=== PATIENT | male | born 1935 | race Caucasian/White ===

== ENCOUNTER 2020-03-25 13:24 | Inpatient (IN) ==
[2020-03-25] MEDS ORDERED: SODIUM CHLORIDE 0.9% 1000ML 500 ML IV ONE ×2 (13:47→14:49)
--- NOTE | 2020-03-25 13:57 | Emergency Department Note ---
Impression & Plan Weakness, Acute hypotension, Abdominal ascites, Pleural effusion, Cellulitis of elbow ED Provider Note NAME: Lesa TRIANA AGE: 84 SEX: M : 1935 ARRIVES VIA: Walk-In INFORMANT: Patient, ED PROVIDER(S): Rigoberto Rankin DO CHIEF COMPLAINT: Weakness HPI: The patient is an 84-year-old male who presented to the emergency [facility] for an evaluation of generalized weakness. The patient himself complains of left-sided weakness. He states that this began approximately noon or maybe 1230. The patient's history is difficult to ascertain at this time. There was a phone call from the patient's primary care physician office. Apparently he was being evaluated for generalized weakness. The patient has had similar symptoms recently. The patient is also being treated for a wound on his right elbow. His son called him and states that he was told to go for an evaluation because of a possible infection on the right elbow. The patient denies having any fevers or chills. He denies having any coughing. He does complain of lower abdominal pain. He states this is been ongoing for approximately 1 week. He denies having any diarrhea or GI bleeding. The patient states he is very weak and has difficulty ambulating. He has pain in both lower extremities. ROS: See above HPI for pertinent positives & negatives. A total of 10 systems reviewed and were otherwise negative. PAST MEDICAL HISTORY: See Below PAST SURGICAL HISTORY: See Below FAMILY HISTORY: See Below SOCIAL HISTORY: See Below HOME MEDICATIONS: See Below ALLERGIES: See Below VITALS: See Below PHYSICAL EXAMINATION: GENERAL: The patient is listless and slow to respond to questioning. He does not appear to be uncomfortable or in pain at this time. EYES: The conjunctivae are clear. The pupils are round and reactive. Right periorbital ecchymosis was noted. EARS, NOSE, MOUTH AND THROAT: The nose is without any evidence of any deformity. Mucous membranes are dry. NECK: The neck is nontender and supple. RESPIRATORY: Shallow respirations were noted. Lung sounds were clear in the upper lung mason. There were diminished breath sounds noted at the bases right greater than left. Rales were noted at the right base. CARDIOVASCULAR: Regular rate and rhythm noted there no murmurs rubs or gallops normal S1 normal S2. GASTROINTESTINAL: Abdomen was mildly distended but soft. There is significant lower abdominal tenderness to palpation but no guarding or rigidity. MUSCULOSKELETAL/EXTREMITIES: There is no evidence of gross deformity full range of motion is noted in the hips and shoulders. SKIN: Pedal edema was noted bilaterally. There is a skin tear with a wound dressing in place on the right elbow. NEUROLOGIC: The patient is awake and oriented to person place and situation. There is no drift in the upper extremities. Golf Ball Trimmer strength is symmetric. The patient speech is pressured and slow. MEDICAL DECISION MAKING: The patient is an 84-year-old male who presented to the emergency department for generalized weakness. The patient describes left-sided weakness which he has been experiencing since this afternoon. He does not appear to have a focal neurologic deficit on my physical exam and was found to be hypotensive. The patient's son states that they were going to see his primary care physician, Dr. Garibay but were instead instructed to come to the emergency department because of the degree the patient's symptomatology. The patient has a right elbow infection which recently had a culture positive for Pseudomonas. The patient was hypotensive and treated with IV fluids. He was also treated with IV antibiotics. I discussed the patient's laboratory and radiographic studies with him as well as his son. At this time I feel the patient may require further inpatient management because the findings on CAT scan specifically the ascites as well as pleural effusions. These do not appear to be previously known diagnoses. I will [facility] Triage Nursing notes reviewed. Prior medical records reviewed Vital Signs: reviewed and remarkable for hypotension initially. Differential diagnosis: Infection, dehydration, metabolic abnormality, hypo/hyperglycemia, electrolyte disturbance, anemia, hypoxia, cardiac sources, intracerebral event, toxicologic, neurologic, as well as other pathologies. ER treatment provided: See below Diagnostics interpreted by me: ECG: EKG was obtained in the emergency department. My interpretation is ventricular paced rhythm at 60 bpm. There were no [place] beats. There was a right bundle branch pattern reflected. This was compared to a tracing from March 18, 2020. There was no significant change although on the previous tracing some [place] beats were noted. Cardiac Monitoring: An order was placed for continuous cardiac monitoring. The monitor shows a rate of 65 with paced rhythm. Laboratory studies: As stated above and show below. Imaging studies: See below Consultation(s): 1544: Dr. Crowe, the [place] hospitalist was notified about the patient in the emergency department. ED COURSE: 1540: I discussed the patient's condition with his son, Jesus. At this time his son is unaware of any previous liver history such as ascites cirrhosis or pleural effusion. I discussed the patient's laboratory and radiographic studies with his son. Past Med/Surg History Medical History Atrial fibrillation (Acute) HX. Pacemaker placed 05/16/19. Recently moved to [place] to live with h is son, and will be establishing with [facility] cardiology after surgery. Avulsion of skin (Inactive) Bladder neck contracture BPH loc w urin obs/LUTS Candidiasis of mouth and esophagus CHI (closed head injury) (Inactive) Closed fracture nasal bone (Inactive) Contusion (Inactive) Difficulty swallowing 2/2 thrush GERD (gastroesophageal reflux disease) Gross hematuria Xarelto d/c'd 08/2019 because of this. Helicobacter pylori (H. pylori) Sleep apnea Using CPAP HS. Currently has possible thrush in throat 2/2 CPAP. 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 Currently on trial of Sinemet to see if it improves. Urinary retention Valvular heart disease Surgical History History of colonoscopy History of esophagogastroduodenoscopy (EGD) History of knee replacement Pacemaker [facility]. PLACED 03/2019 [facility]-USED TO F/U AT [facility]-MOVED TO LIVE WITH SON 08/2019 S/P cataract surgery S/P TURP (transurethral resection of prostate) Family History Sister Colorectal cancer Breast cancer Parkinson disease Son Family history of diabetes mellitus Mother , age 83 of a stroke Stroke Father , age 89 of black Lung Heart disease Denies family history of Ovarian cancer Prostate cancer Crohn's disease Myocardial infarction Ulcerative colitis Social History Preferred Language: Uzbek Communication Ability: Effective Visual Impairment: Partially Limited Hearing Ability: Use of Hearing Aid Replacer Required: No Beliefs That Will Affect Care: None marital status: / Current Living Situation: Family Current Living Situation Comment: LIVES WITH SON/DAUGHTER IN LAW SINCE 08/2019 current occupational status: retired 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 Feels Safe at Home: Yes Smoking Status: Former smoker Tobacco Type: cigarettes and smokeless tobacco ; Number of Years Since Quit: 50 ; Second Hand Exposure: No ; Hx Alcohol Use: No Hx Substance Use: No Childhood Exposure to Second-Hand Smoke: Yes caffeine: Yes during the past year weight has: decreased > 10 lbs Dental Care, Regularly: No Allergies Allergies Allergy/AdvReac Type Severity Reaction Status Date / Time clindamycin Allergy Intermediate Rash Verified 03/24/20 09:00 acetaminophen [From Vicodin] AdvReac Intermediate Racing Verified 03/24/20 09:00 Heart ciprofloxacin [From Cipro] AdvReac Intermediate Blurry Verified 03/24/20 09:00 Vision hydrocodone [From Vicodin] AdvReac Intermediate Racing Verified 03/24/20 09:00 Heart oxycodone AdvReac Intermediate Heart Races Verified 03/24/20 09:00 tramadol [From Ultram] AdvReac Intermediate Profuse Verified 03/24/20 09:00 Sweating doxycycline AdvReac Mild "Burning Verified 03/24/20 09:00 Stomach" Penicillins AdvReac Mild "Hairy Verified 03/24/20 09:00 tongue" propoxyphene AdvReac Unknown "Just do Verified 03/24/20 09:00 [From Darvocet-N] not want pain medications" Home Meds Home Medications Medication Instructions Recorded Confirmed PreserVision AREDS 1 tab PO AMPM 09/19/19 03/25/20 simethicone [Gas-X Extra Strength] 125 mg PO TIDM PRN 09/19/19 03/25/20 polyethylene glycol 3350 17 8.5 gm PO DAILY PRN 10/16/19 03/25/20 gram/dose oral powder lubiprostone [Amitiza] 24 mcg PO BID 12/29/19 03/25/20 diphenhydramine HCl [Benadryl] 25 mg PO HS 03/03/20 03/25/20 rivaroxaban 20 mg tablet 20 mg PO DAILY 03/22/20 03/25/20 Previous Rx's Medication Instructions Recorded tamsulosin 0.4 mg capsule 0.4 mg PO BID #180 cap 01/18/20 finasteride 5 mg tablet 5 mg PO QAM #90 tab 01/28/20 lisinopril 30 mg tablet 30 mg PO QAM #90 tab 01/28/20 furosemide 20 mg tablet 20 mg PO BID #60 tab 03/11/20 alprazolam 1 mg tablet 1 mg PO TID #30 tab 03/24/20 sertraline 50 mg tablet 50 mg PO QAM #30 tab 03/24/20 Results & Data (ED) Vital Signs Vital Signs - 24 hr 03/25/20 13:26 03/25/20 13:51 03/25/20 13:52 Temperature Source Oral Pulse Rate 60 60 Pulse Rate [Apical] Pulse Rate from SpO2 Sensor 60 Pulse Rhythm [Apical] Respiratory Rate 18 12 Respiratory Effort / Characteristics Non-Labored Respiratory Depth Normal Blood Pressure 109/57 L 92/65 L Blood Pressure [Left Arm] Blood Pressure Mean 74 71 Blood Pressure Mean [Left Arm] Blood Pressure Position Sitting Blood Pressure Position [Left Arm] Pulse Oximetry 99 89 L 97 Oxygen Delivery Method Room Air Room Air Nasal Cannula Oxygen Flow Rate 3 Sepsis Recent Fever Within 48 Hours No Sepsis Action Taken by Nursing No Action Required Oxygen Flow Rate - Titration 3 Pulse Oximetry Post Tiitration 97 03/25/20 14:00 03/25/20 14:30 03/25/20 14:40 Temperature Source Pulse Rate 60 62 Pulse Rate [Apical] 61 Pulse Rate from SpO2 Sensor 60 62 Pulse Rhythm [Apical] Regular Respiratory Rate 18 18 18 Respiratory Effort / Characteristics Non-Labored Spontaneous Respiratory Depth Normal Blood Pressure 96/67 L Blood Pressure [Left Arm] 100/71 Blood Pressure Mean 72 Blood Pressure Mean [Left Arm] 80 Blood Pressure Position Blood Pressure Position [Left Arm] Lying Pulse Oximetry 97 100 96 Oxygen Delivery Method Nasal Cannula Nasal Cannula Oxygen Flow Rate 3 3 Sepsis Recent Fever Within 48 Hours Sepsis Action Taken by Nursing Oxygen Flow Rate - Titration Pulse Oximetry Post Tiitration 03/25/20 14:45 03/25/20 14:50 03/25/20 15:00 Temperature Source Pulse Rate 60 60 Pulse Rate [Apical] 60 Pulse Rate from SpO2 Sensor 60 60 Pulse Rhythm [Apical] Regular Respiratory Rate 13 0 L 18 Respiratory Effort / Characteristics Non-Labored Spontaneous Respiratory Depth Normal Blood Pressure 108/72 103/85 Blood Pressure [Left Arm] 108/72 Blood Pressure Mean 80 91 Blood Pressure Mean [Left Arm] 84 Blood Pressure Position Blood Pressure Position [Left Arm] Pulse Oximetry 98 98 97 Oxygen Delivery Method Nasal Cannula Nasal Cannula Oxygen Flow Rate 3 3 Sepsis Recent Fever Within 48 Hours Sepsis Action Taken by Nursing Oxygen Flow Rate - Titration Pulse Oximetry Post Tiitration 03/25/20 15:15 03/25/20 15:30 Temperature Source Pulse Rate 60 60 Pulse Rate [Apical] Pulse Rate from SpO2 Sensor 60 60 Pulse Rhythm [Apical] Respiratory Rate 12 11 L Respiratory Effort / Characteristics Respiratory Depth Blood Pressure 119/78 115/80 Blood Pressure [Left Arm] Blood Pressure Mean 82 89 Blood Pressure Mean [Left Arm] Blood Pressure Position Blood Pressure Position [Left Arm] Pulse Oximetry 100 97 Oxygen Delivery Method Nasal Cannula Nasal Cannula Oxygen Flow Rate 2 2 Sepsis Recent Fever Within 48 Hours Sepsis Action Taken by Nursing Oxygen Flow Rate - Titration Pulse Oximetry Post Tiitration Home Medications Current Medication List: was personally reviewed by me Laboratory Data Attestation: I reviewed the patient's lab results. Result diagrams: 03/25/20 13:52 03/25/20 13:52 Lab Results 03/25/20 03/25/20 03/25/20 Range/Units 13:44 13:51 13:52 WBC 4.74 L (4.8-10.8) K/uL RBC 3.33 L (4.7-6.1) M/uL Hgb 9.5 L (14.0-18.0) g/dL POC Hgb 10.2 L (14.0-18.0) g/dl Hct 29.1 L (42-52) % POC Hct 30 L (42-52) % MCV 87.4 (80-100) fL MCH 28.5 (25-34) pg MCHC 32.6 (32-36) g/dL RDW Std Deviation 58.6 H (36.4-46.3) fL RDW Coeff of Sharona 19.0 H (11.5-14.5) % Plt Count 113 L (130-400) K/uL MPV 10.8 H (7.4-10.4) fL Immature Gran % (Auto) 0.0 % Neut % (Auto) 73.8 % Lymph % (Auto) 17.7 % [place] % (Auto) 6.8 % Eos % (Auto) 1.1 % Baso % (Auto) 0.6 % Immature Gran # (Auto) 0.00 (0.00-0.02) K/uL Neut # (Auto) 3.50 (1.4-6.5) K/uL Lymph # (Auto) 0.84 L (1.2-3.4) K/uL [place] # (Auto) 0.32 (0.11-0.59) K/uL Eos # (Auto) 0.05 (0-0.5) K/uL Baso # (Auto) 0.03 (0-0.2) K/uL Giant Platelets 1+ Hypochromasia Present Echinocytes 1+ Acanthocytes (Spur) 1+ PT (9.0-12.0) Seconds INR (0.9-1.1) APTT (21.0-31.0) Seconds PTT Ratio VBG pH (7.36-7.41) VBG pCO2 (38-50) mmHg VBG pO2 mmHg VBG HCO3 mmol/L VBG O2 Saturation % VBG Base Excess mEq/L Barometric Pressure mm/Hg POC Sodium 139 (135-144) mmol/L Sodium (136-145) mmol/L POC Potassium 4.6 (3.3-5.0) mmol/L Potassium (3.5-5.1) mmol/L POC Chloride 105 (101-112) mmol/L Chloride (98-107) mmol/L Carbon Dioxide (21-32) mmol/L POC Total CO2 23 L (24-31) mEq/l Anion Gap (3-11) POC Anion Gap 17.0 (16-25) mmol/L POC BUN 51 H (7-18) mg/dl BUN (7-18) mg/dl Creatinine (0.6-1.4) mg/dl POC Creatinine 1.3 (0.6-1.3) mg/dl Est Cr Clr Drug Dosing ml/min Est GFR ( Amer) Est GFR (Non-Af Amer) BUN/Creatinine Ratio (10-20) Glucose (70-99) mg/dl POC Glucose (other) 86 (70-99) mg/dl Lactate 2.8 H* (0.4-2.0) mmol/L Calcium (8.5-10.1) mg/dl POC Ioniz Calcium Natasha 1.21 (1.12-1.32) mmol/l Magnesium (1.8-2.4) mg/dl Total Bilirubin (0.2-1) mg/dl AST (15-37) U/L ALT (12-78) U/L Alkaline Phosphatase (45-117) U/L Troponin I (0-0.045) ng/ml Total Protein (6.4-8.2) gm/dl Albumin (3.4-5.0) gm/dl Globulin (2.5-4.0) gm/dl Albumin/Globulin Ratio (0.9-2) Procalcitonin (0-0.5) ng/ml Urine Color Urine Appearance (Clear) Urine pH (4.5-7.5) Ur Specific [place] (1.000-1.030) Urine Protein (Negative) Urine Glucose (UA) (Negative) Urine Ketones (Negative) Urine Blood (Negative) Urine Nitrite (Negative) Urine Bilirubin (Negative) Urine Urobilinogen (Negative) Ur Leukocyte Esterase (Negative) Urine WBC (Auto) (0-5) /hpf Urine RBC (Auto) (0-4) /hpf U Hyaline Cast (Auto) (0-5) /lpf U Epithel Cells (Auto) (0-5) /lpf Urine Bacteria (Auto) (Negative) 03/25/20 03/25/20 03/25/20 Range/Units 13:52 13:52 13:52 WBC (4.8-10.8) K/uL RBC (4.7-6.1) M/uL Hgb (14.0-18.0) g/dL POC Hgb (14.0-18.0) g/dl Hct (42-52) % POC Hct (42-52) % MCV (80-100) fL MCH (25-34) pg MCHC (32-36) g/dL RDW Std Deviation (36.4-46.3) fL RDW Coeff of Sharona (11.5-14.5) % Plt Count (130-400) K/uL MPV (7.4-10.4) fL Immature Gran % (Auto) % Neut % (Auto) % Lymph % (Auto) % [place] % (Auto) % Eos % (Auto) % Baso % (Auto) % Immature Gran # (Auto) (0.00-0.02) K/uL Neut # (Auto) (1.4-6.5) K/uL Lymph # (Auto) (1.2-3.4) K/uL [place] # (Auto) (0.11-0.59) K/uL Eos # (Auto) (0-0.5) K/uL Baso # (Auto) (0-0.2) K/uL Giant Platelets Hypochromasia Echinocytes Acanthocytes (Spur) PT 14.2 H (9.0-12.0) Seconds INR 1.4 H (0.9-1.1) APTT 33.3 H (21.0-31.0) Seconds PTT Ratio 1.2 VBG pH (7.36-7.41) VBG pCO2 (38-50) mmHg VBG pO2 mmHg VBG HCO3 mmol/L VBG O2 Saturation % VBG Base Excess mEq/L Barometric Pressure mm/Hg POC Sodium (135-144) mmol/L Sodium 139 (136-145) mmol/L POC Potassium (3.3-5.0) mmol/L Potassium 4.6 (3.5-5.1) mmol/L POC Chloride (101-112) mmol/L Chloride 107 (98-107) mmol/L Carbon Dioxide 24 (21-32) mmol/L POC Total CO2 (24-31) mEq/l Anion Gap 8.0 (3-11) POC Anion Gap (16-25) mmol/L POC BUN (7-18) mg/dl BUN 57 H (7-18) mg/dl Creatinine 1.37 (0.6-1.4) mg/dl POC Creatinine (0.6-1.3) mg/dl Est Cr Clr Drug Dosing 36.2 ml/min Est GFR ( Amer) 53.7 Est GFR (Non-Af Amer) 46.4 BUN/Creatinine Ratio 41.4 H (10-20) Glucose 84 (70-99) mg/dl POC Glucose (other) (70-99) mg/dl Lactate (0.4-2.0) mmol/L Calcium 8.8 (8.5-10.1) mg/dl POC Ioniz Calcium Natasha (1.12-1.32) mmol/l Magnesium 2.6 H (1.8-2.4) mg/dl Total Bilirubin 0.6 (0.2-1) mg/dl AST 35 (15-37) U/L ALT 35 (12-78) U/L Alkaline Phosphatase 80 (45-117) U/L Troponin I < 0.015 (0-0.045) ng/ml Total Protein 6.8 (6.4-8.2) gm/dl Albumin 3.3 L (3.4-5.0) gm/dl Globulin 3.5 (2.5-4.0) gm/dl Albumin/Globulin Ratio 1.0 (0.9-2) Procalcitonin < 0.05 (0-0.5) ng/ml Urine Color Urine Appearance (Clear) Urine pH (4.5-7.5) Ur Specific [place] (1.000-1.030) Urine Protein (Negative) Urine Glucose (UA) (Negative) Urine Ketones (Negative) Urine Blood (Negative) Urine Nitrite (Negative) Urine Bilirubin (Negative) Urine Urobilinogen (Negative) Ur Leukocyte Esterase (Negative) Urine WBC (Auto) (0-5) /hpf Urine RBC (Auto) (0-4) /hpf U Hyaline Cast (Auto) (0-5) /lpf U Epithel Cells (Auto) (0-5) /lpf Urine Bacteria (Auto) (Negative) 03/25/20 03/25/20 Range/Units 13:52 14:35 WBC (4.8-10.8) K/uL RBC (4.7-6.1) M/uL Hgb (14.0-18.0) g/dL POC Hgb (14.0-18.0) g/dl Hct (42-52) % POC Hct (42-52) % MCV (80-100) fL MCH (25-34) pg MCHC (32-36) g/dL RDW Std Deviation (36.4-46.3) fL RDW Coeff of Sharona (11.5-14.5) % Plt Count (130-400) K/uL MPV (7.4-10.4) fL Immature Gran % (Auto) % Neut % (Auto) % Lymph % (Auto) % [place] % (Auto) % Eos % (Auto) % Baso % (Auto) % Immature Gran # (Auto) (0.00-0.02) K/uL Neut # (Auto) (1.4-6.5) K/uL Lymph # (Auto) (1.2-3.4) K/uL [place] # (Auto) (0.11-0.59) K/uL Eos # (Auto) (0-0.5) K/uL Baso # (Auto) (0-0.2) K/uL Giant Platelets Hypochromasia Echinocytes Acanthocytes (Spur) PT (9.0-12.0) Seconds INR (0.9-1.1) APTT (21.0-31.0) Seconds PTT Ratio VBG pH 7.34 L (7.36-7.41) VBG pCO2 48 (38-50) mmHg VBG pO2 34 mmHg VBG HCO3 25 mmol/L VBG O2 Saturation < 60.0 % VBG Base Excess -0.8 mEq/L Barometric Pressure 727.5 mm/Hg POC Sodium (135-144) mmol/L Sodium (136-145) mmol/L POC Potassium (3.3-5.0) mmol/L Potassium (3.5-5.1) mmol/L POC Chloride (101-112) mmol/L Chloride (98-107) mmol/L Carbon Dioxide (21-32) mmol/L POC Total CO2 (24-31) mEq/l Anion Gap (3-11) POC Anion Gap (16-25) mmol/L POC BUN (7-18) mg/dl BUN (7-18) mg/dl Creatinine (0.6-1.4) mg/dl POC Creatinine (0.6-1.3) mg/dl Est Cr Clr Drug Dosing ml/min Est GFR ( Amer) Est GFR (Non-Af Amer) BUN/Creatinine Ratio (10-20) Glucose (70-99) mg/dl POC Glucose (other) (70-99) mg/dl Lactate (0.4-2.0) mmol/L Calcium (8.5-10.1) mg/dl POC Ioniz Calcium Natasha (1.12-1.32) mmol/l Magnesium (1.8-2.4) mg/dl Total Bilirubin (0.2-1) mg/dl AST (15-37) U/L ALT (12-78) U/L Alkaline Phosphatase (45-117) U/L Troponin I (0-0.045) ng/ml Total Protein (6.4-8.2) gm/dl Albumin (3.4-5.0) gm/dl Globulin (2.5-4.0) gm/dl Albumin/Globulin Ratio (0.9-2) Procalcitonin (0-0.5) ng/ml Urine Color Yellow Urine Appearance Clear (Clear) Urine pH 5.0 (4.5-7.5) Ur Specific [place] 1.024 (1.000-1.030) Urine Protein Negative (Negative) Urine Glucose (UA) Negative (Negative) Urine Ketones Negative (Negative) Urine Blood Negative (Negative) Urine Nitrite Negative (Negative) Urine Bilirubin Negative (Negative) Urine Urobilinogen Negative (Negative) Ur Leukocyte Esterase Trace H (Negative) Urine WBC (Auto) 1-5 (0-5) /hpf Urine RBC (Auto) 0-4 (0-4) /hpf U Hyaline Cast (Auto) 5-10 H (0-5) /lpf U Epithel Cells (Auto) 10-20 H (0-5) /lpf Urine Bacteria (Auto) Negative (Negative) Administered Medications Ioversol (Optiray 320 100ml) 94 ml IV ONCE PRN PRN Reason: Interaction Checking Stop: 03/29/20 14:20 Last Admin: 03/25/20 14:21 Dose: 94 ml Documented by: [id number] Discontinued Medications Sodium Chloride (Nss 1000ml) 500 mls @ 999 mls/hr IV .Q31M ONE Stop: 03/25/20 14:17 Last Infusion: 03/25/20 14:51 Dose: 0 mls/hr Documented by: [id number] Admin: 03/25/20 14:20 Dose: 999 mls/hr Documented by: [id number] Sodium Chloride (Nss 1000ml) 500 mls @ 999 mls/hr IV .Q31M ONE Stop: 03/25/20 15:19 Last Admin: 03/25/20 14:51 Dose: 999 mls/hr Documented by: [id number] Imaging Data Radiologist's Impression: CERVICAL SPINE CT CT DOSE: 1565.25 mGy.cm HISTORY: Fall. Neck pain. TECHNIQUE: Multiaxial CT images of the cervical spine were performed and reformatted in the sagittal and coronal plane without the use of contrast. A dose lowering technique was utilized adhering to the principles of ALARA. COMPARISON: Cervical spine CT 03/03/2020. FINDINGS: No fractures. No subluxation. Prevertebral soft tissues and the C1-C2 interval are intact. No pneumothorax. Moderate to severe facet degenerative changes throughout the cervical spine. Moderate disc space narrowing at C6-C7. IMPRESSION: No fractures within the cervical spine. ACT 112: Negative or not required by law. Electronically signed by: Robbin Mills M.D. 03/25/2020 2:41 PM Dictated: 03/25/20 1436 Transcribed: 03/25/[address] DOSE: HISTORY: left sidedweakness TECHNIQUE: Multiaxial CT images of the head were performed without the use of intravenous contrast. Automated exposure control was utilized for this study. A dose lowering technique was utilized adhering to the principles of ALARA. Comparison: Head CT 03/18/2020. Findings: Trace right mastoid effusion, unchanged. The paranasal sinuses and left mastoid air cells are clear. The calvarium and skull base are intact. There is no mass, hematoma, midline shift, acute infarct. White matter hypodensity is nonspecific but suggestive of microvascular ischemic change. The ventricles and sulci demonstrate mild age-related involutional changes. Impression: No significant change compared to the prior study. No acute intracranial abn ormality. ACT 112: Negative or not required by law. Electronically signed by: Robbin Mills M.D. 03/25/2020 2:49 PM Dictated: 03/25/20 1435 Transcribed: 03/25/20 1435 R chest 1V portable HISTORY: 84 years-old Male SEPSIS acute sepsis COMPARISON: Chest radiograph 03/18/2020, CT abdomen and pelvis 03/25/2020 TECHNIQUE: Portable AP view of the chest FINDINGS: Cardiac silhouette is enlarged, unchanged. Right greater than left pleural effusions and bibasilar opacities are noted without pneumothorax. Pulmonary vascular congestion. Single lead left subclavian pacer is unchanged. Degenerative changes of the shoulders and spine. IMPRESSION: 1. Cardiomegaly with pulmonary vascular congestion. 2. Small bilateral pleural effusions with bibasilar opacities, right greater than left. Findings are suggestive of atelectasis with pneumonitis considered less likely. ACT 112: Negative or not required by law. The above report was generated using voice recognition software. It may contain grammatical, syntax or spelling errors. Electronically signed by: Paul Nielson M.D. 03/25/2020 3:27 PM Dictated: 03/25/20 1526 Transcribed: 03/25/[address] WITH IV CONTRAST HISTORY: Acute left-sided weakness status post fall. PAIN TECHNIQUE: Multiaxial CT images of the abdomen and pelvis were performed following the IV administration of 94 cc of Optiray 320, A dose lowering technique was utilized adhering to the principles of ALARA. COMPARISON STUDY: Chest radiograph of same day FINDINGS: Moderate cardiomegaly with extensive coronary artery calcifications. Partially imaged pacer leads overlie the right ventricle. Small left and small to moderate right pleural effusions. There are equivocal areas of pleural thickening/nodularity of the lung bases (please see image 72 of series 7 and image 40 of series 7) which may be secondary to underlying vessels. Dependent bibasilar groundglass and consolidative opacities with bronchial wall thickenin g. No pneumatosis or pneumoperitoneum. Heterogeneous appearance of the spleen is likely secondary to arterial phase. Heterogeneous appearance of the liver with marginal nodularity. There is an ill-defined area of decreased attenuation and heterogeneity involving the right hepatic with adjacent subcapsular retraction. Moderate abdominal pelvic ascites. Mild generalized pancreatic atrophy. Mild thickening of the adrenal glands. Mild gallbladder wall thickening is likely secondary to fluid overload status. Nonspecific bilateral perinephric stranding. There is a 1.6 x 1.5 cm indeterminate lesion involving the lateral inferolateral pole of the right kidney on image 246 series 7. Indeterminate soft tissue density 10 mm lesion of the anterior interpolar right kidney. Wall thickening of the bladder with perivesicular stranding. Mild prostamegaly. Moderate to extensive mixed plaque of the abdominal aorta without aneurysm. No definite adenopathy. There is no small bowel obstruction. Mild to moderate generalized pancreatic atrophy. Unremarkable appendix. Anasarca. Degenerative changes of the spine, pelvis and hips. No definite acute fracture. IMPRESSION: 1. Cirrhotic liver disease with moderate abdominal pelvic ascites, right greater than left pleural effusions and anasarca. 2. There are two indeterminate lesions of the right kidney, largest of which measures up to 1.6 cm. A follow-up nonemergent CT renal protocol study may be considered to exclude renal cell carcinoma. 3. No acute fracture or posttraumatic abnormality identified. 4. Mild prostamegaly with urinary bladder wall thickening suggestive of chronic bladder outlet obstruction. Correlate with urinalysis to exclude cystitis. 5. No bowel obstruction. 6. Additional findings as above. ACT 112: Negative or not required by law. The above report was generated using voice recognition software. It may contain grammatical, syntax or spelling errors. Electronically signed by: Paul Nielson M.D. 03/25/2020 2:56 PM Dictated: 03/25/20 1440 Transcribed: 03/25/20 1441 Blood Pressure Blood Pressure Findings: Low blood pressure Discharge Plan Visit Data Chief Complaint: Neuro Symptoms/Deficit Stated Complaint: DIFFICULTY WALKING, SLURRED SPEECH ED Provider: Rigoberto Rankin Discharge Problem: Weakness, Acute hypotension, Abdominal ascites, Pleural effusion, Cellulitis of elbow Patient Disposition: Being Evaluated by Hospitalist Condition: Good Forms Stand Alone Forms: [facility] [employer] Prescriptions Prescriptions: No Action Xarelto 20 mg tablet 20 mg PO DAILY RF: 0 tamsulosin [Flomax] 0.4 mg capsule 0.4 mg PO BID Qty: 180 RF: 1 furosemide 20 mg tablet 20 mg PO BID Qty: 60 RF: 2 alprazolam [Xanax] 1 mg tablet 1 mg PO TID Qty: 30 RF: 0 sertraline 50 mg tablet 50 mg PO QAM Qty: 30 RF: 5 lisinopril 30 mg tablet 30 mg PO QAM Qty: 90 RF: 3 finasteride [Proscar] 5 mg tablet 5 mg PO QAM Qty: 90 RF: 3 polyethylene glycol 3350 [Miralax] 17 gram/dose powder 8.5 gm PO DAILY PRN (Reason: Constipation) RF: 0 simethicone [Gas-X Extra Strength] 125 mg Capsule 125 mg PO TIDM PRN (Reason: GAS/BLOATING) RF: 0 PreserVision AREDS [id number] Tablet 1 tab PO AMPM RF: 0 Amitiza 24 mcg Capsule 24 mcg PO BID RF: 0 diphenhydramine HCl [Benadryl] 25 mg Capsule 25 mg PO HS RF: 0 Referrals Referrals: Josue Garibay DO [Primary Care Provider] - Discharge Problem: Abdominal ascites Qualifiers: Ascites type: other type Qualified Code(s): R18.8 - Other ascites
[2020-03-25 14:03] LABS: iSTAT Creatinine 1.3 mg/dl (0.6-1.3); iSTAT Hemoglobin 10.2 g/dl (14.0-18.0); iSTAT Ionized Calcium 1.21 mmol/l (1.12-1.32); iSTAT Potassium 4.6 mmol/L (3.3-5.0)
[2020-03-25 14:04] LABS: Basophils # (auto) 0.03 K/uL (0-0.2); Basophils % (auto) 0.6 %; Eosinophils # (auto) 0.05 K/uL (0-0.5); Eosinophils % (auto) 1.1 %; Hematocrit (blood only) 29.1 % (42-52); Hemoglobin 9.5 g/dL (14.0-18.0); Lymphocytes # (auto) 0.84 K/uL (1.2-3.4); Lymphocytes % (auto) 17.7 %; Mean Corpuscular Hemoglobin 28.5 pg (25-34); Mean Corpuscular Hgb Conc 32.6 g/dL (32-36); Mean Corpuscular Volume 87.4 fL (80-100); Mean Platelet Volume 10.8 fL (7.4-10.4); Monocytes # (auto) 0.32 K/uL (0.11-0.59); Monocytes % (auto) 6.8 %; Neutrophils % (auto) 73.8 %; Platelet Count 113 K/uL (130-400); RDW Standard Deviation 58.6 fL (36.4-46.3); Red Blood Count 3.33 M/uL (4.7-6.1); White Blood Count 4.74 K/uL (4.8-10.8)
[2020-03-25 14:06] LABS: Base Excess VBG -0.8 mEq/L; HCO3 VBG 25 mmol/L; PCO2 VBG 48 mmHg (38-50); PO2 VBG 34 mmHg; pH VBG 7.34 (7.36-7.41)
[2020-03-25 14:07] LABS: Oxygen Saturation VBG < 60.0 %
[2020-03-25 14:18] LABS: Alanine Aminotransferase 35 U/L (12-78); Albumin Level 3.3 gm/dl (3.4-5.0); Aspartate Aminotransferase 35 U/L (15-37); BUN Creatinine Ratio 41.4 (10-20); Blood Urea Nitrogen 57 mg/dl (7-18); Calcium 8.8 mg/dl (8.5-10.1); Carbon Dioxide 24 mmol/L (21-32); Chloride 107 mmol/L (98-107); Creatinine Clr Calc Pharmacy 36.2 ml/min; Est GFR (African American) 53.7; Est GFR (Non-African American) 46.4; Glucose 84 mg/dl (70-99); Magnesium 2.6 mg/dl (1.8-2.4); Potassium 4.6 mmol/L (3.5-5.1); Sodium 139 mmol/L (136-145)
[2020-03-25 14:21] LABS: INR 1.4 (0.9-1.1); Partial Thromboplastin Ratio 1.2; Partial Thromboplastin Time 33.3 Seconds (21.0-31.0); Prothrombin Time 14.2 Seconds (9.0-12.0)
[2020-03-25] MEDS ORDERED: IOVERSOL 100ml IV PRN (14:21)
[2020-03-25 14:23] LABS: Alkaline Phosphatase 80 U/L (45-117); Bilirubin,Total 0.6 mg/dl (0.2-1); Globulin 3.5 gm/dl (2.5-4.0); Total Protein 6.8 gm/dl (6.4-8.2); Troponin I < 0.015 ng/ml (0-0.045)
[2020-03-25 14:34] LABS: Acanthocytes 1+; Echinocytes 1+; Giant Platelets 1+; Hypochromasia Present
--- NOTE | 2020-03-25 14:36 | CT Scan Report ---
HEAD CT NONCONTRAST CT DOSE: HISTORY: left sidedweakness TECHNIQUE: Multiaxial CT images of the head were performed without the use of intravenous contrast. A utomated exposure control was utilized for this study. A dose lowering technique was utilized adheri ng to the principles of ALARA. Comparison: Head CT 03/18/2020. Findings: Trace right mastoid effusion, unchanged. The paranasal sinuses and left mastoid air cells a re clear. The calvarium and skull base are intact. There is no mass, hematoma, midline shift, acute i nfarct. White matter hypodensity is nonspecific but suggestive of microvascular ischemic change. The ventricles and sulci demonstrate mild age-related involutional changes. Impression: No significant change compared to the prior study. No acute intracranial abnormality. ACT 112: Negative or not required by law. Electronically signed by: Robbin Mills M.D. 03/25/2020 2:49 PM
--- NOTE | 2020-03-25 14:42 | CT Scan Report ---
CERVICAL SPINE CT CT DOSE: 1565.25 mGy.cm HISTORY: Fall. Neck pain. TECHNIQUE: Multiaxial CT images of the cervical spine were performed and reformatted in the sagittal and coronal plane without the use of contrast. A dose lowering technique was utilized adhering to e principles of ALARA. COMPARISON: Cervical spine CT 03/03/2020. FINDINGS: No fractures. No subluxation. Prevertebral soft tissues and the C1-C2 interval are intact. No pneumothorax. Moderate to severe facet degenerative changes throughout the cervical spine. Moderat e disc space narrowing at C6-C7. IMPRESSION: No fractures within the cervical spine. ACT 112: Negative or not required by law. Electronically signed by: Robbin Mills M.D. 03/25/2020 2:41 PM
--- NOTE | 2020-03-25 14:57 | CT Scan Report ---
ABDOMEN AND PELVIS CT WITH IV CONTRAST HISTORY: Acute left-sided weakness status post fall. PAIN TECHNIQUE: Multiaxial CT images of the abdomen and pelvis were performed following the IV administrat ion of 94 cc of Optiray 320, A dose lowering technique was utilized adhering to the principles of AL EFRA. COMPARISON STUDY: Chest radiograph of same day FINDINGS: Moderate cardiomegaly with extensive coronary artery calcifications. Partially imaged pacer leads ove rlie the right ventricle. Small left and small to moderate right pleural effusions. There are equivoc al areas of pleural thickening/nodularity of the lung bases (please see image 72 of series 7 and imag e 40 of series 7) which may be secondary to underlying vessels. Dependent bibasilar groundglass and c onsolidative opacities with bronchial wall thickening. No pneumatosis or pneumoperitoneum. Heterogeneous appearance of the spleen is likely secondary to arterial phase. Heterogeneous appearanc e of the liver with marginal nodularity. There is an ill-defined area of decreased attenuation and he terogeneity involving the right hepatic with adjacent subcapsular retraction. Moderate abdominal pelv ic ascites. Mild generalized pancreatic atrophy. Mild thickening of the adrenal glands. Mild gallblad april wall thickening is likely secondary to fluid overload status. Nonspecific bilateral perinephric stranding. There is a 1.6 x 1.5 cm indeterminate lesion involving t he lateral inferolateral pole of the right kidney on image 246 series 7. Indeterminate soft tissue de nsity 10 mm lesion of the anterior interpolar right kidney. Wall thickening of the bladder with periv esicular stranding. Mild prostamegaly. Moderate to extensive mixed plaque of the abdominal aorta with out aneurysm. No definite adenopathy. There is no small bowel obstruction. Mild to moderate generalized pancreatic atrophy. Unremarkable ap pendix. Anasarca. Degenerative changes of the spine, pelvis and hips. No definite acute fracture. IMPRESSION: 1. Cirrhotic liver disease with moderate abdominal pelvic ascites, right greater than left pleural ef fusions and anasarca. 2. There are two indeterminate lesions of the right kidney, largest of which measures up to 1.6 cm. A follow-up nonemergent CT renal protocol study may be considered to exclude renal cell carcinoma. 3. No acute fracture or posttraumatic abnormality identified. 4. Mild prostamegaly with urinary bladder wall thickening suggestive of chronic bladder outlet obstru ction. Correlate with urinalysis to exclude cystitis. 5. No bowel obstruction. 6. Additional findings as above. ACT 112: Negative or not required by law. The above report was generated using voice recognition software. It may contain grammatical, syntax o r spelling errors. Electronically signed by: Paul Nielson M.D. 03/25/2020 2:56 PM
[2020-03-25 14:58] LABS: Appearance Urine Clear (Clear); Bacteria Urine Automated Negative (Negative); Bilirubin Urine Negative (Negative); Blood Urine Negative (Negative); Color Urine Yellow; Glucose Urine UA Negative (Negative); Ketones Urine Negative (Negative); Leukocyte Esterase Urine Trace (Negative); Nitrite Urine Negative (Negative); Protein Urine Negative (Negative); RBC Urine Automated 0-4 /hpf (0-4); Specific Gravity Urine 1.024 (1.000-1.030); Urobilinogen Urine Negative (Negative)
--- NOTE | 2020-03-25 15:28 | XRay Report ---
XR chest 1V portable HISTORY: 84 years-old Male SEPSIS acute sepsis COMPARISON: Chest radiograph 03/18/2020, CT abdomen and pelvis 03/25/2020 TECHNIQUE: Portable AP view of the chest FINDINGS: Cardiac silhouette is enlarged, unchanged. Right greater than left pleural effusions and bibasilar op acities are noted without pneumothorax. Pulmonary vascular congestion. Single lead left subclavian pa cer is unchanged. Degenerative changes of the shoulders and spine. IMPRESSION: 1. Cardiomegaly with pulmonary vascular congestion. 2. Small bilateral pleural effusions with bibasilar opacities, right greater than left. Findings are suggestive of atelectasis with pneumonitis considered less likely. ACT 112: Negative or not required by law. The above report was generated using voice recognition software. It may contain grammatical, syntax o r spelling errors. Electronically signed by: Paul Nielson M.D. 03/25/2020 3:27 PM
[2020-03-25] MEDS ORDERED: cefTRIAXone SODIUM 1,000 MG/50 ML BAG IV STA (15:32)
[2020-03-25] MEDS ORDERED: LEVOFLOXACIN/D5W 750 MG/150 ML BAG IV STA (15:32)
--- NOTE | 2020-03-25 15:36 | Electrocardiogram Report ---
Test Reason : Blood Pressure : / mmHG Vent. Rate : 060 BPM Atrial Rate : 057 BPM P-R Int : 000 ms QRS Dur : 182 ms QT Int : 510 ms P-R-T Axes : 000 -72 087 degrees QTc Int : 510 ms Ventricular-paced rhythm Abnormal ECG When compared with ECG of 18-MAR-2020 17:13, Vent. rate has decreased BY 4 BPM Confirmed by Rigoberto Clinton ([id number]) on 03/25/2020 3:36:01 PM Referred By: ER Confirmed By:Rigoberto Clinton
--- NOTE | 2020-03-25 15:55 | History & Physical Report ---
Date of Service March 25, 2020 Assessment & Plan (1) Toxic metabolic encephalopathy: Suspected hepatic/uremic/toxic/metabolic encephalopathy. Ammonia pending. Lactulose 20mg PO now. Will determine ongoing regimen if ammonia is elevated. (2) Elevated BUN: Given acuity of this, potentially contributing/causing encephalopathy above. Unclear cause of this however since UA and Cr relatively unremarkable. Hgb normal therefore not suggestive of GI bleed. (3) Weakness: Appears generalized on exam today with no one sided focal neurological deficit. Given patient concern of L > R and prior plan from neurology to get MRI we will obtain this to r/o CVA as a possible cause of his current symptoms. In light of abdominal ascites and liver pathology however I suspect cause is more generalized encephalopathy as above. (4) Hallucinations: None currently as he mainly describes hypnagogic hallucinations. See above management for encephalopathy. Possibly exacerbated by Xanax use although his hallucinations are acute and he has not changed his Xanax dosing recently. QTc 510ms therefore will defer prescribing PRN anti-psychotics and recommend calling provider if this occurs in hospital. If just hypnagogic would avoid anti-psychotic use. (5) Prolonged QT interval: Monitor with serial EKGs, especially on Levaquin. (6) Abnormal CT of liver: Concerning for liver cirrhosis/neoplasm given current and prior imaging. LFTs unremarkable. Plt 133 at baseline. PTINR elevated at 1.4 but possibly from Xarelto use. Albumin 3.3. Noted hepatic mass also present on prior scans. (7) Abdominal ascites: New onset. On Xarelto therefore would need 24 hours off this to perform paracentesis as per Dr Osorio. SBP not suspected as WBC at baseline, no fever/chills or significant abdominal pain therefore do not feel this is emergent. Blood cultures taken in ER. Given weekend tomorrow; plan would be to perform paracentesis on Saturday and hold Xarelto Saturday night unless clinically patient getting worse. Initially given IV fluids in ER due to hypotension but given JVD elevation, anasarca and pleural effusions he appears to be hypervolemic at present therefore given 40mg IV lasix. Will defer further diuretics depending on clinical response in AM with repeat Cr. Daily weights I&Os Fluid restricted diet to 1500ml, Low Na diet (8) Pleural effusion: Fits with generalized hypervolemic state suspect due to liver pathology above although noted mod-severe mitral regurgitation therefore possible some heart failure element to this. Consider thoracocentesis if paracentesis is not revealing however he is not significantly hypoxic to warrant this therapeutically. Lasix as above. (9) Lower extremity edema: as above (10) Atrial fibrillation: Ventricular paced rhythm at present. No discernable p waves. Xarelto for anticoagulation (hold Saturday night for paracentesis potentially on Saturday) Appears to be rate controlled without medication. (11) Pacemaker: Single chamber pacemaker with base rate 60. 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 Currently he is ventricular paced in atrial fibrillation. (12) Mitral regurgitation: Moderate-severe on echo 11/2019 (13) Tricuspid regurgitation: Moderate on echo 11/2019. Likely contributing towards pedal edema but would not explain generalized anasarca and ascites (14) Tremor: Noted by recent neurology visit. He had been taking Sinemet but this was discontinued as not suspected to have Parkinson's given no bradykinesia or cogwheel rigidity. He does not have those findings today either and his tremor is more action than at rest. (15) BPH loc w urin obs/LUTS: Continue tamsulosin 0.4mg PO BID, finasteride 5mg PO daily. Catheterized for 100ml in ER therefore do not suspect he is significantly retaining despite history of this. Bladder scan BID; call provider if > 500ml. 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 Prescribed 1mg PO TID. Concerned about giving any due to his current confusion and hallucinations but will try and avoid withdrawal by reducing dose in half. (17) DVT prophylaxis: Xarelto Admission and Anticipated Discharge Date Admission Date: 03/25/20 History of Present Illness Chief Complaint: Generalized weakness, failure to thrive, Primary Care Provider: DO Lesa LovelaceGracy Ely) is an 84-year-old male who presented to the emergency department for an evaluation of generalized weakness, recurrent falls and slurred speech. History from the patient is somewhat limited and supplemented with outpatient notes. The patient reports these symptoms have been going on for the last week. Initially he felt he had right hand weakness for 2 days and was seen in the ER on March 18. No focal deficit was noted on exam but the patient noted fine motor changes. CT head was normal and he was discharged from the ER. He was followed up by neurology yesterday and recommended MRI brain w/ w/o contrast pending pacemaker clearance to r/o left hemispheric CVA; this is yet to be performed. He was followed by primary care provider the same day with day history of slurred speech and bilateral lower extremity weakness while trying to get up from the toilet. The patient reported to the ER he currently feels more weak on the left compared to right side. To myself he was unsure and mainly felt generally weak all over. In addition the patient reports last falling 6 weeks prior (correlates with visit on 03/03/20) at which time he just turned too fast and fell down causing an injury to his right elbow and nasal fracture. He most recently was seen by wound care for the right elbow wound which was cultures and subsequently grew pseudomonas. In the ER he was complaining of abdominal pain and underwent CT A/P with IV contrast showing cirrhotic liver disease with moderate abdominal pelvic ascites, R>L pleural effusions and anasarca. The patient and his son were unaware of any liver problems. The patient denies any fevers or chills, reports mild left sided abdominal pain which is relieved with bowel movements. He notes chronic constipation but currently not an issue on Amitiza but unsure when his last BM was. Mild nausea but no vomiting. No melena or red blood in stool. The patient is aware of surveillance of mass on his kidneys which he reports has not grown in size for a long time (unknown exactly how long). Prior imaging from [facility] CT A/P with IV contrast [April 2019]: 1. Multiple ill defined low attenuation hepatic lesions with the largest one 2.5cm in right hepatic lobe. Probably slightly increased in number and size compared to prior abdominal MRI and CT from 2016. Hepatic US and enhanced MRI abdomen suggested for further evaluation. 2. 1.5cm soft tissue density exophytic right kidney cortical lesions representing hyperdense cyst versus renal mass (renal US or MRI abdo suggested) 3. Constipation Allergies Allergy/AdvReac Type Severity Reaction Status Date / Time clindamycin Allergy Intermediate Rash Verified 03/24/20 09:00 acetaminophen [From Vicodin] AdvReac Intermediate Racing Verified 03/24/20 09:00 Heart ciprofloxacin [From Cipro] AdvReac Intermediate Blurry Verified 03/24/20 09:00 Vision hydrocodone [From Vicodin] AdvReac Intermediate Racing Verified 03/24/20 09:00 Heart oxycodone AdvReac Intermediate Heart Races Verified 03/24/20 09:00 tramadol [From Ultram] AdvReac Intermediate Profuse Verified 03/24/20 09:00 Sweating doxycycline AdvReac Mild "Burning Verified 03/24/20 09:00 Stomach" Penicillins AdvReac Mild "Hairy Verified 03/24/20 09:00 tongue" propoxyphene AdvReac Unknown "Just do Verified 03/24/20 09:00 [facility] not want pain medications" Home Medications Home Medications Medication Instructions Recorded Confirmed Type PreserVision AREDS 1 tab PO AMPM 09/19/19 03/25/20 History simethicone [Gas-X Extra Strength] 125 mg PO TIDM PRN 09/19/19 03/25/20 History polyethylene glycol 3350 17 8.5 gm PO DAILY PRN 10/16/19 03/25/20 History gram/dose oral powder lubiprostone [Amitiza] 24 mcg PO BID 12/29/19 03/25/20 History tamsulosin 0.4 mg capsule 0.4 mg PO BID #180 cap 01/18/20 03/25/20 Rx finasteride 5 mg tablet 5 mg PO QAM #90 tab 01/28/20 03/25/20 Rx lisinopril 30 mg tablet 30 mg PO QAM #90 tab 01/28/20 03/25/20 Rx diphenhydramine HCl [Benadryl] 25 mg PO HS 03/03/20 03/25/20 History furosemide 20 mg tablet 20 mg PO BID #60 tab 03/11/20 03/25/20 Rx rivaroxaban 20 mg tablet 20 mg PO DAILY 03/22/20 03/25/20 History alprazolam 1 mg tablet 1 mg PO TID #30 tab 03/24/20 03/25/20 Rx sertraline 50 mg tablet 50 mg PO QAM #30 tab 03/24/20 03/25/20 Rx Past Med/Surg History Medical History Atrial fibrillation (Acute) HX. Pacemaker placed 05/16/19. Recently moved to [place] to live with his son, and will be establishing with [facility] cardiology after surgery. Avulsion of skin (Inactive) Bladder neck contracture BPH loc w urin obs/LUTS Candidiasis of mouth and esophagus CHI (closed head injury) (Inactive) Closed fracture nasal bone (Inactive) Contusion (Inactive) Difficulty swallowing 2/2 thrush GERD (gastroesophageal reflux disease) Gross hematuria Xarelto d/c'd 08/2019 because of this. Helicobacter pylori (H. pylori) Sleep apnea Using CPAP HS. Currently has possible thrush in throat 2/2 CPAP. 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 Currently on trial of Sinemet to see if it improves. Urinary retention Valvular heart disease Surgical History History of colonoscopy History of esophagogastroduodenoscopy (EGD) History of knee replacement Pacemaker [employer]. PLACED 03/2019 [facility]USED TO F/U AT [facility]-MOVED TO LIVE WITH SON 08/2019 S/P cataract surgery S/P TURP (transurethral resection of prostate) Family History Sister Colorectal cancer Breast cancer Parkinson disease Son Family history of diabetes mellitus Mother , age 83 of a stroke Stroke Father , age 89 of black Lung Heart disease Denies family history of Ovarian cancer Prostate cancer Crohn's disease Myocardial infarction Ulcerative colitis Social History Preferred Language: Burkinan Communication Ability: Effective Visual Impairment: Partially Limited Hearing Ability: Use of Hearing Aid Dairy Associate Required: No Beliefs That Will Affect Care: None marital status: / Current Living Situation: Family Current Living Situation Comment: LIVES WITH SON/DAUGHTER IN LAW SINCE 08/2019 current occupational status: retired current occupation: Previously worked in [employer] 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 Feels Safe at Home: Yes Safety Concerns: Feels Safe At This Time Smoking Status: Former smoker Tobacco Type: cigarettes and smokeless tobacco ; Smoking End Date: 56 years ago ; Number of Years Since Quit: 50 ; Second Hand Exposure: No ; Hx Alcohol Use: No Hx Substance Use: No Childhood Exposure to Second-Hand Smoke: Yes caffeine: Yes during the past year weight has: decreased > 10 lbs Dental Care, Regularly: No Review of Systems Review of Systems: All systems reviewed & are unremarkable except as noted in HPI & below Constitutional: + fatigue and + weakness (bilateral); no fever and no chills Eyes: + 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)) Respiratory: no cough and no dyspnea Cardiovascular: no chest pain and no dyspnea Gastrointestinal: as per Subjective / HPI, + abdominal pain and + nausea; no belching, no heartburn, no vomiting, no cramping, no change in bowel habits, no blood in stools and no melena Genitourinary: + difficulty urinating; no dysuria Physical Exam Constitutional: well developed and + frail appearing; + not well nourished, no acute distress and not lethargic Eyes: PERRL, conjunctivae normal, anicteric sclerae ENMT: external ear and nose normal, oropharynx normal Neck: normal visual inspection and trachea midline Respiratory: normal respiratory effort; no respiratory distress Auscultation: lungs clear to auscultation bilaterally and + diminished lung sounds (bibasal); no crackles, no rales, no rhonchi and no wheezes Cardiovascular: Rate/Rhythm: regular rate and regular rhythm Heart Sounds: no murmur Vessels: + JVD Extremities: normal capillary refill, + pedal edema (3+ b/l lower extremities) and + edema (1+ over abdomen); no calf tenderness Gastrointestinal (Abdomen): Inspection/Auscultation: + abdomen distended, normal bowel sounds and + abdominal edema Percussion/Palpation: + abdomen tender (mild left sided, resolved with distraction) and abdomen soft; no guarding and abdomen not rigid Musculoskeletal: Extremities: + extremities abnormal to inspection (significant swelling present b/l equal) Skin: No cellulitis surrounding wound on right elbow, green fluid present on dressing but purulent fluid below this Neurologic: moves all extremities and awake (appears tired); no focal motor deficits (bilaterally weak) and not confused Speech / Cognition: normal speech Motor/Sensory: + tremor (very mild resting intermittently on left, worse with movement); no pronator drift, no asterixis and no sensory deficit Cranial Nerves: PERRL, EOM intact bilaterally (without nystagmus), normal facial strength, tongue midline, able to rotate head bilaterally, able to elevate shoulders bilaterally, no nystagmus and symmetric palate elevation; + hearing impairment (hard of hearing) Coordination: + abnormal [id number] test (bilateral action tremor L > R) Psychiatric: Orientation: alert and oriented x 3 Eye Contact: good eye contact Motor Behavior: no psychomotor agitation Results & Data Results & Data ([facility]) Vital Signs (Past 12 Hours) Vital Signs Pulse Pulse Resp BP BP Pulse Ox 03/25/20 15:45 70 13 124/84 95 03/25/20 15:30 60 11 L 115/80 97 03/25/20 15:15 60 12 119/78 100 03/25/20 15:00 60 18 103/85 97 03/25/20 14:50 60 0 L 108/72 98 03/25/20 14:45 60 13 108/72 98 03/25/20 14:40 62 18 96 03/25/20 14:30 61 18 100/71 100 03/25/20 14:00 60 18 96/67 L 97 03/25/20 13:52 97 03/25/20 13:51 60 12 92/65 L 89 L 03/25/20 13:26 60 18 109/57 L [address] NONCONTRAST Impression: No significant change compared to the prior study. No acute intracranial abnormality. CERVICAL SPINE CT IMPRESSION: No fractures within the cervical spine. XR chest 1V portable IMPRESSION: 1. Cardiomegaly with pulmonary vascular congestion. 2. Small bilateral pleural effusions with bibasilar opacities, right greater than left. Findings are suggestive of atelectasis with pneumonitis considered less likely. ABDOMEN AND PELVIS CT WITH IV CONTRAST IMPRESSION: 1. Cirrhotic liver disease with moderate abdominal pelvic ascites, right greater than left pleural effusions and anasarca. 2. There are two indeterminate lesions of the right kidney, largest of which measures up to 1.6 cm. A follow-up nonemergent CT renal protocol study may be considered to exclude renal cell carcinoma. 3. No acute fracture or posttraumatic abnormality identified. 4. Mild prostamegaly with urinary bladder wall thickening suggestive of chronic bladder outlet obstruction. Correlate with urinalysis to exclude cystitis. 5. No bowel obstruction. 6. Additional findings as above. ECG Indication: altered mental status Rate (beats per minute): 60 Rhythm: atrial fibrillation Findings: + other (Ventricular paced) Comparison ECG Date: from (03/18/2020) Change: no significant change Code Status & VTE Plan Code Status DNR in the setting of cardiac arrest Intubation and other advanced cardiac life support ok outside of a cardiac arrest. VTE Prophylaxis Plan VTE Prophylaxis will be ordered: Yes PG Care Time/CCT Total # of Minutes Spent Total Time Spent with Patient: Total time spent is greater than 50% in coordination of care (as documented) at patient's floor/unit and/or counseling patient: Coding Level of Care Code 68122 Initial Inpt Care Lvl 3 Diagnoses Toxic metabolic encephalopathy G92 Elevated BUN R79.9 Weakness R53.1 Hallucinations R44.3 Prolonged QT interval R94.[address] of liver R93.2 Abdominal ascites R18.8 Ascites type: other type Pleural effusion J90 Lower extremity edema R60.0 Atrial fibrillation I48.11 Atrial fibrillation type: longstanding persistent Pacemaker Z95.0 Mitral regurgitation I34.0 Cardiac valve disease etiology: nonrheumatic Tricuspid regurgitation I36.1 Cardiac valve disease etiology: nonrheumatic Tremor R25.1 BPH loc w urin obs/LUTS N40.1 Anxiety F41.9 DVT prophylaxis Z29.9 (1) Abdominal ascites Ascites type: other type Qualified Code(s): R18.8 - Other ascites (2) Tricuspid regurgitation Cardiac valve disease etiology: nonrheumatic Qualified Code(s): I36.1 - Nonrheumatic tricuspid (valve) insufficiency (3) Atrial fibrillation Atrial fibrillation type: longstanding persistent Qualified Code(s): I48.11 - Longstanding persistent atrial fibrillation (4) Mitral regurgitation Cardiac valve disease etiology: nonrheumatic Qualified Code(s): I34.0 - Nonrheumatic mitral (valve) insufficiency
[2020-03-25] MEDS ORDERED: FUROSEMIDE 40 MG/4 ML VIAL IV STA (16:40)
[2020-03-25] MEDS ORDERED: LACTULOSE SYRUP 20 GM/30 ML UDC PO ONE (16:46)
[2020-03-25 18:04] LABS: Thyroid Stimulating Hormone 8.19 uIu/ml (0.300-4.500)
[2020-03-25 18:21] LABS: T4 Free Thyroxine 1.03 ng/dl (0.8-1.6)
[2020-03-25] MEDS ORDERED: ONDANSETRON INJ 2 MG/ML 2 ML VIAL IV PRN (18:52)
[2020-03-25 19:42] LABS: Hepatitis B Surface Antigen Neg (Neg)
[2020-03-25 20:05] LABS: Amphetamines+Metham, Urine Neg (Neg); Barbiturates, Urine Neg (Neg); Benzodiazepine, Urine Pos (Neg); Cocaine, Urine Neg (Neg); MDMA (Ecstacy), Urine Neg (Neg); Methadone, Urine Neg (Neg); Opiate, Urine Neg (Neg); Phencyclidine, Urine Neg (Neg)
[2020-03-25 20:10] LABS: Hepatitis C IgG 13Yrs+Old_Rflx Neg (Neg)
[2020-03-25] MEDS: TAMSULOSIN HCL 0.4 MG CAP PO SCH (21:20)
[2020-03-25] MEDS: LUBIPROSTONE 8 MCG CAP PO SCH (21:20)
[2020-03-25] MEDS: CEROVITE ADV FORMULA TAB PO SCH (21:21)
[2020-03-25] MEDS: ALPRAZolam 0.5 MG TABLET PO SCH (21:23)
[2020-03-25] MEDS ORDERED: CEFEPIME 2,000 MG in SYRINGE 7.5 ML IV ONE (23:00)
[2020-03-25] MEDS: ALBUMIN 25% 50 ML IV SCH (23:29)
[2020-03-26] MEDS: ALBUMIN 25% 50 ML IV SCH ×8 (01:06→09:15)
[2020-03-26 07:20] LABS: Hematocrit (blood only) 25.9 % (42-52); Hemoglobin 8.7 g/dL (14.0-18.0); Mean Corpuscular Hemoglobin 28.8 pg (25-34); Mean Corpuscular Hgb Conc 33.6 g/dL (32-36); Mean Corpuscular Volume 85.8 fL (80-100); RDW Coefficient of Variation 18.8 % (11.5-14.5); Red Blood Count 3.02 M/uL (4.7-6.1); White Blood Count 3.81 K/uL (4.8-10.8)
[2020-03-26 07:22] LABS: Estimated Average Glucose 123 mg/dl; Hemoglobin A1C 5.9 % (4.5-5.6)
[2020-03-26] MEDS: ALPRAZolam 0.5 MG TABLET PO SCH ×3 (07:38→20:18)
[2020-03-26 07:39] LABS: Basophils # (auto) 0.02 K/uL (0-0.2); Basophils % (auto) 0.5 %; Eosinophils # (auto) 0.05 K/uL (0-0.5); Eosinophils % (auto) 1.3 %; Lymphocytes # (auto) 0.68 K/uL (1.2-3.4); Lymphocytes % (auto) 17.8 %; Mean Platelet Volume 10.3 fL (7.4-10.4); Monocytes # (auto) 0.31 K/uL (0.11-0.59); Monocytes % (auto) 8.1 %; Neutrophils # (auto) 2.75 K/uL (1.4-6.5); Neutrophils % (auto) 72.3 %; Platelet Count 89 K/uL (130-400); Platelet Estimate Decreased (Normal); RBC Morphology Unremarkable
[2020-03-26] MEDS: LUBIPROSTONE 8 MCG CAP PO SCH ×2 (07:39→20:17)
[2020-03-26] MEDS: FINASTERIDE 5 MG TAB PO SCH (07:39)
[2020-03-26] MEDS: TAMSULOSIN HCL 0.4 MG CAP PO SCH ×2 (07:39→20:17)
[2020-03-26] MEDS: CEROVITE ADV FORMULA TAB PO SCH ×2 (07:40→20:17)
[2020-03-26] MEDS: SERTRALINE HCL 50 MG TABLET PO SCH (07:40)
[2020-03-26] MEDS: lisinopriL 10 MG TAB PO SCH (07:44)
[2020-03-26 08:05] LABS: BUN Creatinine Ratio 47.3 (10-20); Calcium 8.7 mg/dl (8.5-10.1); Creatinine Clr Calc Pharmacy 44.3 ml/min; Est GFR (African American) 68.6; Est GFR (Non-African American) 59.2; Potassium 4.3 mmol/L (3.5-5.1)
[2020-03-26 08:08] LABS: Albumin Globulin Ratio 1.4 (0.9-2); Bilirubin,Total 0.9 mg/dl (0.2-1); Globulin 2.8 gm/dl (2.5-4.0); Total Protein 6.8 gm/dl (6.4-8.2)
[2020-03-26] MEDS: ALUMINUM/MAGNESIUM SUSP 50 ML, DiphenhydrAMINE Syrup 125 MG, LIDOCAINE HCL 2% VISCOUS 4... PO PRN (16:41)
[2020-03-26] MEDS ORDERED: LEVOFLOXACIN/D5W 750 MG/150 ML BAG IV SCH (17:00)
[2020-03-26] MEDS: LACTATED RINGER'S 1,000 ML IV SCH (17:01)
--- NOTE | 2020-03-26 17:07 | Hospitalist Progress Note ---
Date of Service March 26, 2020 Assessment & Plan (1) Toxic metabolic encephalopathy: uncertain etiology - currently has working dx of SBP as cause; given dry mucous membranes and high BUN i also am quite suspicious of dehydration mental status seems to have improved significantly (2) Weakness: seems to be multifactorial - some probably related to encephalopathy/metabolic processes (?SBP, dehydration) and some seems to have a focal (albeit subtle) nature to it as evidenced in dr burns's 03/24 exam. MRI not yet done (?pacer status) will ask neuro for input (late addendum is in reviewing CT Dr Lee wondered small subacute pontine CVA -- will continue to try to get MRI and will get CTA)(lipids and A1c noted) (3) Elevated BUN: probably dehydrated (4) Dehydration: certainly can be a cause of encephalopathy/weakness - gentle IVF (5) Hallucinations: None currently as he mainly describes hypnagogic hallucinations. follow (6) Prolonged QT interval: improved (7) Abnormal CT of liver: Concerning for liver cirrhosis/neoplasm given current and prior imaging. LFTs unremarkable. Plt sl low. PTINR elevated at 1.4 but possibly from Xarelto use. Albumin 3.3. Noted hepatic mass also present on prior scans. (8) Abdominal ascites: New onset. clinically improving, hold xarelto tomorrow and anticipate paracentesis saturday continue abx for now (9) Pleural effusion: follow - ?liver related (10) Lower extremity edema: probably relates to venous stasis and ascites (11) Atrial fibrillation: rate controlled, anticoagulation (12) Pacemaker: awaiting to see if MRI compatible (13) Mitral regurgitation: Moderate-severe on echo 11/2019 (14) Tricuspid regurgitation: Moderate on echo 11/2019. Likely contributing towards pedal edema but would not explain generalized anasarca and ascites (15) Tremor: Noted by recent neurology visit. He had been taking Sinemet but this was discontinued as not suspected to have Parkinson's given no bradykinesia or cogwheel rigidity. ongoig clinical f/u. (16) BPH loc w urin obs/LUTS: Continue tamsulosin 0.4mg PO BID, finasteride 5mg PO daily. Catheterized for 100ml in ER therefore do not suspect he is significantly retaining despite history of this. Bladder scan BID; call provider if > 500ml. 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 Prescribed 1mg PO TID. Concerned about giving any due to his current confusion and hallucinations but will try and avoid withdrawal by reducing dose in half. (18) DVT prophylaxis: Xarelto (hold tomorrow) Admission and Anticipated Discharge Date Admission Date: March 25, 2020 Subjective feeling better overall - even wonders when he'll get home no cp no sob no abdominal pain no f/c/s tremor he notes has been for years tried to call son to update - left voicemail Review of Systems Review of Systems: All systems reviewed & are unremarkable except as noted in HPI & below Physical Exam Physical Exam: gen aao pleasant nad heent nc at mm dry cardio reg no r/m/g lungs cta b/l no r/r/w good effort skin no rashes no pallor or icterus neuro no focal deficits strength grossly equal, large amplitude resting tremor abd soft mod distention nontender (+) fluid wave pt notes it's been that way for quite a while Results & Data Results & Data ([facility]) Vital Signs (Past 12 Hours) Vital Signs Temp Pulse Pulse Pulse Resp BP Pulse Ox 03/26/20 15:40 96.8 F L 63 16 113/54 L 98 03/26/20 11:41 97.2 F L 62 15 118/73 97 03/26/20 09:21 97.3 F L 70 70 18 104/64 98 03/26/20 07:17 97.3 F L 65 16 123/74 93 03/26/20 07:16 64 PG Care Time/CCT Total # of Minutes Spent Total Time Spent with Patient: Total time spent is greater than 50% in coordination of care (as documented) at patient's floor/unit and/or counseling patient: Coding Level of Care Code 11780 Subseq Hosp Care Lvl 3 Diagnoses Toxic metabolic encephalopathy G92 Weakness R53.1 Elevated BUN R79.9 Dehydration E86.0 Hallucinations R44.3 Prolonged QT interval R94.[address] of liver R93.2 Abdominal ascites R18.8 Ascites type: other type Pleural effusion J90 Lower extremity edema R60.0 Atrial fibrillation I48.11 Atrial fibrillation type: longstanding persistent Pacemaker Z95.0 Mitral regurgitation I34.0 Cardiac valve disease etiology: nonrheumatic Tricuspid regurgitation I36.1 Cardiac valve disease etiology: nonrheumatic Tremor R25.1 BPH loc w urin obs/LUTS N40.1 Anxiety F41.9 DVT prophylaxis Z29.9 (1) Abdominal ascites Ascites type: other type Qualified Code(s): R18.8 - Other ascites (2) Atrial fibrillation Atrial fibrillation type: longstanding persistent Qualified Code(s): I48.11 - Longstanding persistent atrial fibrillation (3) Mitral regurgitation Cardiac valve disease etiology: nonrheumatic Qualified Code(s): I34.0 - Nonrheumatic mitral (valve) insufficiency (4) Tricuspid regurgitation Cardiac valve disease etiology: nonrheumatic Qualified Code(s): I36.1 - Nonrheumatic tricuspid (valve) insufficiency
[2020-03-26] MEDS ORDERED: OPTIRAY 320 125ml IV PRN (17:54)
--- NOTE | 2020-03-26 18:13 | CT Scan Report ---
CT angio head w con CLINICAL HISTORY: Weakness. POSSIBLE PONTINE INFARCT. TECHNIQUE: CT angiography of the head was performed in a dynamic helical fashion during intravenous a dministration of 117 cc of Optiray 320. MIP imaging was performed. A dose lowering technique was util ized adhering to the principles of ALARA. 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 There are no major intracranial br anch occlusions. The dural venous sinuses appear patent. IMPRESSION: 1. 2 mm anterior communicating artery aneurysm 2. Otherwise unremarkable CT angiography of the brain for age ACT 112: Negative or not required by law. Electronically signed by: Darian Mclaughlin M.D. 03/26/2020 6:12 PM
--- NOTE | 2020-03-26 18:18 | CT Scan Report ---
CT angio neck with con CLINICAL HISTORY: Weakness. Possible pontine infarct. COMPARISON STUDY: No previous studies for comparison. TECHNIQUE: CT angiography was performed from the aortic arch to the skull base. MIP imaging was perfo rmed. The patient was scanned in a dynamic helical fashion during intravenous administration of 117 c c of Optiray 320. A dose lowering technique was utilized adhering to the principles of ALARA. CT DOSE: Technique: CT angiogram of the carotid and vertebral arteries was obtained using intravenous contrast and 3-D reconstruction. NASCET criteria was utilized. Findings: The visualized portions of the lung apices reveal bilateral pleural effusions. There is pulmonary emp hysema. There are groundglass upper lung zone airspace opacities. This may represent focal edema. The right carotid revealed no evidence of aneurysm and no evidence of dissection. There is no evidenc e of hemodynamic significant stenosis. There are mild atheromatous changes at the level the right car otid bulb The left carotid revealed no evidence of hemodynamic significant stenosis. There is no evidence of an eurysm. There is no evidence of dissection. There are moderate atheromatous changes at the level of t he left carotid bulb without evidence of hemodynamically significant stenosis There is no evidence of hemodynamically significant vertebral stenosis. There is no evidence of verte bral dissection. IMPRESSION: No evidence of hemodynamically significant carotid or vertebral artery stenosis. No evidence of disse ction. ACT 112: Negative or not required by law. Electronically signed by: Darian Mclaughlin M.D. 03/26/2020 6:16 PM
[2020-03-26] MEDS ORDERED: GADOBUTROL 30ML VIAL IV PRN (21:10)
[2020-03-26] MEDS: CEFEPIME 2,000 MG in SYRINGE 7.5 ML IV SCH (22:05)
[2020-03-27 04:04] LABS: Hepatitis A Antibody IgM NON-REACTIVE (NON-REACTIVE); Hepatitis B Core Antibody IgM NON-REACTIVE (NON-REACTIVE)
[2020-03-27] MEDS: LACTATED RINGER'S 1,000 ML IV SCH ×2 (05:19→16:11)
--- NOTE | 2020-03-27 06:56 | Cardiology Consultation ---
Date of Consultation March 27, 2020 Assessment & Plan (1) Pacemaker: He has a single-chamber pacemaker in place and it is functioning well. It was pacing a little less than half of the time when last evaluated in January 2020 and battery voltage was projected to allow operation for close to 10 years. Overall heart rate histogram appeared acceptable. His device is MRI compatible, but will need to be programmed to MRI settings if an MRI is anticipated. (2) Atrial fibrillation: With a single-chamber device I cannot determine the precise atrial fibrillation burden since it does not monitor her atrial activity, but I have suspected that he is in permanent atrial fibrillation and he has been this admission. (3) Bradycardia: He has a history of bradycardia for which the pacemaker was implanted, I do not know if that was sinus bradycardia or atrial fibrillation. The pacemaker was pacing a little less than half of the time at his last office visit in early January. Here it is pacing less than that. (4) Anticoagulation therapy not indicated: He had been on anticoagulants in the past but as of his last visit in early January 2020 his anticoagulation had been discontinued due to bleeding and his history of falling. It is listed on his home medications now but I do not know that he was actually taking it, I do not have any specific information since his visit 2 months ago. I agree with withholding therapy for now although there is a significant stroke risk. History of Present Illness Reason for Consultation: Atrial fibrillation, pacemaker Attending Physician: Malvin La, DO History of Present Illness This is an 84-year-old male who presented on March 25, 2020 due to weakness, recurrent falls and slurred speech. He also has a history of Parkinson's disease and what I believe is permanent atrial fibrillation. His cardiac history includes a pacemaker which was implanted on May 16, 2019 elsewhere, it is a single-chamber [employer] device. I am not sure of the precise indications for implantation but he is not pacer dependent. It is MRI compatible. When last evaluated in the office on January 27, 2020 there was almost 10 years of battery life remaining. He has had a CT scan and an MRI is planned, his pacemaker is compatible. At the time my evaluation he is sitting in bed, when I asked how he is feeling he tells me "no good" but he cannot give me specifics. I asked him about cardiac symptoms and he denied them. He cannot give me history. Allergies Allergy/AdvReac Type Severity Reaction Status Date / Time clindamycin Allergy Intermediate Rash Verified 03/24/20 09:00 acetaminophen [From Vicodin] AdvReac Intermediate Racing Verified 03/24/20 09:00 Heart ciprofloxacin [From Cipro] AdvReac Intermediate Blurry Verified 03/24/20 09:00 Vision hydrocodone [From Vicodin] AdvReac Intermediate Racing Verified 03/24/20 09:00 Heart oxycodone AdvReac Intermediate Heart Races Verified 03/24/20 09:00 tramadol [From Ultram] AdvReac Intermediate Profuse Verified 03/24/20 09:00 Sweating doxycycline AdvReac Mild "Burning Verified 03/24/20 09:00 Stomach" Penicillins AdvReac Mild "Hairy Verified 03/24/20 09:00 tongue" propoxyphene AdvReac Unknown "Just do Verified 03/24/20 09:00 [From Ricardo-N] not want pain medications" Home Medications Home Medications Medication Instructions Recorded Confirmed Type PreserVision AREDS 1 tab PO AMPM 09/19/19 03/25/20 History simethicone [Gas-X Extra Strength] 125 mg PO TIDM PRN 09/19/19 03/25/20 History polyethylene glycol 3350 17 8.5 gm PO DAILY PRN 10/16/19 03/25/20 History gram/dose oral powder lubiprostone [Amitiza] 24 mcg PO BID 12/29/19 03/25/20 History tamsulosin 0.4 mg capsule 0.4 mg PO BID #180 cap 01/18/20 03/25/20 Rx finasteride 5 mg tablet 5 mg PO QAM #90 tab 01/28/20 03/25/20 Rx lisinopril 30 mg tablet 30 mg PO QAM #90 tab 01/28/20 03/25/20 Rx diphenhydramine HCl [Benadryl] 25 mg PO HS 03/03/20 03/25/20 History furosemide 20 mg tablet 20 mg PO BID #60 tab 03/11/20 03/25/20 Rx rivaroxaban 20 mg tablet 20 mg PO DAILY 03/22/20 03/25/20 History alprazolam 1 mg tablet 1 mg PO TID #30 tab 03/24/20 03/25/20 Rx sertraline 50 mg tablet 50 mg PO QAM #30 tab 03/24/20 03/25/20 Rx Patient History Medical History Atrial fibrillation (Acute) HX. Pacemaker placed 05/16/19. Recently moved to [place] to live with his son, and will be establishing with [facility] cardiology after surgery. Avulsion of skin (Inactive) Bladder neck contracture BPH loc w urin obs/LUTS Candidiasis of mouth and esophagus CHI (closed head injury) (Inactive) Closed fracture nasal bone (Inactive) Contusion (Inactive) Difficulty swallowing 2/2 thrush GERD (gastroesophageal reflux disease) Gross hematuria Xarelto d/c'd 08/2019 because of this. Helicobacter pylori (H. pylori) Sleep apnea Using CPAP HS. Currently has possible thrush in throat 2/2 CPAP. 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 Currently on trial of Sinemet to see if it improves. Urinary retention Valvular heart disease Surgical History History of colonoscopy History of esophagogastroduodenoscopy (EGD) History of knee replacement Pacemaker [employer]. PLACED 03/2019 [facility]USED TO F/U AT [facility]-MOVED TO LIVE WITH SON 08/2019 S/P cataract surgery S/P TURP (transurethral resection of prostate) Family History Sister Colorectal cancer Breast cancer Parkinson disease Son Family history of diabetes mellitus Mother , age 83 of a stroke Stroke Father , age 89 of black Lung Heart disease Denies family history of Ovarian cancer Prostate cancer Crohn's disease Myocardial infarction Ulcerative colitis Social History Preferred Language: Macedonian Communication Ability: Effective Visual Impairment: Partially Limited Hearing Ability: Use of Hearing Aid Engineer Byproduct Required: No Beliefs That Will Affect Care: None marital status: / Current Living Situation: Family Current Living Situation Comment: LIVES WITH SON/DAUGHTER IN LAW SINCE 08/2019 current occupational status: retired current occupation: Previously worked in [employer] 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 Information 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 Feels Safe at Home: Yes Safety Concerns: Feels Safe At This Time Smoking Status: Former smoker Tobacco Type: cigarettes and smokeless tobacco ; Smoking End Date: 56 years ago ; Number of Years Since Quit: 50 ; Second Hand Exposure: No ; Hx Alcohol Use: No Hx Substance Use: No Childhood Exposure to Second-Hand Smoke: Yes caffeine: Yes during the past year weight has: decreased > 10 lbs Dental Care, Regularly: No Review of Systems Review of Systems: All he will tell me is that he is "no good" I cannot get any other specifics Physical Exam Physical Exam: Constitutional: Alert, cooperative and in no distress, however not oriented but he is conversational to a limited extent. HEENT: Unremarkable except for some bruising on his face Neck: No jugular venous distention, carotid pulses are normal and equal bilaterally without bruits. Pulmonary: Expiratory rhonchi on auscultation bilaterally. Cardiac: Irregular rhythm with a holosystolic murmur murmur at the apex, no gallop or rub. Abdomen: Soft, nontender with normal bowel sounds. Extremities: No edema. Distal pulses intact. Neurologic: No focal findings. Gait was not tested. Skin: He has some abrasions and bruising on his face and the bridge of his nose. Results & Data ([facility]) Vital Signs (Past 12 Hours) Vital Signs Temp Pulse Pulse Resp BP BP Pulse Ox 03/27/20 03:20 36.3 C L 83 18 146/94 H 98 03/27/20 00:01 68 03/26/20 23:08 36.5 C 65 20 120/71 99 03/26/20 19:38 36.4 C L 66 18 135/81 93 Laboratory Results Cardiac Enzymes 03/26/20 Range/Units 06:50 AST 25 (15-37) U/L Lipids 03/26/20 Range/Units 06:50 Triglycerides 40 (0-150) mg/dl Cholesterol 95 (0-200) mg/dl HDL Cholesterol 58 mg/dl Cholesterol/HDL Ratio 2 CBC 03/26/20 Range/Units 06:50 WBC 3.81 L (4.8-10.8) K/uL RBC 3.02 L (4.7-6.1) M/uL Hgb 8.7 L (14.0-18.0) g/dL Hct 25.9 L (42-52) % Plt Count 89 L (130-400) K/uL Neut # (Auto) 2.75 (1.4-6.5) K/uL Lymph # (Auto) 0.68 L (1.2-3.4) K/uL [place] # (Auto) 0.31 (0.11-0.59) K/uL Eos # (Auto) 0.05 (0-0.5) K/uL Baso # (Auto) 0.02 (0-0.2) K/uL Comprehensive Metabolic Panel 03/26/20 Range/Units 06:50 Sodium 139 (136-145) mmol/L Potassium 4.3 (3.5-5.1) mmol/L Chloride 107 (98-107) mmol/L Carbon Dioxide 23 (21-32) mmol/L BUN 53 H (7-18) mg/dl Creatinine 1.12 (0.6-1.4) mg/dl Glucose 70 (70-99) mg/dl Calcium 8.7 (8.5-10.1) mg/dl AST 25 (15-37) U/L ALT 28 (12-78) U/L Alkaline Phosphatase 61 (45-117) U/L Total Protein 6.8 (6.4-8.2) gm/dl Albumin 4.0 (3.4-5.0) gm/dl Intake and Output 03/26/20 03/27/20 03/27/20 22:59 06:59 14:59 Intake Total 200 / 1524 984 / 1524 Output Total 150 / 451 1 / 451 Balance 50 / 1073 983 / 1073 Intake: IV 984 / 1084 Lr 1,000 ml @ 80 mls/hr IV . 984 / 984 [id number] [facility] Rx#:[id number] Oral 200 / 440 Output: Urine 150 / 450 # Bowel Movements Other: Other Intake Source sips # Unmeasured Voids 1 Weight 78.5 kg 78.3 kg Diagnostic Findings His electrocardiogram today shows atrial fibrillation at 87 bpm. He has some T wave abnormalities which are likely due to "T wave memory" from intermittent ventricular pacing. He is not pacing today. This is similar to yesterday. On March 25, 2020 he was pacing appropriately. Telemetry: Atrial fibrillation with a controlled heart rate, frequent PVCs, not much pacing An echocardiogram done December 16, 2019 showed normal left ventricular size and function with severe left atrial dilatation and moderate to severe mitral regurgitation PG Care Time/CCT Total # of Minutes Spent Total Time Spent with Patient: Total time spent is greater than 50% in coordination of care (as documented) at patient's floor/unit and/or counseling patient: Coding Level of Care Code 36981 Initial Inpt Care Lvl 3 Diagnoses Pacemaker Z95.0 Atrial fibrillation I48.11 Atrial fibrillation type: longstanding persistent Bradycardia R00.1 Anticoagulation therapy not indicated Z78.9 (1) Atrial fibrillation Atrial fibrillation type: longstanding persistent Qualified Code(s): I48.11 - Longstanding persistent atrial fibrillation
[2020-03-27] MEDS: CEROVITE ADV FORMULA TAB PO SCH ×2 (08:42→20:15)
[2020-03-27] MEDS: LUBIPROSTONE 8 MCG CAP PO SCH ×2 (08:42→20:15)
[2020-03-27] MEDS: ALPRAZolam 0.5 MG TABLET PO SCH ×3 (08:42→20:16)
[2020-03-27] MEDS: TAMSULOSIN HCL 0.4 MG CAP PO SCH ×2 (08:42→20:15)
[2020-03-27] MEDS: lisinopriL 10 MG TAB PO SCH (08:43)
[2020-03-27] MEDS: SERTRALINE HCL 50 MG TABLET PO SCH (08:43)
[2020-03-27] MEDS: FINASTERIDE 5 MG TAB PO SCH (08:45)
[2020-03-27 08:51] LABS: Calcium 9.3 mg/dl (8.5-10.1); Creatinine Clr Calc Pharmacy 41.7 ml/min; Est GFR (African American) 63.7; Potassium 4.9 mmol/L (3.5-5.1)
--- NOTE | 2020-03-27 08:55 | Electrocardiogram Report ---
Test Reason : Blood Pressure : / mmHG Vent. Rate : 066 BPM Atrial Rate : 047 BPM P-R Int : 000 ms QRS Dur : 102 ms QT Int : 420 ms P-R-T Axes : 000 048 -46 degrees QTc Int : 440 ms Atrial fibrillation with occasional ventricular-paced complexes Low voltage QRS T wave abnormality, consider inferior ischemia Abnormal ECG When compared with ECG of 25-MAR-2020 13:49, Vent. rate has increased BY 6 BPM Confirmed by Vincent Saeed ([id number]) on 03/27/2020 8:55:16 AM Referred By: REFERRED SELF Confirmed By:Vincent Saeed
--- NOTE | 2020-03-27 09:16 | Neurology Consultation ---
Date of Consultation March 27, 2020 Assessment & Plan (1) Stroke-like symptoms: This patient presents with an episode of resolved right hand weakness, followed by persistent dysarthria and weakness of the legs. Although these symptoms occur in the context of chronic tremor, generalized weakness, recurrent falls, and gait dysfunction, the relative acuity of the symptoms is worrisome for vertebrobasilar insufficiency or brainstem stroke. Of course, a small subcortical hemispheric stroke cannot be excluded. His recently completed CT angiogram of the head and neck are negative for significant vascular lesion or thrombus. He will need a brain MRI completed to further evaluate for a suspe cted small ischemic stroke. It looks like his cardiac pacer is MRI compatible according to cardiology and will require some programming attention to coordinate with MRI. This patient should be on some type of blood thinner. If he cannot continue his Xarelto as suggested by cardiology, then he should be on an antiplatelet agent. I would recommend daily low-dose aspirin if not specifically contraindicated. His blood pressure is appropriate. His lipid panel is normal and he probably does not require a statin. He should have a speech and swallowing evaluation. (2) Tremor: Longstanding bilateral, left greater than right upper extremity tremor. Patient's tremor is primarily of the postural and action type although he does have an element of resting tremor as well although not of the classic pill- rolling type. Patient also has an associated perioral/head tremor. He is not rigid. He may have some subtle bradykinesia, however. Patient's tremor has not responded to a previous trial of Sinemet. 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 Atypical essential or action tremor not excluded. Potential treatment options for this patient's tremor have been suggested by Dr. Fuentes recently and include either a trial of propranolol or topiramate. I would double check with Dr. Saeed prior to starting propranolol. History of Present Illness Reason for Consultation: Weakness and tremor Requesting Physician: Malvin La DO Attending Physician: Malvin La DO History of Present Illness The patient is an 84-year-old male who was admitted to [facility] on March 25 for further evaluation of generalized weakness, recurrent falls, and slurred speech. He had been evaluated a few days prior in the [facility] emergency department on March 18 complaining of right hand weakness that had been present for 2 days. Past medical history is notable for atrial fibrillation for which he has been prescribed Xarelto. A CT of the head at that time was negative for hemorrhage or acute process. He did not have obvious focal deficits on his examination at that time and was discharged to home with instructions to follow-up with his primary care physician. The patient was seen in neurological consultation as an outpatient on March 24, [address] Fuentes. I reviewed Dr. Fuentes's clinic note which describes this patient's longstanding history of progressive mixed tremor beginning 20 years ago affecting the left greater than right upper extremity with some involvement of the head as well. A poor response to Sinemet in the past was also noted. Also noted was this patient's history of chronic gait disturbance and perhaps an element of vascular dementia. The patient did corroborate the above history with me as well. Furthermore, in light of this patient's history of an episode of right hand weakness, Dr. Fuentes did have some concern for a possible small ischemic stroke and had suggested obtaining a brain MRI for further evaluation if possible. The patient does have a cardiac pacemaker which has presented some difficulty in coordinating this test. Additional suggestions such as a trial of propranolol or topiramate were considered for treatment of his tremor as well as physical therapy for gait training were made. The patient was then seen by his primary care physician, Dr. Garibay, the following day, on March 25. In reviewing Dr. Garibay's clinic note it looks like the patient began exhibiting slurred speech and bilateral lower extremity weakness while on the commode, just prior to his appointment. The patient was promptly referred to the emergency department for further evaluation and management and potential admission. Currently, the patient is sitting up in bed comfortably. His speech is hypophonic and dysarthric sounding. He exhibits intermittent coughing and has just eaten breakfast. Again, I did review the above history with the patient. He seems to be a reasonably reliable historian although does have some limitation recalling specific details of his history of present illness. He does indicate that many of his symptoms including tremor, and gait dysfunction have been present for quite some time. He is also aware that he has had a few falls and has some bruising around the right orbit. I did ask him specifically about his right hand weakness although he seems to have some difficulty recalling the exact timeline for this particular symptom. It does not seem to be present at this time. He denies experiencing any diplopia although does report rather significant chronic vision loss to the right eye due to macular degeneration. This patient's neuro imaging evaluation thus far has included a CT of the head and cervical spine as well as CT angiography of the head and neck. The studies were considered generally unremarkable. However, I do appreciate a subtle hypodensity at the left anterior marisel, on image 8 and possibly image 7 as well. This finding could be consistent with a subacute infarct but is quite subtle and could be artifactual. I had discussed my review of this patient's head CT with Dr. La last night and had recommended a follow-up CT angiogram of the head and neck as listed above. Imaging described in further detail below. Allergies Allergy/AdvReac Type Severity Reaction Status Date / Time clindamycin Allergy Intermediate Rash Verified 03/24/20 09:00 acetaminophen [From Vicodin] AdvReac Intermediate Racing Verified 03/24/20 09:00 Heart ciprofloxacin [From Cipro] AdvReac Intermediate Blurry Verified 03/24/20 09:00 Vision hydrocodone [From Vicodin] AdvReac Intermediate Racing Verified 03/24/20 09:00 Heart oxycodone AdvReac Intermediate Heart Races Verified 03/24/20 09:00 tramadol [From Ultram] AdvReac Intermediate Profuse Verified 03/24/20 09:00 Sweating doxycycline AdvReac Mild "Burning Verified 03/24/20 09:00 Stomach" Penicillins AdvReac Mild "Hairy Verified 03/24/20 09:00 tongue" propoxyphene AdvReac Unknown "Just do Verified 03/24/20 09:00 [From Ricardo-N] not want pain medications" Home Medications Home Medications Medication Instructions Recorded Confirmed Type PreserVision AREDS 1 tab PO AMPM 09/19/19 03/25/20 History simethicone [Gas-X Extra Strength] 125 mg PO TIDM PRN 09/19/19 03/25/20 History polyethylene glycol 3350 17 8.5 gm PO DAILY PRN 10/16/19 03/25/20 History gram/dose oral powder lubiprostone [Amitiza] 24 mcg PO BID 12/29/19 03/25/20 History tamsulosin 0.4 mg capsule 0.4 mg PO BID #180 cap 01/18/20 03/25/20 Rx finasteride 5 mg tablet 5 mg PO QAM #90 tab 01/28/20 03/25/20 Rx lisinopril 30 mg tablet 30 mg PO QAM #90 tab 01/28/20 03/25/20 Rx diphenhydramine HCl [Benadryl] 25 mg PO HS 03/03/20 03/25/20 History furosemide 20 mg tablet 20 mg PO BID #60 tab 03/11/20 03/25/20 Rx rivaroxaban 20 mg tablet 20 mg PO DAILY 03/22/20 03/25/20 History alprazolam 1 mg tablet 1 mg PO TID #30 tab 03/24/20 03/25/20 Rx sertraline 50 mg tablet 50 mg PO QAM #30 tab 03/24/20 03/25/20 Rx Patient History Medical History Atrial fibrillation (Acute) HX. Pacemaker placed 05/16/19. Recently moved to [place] to live with his son, and will be establishing with [facility] cardiology after surgery. Avulsion of skin (Inactive) Bladder neck contracture BPH loc w urin obs/LUTS Candidiasis of mouth and esophagus CHI (closed head injury) (Inactive) Closed fracture nasal bone (Inactive) Contusion (Inactive) Difficulty swallowing 2/2 thrush GERD (gastroesophageal reflux disease) Gross hematuria Xarelto d/c'd 08/2019 because of this. Helicobacter pylori (H. pylori) Sleep apnea Using CPAP HS. Currently has possible thrush in throat 2/2 CPAP. 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 Currently on trial of Sinemet to see if it improves. Urinary retention Valvular heart disease Surgical History History of colonoscopy History of esophagogastroduodenoscopy (EGD) History of knee replacement Pacemaker [employer]. PLACED 03/2019 [facility]USED TO F/U AT [facility]-MOVED TO LIVE WITH SON 08/2019 S/P cataract surgery S/P TURP (transurethral resection of prostate) Family History Sister Colorectal cancer Breast cancer Parkinson disease Son Family history of diabetes mellitus Mother , age 83 of a stroke Stroke Father , age 89 of black Lung Heart disease Denies family history of Ovarian cancer Prostate cancer Crohn's disease Myocardial infarction Ulcerative colitis Social History Preferred Language: French Communication Ability: Effective Visual Impairment: Partially Limited Hearing Ability: Use of Hearing Aid School Psychologist Required: No Beliefs That Will Affect Care: None marital status: / Current Living Situation: Family Current Living Situation Comment: LIVES WITH SON/DAUGHTER IN LAW SINCE 08/2019 current occupational status: retired current occupation: Previously worked in [employer] 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 Information 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 Feels Safe at Home: Yes Safety Concerns: Feels Safe At This Time Smoking Status: Former smoker Tobacco Type: cigarettes and smokeless tobacco ; Smoking End Date: 56 years ago ; Number of Years Since Quit: 50 ; Second Hand Exposure: No ; Hx Alcohol Use: No Hx Substance Use: No Childhood Exposure to Second-Hand Smoke: Yes caffeine: Yes during the past year weight has: decreased > 10 lbs Dental Care, Regularly: No Review of Systems Constitutional: + weakness; no fever and no chills Eyes: no diplopia Chronic vision loss due to macular degeneration Ear, Nose, Mouth, Throat: no hearing loss Respiratory: + cough; no dyspnea Cardiovascular: no chest pain and no palpitations Gastrointestinal: + constipation; no nausea and no vomiting Genitourinary: + difficulty urinating Musculoskeletal: + joint pain and + stiffness; no back pain Integumentary: no rash and no lesions Neurologic: as per Subjective / HPI, + gait abnormality, + unsteadiness, + localized weakness, + generalized weakness, + tremor(s) and + memory loss; no headache(s) Psychiatric: + depression and + anxiety Hematologic / Lymphatic: no easy bleeding and no easy bruising Exam (Neuro) Physical Exam: The patient is a chronically ill-appearing elderly male. He is alert and oriented to person and hospital only, not to the date or day of the week. Patient exhibits mild impairment with short-term memory/delayed recall. Remote memory intact. Attention and concentration intact. Patient's speech is hypophonic and dysarthric sounding. He is able to name objects and repeat phrases. Patient exhibits an age-appropriate fund of knowledge and normal comprehension of vocabulary. Visual mason full to confrontation. Visual acuity diminished. Pupils equal round react to light and accommodation. Eye movements intact. Facial sensation intact. There is no facial droop. Hearing intact. Palate elevates to midline. Shoulder shrug intact. Tongue protrudes to midline. Patient exhibits a sensory deficit to vibration at the ankles bilaterally. Otherwise, sensation intact for the upper limbs. Deep tendon reflexes are intact and symmetrical. Plantar responses upgoing bilaterally. There is no pronator drift or fix with arm roll. He does have some difficulty with testing of coordination and exhibits some dysmetria with [id number] bilaterally, further confounded by a postural and action tremor for the upper limbs, left greater than right. Patient performed [id number] maneuvers slowly and incompletely for both the left and right lower limbs. These movements do not appear grossly ataxic, however. Direct ophthalmoscopic examination deferred due to requirement to wear face shield in the context of the current COVID-19 pandemic. Carotid pulses intact bilaterally, no bruits to auscultation. Gait and station deferred due to generalized weakness, safety concerns. Patient does exhibit a mild degree of generalized weakness, legs greater than arms. He does have antigravity power for all 4 limbs and is able to provide brief appropriate power against passive resistance. Patient's muscle tone seems fairly normal throughout and without obvious rigidity, flaccidity, or spasticity. There is no focal atrophy. There are no fasciculations. This patient does display a moderate left upper extremity resting, postural, and action tremor. The postural and action components are greater than the resting component. The resting tremor does not really have a classic or characteristic pill-rolling quality. The patient does have a minimal similar tremor affecting the right upper limb. He also displays a mild perioral tremor but without tongue thr usting or other tardive dyskinetic type movements. Results & Data ([facility]) Vital Signs (Past 12 Hours) Vital Signs Temp Pulse Pulse Pulse Resp BP BP 03/27/20 08:00 36.4 C L 93 H 148/64 H 03/27/20 07:29 89 03/27/20 03:20 36.3 C L 83 18 146/94 H 03/27/20 00:01 68 03/26/20 23:08 36.5 C 65 20 120/71 Pulse Ox 03/27/20 08:00 18 L 03/27/20 07:29 03/27/20 03:20 98 03/27/20 00:01 03/26/20 23:08 99 Laboratory Results WBC 3.81, hemoglobin 8.7, hematocrit 25.9, platelet count 89 sodium 144, potassium 4.9, BUN 46, creatinine 1.19, glucose 95, hemoglobin A1c 5.9, calcium 9.3, AST 25, ALT 28, ammonia 25.2, triglycerides 40, cholesterol 95, LDL 29, VLDL 8, HDL 58, vitamin B12 level greater than 2000, TSH 8.190, free T4 1.[address] of the head negative for hemorrhage or acute process. I do appreciate a subtle hypodensity within the left anterior marisel on image 8 and possibly image 7 as well. This finding is subtle and could be artifactual and is not specifically mentioned in the radiologist interpretation of this test. I reviewed the images as well as the radiologist interpretation of this test. A CT of the cervical spine reveals moderate to space narrowing at C6-7. There are no fractures. There is no subluxation. I reviewed the images as well as the radiologist interpretation of this test. 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 No major vessel occlusion. I reviewed the images as well as the radiologist interpretation of this test. A CT angiogram of the neck reveals mild atheromatous changes of the level of the right carotid bulb and moderate atheromatous changes at the level of the left carotid bulb. There is no evidence of carotid or vertebral stenosis. No evidence of dissection. I reviewed the images as well as the radiologist interpretation of this test. An electrocardiogram reveals atrial fibrillation, 87 bpm An echocardiogram completed December 16, 2019 reveals normal left ventricular size thickness, and function. The left atrium is severely dilated. The right atrium is moderately dilated. There is moderate to severe mitral regurgitation. The interatrial septum is intact, no ASD. I reviewed Dr. Saeed's cardiology consultation done for this patient earlier today as well. In reviewing this record it appears as if this patient's cardiac pacemaker was placed for bradycardia. It also appears as if this patient's anticoagulation was discontinued earlier this year, in January due to bleeding and his history of falls. Anticoagulation was not recommended. PG Care Time/CCT Total # of Minutes Spent Total Time Spent with Patient: Total time spent is greater than 50% in coordination of care (as documented) at patient's floor/unit and/or counseling patient: Coding Level of Care Code 09381 Initial Inpt Care Lvl 3 Diagnoses Stroke-like symptoms R29.90 Tremor R25.1
--- NOTE | 2020-03-27 09:56 | Electrocardiogram Report ---
Test Reason : Blood Pressure : / mmHG Vent. Rate : 087 BPM Atrial Rate : 089 BPM P-R Int : 000 ms QRS Dur : 100 ms QT Int : 356 ms P-R-T Axes : 000 050 -66 degrees QTc Int : 428 ms Atrial fibrillation Low voltage QRS Nonspecific ST and T wave abnormality Abnormal ECG When compared with ECG of 26-MAR-2020 06:58, (unconfirmed) No significant change Confirmed by Vincent Saeed ([id number]) on 03/27/2020 9:56:15 AM Referred By: REFERRED SELF Confirmed By:Vincent Saeed
[2020-03-27 13:59] LABS: 7-Aminoclonaz, Confirm NEGATIVE ng/mL (<25); Hydro-Alp Ur, GC/MS 350 ng/mL (<25); Hydroxyethylflurazepam, Conf NEGATIVE ng/mL (<50); Hydroxymidazolam Ur, GC/MS NEGATIVE ng/mL (<50); Hydroxytriazolam NEGATIVE ng/mL (<50); Lorazepam, Ur GC/MS NEGATIVE ng/mL (<50); Nordiazepam, Confirm NEGATIVE ng/mL (<50); Oxazepam Ur, GC/MS NEGATIVE ng/mL (<50); Temazepam, Confirm NEGATIVE ng/mL (<50)
--- NOTE | 2020-03-27 16:57 | Hospitalist Progress Note ---
Date of Service March 27, 2020 Assessment & Plan (1) Toxic metabolic encephalopathy: uncertain etiology - probably mixed picture of infectious (SBP vs elbow vs both) as well as metabolic (dehydration) as well as possible small stroke, as well as hospital environment. ongoing reassurrance/supportive care as best as possible (2) Weakness: seems to be multifactorial - some probably related to encephalopathy/metabolic processes (?SBP, dehydration) and some seems to have a focal (albeit subtle) nature to it as well. MRI pending. neuro input appreciated (3) Dehydration: certainly can be a cause of encephalopathy/weakness - gentle IVF (4) Abdominal ascites: New onset or at least suddenly worsened - this plus area of fluid w flank pain (and abdominal pain on initial presentation) raise concern for SBP paracentesis tomorrow on cefepime not currently appearing septic (5) Wound swab culture positive: elbow grew pseudomonas 03/22; cefepime for presumed SBP will cover. ongoing wound care and f/u (6) Hallucinations: None currently as he mainly describes hypnagogic hallucinations. follow (7) Prolonged QT interval: improved (8) Abnormal CT of liver: Concerning for liver cirrhosis/neoplasm given current and prior imaging. LFTs unremarkable. Plt sl low. PTINR elevated at 1.4 but possibly from Xarelto use. Albumin 3.3. Noted hepatic mass also present on prior scans. (9) Pleural effusion: follow - ?liver related (10) Lower extremity edema: probably relates to venous stasis and ascites compression/mobilization as possible (11) Atrial fibrillation: rate controlled, anticoagulation currently on hold for paracentesis 03/28 (12) Pacemaker: appreciate input on MRI compatibility and settings (13) Mitral regurgitation: Moderate-severe on echo 11/2019 (14) Tricuspid regurgitation: Moderate on echo 11/2019. Likely contributing towards pedal edema but would not explain generalized anasarca and ascites (15) Tremor: neuro input appreciated (16) BPH loc w urin obs/LUTS: Continue tamsulosin 0.4mg PO BID, finasteride 5mg PO daily. 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 Prescribed 1mg PO TID. Concerned about giving any due to his current confusion and hallucinations but will try and avoid withdrawal by reducing dose in half - current mental state more c/w delirium than benzo withdrawal (18) DVT prophylaxis: Xarelto (currently on hold for para) (19) Elevated BUN: relates to dehydration (20) Discharge planning issues: updated son, answered all questions to the best of my ability PT/OT eval and treat, right now likely would need some sort of acute or subacute rehab, but will continue to follow progress Admission and Anticipated Discharge Date Admission Date: March 25, 2020 Subjective seems more confused today - upset and forlorn with expressions of guilt for things having nothing to do with his hospital stay. breathing is OK - he is upset that he is on O2 thought -- in his current state when i ask about his breathing "it's OK but it's only because you guys are giving me oxygen to keep me going" "i don't deserve this treatment to keep me alive" R flank pain belly otherwise OK poor oral intake but seems more due to his emotional state than anything abdominal Review of Systems Review of Systems: All systems reviewed & are unremarkable except as noted in HPI & below and Unobtainable due to cognitive status Physical Exam Physical Exam: gen hassan, knows he's in the hospital in [place], believes year is 2009, perseverates on his wrongdoings and expresses a need to tell his children about them. heent nc at [facility] cardio reg no r/m/g lungs diminished bibasilar but no r/r/w good effort skin no rashes no pallor or icterus abd ongoing distention with fluid, R lateral abd/flank area tender with a little bit of fluid there as well no erythema no crepitis (*not CVA region, more directly lateral*) ongoing tremor. skin with bruising no tracking erythema. elbow dressed no tracking erythema. mental status as above Results & Data Results & Data ([facility]) Vital Signs (Past 12 Hours) Vital Signs Temp Pulse Pulse Pulse Resp BP BP 03/27/20 15:43 97.0 F L 76 18 148/76 H 03/27/20 15:01 77 03/27/20 12:00 97.5 F L 84 18 139/67 03/27/20 08:00 97.5 F L 93 H 148/64 H 03/27/20 07:29 89 Pulse Ox 03/27/20 15:43 92 03/27/20 15:01 03/27/20 12:00 97 03/27/20 08:00 18 L 03/27/20 07:29 PG Care Time/CCT Total # of Minutes Spent Total Time Spent with Patient: Total time spent is greater than 50% in coordination of care (as documented) at patient's floor/unit and/or counseling patient: Coding Level of Care Code 15835 Subseq Hosp Care Lvl 3 Diagnoses Toxic metabolic encephalopathy G92 Weakness R53.1 Dehydration E86.0 Abdominal ascites R18.8 Ascites type: other type Wound swab culture positive R89.5 Hallucinations R44.3 Prolonged QT interval R94.[address] of liver R93.2 Pleural effusion J90 Lower extremity edema R60.0 Atrial fibrillation I48.11 Atrial fibrillation type: longstanding persistent Pacemaker Z95.0 Mitral regurgitation I34.0 Cardiac valve disease etiology: nonrheumatic Tricuspid regurgitation I36.1 Cardiac valve disease etiology: nonrheumatic Tremor R25.1 BPH loc w urin obs/LUTS N40.1 Anxiety F41.9 DVT prophylaxis Z29.9 Elevated BUN R79.9 Discharge planning issues Z02.9 (1) Abdominal ascites Ascites type: other type Qualified Code(s): R18.8 - Other ascites (2) Atrial fibrillation Atrial fibrillation type: longstanding persistent Qualified Code(s): I48.11 - Longstanding persistent atrial fibrillation (3) Mitral regurgitation Cardiac valve disease etiology: nonrheumatic Qualified Code(s): I34.0 - Nonrheumatic mitral (valve) insufficiency (4) Tricuspid regurgitation Cardiac valve disease etiology: nonrheumatic Qualified Code(s): I36.1 - Nonrheumatic tricuspid (valve) insufficiency
[2020-03-27] MEDS: CEFEPIME 2,000 MG in SYRINGE 7.5 ML IV SCH (22:01)
[2020-03-27] MEDS: ALBUMIN 25% 50 ML IV SCH ×3 (22:02→23:58)
[2020-03-28] MEDS: ALBUMIN 25% 50 ML IV SCH ×3 (01:21→04:17)
[2020-03-28] MEDS: LACTATED RINGER'S 1,000 ML IV SCH ×2 (05:59→20:49)
--- NOTE | 2020-03-28 07:36 | Hospitalist Progress Note ---
Date of Service March 28, 2020 Assessment & Plan (1) Toxic metabolic encephalopathy: uncertain etiology - probably mixed picture of infectious (SBP vs elbow vs both) as well as metabolic (dehydration), as well as hospital environment. ongoing reassurrance/supportive care as best as possible continue treatment for his elbow as it did grow Pseudomonas is treated with cefepime at this time pending an MRI scan of his brain with neurology oversight his paracentesis did not seem to be consistent with peritonitis (2) Weakness: multifactorial -MRI pending. neuro input appreciated suspecting more of a metabolic issue than a focal neurological deficit preliminarily (3) Dehydration: certainly can be a cause of encephalopathy/weakness - gentle IVF (4) Abdominal ascites: New onset or at least suddenly worsened - Continues on cefepime however SBP is likely ruled out Etiology likely from portal hypertension from cardiac issues (5) Wound swab culture positive: elbow grew pseudomonas 03/22; cefepime for presumed SBP will cover. ongoing wound care and f/u (6) Hallucinations: These are ongoing visual now patient is aware of them they are not troubling to him (7) Abnormal CT of liver: Concerning for liver cirrhosis/neoplasm given current and prior imaging. LFTs unremarkable. Plt sl low. PTINR elevated at 1.4 but possibly from Xarelto use. Albumin 3.3. Noted hepatic mass also present on prior scans. Fluid analysis including SAAG is consistent with portal hypertension which possibly could be part of the discussion of cirrhosis on imaging (8) Pleural effusion: Likely might be secondary to ascites (9) Lower extremity edema: probably relates to venous stasis and ascites also from his portal hypertension causing decreased venous return compression/mobilization as possible (10) Atrial fibrillation: Remains rate controlled, anticoagulation currently on hold for paracentesis 03/28 will resume on 03/29 (11) Pacemaker: appreciate input on MRI compatibility and settings (12) Mitral regurgitation: Moderate-severe on echo 11/2019 could have also playing heart failure preserved ejection fraction (13) Tricuspid regurgitation: Moderate on echo 11/2019. 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 Prescribed 1mg PO TID. Previous provider has began reducing dose in half -no current symptoms of benzodiazepine withdrawal with caution for the hallucinations (17) DVT prophylaxis: Xarelto will resume 03/29 (18) Discharge planning issues: PT/OT eval and treat, right now likely would need some sort of acute or subacute rehab, but will continue to follow progress (19) Prolonged QT interval: improved Admission and Anticipated Discharge Date Admission Date: March 25, 2020 Subjective Patient is awake and conversant although at times very confused he freely admits to visual hallucinations talking to people that are in the room people he does not recognize. He denies focal complaints or concerns his left left elbow is not typically uncomfortable a paracentesis was performed. With a serum dobutamine gradient of greater than 1.1 suggesting portal hypertension may be the cause of his ascites Review of Systems Review of Systems: Review of systems is not reliable given the patient's hallucinations and likely baseline dementia however denied immediate discomfort with exception of his elbow Physical Exam Physical Exam: The patient appeared well nourished and normally developed. Vital signs as documented. Head exam is unremarkable. No scleral icterus Neck is with 2 cm JVD, no thyromegaly, or carotid bruits. Lungs are clear to auscultation, no focal loss of breath sounds Cardiac exam, Rhythm is regular.. No murmurs, rubs or gallops. Abdominal exam reveals normal bowel sounds, soft non tender, no masses Extremities are mildly edematous and both pedal pulses are normal. Neurologic exam is alert and oriented x2, no focal loss of strength or sensation does admit to hallucinations and confabulates and goes off on the tangents when discussing things during the evaluation cannot recall some of his previous jobs Results & Data Results & Data ([facility]) Vital Signs (Past 12 Hours) Vital Signs Temp Pulse Pulse Pulse Resp BP BP 03/28/20 06:31 97.5 F L 78 18 150/84 H 03/28/20 03:01 97.5 F L 87 20 127/81 03/27/20 23:22 73 03/27/20 22:58 97.5 F L 69 18 117/66 Pulse Ox 03/28/20 06:31 96 03/28/20 03:01 96 03/27/20 23:22 03/27/20 22:58 97 PG Care Time/CCT Total # of Minutes Spent Total Time Spent with Patient: Total time spent is greater than 50% in coordination of care (as documented) at patient's floor/unit and/or counseling patient: Coding Level of Care Code 30667 Subseq Hosp Care Lvl 3 Diagnoses Toxic metabolic encephalopathy G92 Weakness R53.1 Dehydration E86.0 Abdominal ascites R18.8 Ascites type: other type Wound swab culture positive R89.[address] of liver R93.2 Pleural effusion J90 Lower extremity edema R60.0 Atrial fibrillation I48.11 Atrial fibrillation type: longstanding persistent Pacemaker Z95.0 Mitral regurgitation I34.0 Cardiac valve disease etiology: nonrheumatic Tricuspid regurgitation I36.1 Cardiac valve disease etiology: nonrheumatic Tremor R25.1 BPH loc w urin obs/LUTS N40.1 Anxiety F41.9 DVT prophylaxis Z29.9 Discharge planning issues Z02.9 Prolonged QT interval R94.31 (1) Abdominal ascites Ascites type: other type Qualified Code(s): R18.8 - Other ascites (2) Tricuspid regurgitation Cardiac valve disease etiology: nonrheumatic Qualified Code(s): I36.1 - Nonrheumatic tricuspid (valve) insufficiency (3) Atrial fibrillation Atrial fibrillation type: longstanding persistent Qualified Code(s): I48.11 - Longstanding persistent atrial fibrillation (4) Mitral regurgitation Cardiac valve disease etiology: nonrheumatic Qualified Code(s): I34.0 - Nonrheumatic mitral (valve) insufficiency
[2020-03-28] MEDS: LUBIPROSTONE 8 MCG CAP PO SCH ×2 (08:05→20:50)
[2020-03-28] MEDS: TAMSULOSIN HCL 0.4 MG CAP PO SCH ×2 (08:05→20:50)
[2020-03-28] MEDS: CEROVITE ADV FORMULA TAB PO SCH ×2 (08:05→20:50)
[2020-03-28] MEDS: FINASTERIDE 5 MG TAB PO SCH (08:05)
[2020-03-28] MEDS: lisinopriL 10 MG TAB PO SCH (08:06)
[2020-03-28] MEDS: SERTRALINE HCL 50 MG TABLET PO SCH (08:06)
[2020-03-28] MEDS: ALPRAZolam 0.5 MG TABLET PO SCH ×3 (08:06→20:49)
--- NOTE | 2020-03-28 09:42 | Electrocardiogram Report ---
Test Reason : Blood Pressure : / mmHG Vent. Rate : 073 BPM Atrial Rate : 078 BPM P-R Int : 000 ms QRS Dur : 102 ms QT Int : 394 ms P-R-T Axes : 000 033 -67 degrees QTc Int : 434 ms Atrial fibrillation with occasional ventricular-paced complexes and with premature ventricular or lilian rrantly conducted complexes Poor R wave progression, consider anterior RI vs. lead placement vs. LVH Occasional electronic Ventricular-paced rhythm Abnormal ECG When compared with ECG of 27-MAR-2020 06:39, occasional electronic ventricular pacing now present Confirmed by Tj Prabhakar ([id number]) on 03/28/2020 9:42:25 AM Referred By: REFERRED SELF Confirmed By:Tj Prabhakar
[2020-03-28] MEDS: CEFEPIME 2,000 MG in SYRINGE 7.5 ML IV SCH ×2 (10:02→21:45)
--- NOTE | 2020-03-28 10:04 | Ultrasound Report ---
PARACENTESIS UNDER ULTRASOUND GUIDANCE CLINICAL HISTORY: Ascites. Abdominal pain. Possible spontaneous bacterial peritonitis. COMPARISON STUDY: CT scan dated 03/25/2020 FINDINGS: The risks, benefits, and alternatives to the procedure were discussed with the patient. Katelyn bertha informed consent was obtained. Following real-time ultrasound localization, the skin was prepped and draped. Following local anesthesia with Xylocaine, the sheath paracentesis needle was inserted a nd approximately 3.8 liters of straw-colored fluid was removed by vacuum suction. A right lower quadr ant approach was utilized. Fluid was sent to the laboratory for analysis as specified by the referrin g clinician. The patient tolerated the procedure well and left the department in satisfactory condition. IMPRESSION: Successful ultrasound-guided paracentesis with removal of approximately 3.8 liters of asc itic fluid. ACT 112: Negative or not required by law. Electronically signed by: Darian Mclaughlin M.D. 03/28/2020 10:02 AM
[2020-03-28 10:49] LABS: Albumin Peritoneal Fluid 2.2 g/dl
[2020-03-28 10:55] LABS: Total Protein Peritoneal Fluid 3.7 g/dl
[2020-03-28 11:14] LABS: Appearance Peritoneal Fluid HAZY; Basophils, Fluid 0 %; Color Peritoneal Fluid STRAW; Eosinophils, Fluid 0 %; Lymphocytes, Fluid 27 %; Mono,Macrophage,Mesothelial 67 %; Neutrophils, Fluid 6 %; RBC Peritoneal Fluid (A) < 3000 /uL; WBC Peritoneal Fluid (A) 142 /ul (0-300)
--- NOTE | 2020-03-28 11:51 | Neurology Progress Note ---
Date of Service March 28, 2020 Assessment & Plan (1) Stroke-like symptoms: (2) Tremor: This patient presented 5/2 with an episode of right hand weakness (which had resolved) and then dysarthria and weakness of both legs. These symptoms occurred in the context of chronic tremor, generalized weakness, recurrent falls, and gait dysfunction. Since the new symptoms were relatively acute, vertebrobasilar insufficiency or a small stroke cannot be excluded. CT angiogram of the head and neck were unremarkable for significant vascular lesion or thrombosis. We are awaiting MRI of the brain. Apparently, his cardiac pacer is MRI compatible according to cardiology and will require some programming attention to coordinate with MRI. His blood pressure and lipid panel are unremarkable. 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 There is very mild resting tremor on the right intermittently, not apparent today. He had a head tremor when I saw him March 24 but he does not have this this morning either. He is not rigid and has some mild bradykinesia. Patient's tremor did not respond to a previous trial of Sinemet. Recommendations: 1. Awaiting MRI of the brain with and without contrast this afternoon. 2. We will consider antiplatelet therapy or other cerebral vascular disease treatment after the MRI. 3. 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 Topiramate might be useful for his tremor. I could consider initiating this is an outpatient. 4. Elevated TSH of 8.1. He had TSH of 10.4 on March 18. Consider initiating levothyroxine. Hypothyroidism could be contributing to his fatigue/lethargy and weakness. 5. Awaiting cultures and pathology from thoracentesis. Overall, I spent a total of 40 minutes with this case including review of records, direct evaluation of the patient, and discussing the case with the RN at bedside and Dr. Stover, including differential diagnosis and treatment options. Admission and Anticipated Discharge Date Admission Date: March 25, 2020 Subjective Although he has memory issues he did not seem encephalopathic to me. Blood pressure was 128/74. Nursing reported to me before I went into the room that the patient had been very confused. The patient followed commands and answered questions seemingly not delirious or encephalopathic. He is not in any pain including abdominal pain. Blood pressure was 128/74. Chem profile revealed elevated BUN but not as much on admission. Glucose was 95. Patient had a thoracentesis this morning and 3.8 L fluid was removed. Cultures and pathology are pending. Results & Data ([facility]) Vital Signs (Past 12 Hours) Vital Signs Temp Pulse Pulse Resp BP BP Pulse Ox 03/28/20 11:32 36.4 C L 76 16 129/78 98 03/28/20 10:52 36.6 C 74 16 128/74 94 03/28/20 10:24 36.6 C 78 16 112/69 98 03/28/20 09:54 36.7 C 77 16 122/61 97 03/28/20 06:31 36.4 C L 78 18 150/84 H 96 03/28/20 03:01 36.4 C L 87 20 127/81 96 Exam (Neuro) Physical Exam: When I went in this morning the patient was easily aroused by voice and, although lethargic, was very cooperative following one-step commands well. He did not have any specific aphasia although his voice was somewhat weak. He knew his name, his age, the day of the week, the president, how many dimes in a dollar, and where he was (hospital). Extraocular eye muscles were intact without nystagmus. There is no facial droop. Tongue was midline. Patient had no resting tremor today. He had a mild posture and action tremor bilaterally. There was no ataxia with [id number] testing. Strength was symmetrical in the limbs and essentially 5/5 in the arms and 4/5 in the legs. There was no rigidity of the limbs. There was no head tremor. PG Care Time/CCT Total # of Minutes Spent Total Time Spent with Patient: Total time spent is greater than 50% in coordinat ion of care (as documented) at patient's floor/unit and/or counseling patient: Coding Level of Care Code 67663 Subseq Hosp Care Lvl 3 Diagnoses Stroke-like symptoms R29.90 Tremor R25.1 Time Spent (min) 40
--- NOTE | 2020-03-28 14:48 | Magnetic Resonance Report ---
MRI OF THE BRAIN WITHOUT CONTRAST CLINICAL HISTORY: Weakness. Possible pontine infarct. COMPARISON STUDY: CT scan dated 03/25/2020 FINDINGS: Sagittal T1, axial diffusion, proton density and T2 weighted axial, coronal FLAIR, and axial T1-weigh john images were acquired. The examination is mildly compromised due to motion artifact. No intra or extra-axial mass lesions are visualized Axial diffusion-weighted images reveal no evidence of acute or subacute infarction. There is no evidence of ventricular dilatation. Proton density T2-weighted and FLAIR images reveal scattered foci of increased T2 signal within the w vannesa matter, likely on a small vessel basis. There are no abnormal flow voids. There are foci of increased T2 signal within the right mastoid, lik ochoa inflammatory. IMPRESSION: 1. No acute intracranial findings 2. No evidence of acute or subacute infarction 3. No evidence of intracranial mass 4. Right mastoid effusion ACT 112: Negative or not required by law. Electronically signed by: Darian Mclaughlin M.D. 03/28/2020 2:47 PM
--- NOTE | 2020-03-29 08:17 | Hospitalist Progress Note ---
Date of Service March 29, 2020 Assessment & Plan (1) Toxic metabolic encephalopathy: Concern for metabolic encephalopathy from infection with his left elbow culture showing Pseudomonas, treated with cefepime at this time clinically improving Other infectious etiologies have seen to be ruled out including peritonitis. Neurology has performed a complete evaluation including imaging of his brain which went as far as reprogramming his pacemaker for MRI scan. There is no structural abnormalities consistent with changes to be responsible for his mental decline or hallucinations sepsis POA Presenting VS, Labs, and GCS score place patient at a SOFA score of >=4, sepsis now resolved (2) Weakness: multifactorial certainly sepsis and deconditioning of played a role patient will benefit from rehab PT/OT evaluation (3) Dehydration: certainly can be a cause of encephalopathy/weakness -given patient's peripheral swelling and recent ascites consistent with portal hypertension IV fluid is discontinued dehydration is resolved (4) Abdominal ascites: SBP is likely ruled out Etiology likely from portal hypertension from cardiac issues and possible cirrhosis as based on imaging suggestion, starting spironolactone, low salt diet and careful monitoring of labs (5) Wound swab culture positive: elbow grew pseudomonas 03/22; cefepime for presumed SBP will cover. complete one week course improving ongoing wound care and f/u (6) Hallucinations: These are ongoing visual now patient is aware of them they are not troubling to him pt complains of insomnia, will stop amitiza as may impact tremor, will try hs zyprexa to help with sleep and hallucinations (7) Abnormal CT of liver: Concerning for liver cirrhosis/neoplasm given current and prior imaging. LFTs unremarkable. Plt sl low. PTINR elevated at 1.4 but possibly from Xarelto use. Albumin 3.3. Noted hepatic mass also present on prior scans. Fluid analysis including SAAG is consistent with portal hypertension which possibly could be part of the discussion of cirrhosis on imaging (8) Pleural effusion: Likely secondary to ascites does not seem to be making a clinical impact (9) Lower extremity edema: probably relates to venous stasis and ascites also from his portal hypertension causing decreased venous return compression/mobilization as possible initiating spironolactone 03/29/20 (10) Atrial fibrillation: Remains rate controlled, anticoagulation currently resumed on 03/29 (11) Pacemaker: appreciate input on MRI compatibility and settings (12) Mitral regurgitation: Moderate-severe on echo 11/2019 could have also playing heart failure preserved ejection fraction (13) Tricuspid regurgitation: Moderate on echo 11/2019. 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 (16) Anxiety: Previous provider has began reducing dose in half -no current symptoms of benzodiazepine withdrawal with caution for the hallucinations (17) DVT prophylaxis: Xarelto will resume 03/29 (18) Discharge planning issues: PT/OT eval and treat, right now likely would need some sort of acute or subacute rehab, but will continue to follow progress (19) Prolonged QT interval: improved Admission and Anticipated Discharge Date Admission Date: March 25, 2020 Subjective Patient was pleasant and conversant today he is mostly concerned about his lower extremity swelling. He has no focal complaints or problems with exception of still being bothered by auditory and visual hallucinations. I spoke with his son on 03/29 and updated him regarding his father's course Review of Systems Review of Systems: Mild distress and fatigue, mostly stresses regarding hallucinations no headache, blurry or double vision no speech or swallowing issues no chest pain, pressure or palpitations no shortness of breath, cough or wheezes no abdominal pain, nausea or vomiting, or diarrhea no dysuria, hematuria or frequency no focal joint pain does complain of bilateral bothersome swelling no back pain, CVA tenderness or radicular pain no bruising, bleeding or rashes no focal signs of weakness or numbness or altered sensation Persistent complaints of auditory and visual hallucinations Physical Exam Physical Exam: The patient appeared slightly underweight and consistent with his stated age Vital signs as documented. Head exam is unremarkable. No scleral icterus Neck is without JVD, thyromegaly, or carotid bruits. Lungs are clear to auscultation, no focal loss of breath sounds Cardiac exam, Rhythm is regular.. No murmurs, rubs or gallops. Abdominal exam reveals normal bowel sounds, soft non tender, no masses Extremities are 2+ pitting edema bilaterally and both pedal pulses are normal. Neurologic exam is alert and oriented x2, no focal loss of strength or sensation Skin is without bruises or rashes Psychologically is with concerned for the presence of his hallucinations Results & Data Results & Data ([facility]) Vital Signs (Past 12 Hours) Vital Signs Temp Pulse Pulse Pulse Resp BP BP 03/29/20 07:11 97.5 F L 90 20 148/90 H 03/29/20 02:49 97.5 F L 80 19 147/67 H 03/28/20 23:40 97.5 F L 98 H 20 109/67 03/28/20 23:32 73 Pulse Ox 03/29/20 07:11 93 03/29/20 02:49 93 03/28/20 23:40 92 03/28/20 23:32 PG Care Time/CCT Total # of Minutes Spent Total Time Spent with Patient: Total time spent is greater than 50% in coordination of care (as documented) at patient's floor/unit and/or counseling patient: Coding Level of Care Code 90148 Subseq Hosp Care Lvl 3 Diagnoses Toxic metabolic encephalopathy G92 Weakness R53.1 Dehydration E86.0 Abdominal ascites R18.8 Ascites type: other type Wound swab culture positive R89.[address] of liver R93.2 Pleural effusion J90 Lower extremity edema R60.0 Atrial fibrillation I48.11 Atrial fibrillation type: longstanding persistent Pacemaker Z95.0 Mitral regurgitation I34.0 Cardiac valve disease etiology: nonrheumatic Tricuspid regurgitation I36.1 Cardiac valve disease etiology: nonrheumatic Tremor R25.1 BPH loc w urin obs/LUTS N40.1 Anxiety F41.9 DVT prophylaxis Z29.9 Discharge planning issues Z02.9 Prolonged QT interval R94.31 (1) Abdominal ascites Ascites type: other type Qualified Code(s): R18.8 - Other ascites (2) Tricuspid regurgitation Cardiac valve disease etiology: nonrheumatic Qualified Code(s): I36.1 - Nonrheumatic tricuspid (valve) insufficiency (3) Atrial fibrillation Atrial fibrillation type: longstanding persistent Qualified Code(s): I48.11 - Longstanding persistent atrial fibrillation (4) Mitral regurgitation Cardiac valve disease etiology: nonrheumatic Qualified Code(s): I34.0 - Nonrheumatic mitral (valve) insufficiency
[2020-03-29] MEDS: SERTRALINE HCL 50 MG TABLET PO SCH (08:21)
[2020-03-29] MEDS: ALPRAZolam 0.5 MG TABLET PO SCH ×3 (08:21→20:59)
[2020-03-29] MEDS: CEROVITE ADV FORMULA TAB PO SCH ×2 (08:21→21:00)
[2020-03-29] MEDS: RIVAROXABAN 20 MG TAB PO SCH (08:21)
[2020-03-29] MEDS: lisinopriL 10 MG TAB PO SCH (08:22)
[2020-03-29] MEDS: LUBIPROSTONE 8 MCG CAP PO SCH (08:22)
[2020-03-29] MEDS: FINASTERIDE 5 MG TAB PO SCH (08:22)
[2020-03-29] MEDS: TAMSULOSIN HCL 0.4 MG CAP PO SCH ×2 (08:22→20:59)
[2020-03-29] MEDS: LACTATED RINGER'S 1,000 ML IV SCH (09:20)
[2020-03-29] MEDS: CEFEPIME 2,000 MG in SYRINGE 7.5 ML IV SCH ×2 (10:53→21:01)
[2020-03-29] MEDS ORDERED: OLANZAPINE 2.5 MG TAB PO SCH (21:00)
[2020-03-30] MEDS ORDERED: OLANZAPINE 2.5 MG TAB PO STA (01:11)
[2020-03-30 06:02] LABS: Hematocrit (blood only) 29.6 % (42-52); Hemoglobin 9.5 g/dL (14.0-18.0); Mean Corpuscular Hemoglobin 28.7 pg (25-34); Mean Corpuscular Hgb Conc 32.1 g/dL (32-36); Mean Corpuscular Volume 89.4 fL (80-100); RDW Coefficient of Variation 20.2 % (11.5-14.5); Red Blood Count 3.31 M/uL (4.7-6.1); White Blood Count 5.29 K/uL (4.8-10.8)
[2020-03-30 06:17] LABS: Mean Platelet Volume 10.7 fL (7.4-10.4); Platelet Count 94 K/uL (130-400)
[2020-03-30 06:27] LABS: Anisocytosis Present; Basophils # (auto) 0.06 K/uL (0-0.2); Basophils % (auto) 1.1 %; Eosinophils # (auto) 0.25 K/uL (0-0.5); Eosinophils % (auto) 4.7 %; Giant Platelets 1+; Lymphocytes # (auto) 0.88 K/uL (1.2-3.4); Lymphocytes % (auto) 16.6 %; Monocytes # (auto) 0.48 K/uL (0.11-0.59); Monocytes % (auto) 9.1 %; Neutrophils # (auto) 3.62 K/uL (1.4-6.5); Neutrophils % (auto) 68.5 %; Target Cells 1+
[2020-03-30 06:28] LABS: Albumin Level 3.4 gm/dl (3.4-5.0); BUN Creatinine Ratio 41.1 (10-20); Calcium 8.7 mg/dl (8.5-10.1); Creatinine Clr Calc Pharmacy 55.7 ml/min; Est GFR (African American) 89.7; Est GFR (Non-African American) 77.4; Potassium 4.2 mmol/L (3.5-5.1)
[2020-03-30 06:51] LABS: Albumin Globulin Ratio 1.2 (0.9-2); Bilirubin,Total 1.2 mg/dl (0.2-1); Globulin 2.7 gm/dl (2.5-4.0); Total Protein 6.1 gm/dl (6.4-8.2)
--- NOTE | 2020-03-30 07:27 | Hospitalist Progress Note ---
Date of Service March 30, 2020 Assessment & Plan (1) Toxic metabolic encephalopathy: Concern for metabolic encephalopathy from infection with his left elbow culture showing Pseudomonas, treated with cefepime at this time clinically improving, with improvement of the infection he would hope to metabolic encephalopathy would resolve the risk and some concern for underlying toxic encephalopathy from possible benzodiazepine withdrawal or progressive delirium in hospital delirium compounding baseline dementia Other infectious etiologies have seen to be ruled out including peritonitis. Neurology has performed a complete evaluation including imaging of his brain which went as far as reprogramming his pacemaker for MRI scan. There is no structural abnormalities consistent with changes to be responsible for his mental decline or hallucinations sepsis POA Presenting VS, Labs, and GCS score place patient at a SOFA score of >=4, sepsis now resolved (2) Abdominal ascites: SBP is likely ruled out, pathology analysis of fluid is negative for malignancy( there was discussion of abnormal imaging) Etiology likely from portal hypertension from cardiac issues and possible cirrhosis as based on imaging suggestion, starting spironolactone, low salt diet and careful monitoring of labs (3) Abnormal CT of liver: Concerning for liver cirrhosis/neoplasm given current and prior imaging. LFTs unremarkable. Plt sl low. PTINR elevated at 1.4 but possibly from Xarelto use. Albumin 3.3. Noted hepatic mass also present on prior scans.( negative fluid cytology) Fluid analysis including SAAG is consistent with portal hypertension which possibly could be part of the discussion of cirrhosis on imaging (4) Wound swab culture positive: elbow grew pseudomonas 03/22; cefepime for presumed SBP will cover. complete one week course improving ongoing wound care and f/u (5) Hallucinations: These are ongoing visual now patient is aware of them they are not troubling to him patient's delirium has progressed on 03/30 with continued complains of insomnia, will stop amitiza as may impact tremor, did speak to psychiatry will escalate doses of Zyprexa add melatonin and have a psychiatric evaluation on 03/31. We will have PRN IV V Haldol available if agitation is significant (6) Lower extremity edema: probably relates to venous stasis and ascites also from his portal hypertension causing decreased venous return compression/mobilization as possible initiating spironolactone 03/29/20, no significant effect on electrolytes 03/30 (7) Atrial fibrillation: Remains rate controlled without any medications at this time, anticoagulation currently resumed on 03/29 (8) Pacemaker: appreciate input on MRI compatibility and settings (9) Mitral regurgitation: Moderate-severe on echo 11/2019 could have also playing heart failure preserved ejection fraction (10) Tricuspid regurgitation: Moderate on echo 11/2019. 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 (13) Anxiety: Previous provider has began reducing dose in half -no current symptoms of benzodiazepine withdrawal with caution for the hallucinations (14) DVT prophylaxis: Xarelto will resume 03/29 (15) Discharge planning issues: PT/OT eval and treat, right now likely would need some sort of acute or subacute rehab, delirium will delay disposition at this time (16) Prolonged QT interval: improved (17) Weakness: multifactorial certainly sepsis and deconditioning of played a role patient will benefit from subacute rehab (18) Dehydration: certainly can be a cause of encephalopathy/weakness -given patient's peripheral swelling and recent ascites consistent with portal hypertension IV fluid is discontinued dehydration is resolved (19) Pleural effusion: Likely secondary to ascites does not seem to be making a clinical impact Admission and Anticipated Discharge Date Admission Date: March 25, 2020 Subjective Patient is agitated and confused today. He is thinks that the wires plugged into the wall are actually hoses with water in them. He needed to be frequently redirected. Reportedly he had no good effects to help sleep last evening with Zyprexa. I spoke to psychiatric consultation service and we will escalate the dose of his Zyprexa I will add some melatonin however full psychiatric evaluation on 03/31. Review of Systems Review of Systems: Unobtainable due to cognitive status Physical Exam Physical Exam: The patient appeared agitated and in distress dismissed him from the room told me to "get the hell out of here" Vital signs as documented. Lungs are clear to auscultation and appear unlabored Cardiac exam, Rhythm is regular.. No murmurs, rubs or gallops. Abdominal exam reveals normal bowel sounds, soft non tender, no masses Extremities are mildly edematous and both pedal pulses are normal. Neurologic exam is alert and had agitated no focal loss of strength or sensation spontaneously moving extremities Skin is without bruises or rashes Psychologically is with agitation and delirium Results & Data Results & Data ([facility]) Vital Signs (Past 12 Hours) Vital Signs Temp Pulse Pulse Resp BP Pulse Ox 03/30/20 06:52 97.5 F L 82 20 156/83 H 92 03/29/20 23:28 98.2 F 90 20 132/76 95 03/29/20 23:05 73 03/29/20 19:39 98.1 F 97 H 20 142/80 H 92 PG Care Time/CCT Total # of Minutes Spent Total Time Spent with Patient: Total time spent is greater than 50% in coordination of care (as documented) at patient's floor/unit and/or counseling patient: Coding Level of Care Code 15503 Subseq Hosp Care Lvl 3 Diagnoses Toxic metabolic encephalopathy G92 Abdominal ascites R18.8 Ascites type: other type Abnormal CT of liver R93.2 Wound swab culture positive R89.5 Hallucinations R44.3 Lower extremity edema R60.0 Atrial fibrillation I48.11 Atrial fibrillation type: longstanding persistent Pacemaker Z95.0 Mitral regurgitation I34.0 Cardiac valve disease etiology: nonrheumatic Tricuspid regurgitation I36.1 Cardiac valve disease etiology: nonrheumatic Tremor R25.1 BPH loc w urin obs/LUTS N40.1 Anxiety F41.9 DVT prophylaxis Z29.9 Discharge planning issues Z02.9 Prolonged QT interval R94.31 Weakness R53.1 Dehydration E86.0 Pleural effusion J90 (1) Abdominal ascites Ascites type: other type Qualified Code(s): R18.8 - Other ascites (2) Tricuspid regurgitation Cardiac valve disease etiology: nonrheumatic Qualified Code(s): I36.1 - Nonrheumatic tricuspid (valve) insufficiency (3) Atrial fibrillation Atrial fibrillation type: longstanding persistent Qualified Code(s): I48.11 - Longstanding persistent atrial fibrillation (4) Mitral regurgitation Cardiac valve disease etiology: nonrheumatic Qualified Code(s): I34.0 - Nonrheumatic mitral (valve) insufficiency
[2020-03-30] MEDS: FINASTERIDE 5 MG TAB PO SCH (08:09)
[2020-03-30] MEDS: RIVAROXABAN 20 MG TAB PO SCH (08:09)
[2020-03-30] MEDS: CEROVITE ADV FORMULA TAB PO SCH ×2 (08:10→20:43)
[2020-03-30] MEDS: SPIRONOLACTONE 12.5 MG TAB PO SCH (08:10)
[2020-03-30] MEDS: lisinopriL 20 MG TAB PO SCH (08:10)
[2020-03-30] MEDS: ALPRAZolam 0.5 MG TABLET PO SCH ×3 (08:14→20:42)
--- NOTE | 2020-03-30 09:12 | Neurology Progress Note ---
Date of Service March 30, 2020 Assessment & Plan (1) Stroke-like symptoms: (2) Tremor: This patient presented 5/2 with an episode of right hand weakness (which had resolved) and then dysarthria and weakness of both legs. These symptoms occurred in the context of chronic tremor, generalized weakness, recurrent falls, and gait dysfunction. Since the new symptoms were relatively acute, vertebrobasilar insufficiency or a small stroke could not be excluded. CT angiogram of the head and neck were unremarkable for significant vascular lesion or thrombosis. 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 MRI of the brain did not show any acute stroke. 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 He does not have a headache. This patient has longstanding bilateral, left greater than right upper extremity, postural and action tremor. There is very mild resting tremor on the left intermittently today. He had a head tremor when I saw him March 24 but he does not have this I saw him this morning. He is not rigid but has some bradykinesia. Patient's tremor did not respond to a previous trial of Sinemet. Patient has positive Pseudomonas growing out of the wound but blood cultures and peritoneal fluid cultures been negative so far. Recommendations: 1. Currently, I see no indication for antiplatelet therapy. 2. 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 Topiramate might be useful for his tremor. I could consider initiating this is an outpatient. 4. Consider initiating levothyroxine. Elevated TSH of 8.1. He had TSH of 10.4 on March 18. Hypothyroidism could be contributing to his fatigue/lethargy, confusion, and weakness. Overall, I spent a total of 35 minutes with this case including review of records, review of MRI films, direct evaluation of the patient, and discussing the case with the RN at bedside and Dr. Stover, including differential diagnosis and treatment options. Admission and Anticipated Discharge Date Admission Date: March 25, 2020 Subjective In or headache although he has some swelling in his left lower extremity that he is concerned about. Nursing reports that he has been stable although this morning he is fixated on removing batteries. When I talked to the patient he told me that they were batteries behind his head on the wall which needed to be removed. The best I could tell he was concerned about beeping and noises that, at the time I was in the room, were coming from the room next door and down the gamble. I could not understand any more about what he was concerned about regarding the batteries. MRI of the brain showed no acute stroke. There was some mild generalized atrophy and old small vessel ischemic changes consistent with age and he had changes of right mastoiditis. I reviewed these films. Chem profile was unremarkable. CBC showed anemia as before. Wound culture was growing Pseudomonas. Blood cultures from March 25 showed no growth. Peritoneal fluid obtained 2 days ago showed no growth so far as well. He is on cefepime. Blood pressure is 156/83 and he is afebrile. Results & Data ([facility]) Vital Signs (Past 12 Hours) Vital Signs Temp Pulse Pulse Resp BP Pulse Ox 03/30/20 07:26 79 03/30/20 06:52 36.4 C L 82 20 156/83 H 92 03/29/20 23:28 36.8 C 90 20 132/76 95 03/29/20 23:05 73 Exam (Neuro) Physical Exam: He is awake and alert. He does not have any specific aphasia or dysarthria. Mood is reasonable affect is appropriate although he is a little anxious. He follows one-step commands well. He is oriented to his name, age, place (hospital in [place]) and his son's name (Jesus). Extraocular eye muscles are intact without nystagmus. There is no facial droop. Tongue is midline. The patient has very mild intermittent resting tremor of the left upper extremity. He has [id number] postural and action tremor bilaterally left greater than right side. Strength is symmetrical in the limbs. He does have a little edema distally in the left lower extremity. PG Care Time/CCT Total # of Minutes Spent Total Time Spent with Patient: Total time spent is greater than 50% in coordination of care (as documented) at patient's floor/unit and/or counseling patient: Coding Level of Care Code 90894 Subseq Hosp Care Lvl 3 Diagnoses Stroke-like symptoms R29.90 Tremor R25.1 Time Spent (min) 35
[2020-03-30] MEDS: CEFEPIME 2,000 MG in SYRINGE 7.5 ML IV SCH ×2 (11:00→21:41)
[2020-03-30] MEDS: LEVOTHYROXINE SODIUM 25 MCG TABLET PO SCH (12:27)
[2020-03-30] MEDS: TAMSULOSIN HCL 0.4 MG CAP PO SCH ×2 (12:27→20:43)
[2020-03-30] MEDS ORDERED: HALOPERIDOL LACTATE 5 MG/ML 1 ML VIAL IV PRN (18:14)
[2020-03-30] MEDS: MELATONIN 3 MG TAB PO PRN (20:42)
[2020-03-30] MEDS ORDERED: OLANZapine 5 MG TABLET PO SCH (21:00)
[2020-03-31] MEDS: LEVOTHYROXINE SODIUM 25 MCG TABLET PO SCH (06:43)
[2020-03-31] MEDS: CEROVITE ADV FORMULA TAB PO SCH ×2 (08:08→20:20)
[2020-03-31] MEDS: lisinopriL 20 MG TAB PO SCH (08:08)
[2020-03-31] MEDS: TAMSULOSIN HCL 0.4 MG CAP PO SCH ×2 (08:08→20:20)
[2020-03-31] MEDS: RIVAROXABAN 20 MG TAB PO SCH (08:09)
[2020-03-31] MEDS: SPIRONOLACTONE 12.5 MG TAB PO SCH (08:10)
[2020-03-31] MEDS: FINASTERIDE 5 MG TAB PO SCH (08:11)
[2020-03-31] MEDS: ALPRAZolam 0.5 MG TABLET PO SCH (08:14)
[2020-03-31] MEDS: SERTRALINE HCL 50 MG TABLET PO SCH (09:14)
--- NOTE | 2020-03-31 09:32 | Psychiatric Consultation ---
Date of Consultation March 31, 2020 Impression / Recommendations Impression 84-year-old male with a history of depression and anxiety which worsened after the of his 8 months ago, and visual hallucinations which reportedly started about 11 months ago when he was hospitalized with a UTI, and worsened recently in the context of multiple medical problems and encephalopathy. We are consulted for hallucinations and delirium. His mental status appears to be worsening in the hospital, at the time of my assessment, he is completely incoherent, with dysarthric slurred speech and restlessness, consistent with a hyperactive delirium. Numerous causes for delirium evident, agree it is likely multifactorial. The visual hallucinations described by the patient's son appear to be exacerbated by the delirium, and are most likely associated with his neurological condition, possibly MSA or Parkinson's disease. As these hallucinations have not been causing distress or dysfunction, would not recommend using antipsychotic medication to address them, due to the multiple risks associated with that class of medications, including cardiac and the black box warning for elderly patients with cognitive disorders. His delirium prevents assessment of underlying depression and anxiety, but hopefully as he clears we will be better able to assess that to determine if an adjustment to his antidepressant is warranted. Recommend avoiding benzodiazepines, due to the risk of worsening confusion, as well as increased fall risk. It is not clear to me how long he has been on the alprazolam, and he is not in the PDMP so I cannot determine who the prescriber is. It may be beneficial to identify an alternate decision maker as he currently lacks capacity to give informed consent and is unable to provide any meaningful information on my exam. Please contact us with any further questions or to discuss further. Psych History Identifying Data 84-year-old male with a history of depression and anxiety treated by his PCP, atrial fibrillation, pacemaker, and multiple neurologic problems with unclear etiology, including tremor, gait disturbance with recent falls, weakness, idiopathic polyneuropathy, and memory deficits who is admitted with generalized weakness, recurrent falls, and slurred speech for 1 week. Psychiatry is consulted for hallucinations and delirium. Chief Complaint "[]". History of Present Illness Patient has been hospitalized for 6 days. On admission he was diagnosed with encephalopathy of unclear etiology, and endorsed visual hallucinations that were thought to be due to to hypnagogic phenomena, exacerbated by encephalopathy and alprazolam. He has had cardiology and neurological consultations. Brain MRI showed no evidence of acute CVA, but atrophy and mild old nonspecific small vessel ischemic disease, and he had abdominal ascites and concern for liver pathology. Neurology felt that encephalopathy was likely multifactorial (current infection, dehydration, possible small stroke, and hospital environment). They also felt weakness was multifactorial and related to en cephalopathy and medical problems, and tremor could be related to Parkinson's disease, multiple system atrophy, or an atypical essential or action tremor. Propanolol was suggested, but cardiology clearance needed, versus topiramate. They also noted elevated TSH and recommended levothyroxine, as hypothyroidism could be contributing to fatigue, confusion, and weakness. The liaison nurse contacted his son last evening for collateral information, and he stated that he has had depression and anxiety for years, which worsened after the of his in 07/2019. At that time, the patient moved in with his son. He developed visual hallucinations in 04/2019 when he had a UTI and was hospitalized in [place], [place]. The hallucinations never fully resolved, and recently worsened as did confusion. The patient will often see people in front of him and then reach out to touch them and they disappear. His son brought him to the hospital last week after he had an acute change in mental status, was unable to walk, talk, or dress himself. His son felt that his mental status had worsened since he was hospitalized. His initial QTC was 510, so antipsychotics were not ordered, but his QTC has been monitored and since normalized, 434 on 03/28/2020, and the hospitalist started him on olanzapine for hallucinations, and he received 2.5 mg daily the past 2 days, and 5 mg last night. On my assessment today, the patient is essentially incoherent, with slurred speech and only occasional decipherable words. He is unable to provide any information, answer orientation questions, or tell me where he lives (points to the computer screen and says "here.") Past Psychiatric History Previous Psych History: Per son, patient has had a history of depression and anxiety for years. He is prescribed sertraline 50 mg daily by his PCP. Past Medication Trials: Unknown Allergies Allergy/AdvReac Type Severity Reaction Status Date / Time clindamycin Allergy Intermediate Rash Verified 03/24/20 09:00 acetaminophen [From Vicodin] AdvReac Intermediate Racing Verified 03/24/20 09:00 Heart ciprofloxacin [From Cipro] AdvReac Intermediate Blurry Verified 03/24/20 09:00 Vision hydrocodone [From Vicodin] AdvReac Intermediate Racing Verified 03/24/20 09:00 Heart oxycodone AdvReac Intermediate Heart Races Verified 03/24/20 09:00 tramadol [From Ultram] AdvReac Intermediate Profuse Verified 03/24/20 09:00 Sweating doxycycline AdvReac Mild "Burning Verified 03/24/20 09:00 Stomach" Penicillins AdvReac Mild "Hairy Verified 03/24/20 09:00 tongue" propoxyphene AdvReac Unknown "Just do Verified 03/24/20 09:00 [From Darmatiascet-N] not want pain medications" Home Medications Home Medications Medication Instructions Recorded Confirmed Type PreserVision AREDS 1 tab PO AMPM 09/19/19 03/25/20 History simethicone [Gas-X Extra Strength] 125 mg PO TIDM PRN 09/19/19 03/25/20 History polyethylene glycol 3350 17 8.5 gm PO DAILY PRN 10/16/19 03/25/20 History gram/dose oral powder lubiprostone [Amitiza] 24 mcg PO BID 12/29/19 03/25/20 History tamsulosin 0.4 mg capsule 0.4 mg PO BID #180 cap 01/18/20 03/25/20 Rx finasteride 5 mg tablet 5 mg PO QAM #90 tab 01/28/20 03/25/20 Rx lisinopril 30 mg tablet 30 mg PO QAM #90 tab 01/28/20 03/25/20 Rx diphenhydramine HCl [Benadryl] 25 mg PO HS 03/03/20 03/25/20 History furosemide 20 mg tablet 20 mg PO BID #60 tab 03/11/20 03/25/20 Rx rivaroxaban 20 mg tablet 20 mg PO DAILY 03/22/20 03/25/20 History alprazolam 1 mg tablet 1 mg PO TID #30 tab 03/24/20 03/25/20 Rx sertraline 50 mg tablet 50 mg PO QAM #30 tab 03/24/20 03/25/20 Rx Personal History Employment Status: Retired Marital Status: ( 07/2019) Beliefs That Will Affect Care: None Patient History Medical History Atrial fibrillation (Acute) HX. Pacemaker placed 05/16/19. Recently moved to [place] to live with his son, and will be establishing with [facility] cardiology after surgery. Avulsion of skin (Inactive) Bladder neck contracture BPH loc w urin obs/LUTS Candidiasis of mouth and esophagus CHI (closed head injury) (Inactive) Closed fracture nasal bone (Inactive) Contusion (Inactive) Difficulty swallowing 2/2 thrush GERD (gastroesophageal reflux disease) Gross hematuria Xarelto d/c'd 08/2019 because of this. Helicobacter pylori (H. pylori) Sleep apnea Using CPAP HS. Currently has possible thrush in throat 2/2 CPAP. 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 Currently on trial of Sinemet to see if it improves. Urinary retention Valvular heart disease Surgical History History of colonoscopy History of esophagogastroduodenoscopy (EGD) History of knee replacement Pacemaker [employer]. PLACED 03/2019 [facility]-USED TO F/U AT [facility] [place]-MOVED TO LIVE WITH SON 08/2019 S/P cataract surgery S/P TURP (transurethral resection of prostate) Family History Sister Colorectal cancer Breast cancer Parkinson disease Son Family history of diabetes mellitus Mother , age 83 of a stroke Stroke Father , age 89 of black Lung Heart disease Denies family history of Ovarian cancer Prostate cancer Crohn's disease Myocardial infarction Ulcerative colitis Social History Preferred Language: Austrian Communication Ability: Effective Visual Impairment: Partially Limited Hearing Ability: Use of Hearing Aid 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 Beliefs That Will Affect Care: None marital status: / Current Living Situation: Family Current Living Situation Comment: LIVES WITH SON/DAUGHTER IN LAW SINCE 08/2019 current occupational status: retired current occupation: Previously worked in [employer] Other Information That Helps Us 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 Well-nourished well-developed male appearing his stated age, dressed in a hospital gown. Lying in bed in mild distress, appears restless, trying to sit up. Eye Contact: + poor eye contact Motor Behavior: + psychomotor agitation Mild restlessness in bed, but appears weak and unable to sit up on his own Dysarthric, slurred Patient appears mildly distraught and restless. Unable to assess due to unintelligible speech Vital Signs (Past 24 Hours): Last Vital Signs Temp 36.4 C L 03/31/20 08:19 Pulse 83 03/31/20 08:19 Resp 18 03/31/20 08:19 BP 134/76 03/31/20 08:19 Pulse Ox 92 03/31/20 08:19 Review of Systems Unobtainable due to cognitive status Results & Data (PSY) Medications Administered Alprazolam (Xanax) 0.5 mg PO TID PRISCILLA Stop: 04/24/20 20:59 Last Admin: 03/31/20 08:14 Dose: 0.5 mg Documented by: [id number] Admin: 03/30/20 20:42 Dose: 0.5 mg Documented by: [id number] Admin: 03/30/20 14:01 Dose: 0.5 mg Documented by: [id number] Admin: 03/30/20 08:14 Dose: 0.5 mg Documented by: [id number] Admin: 03/29/20 20:59 Dose: 0.5 mg Documented by: [id number] Admin: 03/29/20 14:50 Dose: 0.5 mg Documented by: [id number] Admin: 03/29/20 08:21 Dose: 0.5 mg Documented by: [id number] Admin: 03/28/20 20:49 Dose: 0.5 mg Documented by: [id number] Admin: 03/28/20 13:56 Dose: 0.5 mg Documented by: [id number] Admin: 03/28/20 08:06 Dose: 0.5 mg Documented by: [id number] Admin: 03/27/20 20:16 Dose: 0.5 mg Documented by: [id number] Admin: 03/27/20 14:03 Dose: 0.5 mg Documented by: [id number] Admin: 03/27/20 08:42 Dose: 0.5 mg Documented by: [id number] Admin: 03/26/20 20:18 Dose: 0.5 mg Documented by: [id number] Admin: 03/26/20 12:52 Dose: 0.5 mg Documented by: [id number] Admin: 03/26/20 07:38 Dose: 0.5 mg Documented by: [id number] Admin: 03/25/20 21:23 Dose: 0.5 mg Documented by: [id number] Al Hydrox/Mg Hydrox/Simethicone 50 ml/Diphenhydramine HCl 125 mg/Lidocaine HCl 40 ml/Sucralfate 10,000 mg/ BARCODE IDENTIFIER 1 ea 0 ml PO Q4H PRN PRN Reason: Pain Stop: 04/25/20 16:10 Last Admin: 03/26/20 16:41 Dose: 5 ml Documented by: [id number] Finasteride (Proscar) 5 mg PO QAM [facility] Stop: 04/25/20 08:59 Last Admin: 03/31/20 08:11 Dose: 5 mg Documented by: [id number] Admin: 03/30/20 08:09 Dose: 5 mg Documented by: [id number] Admin: 03/29/20 08:22 Dose: 5 mg Documented by: [id number] Admin: 03/28/20 08:05 Dose: 5 mg Documented by: [id number] Admin: 03/27/20 08:45 Dose: 5 mg Documented by: [id number] Admin: 03/26/20 07:39 Dose: 5 mg Documented by: [id number] Cefepime HCl 2,000 mg/ Syringe 20 mls @ 5.5 mls/min IV Q12H PRISCILLA; Protocol Stop: 04/05/20 21:59 Last Admin: 03/30/20 21:41 Dose: 5.5 mls/min Documented by: [id number] Admin: 03/30/20 11:00 Dose: 5.5 mls/min Documented by: [id number] Admin: 03/29/20 21:01 Dose: 5.5 mls/min Documented by: [id number] Admin: 03/29/20 10:53 Dose: 5.5 mls/min Documented by: [id number] Admin: 03/28/20 21:45 Dose: 5.5 mls/min Documented by: [id number] Admin: 03/28/20 10:02 Dose: 5.5 mls/min Documented by: [id number] Levothyroxine Sodium (Synthroid) 25 mcg PO DAILYBB [facility] Stop: 04/29/20 09:44 Last Admin: 03/31/20 06:43 Dose: 25 mcg Documented by: [id number] Admin: 03/30/20 12:27 Dose: 25 mcg Documented by: [id number] Lisinopril (Zestril) 20 mg PO QAM [facility] Stop: 04/29/20 08:59 Last Admin: 03/31/20 08:08 Dose: 20 mg Documented by: [id number] Admin: 03/30/20 08:10 Dose: 20 mg Documented by: [id number] Lubiprostone (Amitiza) 24 mcg PO BID [facility] Stop: 04/24/20 20:59 Last Admin: 03/29/20 08:22 Dose: 24 mcg Documented by: [id number] Admin: 03/28/20 20:50 Dose: 24 mcg Documented by: [id number] Admin: 03/28/20 08:05 Dose: 24 mcg Documented by: [id number] Admin: 03/27/20 20:15 Dose: 24 mcg Documented by: [id number] Admin: 03/27/20 08:42 Dose: 24 mcg Documented by: [id number] Admin: 03/26/20 20:17 Dose: 24 mcg Documented by: [id number] Admin: 03/26/20 07:39 Dose: 24 mcg Documented by: [id number] Admin: 03/25/20 21:20 Dose: 24 mcg Documented by: [id number] Melatonin (Melatonin) 3 mg PO HS PRN PRN Reason: Sleep Stop: 04/29/20 18:13 Last Admin: 03/30/20 20:42 Dose: 3 mg Documented by: [id number] Multivitamins/Minerals (Multivitamin W/ Minerals Tab) 1 tab PO BID PRISCILLA Stop: 04/24/20 20:59 Last Admin: 03/31/20 08:08 Dose: 1 tab Documented by: [id number] Admin: 03/30/20 20:43 Dose: 1 tab Documented by: [id number] Admin: 03/30/20 08:10 Dose: 1 tab Documented by: [id number] Admin: 03/29/20 21:00 Dose: 1 tab Documented by: [id number] Admin: 03/29/20 08:21 Dose: 1 tab Documented by: [id number] Admin: 03/28/20 20:50 Dose: 1 tab Documented by: [id number] Admin: 03/28/20 08:05 Dose: 1 tab Documented by: [id number] Admin: 03/27/20 20:15 Dose: 1 tab Documented by: [id number] Admin: 03/27/20 08:42 Dose: 1 tab Documented by: [id number] Admin: 03/26/20 20:17 Dose: 1 tab Documented by: [id number] Admin: 03/26/20 07:40 Dose: 1 tab Documented by: [id number] Admin: 03/25/20 21:21 Dose: 1 tab Documented by: [id number] Olanzapine (Zyprexa) 5 mg PO [facility] Stop: 04/29/20 20:59 Last Admin: 03/30/20 20:42 Dose: 5 mg Documented by: [id number] Rivaroxaban (Xarelto) 20 mg PO DAILY [facility] Stop: 04/28/20 08:59 Last Admin: 03/31/20 08:09 Dose: 20 mg Documented by: [id number] Admin: 03/30/20 08:09 Dose: 20 mg Documented by: [id number] Admin: 03/29/20 08:21 Dose: 20 mg Documented by: [id number] Sertraline [facility]ft) [facility] Stop: 04/25/20 08:59 Last Admin: 03/31/20 09:14 Dose: 50 mg Documented by: [id number] Admin: 03/29/20 08:21 Dose: 50 mg Documented by: [id number] Admin: 03/28/20 08:06 Dose: 50 mg Documented by: [id number] Admin: 03/27/20 08:43 Dose: 50 mg Documented by: [id number] Admin: 03/26/20 07:40 Dose: 50 mg Documented by: [id number] Spironolactone (Aldactone) 12.5 mg PO DAILY [facility] Stop: 04/29/20 08:59 Last Admin: 03/31/20 08:10 Dose: 12.5 mg Documented by: [id number] Admin: 03/30/20 08:10 Dose: 12.5 mg Documented by: [id number] Tamsulosin HCl (Flomax) 0.4 mg PO BID [facility] Stop: 04/24/20 20:59 Last Admin: 03/31/20 08:08 Dose: 0.4 mg Documented by: [id number] Admin: 03/30/20 20:43 Dose: 0.4 mg Documented by: [id number] Admin: 03/30/20 12:27 Dose: 0.4 mg Documented by: [id number] Admin: 03/29/20 20:59 Dose: 0.4 mg Documented by: [id number] Admin: 03/29/20 08:22 Dose: 0.4 mg Documented by: [id number] Admin: 03/28/20 20:50 Dose: 0.4 mg Documented by: [id number] Admin: 03/28/20 08:05 Dose: 0.4 mg Documented by: [id number] Admin: 03/27/20 20:15 Dose: 0.4 mg Documented by: [id number] Admin: 03/27/20 08:42 Dose: 0.4 mg Documented by: [id number] Admin: 03/26/20 20:17 Dose: 0.4 mg Documented by: [id number] Admin: 03/26/20 07:39 Dose: 0.4 mg Documented by: [id number] Admin: 03/25/20 21:20 Dose: 0.4 mg Documented by: [id number] Coding Level of Care Code 09223 U Intl Hosp Care Lvl 3
--- NOTE | 2020-03-31 10:30 | Neurology Progress Note ---
Date of Service March 31, 2020 Assessment & Plan (1) Stroke-like symptoms: This patient presents with an episode of resolved right hand weakness, followed by persistent dysarthria and weakness of the legs. Although these symptoms occur in the context of chronic tremor, generalized weakness, recurrent falls, and gait dysfunction, the relative acuity of the symptoms is worrisome for vertebrobasilar insufficiency or brainstem stroke. Of course, a small subcortical hemispheric stroke cannot be excluded. His recently completed CT angiogram of the head and neck are negative for significant vascular lesion or thrombus. He will need a brain MRI completed to further evaluate for a suspected small ischemic stroke. It looks like his cardiac pacer is MRI compatible according to cardiology and will require some programming attention to coordinate with MRI. This patient should be on some type of blood thinner. If he cannot continue his Xarelto as suggested by cardiology, then he should be on an antiplatelet agent. I would recommend daily low-dose aspirin if not specifically contraindicated. His blood pressure is appropriate. His lipid panel is normal and he probably does not require a statin. He should have a speech and swallowing evaluation. (2) Tremor: This patient presented 5/ with an episode of right hand weakness (which had resolved) and then dysarthria and weakness of both legs. These symptoms occurred in the context of chronic tremor, generalized weakness, recurrent falls, and gait dysfunction. Since the new symptoms were relatively acute, vertebrobasilar insufficiency or a small stroke could not be excluded. CT angiogram of the head and neck were unremarkable for significant vascular lesion or thrombosis. 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 MRI of the brain did not show any acute stroke. 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 He does not have a headache. This patient has longstanding bilateral, left greater than right upper extremity, postural and action tremor. There is very mild resting tremor on the left intermittently today. He had a head tremor when I saw him March 24 but he does not have this I saw him this morning. He is not rigid but has some bradykinesia. Patient's tremor did not respond to a previous trial of Sinemet. Patient has positive Pseudomonas growing out of the wound but blood cultures and peritoneal fluid cultures been negative so far. 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 Recommendations: 1. Currently, I see no indication for antiplatelet therapy. 2. 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 Topiramate might be useful for his tremor. I could consider initiating this as an outpatient. 4. Continue low-dose levothyroxine follow TSH. 5. Continue Zyprexa 5 milligrams each evening. Consider formal psychiatric consultation to see the patient. Overall, I spent a total of 25 minutes with this case including review of records, direct evaluation of the patient, and discussing the case with the RN at bedside and Dr. Stover, including differential diagnosis and treatment options. Admission and Anticipated Discharge Date Admission Date: March 25, 2020 Subjective Is awake and alert. He is saying things that are not connecting to make logical sense at times. He denies pain or headache. He is not dizzy. Blood pressure is 134/76 with pulse in the 80s. He is afebrile. He received 5 milligrams of Zyprexa last night. Urine, blood, and peritoneal fluid cultures showed no growth so far. Results & Data ([facility]) Vital Signs (Past 12 Hours) Vital Signs Temp Pulse Pulse Pulse Resp BP BP 03/31/20 08:19 36.4 C L 83 18 134/76 03/31/20 07:21 82 03/31/20 03:23 36.8 C 73 16 142/70 H 03/30/20 23:57 82 03/30/20 23:15 36.8 C 73 16 145/81 H Pulse Ox 03/31/20 08:19 92 03/31/20 07:21 03/31/20 03:23 95 03/30/20 23:57 03/30/20 23:15 95 Exam (Neuro) Physical Exam: He is awake and alert. His speech is without obvious a facial or dysarthria. He seems somewhat agitated and angry at times and other times he is a little more subdued. He is quite adamant about what he wants to say although it does not always make sense. He is not complaining of pain. He knows his name, his age, the fact that he is in a hospital in [place] and his son's name. He has mild left-sided rest tremor but moderate/significant posture and action tremor in the arms bilaterally. Strength is symmetrical in the arms. PG Care Time/CCT Total # of Minutes Spent Total Time Spent with Patient: Total time spent is greater than 50% in coordination of care (as documented) at patient's floor/unit and/or counseling patient: Coding Level of Care Code 59784 Subseq Hosp Care Lvl 2 Diagnoses Stroke-like symptoms R29.90 Tremor R25.1
[2020-03-31] MEDS: CEFEPIME 2,000 MG in SYRINGE 7.5 ML IV SCH ×2 (10:33→22:06)
[2020-03-31] MEDS ORDERED: ALPRAZolam 0.5 MG TABLET PO SCH (14:00)
--- NOTE | 2020-03-31 16:33 | Hospitalist Progress Note ---
Date of Service March 31, 2020 Assessment & Plan (1) Toxic metabolic encephalopathy: Concern for metabolic encephalopathy from infection with his left elbow culture showing Pseudomonas, treated with cefepime at this time clinically improving, with improvement of the infection he would hope to metabolic encephalopathy would resolve the risk and some concern for underlying toxic encephalopathy from possible benzodiazepine withdrawal or progressive delirium in hospital delirium compounding baseline dementia Other infectious etiologies have seen to be ruled out including peritonitis. Neurology has performed a complete evaluation including imaging of his brain which went as far as reprogramming his pacemaker for MRI scan. There is no structural abnormalities consistent with changes to be responsible for his mental decline or hallucinations sepsis POA Presenting VS, Labs, and GCS score place patient at a SOFA score of >=4, sepsis now resolved this pt was markedly worsened with confusion that maybe effects of medications, as per psychiatry consult stop xanax, zyprexa, given sleep issues will try one dose of trazadone tonight, has back up haldol (2) Abdominal ascites: SBP is likely ruled out, pathology analysis of fluid is negative for malignancy( there was discussion of abnormal imaging) Etiology likely from portal hypertension from cardiac issues and possible cirrhosis as based on imaging suggestion, starting spironolactone, low salt diet and careful monitoring of labs (3) Abnormal CT of liver: Concerning for liver cirrhosis/neoplasm given current and prior imaging. LFTs unremarkable. Plt sl low. PTINR elevated at 1.4 but possibly from Xarelto use. Albumin 3.3. Noted hepatic mass also present on prior scans.( negative fluid cytology) Fluid analysis including SAAG is consistent with portal hypertension which possibly could be part of the discussion of cirrhosis on imaging (4) Wound swab culture positive: elbow grew pseudomonas 03/22; cefepime for presumed SBP will cover. complete one week course improving ongoing wound care and f/u (5) Hallucinations: These are ongoing visual now patient is aware of them they are not troubling to him patient's delirium has progressed on 03/30 with continued complains of insomnia, will stop amitiza as may impact tremor, did speak to psychiatry will escalate doses of Zyprexa add melatonin and have a psychiatric evaluation on 03/31. We will have PRN IV V Haldol available if agitation is sig nificant (6) Lower extremity edema: probably relates to venous stasis and ascites also from his portal hypertension causing decreased venous return compression/mobilization as possible initiating spironolactone 03/29/20, no significant effect on electrolytes 03/30 (7) Atrial fibrillation: Remains rate controlled without any medications at this time, anticoagulation currently resumed on 03/29 (8) Pacemaker: appreciate input on MRI compatibility and settings (9) Mitral regurgitation: Moderate-severe on echo 11/2019 could have also playing heart failure preserved ejection fraction (10) Tricuspid regurgitation: Moderate on echo 11/2019. 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 (13) Anxiety: Previous provider has began reducing dose in half -no current symptoms of benzodiazepine withdrawal with caution for the hallucinations (14) DVT prophylaxis: Xarelto will resume 03/29 (15) Discharge planning issues: PT/OT eval and treat, right now likely would need some sort of acute or subacute rehab, delirium will delay disposition at this time (16) Prolonged QT interval: improved (17) Weakness: multifactorial certainly sepsis and deconditioning of played a role patient will benefit from subacute rehab (18) Dehydration: certainly can be a cause of encephalopathy/weakness -given patient's arley pheral swelling and recent ascites consistent with portal hypertension IV fluid is discontinued dehydration is resolved (19) Pleural effusion: Likely secondary to ascites does not seem to be making a clinical impact Admission and Anticipated Discharge Date Admission Date: March 25, 2020 Subjective Patient still actively hallucinating he is confused he confabulates he is sometimes agitated and needs redirection Review of Systems Review of Systems: Unobtainable due to cognitive status Physical Exam Physical Exam: The patient appeared well Vital signs as documented. Lungs are clear to auscultation and appear unlabored Cardiac exam, Rhythm is regular.. No murmurs, rubs or gallops. Abdominal exam reveals normal bowel sounds, soft non tender, no masses Extremities are nonedematous and both pedal pulses are normal. Neurologic exam is alert and agitated at times yelling about being confused but was in the room who is in the room Skin is without bruises or rashes Psychologically is with concerns for dementia with delirium Results & Data Results & Data ([facility]) Vital Signs (Past 12 Hours) Vital Signs Temp Pulse Pulse Resp BP Pulse Ox 03/31/20 15:40 97.5 F L 102 H 18 148/83 H 93 03/31/20 12:02 98.4 F 71 20 136/81 96 03/31/20 08:19 97.5 F L 83 18 134/76 92 03/31/20 07:21 82 PG Care Time/CCT Total # of Minutes Spent Total Time Spent with Patient: Total time spent is greater than 50% in coordination of care (as documented) at patient's floor/unit and/or counseling patient: Coding Level of Care Code 09137 Subseq Hosp Care Lvl 2 Diagnoses Toxic metabolic encephalopathy G92 Abdominal ascites R18.8 Ascites type: other type Abnormal CT of liver R93.2 Wound swab culture positive R89.5 Hallucinations R44.3 Lower extremity edema R60.0 Atrial fibrillation I48.11 Atrial fibrillation type: longstanding persistent Pacemaker Z95.0 Mitral regurgitation I34.0 Cardiac valve disease etiology: nonrheumatic Tricuspid regurgitation I36.1 Cardiac valve disease etiology: nonrheumatic Tremor R25.1 BPH loc w urin obs/LUTS N40.1 Anxiety F41.9 DVT prophylaxis Z29.9 Discharge planning issues Z02.9 Prolonged QT interval R94.31 Weakness R53.1 Dehydration E86.0 Pleural effusion J90 (1) Abdominal ascites Ascites type: other type Qualified Code(s): R18.8 - Other ascites (2) Atrial fibrillation Atrial fibrillation type: longstanding persistent Qualified Code(s): I48.11 - Longstanding persistent atrial fibrillation (3) Mitral regurgitation Cardiac valve disease etiology: nonrheumatic Qualified Code(s): I34.0 - Nonrheumatic mitral (valve) insufficiency (4) Tricuspid regurgitation Cardiac valve disease etiology: nonrheumatic Qualified Code(s): I36.1 - Nonrheumatic tricuspid (valve) insufficiency
[2020-03-31] MEDS: TRAZODONE HCL 50 MG TAB PO SCH (20:20)
[2020-04-01] MEDS: LEVOTHYROXINE SODIUM 25 MCG TABLET PO SCH (06:23)
--- NOTE | 2020-04-01 07:16 | Hospitalist Progress Note ---
Date of Service April 01, 2020 Assessment & Plan (1) Toxic metabolic encephalopathy: Concern for metabolic encephalopathy from infection with his left elbow culture showing Pseudomonas, treated with cefepime at this time clinically improving, with improvement of the infection he would hope to metabolic encephalopathy would resolve, we have completed antibiotics today His mental state has improved from 03/31, he is slighly sedate but did have some additional haldol over the last 24 hours Other infectious etiologies have seen to be ruled out including peritonitis. Neurology has performed a complete evaluation including imaging of his brain which went as far as reprogramming his pacemaker for MRI scan. There is no structural abnormalities consistent with changes to be responsible for his mental decline or hallucinations sepsis POA Presenting VS, Labs, and GCS score place patient at a SOFA score of >=4, sepsis now resolved As per psychiatry consult stop xanax, zyprexa, continue trazadone hs with melatonin, has back up haldol if behavior poses risk to self or staff (2) Abdominal ascites: SBP is ruled out, pathology analysis of fluid is negative for malignancy( there was discussion of abnormal imaging) Etiology likely from portal hypertension from cardiac issues and possible cirrhosis as based on imaging suggestion, starting spironolactone, low salt diet and careful monitoring of labs (3) Abnormal CT of liver: Concerning for liver cirrhosis/neoplasm given current and prior imaging. LFTs unremarkable. Plt sl low. PTINR elevated at 1.4 but possibly from Xarelto use. Albumin 3.3. Noted hepatic mass also present on prior scans.( negative fluid cytology) Fluid analysis including SAAG is consistent with portal hypertension which possibly could be part of the discussion of cirrhosis on imaging (4) Wound swab culture positive: elbow grew pseudomonas 03/22; cefepime for presumed SBP will cover. complete one week course ongoing wound care and f/u (5) Hallucinations: These are ongoing psychiatric evaluation on 03/31 feel maybe related to underlying dementia and possible parkinsons disease We will have PRN IV V Haldol available if agitation is significant (6) Lower extremity edema: probably relates to venous stasis and ascites also from his portal hypertension causing decreased venous return compression/mobilization as possible initiated spironolactone 03/29/20, no significant effect on electrolytes 03/30 (7) Atrial fibrillation: Remains rate controlled without any medications at this time, anticoagulation currently resumed on 03/29 (8) Pacemaker: appreciate input on MRI compatibility and settings (9) Mitral regurgitation: Moderate-severe on echo 11/2019 could have also playing heart failure preserved ejection fraction (10) Tricuspid regurgitation: Moderate on echo 11/2019. 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 ua is abnormal with sheridan, will send culture (13) Anxiety: Previous provider has began reducing dose in half -no current symptoms of benzodiazepine withdrawal with caution for the hallucinations (14) DVT prophylaxis: Xarelto will resume 03/29 (15) Discharge planning issues: PT/OT eval and treat, right now likely would need some sort of acute or subacute rehab, delirium continues to delay disposition at this time (16) Prolonged QT interval: improved (17) Weakness: multifactorial certainly sepsis and deconditioning of played a role patient will benefit from subacute rehab (18) Dehydration: certainly can be a cause of encephalopathy/weakness -given patient's peripheral swelling and recent ascites consistent with portal hypertension IV fluid is discontinued dehydration is resolved (19) Pleural effusion: Likely secondary to ascites does not seem to be making a clinical impact Admission and Anticipated Discharge Date Admission Date: March 25, 2020 Subjective pt is lethargic, but less agitated, will not make any additional medication changes today Review of Systems Review of Systems: Unobtainable due to cognitive status Physical Exam Physical Exam: The patient appeared less sedated more cooperative today with reasonable interaction but also did continue have some hallucinations Vital signs as documented. Lungs are clear to auscultation and appear unlabored Cardiac exam, Rhythm is regular.. No murmurs, rubs or gallops. Abdominal exam reveals normal bowel sounds, soft non tender, no masses no consideration of reaccumulation of ascites Extremities are nonedematous and both pedal pulses are normal. Neurologic exam is alert and oriented to person only not to place or time, no focal loss of strength or sensation overall weak but does spontaneously moves extremities even to command at some point Skin is without bruises or rashes Results & Data Results & Data ([facility]) Vital Signs (Past 12 Hours) Vital Signs Temp Pulse Pulse Pulse Pulse Resp BP 04/01/20 03:18 97.9 F 86 20 133/79 04/01/20 00:00 90 03/31/20 23:00 98.2 F 81 22 121/56 L 03/31/20 19:33 98.4 F 71 18 BP Pulse Ox 04/01/20 03:18 93 04/01/20 00:00 03/31/20 23:00 95 03/31/20 19:33 124/76 90 PG Care Time/CCT Total # of Minutes Spent Total Time Spent with Patient: Total time spent is greater than 50% in coordination of care (as documented) at patient's floor/unit and/or counseling patient: Coding Level of Care Code 70797 Subseq Hosp Care Lvl 3 Diagnoses Toxic metabolic encephalopathy G92 Abdominal ascites R18.8 Ascites type: other type Abnormal CT of liver R93.2 Wound swab culture positive R89.5 Hallucinations R44.3 Lower extremity edema R60.0 Atrial fibrillation I48.11 Atrial fibrillation type: longstanding persistent Pacemaker Z95.0 Mitral regurgitation I34.0 Cardiac valve disease etiology: nonrheumatic Tricuspid regurgitation I36.1 Cardiac valve disease etiology: nonrheumatic Tremor R25.1 BPH loc w urin obs/LUTS N40.1 Anxiety F41.9 DVT prophylaxis Z29.9 Discharge planning issues Z02.9 Prolonged QT interval R94.31 Weakness R53.1 Dehydration E86.0 Pleural effusion J90 (1) Abdominal ascites Ascites type: other type Qualified Code(s): R18.8 - Other ascites (2) Tricuspid regurgitation Cardiac valve disease etiology: nonrheumatic Qualified Code(s): I36.1 - Nonrheumatic tricuspid (valve) insufficiency (3) Atrial fibrillation Atrial fibrillation type: longstanding persistent Qualified Code(s): I48.11 - Longstanding persistent atrial fibrillation (4) Mitral regurgitation Cardiac valve disease etiology: nonrheumatic Qualified Code(s): I34.0 - Nonrheumatic mitral (valve) insufficiency
[2020-04-01 07:32] LABS: Creatinine Clr Calc Pharmacy 47.7 ml/min; Est GFR (Non-African American) 64.7
[2020-04-01] MEDS: CEROVITE ADV FORMULA TAB PO SCH ×2 (07:51→21:45)
[2020-04-01] MEDS: SPIRONOLACTONE 12.5 MG TAB PO SCH (07:52)
[2020-04-01] MEDS: TAMSULOSIN HCL 0.4 MG CAP PO SCH ×2 (07:52→21:45)
[2020-04-01] MEDS: lisinopriL 20 MG TAB PO SCH (07:52)
[2020-04-01] MEDS: FINASTERIDE 5 MG TAB PO SCH (07:52)
[2020-04-01] MEDS: RIVAROXABAN 20 MG TAB PO SCH (07:52)
[2020-04-01] MEDS: SERTRALINE HCL 50 MG TABLET PO SCH (07:52)
--- NOTE | 2020-04-01 08:39 | Neurology Progress Note ---
Date of Service April 01, 2020 Assessment & Plan (1) Stroke-like symptoms: This patient presents with an episode of resolved right hand weakness, followed by persistent dysarthria and weakness of the legs. Although these symptoms occur in the context of chronic tremor, generalized weakness, recurrent falls, and gait dysfunction, the relative acuity of the symptoms is worrisome for vertebrobasilar insufficiency or brainstem stroke. Of course, a small subcortical hemispheric stroke cannot be excluded. His recently completed CT angiogram of the head and neck are negative for significant vascular lesion or thrombus. He will need a brain MRI completed to further evaluate for a suspected small ischemic stroke. It looks like his cardiac pacer is MRI compatible according to cardiology and will require some programming attention to coordinate with MRI. This patient should be on some type of blood thinner. If he cannot continue his Xarelto as suggested by cardiology, then he should be on an antiplatelet agent. I would recommend daily low-dose aspirin if not specifically contraindicated. His blood pressure is appropriate. His lipid panel is normal and he probably does not require a statin. He should have a speech and swallowing evaluation. (2) Tremor: This patient presented 5/ with an episode of right hand weakness (which had resolved) and then dysarthria and weakness of both legs. These symptoms occurred in the context of chronic tremor, generalized weakness, recurrent falls, and gait dysfunction. Since the new symptoms were relatively acute, vertebrobasilar insufficiency or a small stroke could not be excluded. CT angiogram of the head and neck were unremarkable for significant vascular lesion or thrombosis. 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 MRI of the brain did not show any acute stroke. 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 He does not have a headache. This patient has longstanding bilateral, left greater than right upper extremity, postural and action tremor. There is very mild resting tremor on the left intermittently today. He had a head tremor when I saw him March 24 but he does not have this I saw him this morning. He is not rigid but has some bradykinesia. Patient's tremor did not respond to a previous trial of Sinemet. Patient has positive Pseudomonas growing out of the wound but blood cultures and peritoneal fluid cultures been negative so far. Overall clinically I believe he has a mild moderate underlying dementia with some superimposed encephalopathy (of uncertain cause). He may type of benzodiazepine withdrawal. Recommendations: 1. Currently, I see no indication for antiplatelet therapy. 2. 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 Topiramate might be useful for his tremor. I could consider initiating this as an outpatient. 4. Continue low-dose levothyroxine follow TSH. Overall, I spent a total of 25 minutes with this case including review of records, direct evaluation of the patient, and discussing the case with the RN at bedside, including differential diagnosis and treatment options. Admission and Anticipated Discharge Date Admission Date: March 25, 2020 Subjective Has been described as confused and agitated. When I saw him this morning around 0830, he was lying calmly in bed with his eyes closed. I woke him easily with voice and he had no complaint of pain or headache. He felt shaky but he had no weakness or dizziness. Blood pressure was 140/78. Peritoneal fluid shows no malignant cells. Cultures have been negative except for his Pseudomonas in the elbow. He saw Psychiatry yesterday who recommended being off all neuroleptics and benzodiazepines. Results & Data ([facility]) Vital Signs (Past 12 Hours) Vital Signs Temp Pulse Pulse Pulse Pulse Resp BP 04/01/20 07:57 37.2 C 82 18 140/78 04/01/20 03:18 36.6 C 86 20 133/79 04/01/20 00:00 90 03/31/20 23:00 36.8 C 81 22 121/56 L Pulse Ox 04/01/20 07:57 96 04/01/20 03:18 93 04/01/20 00:00 03/31/20 23:00 95 Exam (Neuro) Physical Exam: This morning he was perfectly still in bed while sleeping. When aroused with voice (easily) he started having increased tremor. There was considerable posture and action tremor including voice tremor and some head tremor. Resting tremor was intermittent in the left hand. Strength seems symmetrical in all 4 limbs being close to 5/5 in the arms and 4/5 in the legs. Voice was difficult to understand because of tremor and may have had a little dysarthria but he would follow 1 step commands very well. He seemed in a sense calmer because he was not hallucinating or fixating on anything like other days. PG Care Time/CCT Total # of Minutes Spent Total Time Spent with Patient: Total time spent is greater than 50% in coordination of care (as documented) at patient's floor/unit and/or counseling patient: Coding Level of Care Code 76057 Subseq Hosp Care Lvl 2 Diagnoses Stroke-like symptoms R29.90 Tremor R25.1
[2020-04-01] MEDS: CEFEPIME 2,000 MG in SYRINGE 7.5 ML IV SCH ×2 (09:26→21:46)
--- NOTE | 2020-04-01 10:04 | XRay Report ---
XR chest 1V portable CLINICAL HISTORY: 84 years-old Male presenting with eval for pneumonia. TECHNIQUE: Portable upright AP view of the chest was obtained. COMPARISON: 03/25/2020. FINDINGS: Left subclavian pacer with single lead to the right ventricular apex. Numerous external overlying [place]. Atherosclerosis of the aortic arch. Cardiac silhouette moderately enlarged. Mild pulmonary vascul ar prominence. Right basilar opacity slightly increased from prior. Low lung volumes. Suspected small left pleural effusion. Advanced degenerative changes of the glenohumeral joints. Degenerative change s of the spine. Upper abdomen normal. IMPRESSION: 1. Increasing right basilar infiltrate. This may represent pneumonia versus atelectasis. 2. Cardiomegaly. Mild pulmonary vascular prominence could suggest mild congestive change. ACT 112: Negative or not required by law. Electronically signed by: Jose L Kuo M.D. 04/01/2020 10:02 AM
[2020-04-01 16:44] LABS: Appearance Urine Clear (Clear); Bacteria Urine Automated Negative (Negative); Bilirubin Urine Negative (Negative); Blood Urine 3+ (Negative); Color Urine Yellow; Epithelial Cell Urine Auto >30 /lpf (0-5); Glucose Urine UA Negative (Negative); Ketones Urine 1+ (Negative); Leukocyte Esterase Urine Trace (Negative); Nitrite Urine Negative (Negative); Protein Urine 1+ (Negative); RBC Urine Automated >30 /hpf (0-4); Specific Gravity Urine 1.021 (1.000-1.030); Urobilinogen Urine Negative (Negative); pH Urine 6.5 (4.5-7.5)
[2020-04-01] MEDS: TRAZODONE HCL 50 MG TAB PO SCH (21:45)
[2020-04-02] MEDS: LEVOTHYROXINE SODIUM 25 MCG TABLET PO SCH (05:43)
[2020-04-02] MEDS: SPIRONOLACTONE 12.5 MG TAB PO SCH (07:53)
[2020-04-02] MEDS: RIVAROXABAN 20 MG TAB PO SCH (07:53)
[2020-04-02] MEDS: SERTRALINE HCL 50 MG TABLET PO SCH (07:53)
[2020-04-02] MEDS: FINASTERIDE 5 MG TAB PO SCH (07:53)
[2020-04-02] MEDS: lisinopriL 20 MG TAB PO SCH (07:53)
[2020-04-02] MEDS: CEROVITE ADV FORMULA TAB PO SCH ×2 (07:53→20:16)
[2020-04-02] MEDS: TAMSULOSIN HCL 0.4 MG CAP PO SCH ×2 (07:54→20:17)
--- NOTE | 2020-04-02 14:33 | Hospitalist Progress Note ---
Date of Service April 02, 2020 Assessment & Plan (1) Toxic metabolic encephalopathy: Concern for metabolic encephalopathy from infection with his left elbow culture showing Pseudomonas, treated with cefepime at this time clinically improving, with improvement of the infection he would hope to metabolic encephalopathy would resolve, we have completed antibiotics today His mental state has improved , still some daytime sleepiness, will reduce trazadone Other infectious etiologies have seen to be ruled out including peritonitis. Neurology has performed a complete evaluation including imaging of his brain which went as far as reprogramming his pacemaker for MRI scan. There is no structural abnormalities consistent with changes to be responsible for his mental decline or hallucinations sepsis POA Presenting VS, Labs, and GCS score place patient at a SOFA score of >=4, sepsis now resolved As per psychiatry consult stop xanax, zyprexa, continue trazadone hs with melatonin, no need for further backup haldol at present (2) Abdominal ascites: SBP is ruled out, pathology analysis of fluid is negative for malignancy( there was discussion of abnormal imaging) Etiology likely from portal hypertension from cardiac issues and possible cirrhosis as based on imaging suggestion, starting spironolactone, low salt diet and careful monitoring of labs (3) Abnormal CT of liver: Concerning for liver cirrhosis/neoplasm given current and prior imaging. LFTs unremarkable. Plt sl low. PTINR elevated at 1.4 but possibly from Xarelto use. Albumin 3.3. Noted hepatic mass also present on prior scans.( negative fluid cytology) Fluid analysis including SAAG is consistent with portal hypertension which possibly could be part of the discussion of cirrhosis on imaging (4) Wound swab culture positive: elbow grew pseudomonas 03/22; cefepime for presumed SBP will cover. complete one week course ongoing wound care and f/u (5) Hallucinations: These aremuch less now after the pt has been able to sleep, will continue to follow psychiatric evaluation on 03/31 feel maybe related to underlying dementia and possible parkinsons disease We will have PRN IV V Haldol available if agitation is significant (6) Lower extremity edema: probably relates to venous stasis and ascites also from his portal hypertension causing decreased venous return compression/mobilization has had some improvement initiated spironolactone 03/29/20, no significant effect on electrolytes 03/30 (7) Atrial fibrillation: Remains rate controlled without any medications at this time, anticoagulation currently resumed on 03/29 (8) BPH loc w urin obs/LUTS: Continues on tamsulosin 0.4mg PO BID, finasteride 5mg PO daily. 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 but he may have some parkinsonian undertones, Dr Fuentes from neurology is considering initiating therapy as outpt Admission and Anticipated Discharge Date Admission Date: March 25, 2020 Subjective pt remains more clear, still has some lethargy, will reduce trazadone Review of Systems Review of Systems: Mild distress and fatigue, mostly stresses regarding hallucinations no headache, blurry or double vision no speech or swallowing issues no chest pain, pressure or palpitations no shortness of breath, cough or wheezes no abdominal pain, nausea or vomiting, or diarrhea no dysuria, hematuria or frequency no focal joint pain does complain of bilateral bothersome swelling no back pain, CVA tenderness or radicular pain no bruising, bleeding or rashes no focal signs of weakness or numbness or altered sensation Persistent complaints of auditory and visual hallucinations Constitutional: + fatigue and + weakness (bilateral); no fever and no chills Eyes: + 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 Lungs are clear to auscultation and appear unlabored Cardiac exam, Rhythm is regular.. No murmurs, rubs or gallops. Abdominal exam reveals normal bowel sounds, soft non tender, no masses no consideration of reaccumulation of ascites Extremities are nonedematous and both pedal pulses are normal. Neurologic exam is alert and oriented to person only not to place or time, no focal loss of strength or sensation overall weak but does spontaneously moves extremities even to command at some point Skin is without bruises or rashes Results & Data Results & Data ([facility]) Vital Signs (Past 12 Hours) Vital Signs Temp Pulse Pulse Pulse Resp BP Pulse Ox 04/02/20 11:02 97.5 F L 80 18 125/83 90 04/02/20 08:00 65 04/02/20 07:00 97.7 F 80 20 134/88 94 04/02/20 03:54 97.7 F 69 20 134/81 95 04/02/20 03:24 73 PG Care Time/CCT Total # of Minutes Spent Total Time Spent with Patient: Total time spent is greater than 50% in coordination of care (as documented) at patient's floor/unit and/or counseling patient: Coding Level of Care Code 11989 Subseq Hosp Care Lvl 2 Diagnoses Toxic metabolic encephalopathy G92 Abdominal ascites R18.8 Ascites type: other type Abnormal CT of liver R93.2 Wound swab culture positive R89.5 Hallucinations R44.3 Lower extremity edema R60.0 Atrial fibrillation I48.11 Atrial fibrillation type: longstanding persistent BPH loc w urin obs/LUTS N40.1 Anxiety F41.9 DVT prophylaxis Z29.9 Discharge planning issues Z02.9 Weakness R53.1 Tremor R25.1 (1) Abdominal ascites Ascites type: other type Qualified Code(s): R18.8 - Other ascites (2) Atrial fibrillation Atrial fibrillation type: longstanding persistent Qualified Code(s): I48.11 - Longstanding persistent atrial fibrillation
[2020-04-02] MEDS ORDERED: TRAZODONE HCL 50 MG TAB PO SCH (21:00)
[2020-04-03] MEDS: LEVOTHYROXINE SODIUM 25 MCG TABLET PO SCH (05:35)
[2020-04-03 06:09] LABS: Hematocrit (blood only) 31.6 % (42-52); Hemoglobin 10.1 g/dL (14.0-18.0); Mean Corpuscular Hemoglobin 28.9 pg (25-34); Mean Corpuscular Volume 90.3 fL (80-100); Mean Platelet Volume 9.7 fL (7.4-10.4); Platelet Count 126 K/uL (130-400); RDW Coefficient of Variation 21.6 % (11.5-14.5); RDW Standard Deviation 68.8 fL (36.4-46.3); White Blood Count 5.42 K/uL (4.8-10.8)
[2020-04-03 06:46] LABS: BUN Creatinine Ratio 32.9 (10-20); Creatinine Clr Calc Pharmacy 55.7 ml/min; Est GFR (African American) 89.7; Est GFR (Non-African American) 77.4
[2020-04-03] MEDS: TAMSULOSIN HCL 0.4 MG CAP PO SCH ×2 (09:36→20:25)
[2020-04-03] MEDS: FINASTERIDE 5 MG TAB PO SCH (09:36)
[2020-04-03] MEDS: SPIRONOLACTONE 12.5 MG TAB PO SCH (09:38)
[2020-04-03] MEDS: RIVAROXABAN 20 MG TAB PO SCH (09:38)
[2020-04-03] MEDS: SERTRALINE HCL 50 MG TABLET PO SCH (09:38)
[2020-04-03] MEDS: lisinopriL 20 MG TAB PO SCH (09:38)
[2020-04-03] MEDS: CEROVITE ADV FORMULA TAB PO SCH ×2 (09:38→20:25)
--- NOTE | 2020-04-03 14:22 | Hospitalist Progress Note ---
Date of Service April 03, 2020 Assessment & Plan (1) Toxic metabolic encephalopathy: Initial concern for metabolic encephalopathy from infection with his left elbow culture showing Pseudomonas, completed treatment course of cefepime at this time clinically resolved His mental state has improved , still some daytime sleepiness, did reduce at bedtime trazadone with better daytime alertness but more challenging interactions Other infectious etiologies have seen to be ruled out including peritonitis. Recent urine analysis was negative Neurology has performed a complete evaluation including imaging of his brain which went as far as reprogramming his pacemaker for MRI scan. There is no s tructural abnormalities consistent with changes to be responsible for his mental decline or hallucinations sepsis POA Presenting VS, Labs, and GCS score place patient at a SOFA score of >=4, sepsis now resolved As per psychiatry consult stop xanax, zyprexa, continue trazadone hs with melatonin, continues without need for further backup haldol at present (2) Abdominal ascites: SBP is ruled out, pathology analysis of fluid is negative for malignancy( there was discussion of abnormal imaging) Etiology likely from portal hypertension from cardiac issues and possible cirrhosis as based on imaging suggestion, starting spironolactone, low salt diet and careful monitoring of labs (3) Abnormal CT of liver: Concerning for liver cirrhosis/neoplasm given current and prior imaging. LFTs unremarkable. Plt sl low. PTINR elevated at 1.4 but possibly from Xarelto use. Albumin 3.3. Noted hepatic mass also present on prior scans.( negative fluid cytology) Fluid analysis including SAAG is consistent with portal hypertension which possibly could be part of the discussion of cirrhosis on imaging (4) Wound swab culture positive: elbow grew pseudomonas 03/22; completed one week course of cefepime ongoing wound care and f/u (5) Hallucinations: These are much less now after the pt has been able to sleep, so far on 04/03 he has had no further hallucinations may be related to discontinuation of benzodiazepines psychiatric evaluation on 03/31 feel maybe related to underlying dementia and possible parkinsons disease (6) Lower extremity edema: probably relates to venous stasis and ascites also from his portal hypertension causing decreased venous return compression/mobilization has had some improvement initiated spironolactone 03/29/20, no significant effect on electrolytes (7) Atrial fibrillation: Remains rate controlled without any medications at this time, anticoagulat ion currently resumed on 03/29 (8) BPH loc w urin obs/LUTS: Continues on tamsulosin 0.4mg PO BID, finasteride 5mg PO daily. 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 He denies any hallucinations. He is frustrated and looking for golf on television. He denies focal complaints or concerns. He has been eating somewhat is pured meals. Overall his mental state is in a much improved location than it was of last few days Review of Systems Review of Systems: Mild distress and fatigue no headache, blurry or double vision no speech or swallowing issues no chest pain, pressure or palpitations no shortness of breath, cough or wheezes no abdominal pain, nausea or vomiting, diarrhea or constipation no dysuria, hematuria or frequency no focal joint pain, has improved lower extremity swelling no back pain, CVA tenderness or radicular pain no bruising, bleeding or rashes no focal signs of weakness or numbness or altered sensation of his limbs Physical Exam Physical Exam: The patient appeared much improved and calm compared to previous days Vital signs as documented. Lungs are clear to auscultation and appear unlabored Cardiac exam, irregular and rate controlled. Systolic murmur is heard Abdominal exam reveals normal bowel sounds, soft non tender, no masses Extremities are mildly edematous and both pedal pulses are normal. Neurologic exam is alert and oriented x1, no focal loss of strength or sensation Skin is without bruises or rashes Psychologically is with concerned for dementia Results & Data Results & Data ([facility]) Vital Signs (Past 12 Hours) Vital Signs Temp Pulse Pulse Pulse Resp BP BP 04/03/20 12:39 98.4 F 102 H 20 149/80 H 04/03/20 11:47 98.2 F 61 18 124/76 04/03/20 10:54 75 04/03/20 07:51 97.3 F L 71 18 150/81 H 04/03/20 04:00 97.7 F 77 20 142/81 H Pulse Ox 04/03/20 12:39 92 04/03/20 11:47 92 04/03/20 10:54 04/03/20 07:51 95 04/03/20 04:00 95 PG Care Time/CCT Total # of Minutes Spent Total Time Spent with Patient: Total time spent is greater than 50% in coordination of care (as documented) at patient's floor/unit and/or counseling patient: Coding Level of Care Code 94141 Subseq Hosp Care Lvl 2 Diagnoses Toxic metabolic encephalopathy G92 Abdominal ascites R18.8 Ascites type: other type Abnormal CT of liver R93.2 Wound swab culture positive R89.5 Hallucinations R44.3 Lower extremity edema R60.0 Atrial fibrillation I48.11 Atrial fibrillation type: longstanding persistent BPH loc w urin obs/LUTS N40.1 Anxiety F41.9 DVT prophylaxis Z29.9 Discharge planning issues Z02.9 Weakness R53.1 Tremor R25.1 (1) Abdominal ascites Ascites type: other type Qualified Code(s): R18.8 - Other ascites (2) Atrial fibrillation Atrial fibrillation type: longstanding persistent Qualified Code(s): I48.11 - Longstanding persistent atrial fibrillation
[2020-04-03] MEDS: TRAZODONE HCL 50 MG TAB PO SCH (20:25)
[2020-04-04] MEDS: LEVOTHYROXINE SODIUM 25 MCG TABLET PO SCH (05:47)
[2020-04-04] MEDS: FINASTERIDE 5 MG TAB PO SCH (08:32)
[2020-04-04] MEDS: SPIRONOLACTONE 12.5 MG TAB PO SCH (08:32)
[2020-04-04] MEDS: TAMSULOSIN HCL 0.4 MG CAP PO SCH ×2 (08:32→20:27)
[2020-04-04] MEDS: RIVAROXABAN 20 MG TAB PO SCH (08:32)
[2020-04-04] MEDS: CEROVITE ADV FORMULA TAB PO SCH ×2 (08:32→20:27)
[2020-04-04] MEDS: SERTRALINE HCL 50 MG TABLET PO SCH (08:33)
[2020-04-04] MEDS: lisinopriL 20 MG TAB PO SCH (08:33)
--- NOTE | 2020-04-04 11:01 | Psychiatric Progress Note ---
Date of Service April 04, 2020 Impression / Recommendations Impression Initial Consultation Impression (03/31/2020): 84-year-old male with a history of depression and anxiety which worsened after the of his 8 months ago, and visual hallucinations which reportedly started about 11 months ago when he was hospitalized with a UTI, and worsened recently in the context of multiple medical problems and encephalopathy. We are consulted for hallucinations and delirium. His mental status appears to be worsening in the hospital, at the time of my assessment, he is completely incoherent, with dysarthric slurred speech and restlessness, consistent with a hyperactive delirium. Numerous causes for delirium evident, agree it is likely multifactorial. The visual hallucinations described by the patient's son appear to be exacerbated by the delirium, and are most likely associated with his neurological condition, possibly MSA or Parkinson's disease. As these hallucinations have not been causing distress or dysfunction, would not recommend using antipsychotic medication to address them, due to the multiple risks associated with that class of medications, including cardiac and the black box warning for elderly patients with cognitive disorders. His delirium prevents assessment of underlying depression and anxiety, but hopefully as he clears we will be better able to assess that to determine if an adjustment to his antidepressant is warranted. Recommend avoiding benzodiazepines, due to the risk of worsening confusion, as well as increased fall risk. It is not clear to me how long he has been on the alprazolam, and he is not in the PDMP so I cannot determine who the prescriber is. It may be beneficial to identify an alternate decision maker as he currently lacks capacity to give informed consent and is unable to provide any meaningful information on my exam. Please contact us with any further questions or to discuss further. Follow-up Recommendations: 04/04 - Condition appears to be improving overall, though reports of intermittent confusion at times. No recommendation for medication adjustments at this time. - Pt is able to verbalize awareness that inpatient physical rehab is being recommended. Although verbalizing that this level of treatment is necessary, he is concerned about cost. - Pt denies overt visually hallucinations of "kids" in his room, but gives vague description of "butterflies" and "black spots" which he admits are not distressing. - Recommend attempts to communicate with his PCP or even psychiatric providers regarding reports of depression, as one he returns to baseline it may be appropriate to continued discussions about medication adjustments to target low mood (titration of sertraline versus exploration of other antidepressant medications). It may be possible for patient to be evaluated while at rehab, depending on what facility he is transferred to. Would not recommend pursuing any of these adjustments during his acute hospitalization. - Would advise against resuming alprazolam or other benzodiazepine at discharge. - Based on today's presentation and appropriate behavioral control, patient appears to be psychiatrically stable for discharge to a physical rehab facility when medically cleared. Interval History Identifying Information 84-year-old male with a history of depression and anxiety treated by his PCP, atrial fibrillation, pacemaker, and multiple neurologic problems with unclear etiology, including tremor, gait disturbance with recent falls, weakness, idiopathic polyneuropathy, and memory deficits who is admitted with generalized weakness, recurrent falls, and slurred speech for 1 week. Psychiatry is consulted for hallucinations and delirium, with initial consult completed on 03/31/2020. Pt seen today for follow-up. Chief Complaint "Ok. I'm not tired no more." Review of Systems Notes Constitutional: denies fatigue at this time, admits to feeling confused Cardiovascular: denied Respiratory: denied Gastrointestinal: denied Neurological: denied Psychiatric: denies symptoms other than stated above Total of at least 10 systems reviewed, pertinent positives as above and in HPI. Subjective Subjective Patient's case was reviewed an discussed during morning report with psychiatric nurse liaison and supervising psychiatrist. It is reported that patient's co nfusion continues to wax and wane, consistent with his delirium. Overall, it is reported patient is somewhat more alert, appearing less restless, and sleeping better. Pt was seen today to follow-up on progress since initial psychiatric consultation. Pt reports feeling "ok." When asked if he was feeling tired, he states "not no more, I feel much better." Pt admits that his biggest concern at this time is the financial expense of inpatient physical rehab. He states "I'm under stress now, I can't afford to stay here. Even if I go to a rehab place, I can't afford it. I was already there before, and it was a lot." We discussed the role rehab plays in allowing patient to focus on increasing his strength, and he is able to verbalize understanding of anticipated benefits of this recommendation. Pt continues with political preoccupation, stating that "you know with politics and interviews. I have to think harder to answer the questions. I'm confused now." He then begins asking this provider about donating to [employer], stating "the answers are 'yes', 'no', and 'I don't know.' You know, the when the interview?" Pt is aware that he is in the hospital and knows the year to be 2019. He denies overt visual hallucinations, stating "not no more. No more of those kids looking in at me and laughing at me." He does admit to what seem to be visual illusions - "butterflies" and "black spots" in his vision. Pt reports feeling safe in the hospital and denies any present concerns at this time. Pt was relaxed, not restless, and in good behavioral control for the duration of our encounter. Physical Exam Psychiatric Orientation: alert, oriented to person, oriented to place and cooperative Apperance: appropriately dressed (in hospital gown), appropriately groomed and appeared stated age Eye Contact: + poor eye contact (spent most of interaction with eyes closed, rare direct eye contact ) Motor Behavior: no abnormal motor movements (observed while laying in bed ) Speech: + abnormal rate/rhythm/volume of speech (clear/understandable for most of visit, moments of unintelligible speech) Affect: + blunted affect and + constricted affect Mood: + anxious mood (reports concern and stress related to cost of rehab) Thought Process: goal directed thought process and + circumstantial thought process Thought Content: + preoccupation (with cost of rehab, makes several statements related to politics ); no delusions, no hopelessness and no worthlessness Suicidal Thoughts: denies suicidal thoughts Homicidal Thoughts: denies homicidal thoughts Hallucinations: no auditory hallucinations and no visual hallucinations (denies obvious VH, but reports illusions of "butterflies" and "black spots") Cognition: attention grossly intact and language grossly intact Estimated Intelligence: consistent with education level Insight: + limited insight Judgement: + limited judgement Vital Signs (Past 24 Hours) Last Vital Signs Temp 36.6 C 04/04/20 07:16 Pulse 75 04/04/20 07:24 Resp 18 04/04/20 07:16 BP 147/74 H 04/04/20 07:16 Pulse Ox 95 04/04/20 07:16 Results & Data ([facility]) Current Inpatient Medications Current Inpatient Medications: Current Inpatient Medications Al Hydrox/Mg Hydrox/Simethicone 50 ml/Diphenhydramine HCl 125 mg/Lidocaine HCl 40 ml/Sucralfate 10,000 mg/ [employer] 1 ea 0 ml PO Q4H PRN PRN Reason: Pain Stop: 04/25/20 16:10 Last Admin: 03/26/20 16:41 Dose: 5 ml Documented by: Finasteride (Proscar) 5 mg PO QAM [facility] Stop: 04/25/20 08:59 Last Admin: 04/04/20 08:32 Dose: 5 mg Documented by: Haloperidol Lactate (Haldol) 2.5 mg IV Q4H PRN PRN Reason: Agitation Stop: 04/29/20 18:13 Last Admin: 03/31/20 22:09 Dose: 2.5 mg Documented by: Levothyroxine Sodium (Synthroid) 25 mcg PO DAILYBB [facility] Stop: 04/29/20 09:44 Last Admin: 04/04/20 05:47 Dose: 25 mcg Documented by: Lisinopril (Zestril) 20 mg PO QAM [facility] Stop: 04/29/20 08:59 Last Admin: 04/04/20 08:33 Dose: 20 mg Documented by: Lubiprostone (Amitiza) 24 mcg PO BID [facility] Stop: 04/24/20 20:59 Last Admin: 03/29/20 08:22 Dose: 24 mcg Documented by: Melatonin (Melatonin) 3 mg PO HS PRN PRN Reason: Sleep Stop: 04/29/20 18:13 Last Admin: 03/30/20 20:42 Dose: 3 mg Documented by: Multivitamins/Minerals (Multivitamin W/ Minerals Tab) 1 tab PO BID [facility] Stop: 04/24/20 20:59 Last Admin: 04/04/20 08:32 Dose: 1 tab Documented by: Ondansetron HCl (Zofran) 4 mg IV Q6H PRN PRN Reason: Nausea Stop: 04/24/20 18:51 Rivaroxaban (Xarelto) 20 mg PO DAILY [facility] Stop: 04/28/20 08:59 Last Admin: 04/04/20 08:32 Dose: 20 mg Documented by: Sertraline HCl (Zoloft) 50 mg PO QAM [facility] Stop: 04/25/20 08:59 Last Admin: 04/04/20 08:33 Dose: 50 mg Documented by: Spironolactone (Aldactone) 12.5 mg PO DAILY [facility] Stop: 04/29/20 08:59 Last Admin: 04/04/20 08:32 Dose: 12.5 mg Documented by: Tamsulosin HCl (Flomax) 0.4 mg PO BID [facility] Stop: 04/24/20 20:59 Last Admin: 04/04/20 08:32 Dose: 0.4 mg Documented by: Trazodone HCl (Desyrel) 25 mg PO HS [facility] Stop: 05/03/20 20:59 Last Admin: 04/03/20 20:25 Dose: 25 mg Documented by:
--- NOTE | 2020-04-04 11:49 | Hospitalist Progress Note ---
Date of Service April 04, 2020 Assessment & Plan (1) Toxic metabolic encephalopathy: 84 yo male admitted on 03/25/2020 PMH includes BPH, hypothyroidism, hypertension, depression/anxiety Admitted for Acute Mental Status changes and concern for stroke-like symptoms. Toxic metabolic encephalopathy The cause of his mental status changes are likely multifactorial: Pseudomonal infection of his left elbow, benzodiazepine withdrawal, baseline dementia CT scan head and MRI of the brain were unrevealing Per psychiatry Xanax, Zyprexa were discontinued. The patient was started on trazodone with melatonin. Left elbow pseudomonal cellulitis, resolved Completed course of cefepime Abdominal ascites Liver lesions found on CT significant for cirrhosis versus mass Fluid analysis was negative Patient requires outpatient work-up for liver cirrhosis, including EGD and f/u liver ultrasound Started on spironolactone Hepatitis panel was negative Hypernatremia In the setting of fluid restriction Allow 2 L/day, repeat BMP in the next couple days BPH Continue tamsulosin, finasteride Anxiety/depression Continue sertraline Hypertension Continue lisinopril DVT prophylaxis--continue Xarelto Dispositionplan to discharge tomorrow pending PT OT (2) Pacemaker: (3) BPH loc w urin obs/LUTS: (4) Chronic constipation: (5) Anxiety: (6) Atrial fibrillation: (7) Abdominal ascites: (8) Pleural effusion: (9) Cellulitis of elbow: (10) Memory deficits: Admission and Anticipated Discharge Date Admission Date: March 25, 2020 Supervising Physician Co-Signing Physician Notes I personally examined the patient and verified all [place] points of history and exam, discussed case, and agree with decision making with Dr Preston. feeling ok at the time we see him - main complaint is that he feels like he needs to have BM. no other new issues. vitals noted nad heent nc at mmm breathing unlabored no accessory muscles good effort skin no rashes no pallor or icterus cn 2-12 grossly intact gross motor/sensory intact encephalopathy - seems to be improving now. elbow infection, dehydration, age, hospitalization appear to be culprits. stable for rehab/snf once bed available. otherwise as above Subjective Patient denies any pain. Describes being constipated. Seems unfamiliar with reason for admission, but he able to answer most of my orientation questions appropriately. He knows his name, age, relative date and current location. Does relate that he loses track of time and is easily startled from sleep. He denies any acute symptoms at the moment. Review of Systems Review of Systems: All systems reviewed & are unremarkable except as noted in HPI & below Physical Exam Constitutional: well developed and well nourished; no acute distress Eyes: PERRL, conjunctivae normal, anicteric sclerae ENMT: Ears: no hearing impairment and no external ear abnormality Nose: no nasal discharge Mouth: no muffled voice Neck: trachea midline, no thyromegaly Respiratory: normal respiratory effort; no respiratory distress and does not use accessory muscles Musculoskeletal: no cyanosis or clubbing, extremities motor strength 5/5 Skin: no rashes, warm and dry Psychiatric: Orientation: oriented x 3 Results & Data Results & Data ([facility]) Vital Signs (Past 12 Hours) Vital Signs Temp Pulse Pulse Resp BP BP Pulse Ox 04/04/20 07:24 75 04/04/20 07:16 36.6 C 65 18 147/74 H 95 04/04/20 04:00 36.9 C 65 18 121/79 92 Resident Activity Tracking Resident Involvement: Resident Care Provided Care Provided: Adult Hospital Medicine (1) Abdominal ascites Ascites type: other type Qualified Code(s): R18.8 - Other ascites (2) Atrial fibrillation Atrial fibrillation type: longstanding persistent Qualified Code(s): I48.11 - Longstanding persistent atrial fibrillation
[2020-04-04] MEDS ORDERED: POLYETHYLENE (MIRALAX) 17 GM PACK PO SCH (15:15)
--- NOTE | 2020-04-04 17:24 | Billing Data ---
Date of Service April 04, 2020 Coding Level of Care Code 78390 Subseq Hosp Care Lvl 3
[2020-04-04] MEDS: TRAZODONE HCL 50 MG TAB PO SCH (20:27)
[2020-04-04] MEDS ORDERED: Nursing to Pharmacy Communication ONE (23:14)
[2020-04-05] MEDS: LEVOTHYROXINE SODIUM 25 MCG TABLET PO SCH (05:54)
[2020-04-05 06:55] LABS: Hematocrit (blood only) 31.5 % (42-52); Hemoglobin 10.1 g/dL (14.0-18.0); Mean Corpuscular Hemoglobin 29.2 pg (25-34); Mean Corpuscular Hgb Conc 32.1 g/dL (32-36); Mean Platelet Volume 10.3 fL (7.4-10.4); Platelet Count 140 K/uL (130-400); RDW Coefficient of Variation 21.7 % (11.5-14.5); RDW Standard Deviation 70.1 fL (36.4-46.3); Red Blood Count 3.46 M/uL (4.7-6.1)
[2020-04-05 07:23] LABS: BUN Creatinine Ratio 30.9 (10-20); Calcium 7.9 mg/dl (8.5-10.1); Creatinine Clr Calc Pharmacy 65.2 ml/min; Est GFR (African American) 95.7; Est GFR (Non-African American) 82.6
[2020-04-05] MEDS: TAMSULOSIN HCL 0.4 MG CAP PO SCH ×2 (08:51→20:38)
[2020-04-05] MEDS: SPIRONOLACTONE 12.5 MG TAB PO SCH (08:51)
[2020-04-05] MEDS: RIVAROXABAN 20 MG TAB PO SCH (08:52)
[2020-04-05] MEDS: lisinopriL 20 MG TAB PO SCH (08:52)
[2020-04-05] MEDS: FINASTERIDE 5 MG TAB PO SCH (08:52)
[2020-04-05] MEDS: SERTRALINE HCL 50 MG TABLET PO SCH (08:52)
[2020-04-05] MEDS: CEROVITE ADV FORMULA TAB PO SCH ×2 (08:52→20:38)
[2020-04-05] MEDS: POLYETHYLENE (MIRALAX) 17 GM PACK PO PRN (08:58)
--- NOTE | 2020-04-05 13:50 | Hospitalist Progress Note ---
Date of Service April 05, 2020 Assessment & Plan (1) Toxic metabolic encephalopathy: 84 yo male admitted on 03/25/2020 PMH includes BPH, hypothyroidism, hypertension, depression/anxiety Admitted for Acute Mental Status changes and concern for stroke-like symptoms. Toxic metabolic encephalopathy The cause of his mental status changes are likely multifactorial: Pseudomonal infection of his left elbow, benzodiazepine withdrawal, baseline dementia CT scan head and MRI of the brain were unrevealing Per psychiatry Xanax, Zyprexa were discontinued. The patient was started on trazodone with melatonin. Left elbow pseudomonal cellulitis, resolved Completed course of cefepime Abdominal ascites Liver lesions found on CT significant for cirrhosis versus mass Fluid analysis was negative Patient requires outpatient work-up for liver cirrhosis/screening for hepatocellular carcinoma, including EGD and f/u liver ultrasound Started on spironolactone Hepatitis panel was negative Hypernatremia In the setting of fluid restriction Improved today BPH Continue tamsulosin, finasteride Anxiety/depression Continue sertraline Hypertension Continue lisinopril DVT prophylaxis--continue Xarelto Dispositioncontinue PT OT, possible [facility] (2) Pacemaker: (3) BPH loc w urin obs/LUTS: (4) Chronic constipation: (5) Anxiety: (6) Atrial fibrillation: (7) Abdominal ascites: (8) Pleural effusion: (9) Cellulitis of elbow: (10) Memory deficits: Admission and Anticipated Discharge Date Admission Date: March 25, 2020 Supervising Physician Co-Signing Physician Notes I personally examined the patient and verified all [place] points of history and exam, discussed case, and agree with decision making with Dr Preston. dysphoric today - confused and lamenting that he believes he murdered his whole family. when i ask him about his sons' ages and jobs he is briefly distractable but unfortunately then falls back to perseverating on his delusions. dr preston attempted peer to peer about rehab - i was present for the discussion - at the end peer to peer doc said she would review with her team, but as far as i know they never got back to us after. no other new issues. vitals noted nad heent nc at mmm breathing unlabored no accessory muscles good effort skin no rashes no pallor or icterus cn 2-12 grossly intact gross motor/sensory intact encephalopathy - elbow infection, dehydration, age, hospitalization appear to be culprits. stable for rehab/snf once bed available. tried to offer reassurance and redirection as best as possible. otherwise as above Subjective Patient is a little anxious and confused this morning. Unable to understand treatment plan going forward. We let him rest because he was becoming a little agitated. Review of Systems Review of Systems: Unobtainable due to cognitive status Physical Exam Constitutional: well developed and well nourished; no acute distress Eyes: PERRL, conjunctivae normal, anicteric sclerae ENMT: Ears: no hearing impairment and no external ear abnormality Nose: no nasal discharge Mouth: no muffled voice Neck: trachea midline, no thyromegaly Respiratory: normal respiratory effort; no respiratory distress and does not use accessory muscles Musculoskeletal: no cyanosis or clubbing, extremities motor strength 5/5 Skin: no rashes, warm and dry Psychiatric: Orientation: oriented x 3 Results & Data Results & Data ([facility]) Vital Signs (Past 12 Hours) Vital Signs Temp Pulse Pulse Resp BP BP Pulse Ox 04/05/20 11:24 36.4 C L 59 L 18 117/72 95 04/05/20 08:50 130/68 04/05/20 07:24 83 04/05/20 07:05 36.4 C L 79 18 144/5 H 95 04/05/20 05:58 36.4 C L 77 16 148/89 H 97 Resident Activity Tracking Resident Involvement: Resident Care Provided Care Provided: Adult Hospital Medicine (1) Abdominal ascites Ascites type: other type Qualified Code(s): R18.8 - Other ascites (2) Atrial fibrillation Atrial fibrillation type: longstanding persistent Qualified Code(s): I48.11 - Longstanding persistent atrial fibrillation
[2020-04-05] MEDS ORDERED: HALOPERIDOL LACTATE 5 MG/ML 1 ML VIAL IV PRN (18:58)
--- NOTE | 2020-04-05 19:29 | Billing Data ---
Date of Service April 05, 2020 Coding Level of Care Code 81534 Subseq Hosp Care Lvl 3
[2020-04-05] MEDS: TRAZODONE HCL 50 MG TAB PO SCH (20:37)
[2020-04-06] MEDS: LEVOTHYROXINE SODIUM 25 MCG TABLET PO SCH (05:46)
[2020-04-06] MEDS: SPIRONOLACTONE 12.5 MG TAB PO SCH (08:56)
[2020-04-06] MEDS: lisinopriL 20 MG TAB PO SCH (08:56)
[2020-04-06] MEDS: TAMSULOSIN HCL 0.4 MG CAP PO SCH ×2 (08:56→21:52)
[2020-04-06] MEDS: FINASTERIDE 5 MG TAB PO SCH (08:56)
[2020-04-06] MEDS: RIVAROXABAN 20 MG TAB PO SCH (08:56)
[2020-04-06] MEDS: CEROVITE ADV FORMULA TAB PO SCH ×2 (08:56→21:53)
[2020-04-06] MEDS: SERTRALINE HCL 50 MG TABLET PO SCH (09:58)
[2020-04-06 11:34] LABS: Basophils # (auto) 0.07 K/uL (0-0.2); Basophils % (auto) 1.5 %; Eosinophils # (auto) 0.16 K/uL (0-0.5); Eosinophils % (auto) 3.3 %; Hematocrit (blood only) 30.1 % (42-52); Hemoglobin 9.7 g/dL (14.0-18.0); Lymphocytes # (auto) 1.01 K/uL (1.2-3.4); Mean Corpuscular Hemoglobin 29.1 pg (25-34); Mean Corpuscular Hgb Conc 32.2 g/dL (32-36); Mean Corpuscular Volume 90.4 fL (80-100); Mean Platelet Volume 10.5 fL (7.4-10.4); Monocytes # (auto) 0.39 K/uL (0.11-0.59); Monocytes % (auto) 8.1 %; Neutrophils # (auto) 3.19 K/uL (1.4-6.5); Neutrophils % (auto) 66.1 %; Platelet Count 132 K/uL (130-400); RDW Coefficient of Variation 21.5 % (11.5-14.5); RDW Standard Deviation 70.7 fL (36.4-46.3); Red Blood Count 3.33 M/uL (4.7-6.1); White Blood Count 4.82 K/uL (4.8-10.8)
[2020-04-06 11:52] LABS: Albumin Level 3.1 gm/dl (3.4-5.0); BUN Creatinine Ratio 29.1 (10-20); Calcium 7.8 mg/dl (8.5-10.1); Creatinine Clr Calc Pharmacy 68.9 ml/min; Est GFR (African American) 97.9; Est GFR (Non-African American) 84.5; Magnesium 1.9 mg/dl (1.8-2.4); Potassium 4.2 mmol/L (3.5-5.1)
[2020-04-06 11:55] LABS: Albumin Globulin Ratio 0.9 (0.9-2); Bilirubin,Total 0.8 mg/dl (0.2-1); Globulin 3.4 gm/dl (2.5-4.0); Total Protein 6.5 gm/dl (6.4-8.2)
[2020-04-06 12:03] LABS: Anisocytosis Present; Target Cells 1+
[2020-04-06] MEDS: POLYETHYLENE (MIRALAX) 17 GM PACK PO PRN (13:36)
--- NOTE | 2020-04-06 15:04 | Hospitalist Progress Note ---
Date of Service April 06, 2020 Assessment & Plan (1) Toxic metabolic encephalopathy: 84 yo male admitted on 03/25/2020 PMH includes BPH, hypothyroidism, hypertension, depression/anxiety Admitted for Acute Mental Status changes and concern for stroke-like symptoms. Toxic metabolic encephalopathy The cause of his mental status changes are likely multifactorial: Pseudomonal infection of his left elbow, benzodiazepine withdrawal, baseline dementia Patient was exhibiting more delirium overnight and into the morning Continue PT/OT, frequent orientation, avoid offending medications, encourage p.o. intake. Consider one-to-one supervision if he becomes agitated in the evenings. Avoid antipsychotic medications unless he become severely agitated. CT scan head and MRI of the brain were unrevealing Per psychiatry Xanax, Zyprexa were discontinued. The patient was started on trazodone with melatonin. Left elbow pseudomonal cellulitis, resolved Completed course of cefepime Abdominal ascites Liver lesions found on CT significant for cirrhosis versus mass Fluid analysis was negative Patient requires outpatient work-up for liver cirrhosis/screening for hepatocellular carcinoma, including EGD and f/u liver ultrasound Started on spironolactone Hepatitis panel was negative Hypernatremia In the setting of fluid restriction Improved today BPH Continue tamsulosin, finasteride Anxiety/depression Continue sertraline Hypertension Continue lisinopril DVT prophylaxis--continue Xarelto Dispositioncontinue PT OT, appeal in process for rehab placement at [facility]. (2) Pacemaker: (3) BPH loc w urin obs/LUTS: (4) Chronic constipation: (5) Anxiety: (6) Atrial fibrillation: (7) Abdominal ascites: (8) Pleural effusion: (9) Cellulitis of elbow: (10) Memory deficits: Admission and Anticipated Discharge Date Admission Date: March 25, 2020 Supervising Physician Co-Signing Physician Notes I supervised Luis Preston MD on this patient's care. I examined the patient today with him. I discussed the plan of care with him with the plan being as written in his note except for any following changes/exceptions: None. Per RN, he was very anxious and confused this morning. Later when seen with resident, he was calmer and had no acute complaints. Lung exam clear. Will work on placement. Subjective 84-year-old male was little confused this morning, but not agitated. He was able to follow commands, but was unable to answer complex questions appropriately. Overall, his affect is improved compared to yesterday. Review of Systems Review of Systems: Unobtainable due to cognitive status Physical Exam Constitutional: well developed and well nourished; no acute distress Eyes: PERRL, conjunctivae normal, anicteric sclerae ENMT: Ears: no hearing impairment and no external ear abnormality Nose: no nasal discharge Mouth: no muffled voice Neck: trachea midline, no thyromegaly Respiratory: normal respiratory effort; no respiratory distress and does not use accessory muscles Musculoskeletal: no cyanosis or clubbing, extremities motor strength 5/5 Skin: no rashes, warm and dry Psychiatric: Orientation: oriented x 3 Results & Data Results & Data ([facility]) Vital Signs (Past 12 Hours) Vital Signs Temp Pulse Pulse Resp BP BP Pulse Ox 04/06/20 11:18 36.5 C 69 18 134/81 98 04/06/20 08:54 128/76 04/06/20 07:37 64 04/06/20 07:28 36.4 C L 72 18 106/78 92 04/06/20 05:14 73 04/06/20 02:58 36.4 C L 72 16 115/70 96 Resident Activity Tracking Resident Involvement: Resident Care Provided Care Provided: Adult Hospital Medicine (1) Abdominal ascites Ascites type: other type Qualified Code(s): R18.8 - Other ascites (2) Atrial fibrillation Atrial fibrillation type: longstanding persistent Qualified Code(s): I48.11 - Longstanding persistent atrial fibrillation
--- NOTE | 2020-04-06 15:37 | Billing Data ---
Date of Service April 06, 2020 Coding Level of Care Code 72689 Subseq Hosp Care Lvl 2
[2020-04-06] MEDS: TRAZODONE HCL 50 MG TAB PO SCH (21:51)
[2020-04-07] MEDS: LEVOTHYROXINE SODIUM 25 MCG TABLET PO SCH (06:19)
[2020-04-07] MEDS: FINASTERIDE 5 MG TAB PO SCH (08:09)
[2020-04-07] MEDS: CEROVITE ADV FORMULA TAB PO SCH ×2 (08:09→20:18)
[2020-04-07] MEDS: TAMSULOSIN HCL 0.4 MG CAP PO SCH ×2 (08:09→20:18)
[2020-04-07] MEDS: SPIRONOLACTONE 12.5 MG TAB PO SCH (08:09)
[2020-04-07] MEDS: SERTRALINE HCL 50 MG TABLET PO SCH (08:10)
[2020-04-07] MEDS: RIVAROXABAN 20 MG TAB PO SCH (08:10)
[2020-04-07] MEDS: lisinopriL 20 MG TAB PO SCH (08:10)
--- NOTE | 2020-04-07 18:21 | Hospitalist Progress Note ---
Date of Service April 07, 2020 Assessment & Plan (1) Toxic metabolic encephalopathy: 84 yo male admitted on 03/25/2020 PMH includes BPH, hypothyroidism, hypertension, depression/anxiety Admitted for Acute Mental Status changes and concern for stroke-like symptoms. Toxic metabolic encephalopathy The cause of his mental status changes are likely multifactorial: Pseudomonal infection of his left elbow, benzodiazepine withdrawal, baseline dementia Continues to have moments of delirium in the morning which are improved with orientation and physical activity Continue PT/OT, frequent orientation, avoid offending medications, encourage p.o. intake. Consider one-to-one supervision if he becomes agitated in the evenings. Avoid antipsychotic medications unless he become severely agitated. CT scan head and MRI of the brain were unrevealing Per psychiatry Xanax, Zyprexa were discontinued. The patient was started on trazodone with melatonin. Left elbow pseudomonal cellulitis, resolved Completed course of cefepime Abdominal ascites Liver lesions found on CT significant for cirrhosis versus mass Fluid analysis was negative Patient requires outpatient work-up for liver cirrhosis/screening for hepatoc ellular carcinoma, including EGD and f/u liver ultrasound Started on spironolactone Hepatitis panel was negative Hypernatremia In the setting of fluid restriction Improved today BPH Continue tamsulosin, finasteride Anxiety/depression Continue sertraline Hypertension Continue lisinopril DVT prophylaxis--continue Xarelto Dispositioncontinue PT OT, appeal in process for rehab [facility]. Patient will benefit and can tolerate 3 hours of physical therapy daily (2) Pacemaker: (3) BPH loc w urin obs/LUTS: (4) Chronic constipation: (5) Anxiety: (6) Atrial fibrillation: (7) Abdominal ascites: (8) Pleural effusion: (9) Cellulitis of elbow: (10) Memory deficits: Admission and Anticipated Discharge Date Admission Date: March 25, 2020 Supervising Physician Co-Signing Physician Notes I personally examined the patient and verified all [place] points of history and exam, discussed case, and agree with decision making with Dr Preston. no new complaints, still confused and easily upset. vitals noted nad heent nc at mmm breathing unlabored no accessory muscles good effort skin no rashes no pallor or icterus cn 2-12 grossly intact gross motor/sensory intact encephalopathy - elbow infection, dehydration, age, hospitalization appear to be culprits. rehab denied, family appealing. continue current care otherwise otherwise as above Subjective Mr. Guthrie is resting in bed today. He is a bit anxious. When we are in the room, his son was calling in. He answered the phone and did not recognize his son's voice and hung up the phone anxiously. Once we were able to explain to them that he was in the hospital and was just experiencing some confusion, he began to become more relaxed. Review of Systems Review of Systems: Unobtainable due to cognitive status Physical Exam Constitutional: well developed and well nourished; no acute distress Eyes: PERRL, conjunctivae normal, anicteric sclerae ENMT: Ears: no hearing impairment and no external ear abnormality Nose: no nasal discharge Mouth: no muffled voice Neck: trachea midline, no thyromegaly Respiratory: normal respiratory effort; no respiratory distress and does not use accessory muscles Musculoskeletal: no cyanosis or clubbing, extremities motor strength 5/5 Skin: no rashes, warm and dry Psychiatric: Orientation: alert; + not oriented x 3 Patient is anxious today. He is able to answer our questions. Results & Data Results & Data ([facility]) Vital Signs (Past 12 Hours) Vital Signs Temp Pulse Pulse Resp BP BP Pulse Ox 04/07/20 15:38 36.5 C 116 H 20 148/78 H 91 04/07/20 12:06 36.3 C L 118 H 20 145/79 H 90 04/07/20 07:18 73 04/07/20 07:16 36.7 C 67 18 133/86 90 (1) Abdominal ascites Ascites type: other type Qualified Code(s): R18.8 - Other ascites (2) Atrial fibrillation Atrial fibrillation type: longstanding persistent Qualified Code(s): I48.11 - Longstanding persistent atrial fibrillation
[2020-04-07] MEDS: TRAZODONE HCL 50 MG TAB PO SCH (20:18)
[2020-04-08] MEDS: LEVOTHYROXINE SODIUM 25 MCG TABLET PO SCH (05:57)
[2020-04-08] MEDS: SPIRONOLACTONE 12.5 MG TAB PO SCH (09:07)
[2020-04-08] MEDS: FINASTERIDE 5 MG TAB PO SCH (09:08)
[2020-04-08] MEDS: CEROVITE ADV FORMULA TAB PO SCH ×2 (09:08→19:51)
[2020-04-08] MEDS: RIVAROXABAN 20 MG TAB PO SCH (09:08)
[2020-04-08] MEDS: TAMSULOSIN HCL 0.4 MG CAP PO SCH ×2 (09:08→19:51)
[2020-04-08] MEDS: SERTRALINE HCL 50 MG TABLET PO SCH (09:08)
[2020-04-08] MEDS: lisinopriL 20 MG TAB PO SCH (09:08)
--- NOTE | 2020-04-08 13:33 | Hospitalist Progress Note ---
Date of Service April 08, 2020 Assessment & Plan (1) Toxic metabolic encephalopathy: 84 yo male admitted on 03/25/2020 PMH includes BPH, hypothyroidism, hypertension, depression/anxiety Admitted for Acute Mental Status changes and concern for stroke-like symptoms. Toxic metabolic encephalopathy The cause of his mental status changes are likely multifactorial: Pseudomonal infection of his left elbow, benzodiazepine withdrawal, baseline dementia Continues to have moments of delirium in the morning which are improved with orientation and physical activity Continue PT/OT, frequent orientation, avoid offending medications, encourage p.o. intake. Consider one-to-one supervision if he becomes agitated in the evenings. Avoid antipsychotic medications unless he become severely agitated. CT scan head and MRI of the brain were unrevealing Per psychiatry Xanax, Zyprexa were discontinued. The patient was started on trazodone with melatonin. Left elbow pseudomonal cellulitis, resolved Completed course of cefepime Abdominal ascites Liver lesions found on CT significant for cirrhosis versus mass Fluid analysis was negative Patient requires outpatient work-up for liver cirrhosis/screening for hepatoc ellular carcinoma, including EGD and f/u liver ultrasound Started on spironolactone Hepatitis panel was negative Hypernatremia In the setting of fluid restriction Improved today BPH Continue tamsulosin, finasteride Anxiety/depression Continue sertraline Hypertension Continue lisinopril DVT prophylaxis--continue Xarelto Dispositioncontinue PT OT, appeal in process for rehab placement at [facility]. Patient will benefit and can tolerate 3 hours of physical therapy daily (2) Pacemaker: (3) BPH loc w urin obs/LUTS: (4) Chronic constipation: (5) Anxiety: (6) Atrial fibrillation: (7) Abdominal ascites: (8) Pleural effusion: (9) Cellulitis of elbow: (10) Memory deficits: Admission and Anticipated Discharge Date Admission Date: March 25, 2020 Supervising Physician Co-Signing Physician Notes I personally examined the patient and verified all [place] points of history and exam, discussed case, and agree with decision making with Dr Preston. still waiting on dispo decisions/approvals. fairly dysphoric today - ongoing confusion. vitals noted heent nc at mmm breathing unlabored no accessory muscles good effort skin no rashes no pallor or icterus cn 2-12 grossly intact gross motor/sensory intact encephalopathy - elbow infection, dehydration, age, hospitalization appear to be culprits. difficult to redirect or calm at times, hopefully dispo decisions will fall in place to allow him to be in a less restrictive environment otherwise as above Subjective Patient is a little confused this morning since receiving his nasal swab. He seems to be resting comfortably for the most, but has moments of anxiety per nursing when people come in and out. Review of Systems Review of Systems: Unobtainable due to cognitive status Physical Exam Constitutional: well developed and well nourished; no acute distress Eyes: PERRL, conjunctivae normal, anicteric sclerae ENMT: Ears: no hearing impairment and no external ear abnormality Nose: no nasal discharge Mouth: no muffled voice Neck: trachea midline, no thyromegaly Respiratory: normal respiratory effort; no respiratory distress and does not use accessory muscles Musculoskeletal: no cyanosis or clubbing, extremities motor strength 5/5 Skin: no rashes, warm and dry Psychiatric: Orientation: alert; + not oriented x 3 Results & Data Results & Data ([facility]) Vital Signs (Past 12 Hours) Vital Signs Temp Pulse Pulse Resp BP BP Pulse Ox 04/08/20 11:56 36.3 C L 67 18 125/76 91 04/08/20 07:58 36.8 C 85 18 156/70 H 95 04/08/20 07:00 63 04/08/20 03:35 36.5 C 84 16 129/76 95 Resident Activity Tracking Resident Involvement: Resident Care Provided Care Provided: Adult Hospital Medicine (1) Abdominal ascites Ascites type: other type Qualified Code(s): R18.8 - Other ascites (2) Atrial fibrillation Atrial fibrillation type: longstanding persistent Qualified Code(s): I48.11 - Longstanding persistent atrial fibrillation
--- NOTE | 2020-04-08 16:23 | Billing Data ---
Date of Service April 08, 2020 Coding Level of Care Code 65794 Subseq Hosp Care Lvl 2
[2020-04-08] MEDS: TRAZODONE HCL 50 MG TAB PO SCH (19:51)
[2020-04-09] MEDS: MELATONIN 3 MG TAB PO PRN ×2 (00:40→21:28)
[2020-04-09] MEDS: LEVOTHYROXINE SODIUM 25 MCG TABLET PO SCH (05:26)
--- NOTE | 2020-04-09 07:59 | Hospitalist Progress Note ---
Date of Service April 09, 2020 Assessment & Plan (1) Toxic metabolic encephalopathy: Mr. Guthrie is an 84 yo male admitted on 03/25/20 for altered mental status, thought to be multifactorial in origin, with continued, waxing and waning confusion. 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 intake. consider 1:1 supervision if he becomes agitated in the evenings, Haldol reserved only for severe agitation Left elbow pseudomonal cellulitis, resolved Completed course of cefepime Abdominal ascites Liver lesions found on A/p CT thought to represent cirrhosis versus mass Fluid analysis was negative Hepatitis panel was negative recommend outpatient work-up for liver cirrhosis/screening for hepatocellular carcinoma, including EGD and f/u liver ultrasound Started on spironolactone 12.5mg, PO, daily -BMP to reassess electrolyte status Hypernatremia - resolved Na level 138 on 04/06 - will repeat BMP to reassess electrolyte status BPH Continue tamsulosin, finasteride Anxiety/depression Continue sertraline Hypertension - BP currently at 145/83 Continue lisinopril Hx of Chronic Afib - currently anticoagulated on Xarelto - [id number] score of 3 - rate controlled - patient has pacemaker - follows with [facility] cardiology Hx mitral insufficiency - murmur appreciated on exam today - most recent ECHO 11/2019 - severe left atrial dilation - EF normal at 55-60% DVT prophylaxis: on Xarelto Diet: minced and moist; low sodium, fluid restrict Code: Conditional Disposition: Floor; in process of Medicare Appeal for rehab placement; COVID 19 test pending (2) Pacemaker: (3) BPH loc w urin obs/LUTS: (4) Chronic constipation: (5) Anxiety: (6) Atrial fibrillation: (7) Abdominal ascites: (8) Pleural effusion: (9) Cellulitis of elbow: (10) Memory deficits: Admission and Anticipated Discharge Date Admission Date: March 25, 2020 Supervising Physician Co-Signing Physician Notes I personally examined the patient and verified all solano points of history and exam, discussed case, and agree with decision making with Dr Gaytan. no meaningful HPI or ROS vitals noted heent nc at mmm breathing unlabored no accessory muscles good effort skin no rashes no pallor or icterus cn 2-12 grossly intact no focal deficits at rest encephalopathy - elbow infection, dehydration, age, hospitalization appear to be culprits. for rehab vs snf - to be determined based on outcomes of family's appeals. not safe to be home at this time. continue supportive care otherwise as above Subjective No acute events overnight. Patient appears to be eating a substantial portion of his breakfast. He is confused, tearful at times, unable to articulate if anything is bothering him. Replies with the phrase "no," to all questions asked during encounter. Review of Systems Review of Systems: Unobtainable due to cognitive status Physical Exam Constitutional: no acute distress Eyes: + anicteric sclerae ENMT: external ear and nose normal, oropharynx normal Neck: normal visual inspection Respiratory: normal respiratory effort, lungs clear to auscultation Cardiovascular: Rate/Rhythm: regular rate and + irregularly irregular Heart Sounds: normal S1, normal S2 and + murmur (systolic, best appreciated in mitral area) Extremities: no pedal edema Chest (Breasts): Chest: + pacemaker Gastrointestinal (Abdomen): Inspection/Auscultation: abdomen normal to inspection and normal bowel sounds; abdomen not distended Percussion/Palpation: + abdomen firm; abdomen nontender and no guarding Skin: no rashes, warm and dry Neurologic: awake and + confused Psychiatric: Orientation: alert; + not oriented to person, + not oriented to place and + not oriented to time Results & Data Results & Data ([facility]) Vital Signs (Past 12 Hours) Vital Signs Temp Pulse Resp BP Pulse Ox 04/09/20 03:02 36.4 C L 87 18 150/90 H 93 04/08/20 23:33 36.4 C L 66 17 144/85 H 97 Resident Activity Tracking Resident Involvement: Resident Care Provided Care Provided: Adult Hospital Medicine (1) Abdominal ascites Ascites type: other type Qualified Code(s): R18.8 - Other ascites (2) Atrial fibrillation Atrial fibrillation type: longstanding persistent Qualified Code(s): I48.11 - Longstanding persistent atrial fibrillation
[2020-04-09] MEDS: SPIRONOLACTONE 12.5 MG TAB PO SCH (08:35)
[2020-04-09] MEDS: FINASTERIDE 5 MG TAB PO SCH (08:35)
[2020-04-09] MEDS: TAMSULOSIN HCL 0.4 MG CAP PO SCH ×2 (08:35→21:14)
[2020-04-09] MEDS: lisinopriL 20 MG TAB PO SCH (08:36)
[2020-04-09] MEDS: RIVAROXABAN 20 MG TAB PO SCH (08:36)
[2020-04-09] MEDS: SERTRALINE HCL 50 MG TABLET PO SCH (08:36)
[2020-04-09] MEDS: CEROVITE ADV FORMULA TAB PO SCH ×2 (09:21→21:14)
[2020-04-09 10:39] LABS: BUN Creatinine Ratio 23.5 (10-20); Calcium 8.2 mg/dl (8.5-10.1); Creatinine Clr Calc Pharmacy 70.8 ml/min; Est GFR (Non-African American) 85.5; Potassium 3.9 mmol/L (3.5-5.1)
--- NOTE | 2020-04-09 16:00 | Billing Data ---
Date of Service April 09, 2020 Coding Level of Care Code 14261 Subseq Hosp Care Lvl 2
[2020-04-09] MEDS: TRAZODONE HCL 50 MG TAB PO SCH (21:14)
[2020-04-10] MEDS: LEVOTHYROXINE SODIUM 25 MCG TABLET PO SCH (06:34)
--- NOTE | 2020-04-10 08:20 | Hospitalist Progress Note ---
Date of Service April 10, 2020 Assessment & Plan (1) Toxic metabolic encephalopathy: Mr. Guthrie is an 84 yo male admitted on 03/25/20 for altered mental status, thought to be multifactorial in origin, with continued, waxing and waning confusion. 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 intake. consider 1:1 supervision if he becomes agitated in the evenings, Haldol reserved only for severe agitation Left elbow pseudomonal cellulitis, resolved Completed course of cefepime Abdominal ascites Liver lesions found on A/p CT thought to represent cirrhosis versus mass Fluid analysis was negative Hepatitis panel was negative recommend outpatient work-up for liver cirrhosis/screening for hepatocellular carcinoma, including EGD and f/u liver ultrasound Started on spironolactone 12.5mg, PO, daily - K stable at 3.9 Abdominal Pain - secondary to the above vs. constipation - we will trial scheduled Miralax to see if a bowel movement results in any improvement - Maalox ordered prn BPH Continue tamsulosin, finasteride Anxiety/depression Continue sertraline Hypertension - BP currently at 150/73 Continue lisinopril Hx of Chronic Afib, non RVR - currently anticoagulated on Xarelto - [id number] score of 3 - not on a rate control agent Hx pacemaker placement - patient has pacemaker - recent interrogations scanned into chart - follows with [facility] cardiology Hx mitral insufficiency - murmur appreciated on exam - most recent ECHO 11/2019 showing severe left atrial dilation with normal EF at 55-60% DVT prophylaxis: on Xarelto Diet: minced and moist; low sodium, fluid restrict Code: Conditional Disposition: Floor; in process of Medicare Appeal for rehab placement; COVID 19 test pending (2) Pacemaker: (3) BPH loc w urin obs/LUTS: (4) Chronic constipation: (5) Anxiety: (6) Atrial fibrillation: (7) Abdominal ascites: (8) Pleural effusion: (9) Cellulitis of elbow: (10) Memory deficits: Admission and Anticipated Discharge Date Admission Date: March 25, 2020 Supervising Physician Co-Signing Physician Notes I personally examined the patient and verified all solano points of history and exam, discussed case, and agree with decision making with Dr Gaytan. no meaningful HPI or ROS, at first is calm, but then starts to lament something terrible about his family as has unfortunately been his norm the last several days vitals noted heent nc at mmm breathing unlabored no accessory muscles good e ffort skin no rashes no pallor or icterus cn 2-12 grossly intact no focal deficits at rest encephalopathy - elbow infection, dehydration, age, hospitalization appear to be culprits. for rehab vs snf - hopefully decision tomorrow. not safe to be home at this time. continue supportive care otherwise as above Subjective No acute events overnight. Still confused. Reports his stomach is burning since waking this morning. Reports it has been a while since he had a "decent bowel movement." Review of Systems Review of Systems: Unobtainable due to cognitive status Gastrointestinal: + abdominal pain Physical Exam Constitutional: no acute distress Eyes: + anicteric sclerae ENMT: external ear and nose normal, oropharynx normal Neck: normal visual inspection Respiratory: normal respiratory effort, lungs clear to auscultation Cardiovascular: Rate/Rhythm: regular rate and + irregularly irregular Heart Sounds: normal S1, normal S2 and + murmur (systolic, best appreciated in mitral area) Extremities: no pedal edema Chest (Breasts): Chest: + pacemaker Gastrointestinal (Abdomen): Inspection/Auscultation: abdomen normal to inspection and normal bowel sounds; abdomen not distended Percussion/Palpation: + abdomen tender (mild) and + abdomen firm; no guarding Skin: no rashes, warm and dry Neurologic: awake and + confused Psychiatric: Orientation: alert; + not oriented to person, + not oriented to place and + not oriented to time Results & Data Results & Data ([facility]) Vital Signs (Past 12 Hours) Vital Signs Temp Pulse Pulse Resp BP BP Pulse Ox 04/10/20 07:19 36.6 C 80 18 149/78 H 94 04/10/20 03:02 36.5 C 67 16 142/85 H 96 04/10/20 01:23 61 04/09/20 23:08 36.5 C 62 18 137/76 92 Resident Activity Tracking Resident Involvement: Resident Care Provided Care Provided: Adult Hospital Medicine (1) Abdominal ascites Ascites type: other type Qualified Code(s): R18.8 - Other ascites (2) Atrial fibrillation Atrial fibrillation type: longstanding persistent Qualified Code(s): I48.11 - Longstanding persistent atrial fibrillation
[2020-04-10] MEDS: SPIRONOLACTONE 12.5 MG TAB PO SCH (09:28)
[2020-04-10] MEDS: FINASTERIDE 5 MG TAB PO SCH (09:29)
[2020-04-10] MEDS: RIVAROXABAN 20 MG TAB PO SCH (09:29)
[2020-04-10] MEDS: CEROVITE ADV FORMULA TAB PO SCH ×2 (09:30→20:07)
[2020-04-10] MEDS: lisinopriL 20 MG TAB PO SCH (09:30)
[2020-04-10] MEDS: TAMSULOSIN HCL 0.4 MG CAP PO SCH ×2 (09:30→20:06)
[2020-04-10] MEDS: SERTRALINE HCL 50 MG TABLET PO SCH (09:30)
[2020-04-10] MEDS: POLYETHYLENE (MIRALAX) 17 GM PACK PO SCH (13:45)
[2020-04-10] MEDS: ALUMINUM/MAGNESIUM SUSP 50 ML, DiphenhydrAMINE Syrup 125 MG, LIDOCAINE HCL 2% VISCOUS 4... PO PRN (13:47)
--- NOTE | 2020-04-10 17:00 | Billing Data ---
Date of Service April 10, 2020 Coding Level of Care Code 09015 Subseq Hosp Care Lvl 2
[2020-04-10] MEDS: TRAZODONE HCL 50 MG TAB PO SCH (20:07)
[2020-04-11] MEDS: LEVOTHYROXINE SODIUM 25 MCG TABLET PO SCH (05:35)
[2020-04-11] MEDS: CEROVITE ADV FORMULA TAB PO SCH ×2 (07:52→20:27)
[2020-04-11] MEDS: TAMSULOSIN HCL 0.4 MG CAP PO SCH ×2 (07:52→20:27)
[2020-04-11] MEDS: RIVAROXABAN 20 MG TAB PO SCH (07:52)
[2020-04-11] MEDS: POLYETHYLENE (MIRALAX) 17 GM PACK PO SCH (07:53)
[2020-04-11] MEDS: SPIRONOLACTONE 12.5 MG TAB PO SCH (07:53)
[2020-04-11] MEDS: SERTRALINE HCL 50 MG TABLET PO SCH (07:53)
[2020-04-11] MEDS: lisinopriL 20 MG TAB PO SCH (07:53)
[2020-04-11] MEDS: FINASTERIDE 5 MG TAB PO SCH (07:53)
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
--- NOTE | 2020-04-11 19:30 | Billing Data ---
Date of Service April 11, 2020 Coding Level of Care Code 78319 Subseq Hosp Care Lvl 2
[2020-04-11] MEDS: TRAZODONE HCL 50 MG TAB PO SCH (20:27)
[2020-04-12] MEDS: haloperidoL 1 MG TAB PO PRN ×2 (02:13→21:12)
[2020-04-12] MEDS: LEVOTHYROXINE SODIUM 25 MCG TABLET PO SCH (05:56)
[2020-04-12 07:09] LABS: Basophils # (auto) 0.04 K/uL (0-0.2); Basophils % (auto) 0.9 %; Eosinophils # (auto) 0.11 K/uL (0-0.5); Eosinophils % (auto) 2.4 %; Hematocrit (blood only) 31.4 % (42-52); Hemoglobin 10.4 g/dL (14.0-18.0); Lymphocytes # (auto) 1.25 K/uL (1.2-3.4); Lymphocytes % (auto) 27.4 %; Mean Corpuscular Hgb Conc 33.1 g/dL (32-36); Mean Corpuscular Volume 87.5 fL (80-100); Mean Platelet Volume 10.2 fL (7.4-10.4); Monocytes # (auto) 0.51 K/uL (0.11-0.59); Monocytes % (auto) 11.2 %; Neutrophils # (auto) 2.66 K/uL (1.4-6.5); Neutrophils % (auto) 58.1 %; Platelet Count 162 K/uL (130-400); RDW Coefficient of Variation 20.9 % (11.5-14.5); RDW Standard Deviation 66.4 fL (36.4-46.3); Red Blood Count 3.59 M/uL (4.7-6.1); White Blood Count 4.57 K/uL (4.8-10.8)
[2020-04-12] MEDS: TAMSULOSIN HCL 0.4 MG CAP PO SCH ×2 (07:17→21:11)
[2020-04-12] MEDS: CEROVITE ADV FORMULA TAB PO SCH ×2 (07:17→21:11)
[2020-04-12] MEDS: RIVAROXABAN 20 MG TAB PO SCH (07:17)
[2020-04-12] MEDS: FINASTERIDE 5 MG TAB PO SCH (07:18)
[2020-04-12] MEDS: lisinopriL 20 MG TAB PO SCH (07:18)
[2020-04-12] MEDS: SERTRALINE HCL 50 MG TABLET PO SCH (07:19)
[2020-04-12] MEDS: SPIRONOLACTONE 12.5 MG TAB PO SCH (07:19)
[2020-04-12] MEDS: POLYETHYLENE (MIRALAX) 17 GM PACK PO SCH (07:26)
[2020-04-12 07:30] LABS: Acanthocytes 1+; Platelet Estimate Normal (Normal)
[2020-04-12 07:46] LABS: BUN Creatinine Ratio 20.1 (10-20); Calcium 8.4 mg/dl (8.5-10.1); Creatinine Clr Calc Pharmacy 65.2 ml/min; Est GFR (African American) 95.7; Est GFR (Non-African American) 82.6; Potassium 4.1 mmol/L (3.5-5.1)
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
[2020-04-12] MEDS ORDERED: DOCUSATE SODIUM/SENNA 50/8.6MG TAB PO SCH (14:15)
[2020-04-12] MEDS ORDERED: TRAZODONE HCL 50 MG TAB PO PRN (14:30)
--- NOTE | 2020-04-12 16:53 | Billing Data ---
Date of Service April 12, 2020 Coding Level of Care Code 07319 Subseq Hosp Care Lvl 3
[2020-04-12] MEDS: TRAZODONE HCL 50 MG TAB PO SCH (21:10)
[2020-04-12] MEDS: LUBIPROSTONE 8 MCG CAP PO SCH (22:12)
[2020-04-13] MEDS: LEVOTHYROXINE SODIUM 25 MCG TABLET PO SCH (06:04)
[2020-04-13 06:20] LABS: BUN Creatinine Ratio 22.6 (10-20); Calcium 8.3 mg/dl (8.5-10.1); Creatinine Clr Calc Pharmacy 56.6 ml/min; Est GFR (African American) 91.4; Est GFR (Non-African American) 78.9; Potassium 4.3 mmol/L (3.5-5.1)
[2020-04-13] MEDS ORDERED: TRAZODONE HCL 50 MG TAB PO PRN (07:05)
[2020-04-13] MEDS: TAMSULOSIN HCL 0.4 MG CAP PO SCH ×2 (09:32→20:38)
[2020-04-13] MEDS: CEROVITE ADV FORMULA TAB PO SCH ×2 (09:32→20:38)
[2020-04-13] MEDS: lisinopriL 20 MG TAB PO SCH (09:32)
[2020-04-13] MEDS: RIVAROXABAN 20 MG TAB PO SCH (09:33)
[2020-04-13] MEDS: LUBIPROSTONE 8 MCG CAP PO SCH ×2 (09:33→20:37)
[2020-04-13] MEDS: FINASTERIDE 5 MG TAB PO SCH (09:33)
[2020-04-13] MEDS: SPIRONOLACTONE 12.5 MG TAB PO SCH (09:33)
[2020-04-13] MEDS: SERTRALINE HCL 50 MG TABLET PO SCH (09:34)
[2020-04-13] MEDS: POLYETHYLENE (MIRALAX) 17 GM PACK PO SCH (09:35)
--- NOTE | 2020-04-13 11:39 | Psychiatric Progress Note ---
Date of Service April 13, 2020 Impression / Recommendations (1) Depression with anxiety: Underlying anxiety and depression being treated with sertraline 50 mg daily and trazodone 25 mg at bedtime for sleep. Agree with increasing trazodone to 50 mg at bedtime for insomnia. We will ask the liaison nurse to assist with referral to outpatient geriatric psychiatry. (2) Toxic metabolic encephalopathy: Delirium appears to be improving, but still present. Medication adjustments as above to target anxiety and sleep. Increasing his physical activity during the day would also be very helpful to promote consolidated sleep, and recommend daily PT. He reports difficulty urinating, and urinary retention can contribute to delirium. He also states he does not have his hearing aids, which can additionally worsen delirium. As patient cannot have family visits, discussed with the primary team that it may be helpful for him to do the zoo meeting with his family, who may also be able to help clarify things such as hearing aid use and how close he is to his baseline. (3) Hallucinations: Ongoing, intermittent visual hallucinations of people, which are not typically distressing to the patient. These do not seem to be consistent with a psychiatric disorder, as they are new onset within the past year, and are not occurring in the context of severe depression. No history of primary thought disorder, and these are extremely unlikely to develop this late in life. He also has multiple neurological symptoms and the differential includes Parkinson's disease, multiple system atrophy, and dementia. He also may have suffered a stroke. -Patient received haloperidol 1 mg overnight the past 2 nights for agitation; in general, would like to avoid the use of antipsychotic medication given the risk of worsening delirium and cardiac arrhythmia, but if he is severely agitated to the point that he puts himself or staff at acute risk, low-dose antipsychotic could be used, may want to try haloperidol 2 mg as the 1 mg dose reportedly had limited effect. Interval History Identifying Information 84-year-old male with a history of depression and anxiety treated by his PCP, atrial fibrillation, pacemaker, and multiple neurologic symptoms with unclear etiology, including tremor, gait disturbance with recent falls, weakness, idiopathic polyneuropathy, and memory deficits who is admitted with generalized weakness, recurrent falls, and slurred speech. Psychiatry was consulted for hallucinations and delirium, with initial consult completed on 03/31/2020. Patient seen today for follow-up. Chief Complaint "Terrible". Subjective Subjective Patient was seen & assessed and interval progress reviewed with the psychiatric liaison nurse and Drs. Hummel and Kris. Patient has improved in the 2 weeks since I saw him for the initial consultation; speech is much clearer, no longer slurred/dysarthric. Thoughts are more organized, he is more alert, and no longer restless. He continues to have confusion, memory impairment, intermittent visual hallucinations, and 2 days ago reported fears that his son had in a fire. He has been anxious, and has had poor sleep the past 2 nights with confusion and agitation. He received Haldol 1 mg overnight the past 2 nights. He is also taking sertraline 50 mg daily and trazodone 25 mg at bedtime. On my assessment today, he is seated in a bedside chair, awake, but with shifting level of consciousness, at times appears to be falling asleep briefly. He reports he is "terrible" because "I can't pee." Denies pain, constipation, but cannot state when last bowel movement was. He is unsure if he feels he is getting stronger or recovering his strength, but does remember working with the physical therapist "the other day." He denies feeling depressed, suicidal thoughts, thoughts of harming others, and current hallucinations. He does not seem to recall experiences of seeing people in the room that others could not see, but this is well documented. He endorses anxiety, says it is related to "what I did," "I didn't answer the questions right," but is poorly able to clarify/describe it further. He says he does not think he has talked to his son since he got to the hospital. He reports difficulty hearing, stating he does not have his hearing aids with him. Physical Exam Psychiatric Level of consciousness vacillates throughout the assessment, mostly alert, but with periods of increased somnolence. Oriented x 03/04, was able to correctly state the year, town, state, and that he is in a hospital. Thin male appearing his stated age, wearing a hospital gown and glasses. Seated in the bedside chair in no acute distress. Resolving ecchymoses on face and upper extremities. Eye Contact: + fair eye contact Motor Behavior: no abnormal motor movements Underproductive speech Affect: + anxious affect, + irritable affect and mood congruent with affect Mood: + anxious mood "Terrible." Thought Content: reality based without delusions Suicidal Thoughts: denies suicidal thoughts Homicidal Thoughts: denies homicidal thoughts Hallucinations: no auditory hallucinations and no visual hallucinations Insight: + impaired insight Judgement: + impaired judgement Vital Signs (Past 24 Hours) Last Vital Signs Temp 36.7 C 04/13/20 07:08 Pulse 72 04/13/20 07:08 Resp 18 04/13/20 07:08 BP 124/81 04/13/20 07:08 Pulse Ox 96 04/13/20 07:08 Results & Data ([facility]) Laboratory Results Laboratory Results - last 24 hr 04/13/20 04/13/20 04/13/20 05:22 05:22 09:42 Sodium 134 L Potassium 4.3 Chloride 100 Carbon Dioxide 27 Anion Gap 7.0 BUN 19 H Creatinine 0.85 Est Cr Clr Drug Dosing 56.6 Est GFR ( Amer) 91.4 Est GFR (Non-Af Amer) 78.9 BUN/Creatinine Ratio 22.6 H Glucose 72 Osmolality 275 L Calcium 8.3 L Urine Osmolality 376 L Ur Random Sodium 04/13/20 09:42 Sodium Potassium Chloride Carbon Dioxide Anion Gap BUN Creatinine Est Cr Clr Drug Dosing Est GFR ( Amer) Est GFR (Non-Af Amer) BUN/Creatinine Ratio Glucose Osmolality Calcium Urine Osmolality Ur Random Sodium 116 Current Inpatient Medications Current Inpatient Medications: Current Inpatient Medications Al Hydrox/Mg Hydrox/Simethicone 50 ml/Diphenhydramine HCl 125 mg/Lidocaine HCl 40 ml/Sucralfate 10,000 mg/ BARCODE IDENTIFIER 1 ea 0 ml PO Q4H PRN PRN Reason: Pain Stop: 04/25/20 16:10 Last Admin: 04/10/20 13:47 Dose: 5 ml Documented by: Finasteride (Proscar) 5 mg PO QAM [facility] Stop: 04/25/20 08:59 Last Admin: 04/13/20 09:33 Dose: 5 mg Documented by: Haloperidol (Haldol) 1 mg PO Q4H PRN PRN Reason: AGITATION Stop: 05/05/20 19:21 Last Admin: 04/12/20 21:12 Dose: 1 mg Documented by: Levothyroxine Sodium (Synthroid) 25 mcg PO DAILYBB [facility] Stop: 04/29/20 09:44 Last Admin: 04/13/20 06:04 Dose: 25 mcg Documented by: Lisinopril (Zestril) 20 mg PO QAM [facility] Stop: 04/29/20 08:59 Last Admin: 04/13/20 09:32 Dose: 20 mg Documented by: Lubiprostone (Amitiza) 24 mcg PO BID PRISCILLA Stop: 04/24/20 20:59 Last Admin: 04/13/20 09:33 Dose: 24 mcg Documented by: Melatonin (Melatonin) 3 mg PO HS PRN PRN Reason: Sleep Stop: 04/29/20 18:13 Last Admin: 04/09/20 21:28 Dose: 3 mg Documented by: Multivitamins/Minerals (Multivitamin W/ Minerals Tab) 1 tab PO BID PRISCILLA Stop: 04/24/20 20:59 Last Admin: 04/13/20 09:32 Dose: 1 tab Documented by: Ondansetron HCl (Zofran) 4 mg IV Q6H PRN PRN Reason: Nausea Stop: 04/24/20 18:51 Polyethylene Glycol (Miralax Powder Packet) 17 gm PO DAILY [facility] Stop: 05/10/20 13:44 Last Admin: 04/13/20 09:35 Dose: 17 gm Documented by: Rivaroxaban (Xarelto) 20 mg PO DAILY [facility] Stop: 04/28/20 08:59 Last Admin: 04/13/20 09:33 Dose: 20 mg Documented by: Sertraline HCl (Zoloft) 50 mg PO QAM [facility] Stop: 04/25/20 08:59 Last Admin: 04/13/20 09:34 Dose: 50 mg Documented by: Spironolactone (Aldactone) 12.5 mg PO DAILY PR[facility]LL[facility] Stop: 04/29/20 08:59 Last Admin: 04/13/20 09:33 Dose: 12.5 mg Documented by: Tamsulosin HCl (Flomax) 0.4 mg PO BID [facility] Stop: 04/24/20 20:59 Last Admin: 04/13/20 09:32 Dose: 0.4 mg Documented by: Trazodone HCl (Desyrel) 25 mg PO HS [facility] Stop: 05/03/20 20:59 Last Admin: 04/12/20 21:10 Dose: 25 mg Documented by: Trazodone HCl (Desyrel) 25 mg PO HS PRN PRN Reason: Insomnia Stop: 05/12/20 14:29
--- NOTE | 2020-04-13 17:00 | Family Medicine Progress Note ---
Date of Service April 13, 2020 Assessment & Plan (1) Toxic metabolic encephalopathy: Mr. Guthrie is an 84 yo M PMHx chronic AFib on Xarelto, long QT and bradycardia s/p pacemaker, dementia, macular degeneration admitted for altered mental status, thought to be multifactorial in origin, with continued waxing and waning confusion. Awaiting placement versus home with home health. Toxic metabolic encephalopathy: - Head CT and Brain MRI showed no acute intracranial abnormality . Etiology likely multifactorial: metabolic due to cellulitis of left upper extremity causing sepsis, delirium 2/2 hospitalization in a patient with baseline dementia, dehydration. 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 - Cellulitis was treated with cefepime to completion this admission. - Psychiatry consulted this admission, recommended discontinuing patient's Xanax and Zyprexa, which may have been provoking confusion/delirium. Have increased trazodone to 50mg qHS for his insomnia. - Unlikely to be primary psychiatric illness, likely 2/2 delirium in the setting of dementia and anxiety. Psych liaison will assist with getting pt an outpatient geriatric psychiatry appointment. Continue PT/OT, frequent orientation, avoid offending medications as above, encourage p.o. intake. Consider 1:1 supervision if he becomes agitated in the evenings, Haldol PRN severe agitation. - Pt would likely benefit from being in his son's home and seeing familiar faces, however have to also consider the patient's safety at home as well. Sepsis POA likely 2/2 left elbow pseudomonal cellulitis, resolved: Completed course of cefepime. - Pt without signs of infection at this time. Abdominal ascites Liver abnormalities on CTAP thought to represent cirrhosis versus mass. Hepatitis panel during admission was negative. Started on spironolactone 12.5mg PO daily. - Will recheck BMP in AM. Will require outpatient work-up for liver cirrhosis/screening for hepatocellular carcinoma, including EGD and f/u liver ultrasound. Abdominal Pain - resolved: - Pt without complaints of abdominal pain today. - Continue scheduled Miralax, Amitiza, PRN Maalox. BPH: Continue tamsulosin, finasteride. Anxiety/depression/hallucinations: -Psychiatry does not feel he has a primary psychiatric disorder causing his hallucinations-consideration for multiple systems atrophy, Parkinson's-needs continued follow-up with neurology Continue sertraline. - May benefit from outpatient counseling given depression in elderly dementia patient. - Geriatric Psych referral as above. Hypertension: - BP normotensive for age. Continue lisinopril. Chronic Atrial Fibrillation: - Currently anticoagulated on Xarelto. - [id number] score of 3 due to age and HTN Hx. - Not on a rate control agent at this time. - Telemetry showed Afib with PVCs, paced.Telemetry d/c'ed 04/12/2020. Hx pacemaker placement: - Patient has pacemaker, recent interrogations scanned into chart. - Follows with [facility] cardiology. Hx mitral insufficiency: - Most recent ECHO 11/2019 showing severe left atrial dilation with normal EF at 55-60%. - No change in murmur appreciated on exam. Hypothyroidism: - TSH ~8 this admission. Have started levothyroxine 25mcg to continue following discharge. - Will need repeat thyroid function testing in about 6 weeks following start of levothyroxine. Constipation: - Miralax, Amitiza, Maalox as above. - Will consider addition of Senna/Docusate if still constipated. DVT prophylaxis: on Xarelto Diet: minced and moist; low sodium, fluid restrict Code: Conditional; no compressions or defibrillation Disposition: Floor; for hopeful discharge tomorrow to SNF; COVID 19 testing negative. For home with home health if unable to qualify for SNF (2) Pacemaker: (3) BPH loc w urin obs/LUTS: (4) Chronic constipation: (5) Anxiety: (6) Atrial fibrillation: (7) Abdominal ascites: (8) Pleural effusion: (9) Cellulitis of elbow: (10) Memory deficits: Admission and Anticipated Discharge Date Admission Date: March 25, 2020 Supervising Physician Co-Signing Physician Notes I personally examined the patient and verified all [place] points of history and exam, discussed case, and agree with decision making with Dr. Franklin: Patient reports feels like he has to have a bowel movement and was very anxious about getting out of the bed when I came to see him. Otherwise, I discussed the case with psychiatry today at length. Patient is overall stable. He does report not getting much sleep but more last night than previous Vitals reviewed Gen: Alert and awake and oriented, anxious, NAD HEENT: Anicteric sclerae, EOMI CV: RRR no mgr nl S1S2 Pulm: CTAB no wcr Abd: +BS soft NT ND no masses or hernias Ext: No edema, 2+ DP pulses Skin: No rashes, warm/dry, elbow with purplish discoloration and no edema or erythema Neuro: Full strength throughout 84-year-old male admitted with acute metabolic encephalopathy as well as toxic encephalopathy with previous pseudomonal elbow abscess and cellulitis now resolved, with significant anxiety and intermittent delusions and hallucinations. With ongoing waxing and waning delirium worsened by very poor sleep Appreciate psychiatry input today-recommends continued follow-up with neurology given ongoing hallucinations as she does not feel this is a primary psychiatric issue and not likely delirium as it was going on for months prior to admission Now weaned off of Xanax but remains with anxiety-definitely needs outpatient psychiatric follow-up after discharge Continuing to await approval for rehab placement but is medically stable for discharge at this time Subjective Pt without acute events overnight. Denies any new symptoms. Lucid this morning and finishing up OT when I walked in. Did not sleep well overnight however did not receive his extra 25mg trazodone. Review of Systems Constitutional: no fever and no chills Respiratory: no cough, no dyspnea and no wheezing Cardiovascular: no chest pain and no palpitations Gastrointestinal: no abdominal pain, no nausea, no vomiting, no constipation and no diarrhea/loose stools Genitourinary: no hematuria Physical Exam Constitutional: well developed and + thin Eyes: + anicteric sclerae Neck: normal visual inspection Respiratory: normal respiratory effort, lungs clear to auscultation Cardiovascular: Rate/Rhythm: regular rate and regular rhythm Extremities: no edema Gastrointestinal (Abdomen): normal bowel sounds, soft, nontender, no hepatosplenomegaly Skin: no rashes, warm and dry Psychiatric: Orientation: alert Results & Data ([facility]) Vital Signs (Past 12 Hours) Vital Signs Temp Pulse Resp BP Pulse Ox 04/13/20 07:08 36.7 C 72 18 124/81 96 Resident Activity Tracking Resident Involvement: Resident Care Provided Care Provided: Adult [facility] Medicine (1) Abdominal ascites Ascites type: other type Qualified Code(s): R18.8 - Other ascites (2) Atrial fibrillation Atrial fibrillation type: longstanding persistent Qualified Code(s): I48.11 - Longstanding persistent atrial fibrillation
[2020-04-13] MEDS: haloperidoL 1 MG TAB PO PRN (17:19)
--- NOTE | 2020-04-13 17:51 | Billing Data ---
Date of Service April 13, 2020 Coding Level of Care Code 27128 Subseq Hosp Care Lvl 2
[2020-04-13] MEDS: DOCUSATE SODIUM/SENNA 50/8.6MG TAB PO SCH (18:47)
[2020-04-13] MEDS ORDERED: TRAZODONE HCL 50 MG TAB PO SCH (21:00)
[2020-04-14] MEDS: LEVOTHYROXINE SODIUM 25 MCG TABLET PO SCH (06:14)
[2020-04-14] MEDS: SPIRONOLACTONE 12.5 MG TAB PO SCH (07:21)
[2020-04-14] MEDS: lisinopriL 20 MG TAB PO SCH (07:22)
[2020-04-14] MEDS: FINASTERIDE 5 MG TAB PO SCH (07:22)
[2020-04-14] MEDS: SERTRALINE HCL 50 MG TABLET PO SCH (07:23)
[2020-04-14] MEDS: RIVAROXABAN 20 MG TAB PO SCH (07:23)
[2020-04-14] MEDS: POLYETHYLENE (MIRALAX) 17 GM PACK PO SCH (07:24)
[2020-04-14] MEDS: TAMSULOSIN HCL 0.4 MG CAP PO SCH ×2 (07:24→20:00)
[2020-04-14] MEDS: CEROVITE ADV FORMULA TAB PO SCH ×2 (07:24→19:59)
[2020-04-14] MEDS: LUBIPROSTONE 8 MCG CAP PO SCH ×2 (07:24→20:01)
[2020-04-14] MEDS: DOCUSATE SODIUM/SENNA 50/8.6MG TAB PO SCH (07:25)
--- NOTE | 2020-04-14 14:55 | Family Medicine Progress Note ---
Date of Service April 14, 2020 Assessment & Plan (1) Toxic metabolic encephalopathy: Mr. Guthrie is an 84 yo M PMHx chronic AFib on Xarelto, long QT and bradycardia s/p pacemaker, dementia, macular degeneration admitted for altered mental status, thought to be multifactorial in origin, with continued waxing and waning confusion. Awaiting placement versus home with home health. Toxic metabolic encephalopathy: - Head CT and Brain MRI showed no acute intracranial abnormality . Etiology likely multifactorial: metabolic due to cellulitis of left upper extremity causing sepsis, delirium 2/2 hospitalization in a patient with baseline dementia, dehydration. 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 - Cellulitis was treated with cefepime to completion this admission. - Psychiatry consulted this admission, recommended discontinuing patient's Xanax and Zyprexa, which may have been provoking confusion/delirium. Yesterday increased trazodone to 50mg qHS for his insomnia which was unsuccessful; have decreased trazodone to 25mg today and added risperidone 0.5mg PO HS. While there are associated risks with this medication I feel that his lack of sleep and pervasive thoughts are contributing significantly to his sleep schedule and negatively impacting his life. - Unlikely to be primary psychiatric illness, likely 2/2 delirium in the setting of dementia and anxiety. Psych liaison able to get patient appointment with Geriatric Psychiatrist for 05/26/2020. - Discussed adding risperidone with patient's son who is amenable, discussed risks and benefits. Continue PT/OT, frequent orientation, avoid offending medications as above, encourage p.o. intake. Consider 1:1 supervision if he becomes agitated in the evenings, Haldol PRN severe agitation. - Pt would likely benefit from being in his son's home and seeing familiar faces, however have to also consider the patient's safety at home as well. Son is more amenable to patient coming home today in the event that it will help his mental status and they can have PT/OT and nursing intermittently at home. - Case Management awaiting word from several SNF facilities as well as [facility] for placement. Sepsis POA likely 2/2 left elbow pseudomonal cellulitis, resolved: Completed course of cefepime. - Pt without signs of infection at this time. Abdominal ascites Liver abnormalities on CTAP thought to represent cirrhosis versus mass. Hepatitis panel during admission was negative. Started on spironolactone 12.5mg PO daily. - Will recheck BMP in AM. Will require outpatient work-up for liver cirrhosis/screening for hepatocellular carcinoma, including EGD and f/u liver ultrasound. Abdominal Pain - resolved: - Pt without complaints of abdominal pain today. - Continue scheduled Miralax, Amitiza, PRN Maalox. BPH: Continue tamsulosin, finasteride. Anxiety/depression/hallucinations: -Psychiatry does not feel he has a primary psychiatric disorder causing his hallucinations-consideration for multiple systems atrophy, Parkinson's-needs continued follow-up with neurology Continue sertraline, start risperidone HS and decrease trazodone to 25mg HS. - May benefit from outpatient counseling given depression in elderly dementia patient. - Geriatric Psych referral as above. Hypertension: - BP normotensive for age. Continue lisinopril. Chronic Atrial Fibrillation: - Currently anticoagulated on Xarelto. - [id number] score of 3 due to age and HTN Hx. - Not on a rate control agent at this time. - While on it his telemetry showed Afib with PVCs, paced.Telemetry d/c'ed 04/12/2020. Hx pacemaker placement: - Patient has pacemaker, recent interrogations scanned into chart. - Follows with [facility] cardiology. Hx mitral insufficiency: - Most recent ECHO 11/2019 showing severe left atrial dilation with normal EF at 55-60%. - No change in murmur appreciated on exam. Hypothyroidism: - TSH ~8 this admission. Have started levothyroxine 25mcg to continue following discharge. - Will need repeat thyroid function testing in about 6 weeks following start of levothyroxine. Constipation: - Miralax, Amitiza, Maalox as above successful for constipation. - Continue these medications to achieve at least 1 BM/day. DVT prophylaxis: on Xarelto Diet: minced and moist; low sodium, fluid restrict Code: Conditional; no compressions or defibrillation Disposition: Floor; for hopeful discharge tomorrow to SNF; COVID 19 testing negative. For home with home health if unable to qualify (2) Pacemaker: (3) BPH loc w urin obs/LUTS: (4) Chronic constipation: (5) Anxiety: (6) Atrial fibrillation: (7) Abdominal ascites: (8) Pleural effusion: (9) Cellulitis of elbow: (10) Memory deficits: Admission and Anticipated Discharge Date Admission Date: March 25, 2020 Supervising Physician Co-Signing Physician Notes I personally examined the patient and verified all [place] points of history and exam, discussed case, and agree with decision making with Dr. Franklin: Patient remains confused and tired, but no real complaints today. Vitals reviewed Gen: Alert and awake and oriented, anxious, NAD HEENT: Anicteric sclerae Pulm: Breathing unlabored 84-year-old male admitted with acute metabolic encephalopathy as well as toxic encephalopathy with previous pseudomonal elbow abscess and cellulitis now resolved, with significant anxiety and intermittent delusions and hallucinations. With ongoing waxing and waning delirium worsened by very poor sleep We will add on Risperdal as above given that when he received a low-dose of Haldol previously, he slept very well and was more lucid the next day. Risk and black box warnings associated with this medication was discussed with the patient's son who is agreeable to its use as patient is not really able to comprehend this discussion. We will decrease the trazodone back to 25 mg as he seemed to be more drowsy and confused today after receiving 50 mg last night. Continuing to await approval for rehab placement but is medically stable for discharge at this time Subjective Pt did not sleep well overnight despite getting 50mg trazodone HS. Was on 1:1 when I saw him this morning. Redirectable but confused. No complaints this AM. Had two soft/loose brown stools this AM. Review of Systems Constitutional: no fever and no chills Respiratory: no cough, no dyspnea and no wheezing Cardiovascular: no chest pain and no palpitations Gastrointestinal: no abdominal pain, no nausea, no vomiting, no constipation and no diarrhea/loose stools Genitourinary: no hematuria Physical Exam Constitutional: well developed and + thin Eyes: + anicteric sclerae Neck: normal visual inspection Respiratory: normal respiratory effort, lungs clear to auscultation Cardiovascular: Rate/Rhythm: regular rate and regular rhythm Extremities: no edema Gastrointestinal (Abdomen): normal bowel sounds, soft, nontender, no hepatosplenomegaly Skin: no rashes, warm and dry Psychiatric: Orientation: alert Results & Data ([facility]) Vital Signs (Past 12 Hours) Vital Signs Temp Pulse Resp BP Pulse Ox 04/14/20 10:56 36.5 C 90 18 135/82 92 04/14/20 06:54 36.3 C L 76 18 157/83 H 96 Resident Activity Tracking Resident Involvement: Resident Care Provided Care Provided: Adult Hospital Medicine (1) Abdominal ascites Ascites type: other type Qualified Code(s): R18.8 - Other ascites (2) Atrial fibrillation Atrial fibrillation type: longstanding persistent Qualified Code(s): I48.11 - Longstanding persistent atrial fibrillation
[2020-04-14] MEDS ORDERED: ACETAMINOPHEN 325 MG TAB PO PRN (18:40)
[2020-04-14] MEDS ORDERED: ACETAMINOPHEN 325 MG TAB ONE (18:43)
[2020-04-14] MEDS: TRAZODONE HCL 50 MG TAB PO SCH (19:59)
--- NOTE | 2020-04-14 20:00 | XRay Report ---
XR chest 1V portable HISTORY: 84 years-old Male fever unknown etiology acute fever COMPARISON: Chest radiograph 04/01/2020 TECHNIQUE: AP view of the chest FINDINGS: Patient is slightly rotated towards the left. Single lead left subclavian pacer. Cardiomegaly. Calcif ied plaque of the thoracic aortic arch. Pulmonary vascular congestion with mildly progressed bibasila r opacities. Interstitial coarsening. Trace pleural effusions. Degenerative changes of the shoulders and spine. IMPRESSION: 1. Cardiomegaly with pulmonary vascular congestion and interstitial coarsening suggestive of pulmonar y edema. 2. Mildly progressed bibasilar opacities suggestive of atelectasis versus pneumonitis. 3. Trace pleural effusions. ACT 112: Negative or not required by law. The above report was generated using voice recognition software. It may contain grammatical, syntax o r spelling errors. Electronically signed by: Paul Nielson M.D. 04/14/2020 7:58 PM
--- NOTE | 2020-04-14 20:07 | Billing Data ---
Date of Service April 14, 2020 Coding Level of Care Code 67222 Subseq Hosp Care Lvl 2
[2020-04-14] MEDS ORDERED: risperiDONE 0.5 MG TABLET PO SCH (21:00)
[2020-04-14 22:18] LABS: Appearance Urine Clear (Clear); Bilirubin Urine Negative (Negative); Blood Urine Negative (Negative); Color Urine Yellow; Glucose Urine UA Negative (Negative); Ketones Urine Negative (Negative); Leukocyte Esterase Urine Negative (Negative); Nitrite Urine Negative (Negative); Protein Urine Negative (Negative); Specific Gravity Urine 1.017 (1.000-1.030); Urobilinogen Urine Negative (Negative); pH Urine 7.5 (4.5-7.5)
[2020-04-15] MEDS: LEVOTHYROXINE SODIUM 25 MCG TABLET PO SCH (05:55)
[2020-04-15 07:17] LABS: Basophils # (auto) 0.06 K/uL (0-0.2); Basophils % (auto) 1.5 %; Eosinophils # (auto) 0.08 K/uL (0-0.5); Hematocrit (blood only) 30.3 % (42-52); Hemoglobin 10.1 g/dL (14.0-18.0); Lymphocytes # (auto) 1.13 K/uL (1.2-3.4); Lymphocytes % (auto) 28.5 %; Mean Corpuscular Hemoglobin 29.2 pg (25-34); Mean Corpuscular Hgb Conc 33.3 g/dL (32-36); Mean Corpuscular Volume 87.6 fL (80-100); Mean Platelet Volume 9.8 fL (7.4-10.4); Monocytes # (auto) 0.53 K/uL (0.11-0.59); Monocytes % (auto) 13.4 %; Neutrophils # (auto) 2.17 K/uL (1.4-6.5); Neutrophils % (auto) 54.6 %; Platelet Count 166 K/uL (130-400); RDW Coefficient of Variation 21.3 % (11.5-14.5); RDW Standard Deviation 67.7 fL (36.4-46.3); Red Blood Count 3.46 M/uL (4.7-6.1); White Blood Count 3.97 K/uL (4.8-10.8)
[2020-04-15 08:04] LABS: Anisocytosis Present; Poikilocytosis Present
[2020-04-15] MEDS: CEROVITE ADV FORMULA TAB PO SCH ×2 (09:20→20:40)
[2020-04-15] MEDS: FINASTERIDE 5 MG TAB PO SCH (09:20)
[2020-04-15] MEDS: TAMSULOSIN HCL 0.4 MG CAP PO SCH ×2 (09:20→20:41)
[2020-04-15] MEDS: POLYETHYLENE (MIRALAX) 17 GM PACK PO SCH (09:20)
[2020-04-15] MEDS: LUBIPROSTONE 8 MCG CAP PO SCH ×2 (09:20→20:41)
[2020-04-15] MEDS: SPIRONOLACTONE 12.5 MG TAB PO SCH (09:20)
[2020-04-15] MEDS: DOCUSATE SODIUM/SENNA 50/8.6MG TAB PO SCH (09:21)
[2020-04-15] MEDS: SERTRALINE HCL 50 MG TABLET PO SCH (09:21)
[2020-04-15] MEDS: lisinopriL 20 MG TAB PO SCH (09:21)
[2020-04-15] MEDS: RIVAROXABAN 20 MG TAB PO SCH (09:21)
--- NOTE | 2020-04-15 10:12 | Family Medicine Progress Note ---
Date of Service April 15, 2020 Assessment & Plan (1) Toxic metabolic encephalopathy: Mr. Guthrie is an 84 yo M PMHx chronic AFib on Xarelto, long QT and bradycardia s/p pacemaker, dementia, macular degeneration admitted for altered mental status, thought to be multifactorial in origin, with continued waxing and waning confusion. Awaiting placement versus home with home health. Toxic metabolic encephalopathy: - Head CT and Brain MRI showed no acute intracranial abnormality. Etiology likely multifactorial: metabolic due to cellulitis of left upper extremity causing sepsis, delirium 2/2 hospitalization in a patient with baseline dementia, dehydration. 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 - Cellulitis was treated with cefepime to completion this admission. - Psychiatry consulted this admission, recommended discontinuing patient's Xanax and Zyprexa, which may have been provoking confusion/delirium. Attempted increased dose of trazodone to 50mg qHS for his insomnia which was unsuccessful; have decreased trazodone to 25mg and added risperidone 0.5mg PO HS. While there are associated risks with this medication I feel that his lack of sleep and pervasive thoughts are contributing significantly to his sleep schedule and negatively impacting his life. Added PRN risperidone 0.25mg daily for agitation. - Unlikely to be primary psychiatric illness, likely 2/2 delirium in the setting of dementia and anxiety. Psych liaison able to get patient appointment with Geriatric Psychiatrist for 05/26/2020. - Discussed adding risperidone with patient's son who is amenable, discussed risks and benefits. Continue PT/OT, frequent orientation, avoid offending medications as above, encourage p.o. intake. Consider 1:1 supervision if he becomes severely agitated and a danger to himself or others in the evenings, Haldol PRN severe agitation. - Pt would likely benefit from being in his son's home and seeing familiar faces, however have to also consider the patient's safety at home as well. Son is more amenable to patient coming home in the event that it will help his mental status and they can have PT/OT and nursing intermittently at home. - Case Management awaiting word from several SNF facilities for placement. Sepsis POA likely 2/2 left elbow pseudomonal cellulitis, resolved: Completed course of cefepime. - Pt without signs of infection at this time. Abdominal ascites Liver abnormalities on CTAP thought to represent cirrhosis versus mass. Hepatitis panel during admission was negative. Started on spironolactone 12.5mg PO daily. Will require outpatient work-up for liver cirrhosis/screening for hepatocellular carcinoma, including EGD and f/u liver ultrasound. Abdominal Pain - resolved: - Pt without complaints of abdominal pain today. - Continue scheduled Miralax, Amitiza, PRN Maalox. BPH: Continue tamsulosin, finasteride. Anxiety/depression/hallucinations: - Psychiatry does not feel he has a primary psychiatric disorder causing his hallucinations-consideration for multiple systems atrophy, Parkinson's-needs continued follow-up with neurology Continue sertraline, risperidone HS, trazodone 25mg HS. Risperidone 0.25mg daily PRN agitation. - May benefit from outpatient counseling given depression in elderly dementia patient. - Geriatric Psych referral as above. Hypertension: - BP normotensive for age. Continue lisinopril. Chronic Atrial Fibrillation: - Currently anticoagulated on Xarelto. - [id number] score of 3 due to age and HTN Hx. - Not on a rate control agent at this time. - While on it his telemetry showed Afib with PVCs, paced.Telemetry d/c'ed 04/12/2020. Hx pacemaker placement: - Patient has pacemaker, recent interrogations scanned into chart. - Follows with [facility] cardiology. Hx mitral insufficiency: - Most recent ECHO 11/2019 showing severe left atrial dilation with normal EF at 55-60%. - No change in murmur appreciated on exam. Hypothyroidism: - TSH ~8 this admission. Have started levothyroxine 25mcg to continue following discharge. - Will need repeat thyroid function testing in about 6 weeks following start of levothyroxine. Constipation: - Miralax, Amitiza, Maalox as above successful for constipation. - Continue these medications to achieve at least 1 BM/day. DVT prophylaxis: on Xarelto Diet: minced and moist; low sodium, fluid restrict Code: Conditional; no compressions or defibrillation Disposition: Floor; for hopeful discharge Saturday to SNF; COVID 19 testing negative. For home with home health if unable to qualify (2) Pacemaker: (3) BPH loc w urin obs/LUTS: (4) Chronic constipation: (5) Anxiety: (6) Atrial fibrillation: (7) Abdominal ascites: (8) Pleural effusion: (9) Cellulitis of elbow: (10) Memory deficits: Admission and Anticipated Discharge Date Admission Date: March 25, 2020 Supervising Physician Co-Signing Physician Notes I personally examined the patient and verified all [place] points of history and exam, discussed case, and agree with decision making with Dr. Franklin: Patient continues to be extremely anxious today. He does not understand why he is still here, and after he tried to calm him down, he did agree to try to speak with his son on the phone. Vitals reviewed Gen: Alert and awake and oriented, anxious, NAD Regular rate and rhythm, no murmurs rubs or gallops Lungs clear to auscultation bilaterally, no wheezes crackles or rhonchi HEENT: Anicteric sclerae Extremities no edema Pt is an 84-year-old male admitted with acute metabolic encephalopathy as well as toxic encephalopathy with previous pseudomonal elbow abscess and cellulitis now resolved, with significant anxiety and intermittent delusions and hallucinations. With ongoing waxing and waning delirium and anxiety worsened by very poor sleep -Add on a as needed daytime Risperdal dose of 0.25 mg-patient is agreeable to taking a dose of this now and will continue a scheduled dose of 0.5 mg at bedtime and titrate up as needed Continuing to await approval for rehab placement but is medically stable for discharge at this time Subjective Pt without acute events overnight. During the day today had an episode similar to a panic attack while delirious but was able to be calmed down with some redirection by nursing. No complaints actively this morning, no SOB, CP, abdominal pain, dysuria. Review of Systems Constitutional: no fever and no chills Respiratory: no cough, no dyspnea and no wheezing Cardiovascular: no chest pain and no palpitations Gastrointestinal: no abdominal pain, no nausea, no vomiting, no constipation and no diarrhea/loose stools Genitourinary: no hematuria Physical Exam Constitutional: well developed and + thin Eyes: + anicteric sclerae Neck: normal visual inspection Respiratory: normal respiratory effort, lungs clear to auscultation Cardiovascular: Rate/Rhythm: regular rate and regular rhythm Extremities: no edema Gastrointestinal (Abdomen): normal bowel sounds, soft, nontender, no hepatosplenomegaly Skin: no rashes, warm and dry Psychiatric: Orientation: alert (intermittent) Results & Data ([facility]) Vital Signs (Past 12 Hours) Vital Signs Temp Pulse Pulse Resp BP BP Pulse Ox 04/15/20 07:36 36.8 C 65 18 125/65 95 04/15/20 04:49 36.9 C 72 20 119/67 93 04/14/20 23:04 37.5 C 70 18 117/66 94 Resident Activity Tracking Resident Involvement: Resident Care Provided Care Provided: Adult Hospital Medicine (1) Abdominal ascites Ascites type: other type Qualified Code(s): R18.8 - Other ascites (2) Atrial fibrillation Atrial fibrillation type: longstanding persistent Qualified Code(s): I48.11 - Longstanding persistent atrial fibrillation
[2020-04-15] MEDS ORDERED: risperiDONE 0.5 MG TABLET PO PRN (16:17)
--- NOTE | 2020-04-15 19:59 | Billing Data ---
Date of Service April 15, 2020 Coding Level of Care Code 81316 Subseq Hosp Care Lvl 2
[2020-04-15] MEDS: TRAZODONE HCL 50 MG TAB PO SCH (20:41)
[2020-04-15] MEDS: risperiDONE 0.5 MG TABLET PO SCH (20:42)
[2020-04-16] MEDS: LEVOTHYROXINE SODIUM 25 MCG TABLET PO SCH (06:09)
--- NOTE | 2020-04-16 06:57 | Family Medicine Progress Note ---
Date of Service April 16, 2020 Assessment & Plan (1) Toxic metabolic encephalopathy: Mr. Guthrie is an 84 year old male with a past medical history of chronic AFib on Xarelto, long QT and bradycardia s/p pacemaker, dementia, and macular degeneration admitted for altered mental status, thought to be multifactorial in origin, with continued waxing and waning confusion. Awaiting placement versus home with home health. Hemoptysis - patient had one episode of coughing w/quarter sized amount of blood noted on tissue - coag panel ordered - patient currently afebrile, saturating well on room air -> no further investigation warranted at this time given one isolated episode - consider CT of thorax to further evaluate if hemoptysis persists Fever of unknown origin - patient had one isolated fever in evening of 04/14 of 38 degrees Celsius - no new symptoms indicative of infection - UA normal - CXR w/atelectasis - suspected cause. IS ordered and recommended OOB x3 times a day - bcx with [facility] Toxic metabolic encephalopathy: - Head CT and Brain MRI showed no acute intracranial abnormality. 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 - Psychiatry consulted this admission, recommended discontinuing patient's Xanax and Zyprexa, which may have been provoking confusion/delirium - medication regimen adjusted -> currently on trazodone 25mg daily and risperidone 0.5mg HS -> this seems to work well for him. Increased trazodone did not help. -> 04/16 - added in an afternoon dose of 0.25mg PO of risperidone for agitation in afternoon, as well as additional PRN risperidone 0.25mg daily for agitation. - Unlikely to be primary psychiatric illness, likely 2/2 delirium in the setting of dementia and anxiety. Psych liaison able to get patient appointment with Geriatric Psychiatrist for 05/26/2020. - Dr. Ponce had discussed adding risperidone with patient's son who was amenable, discussed risks and benefits. Continue PT/OT, frequent orientation, avoid offending medications as above, encourage p.o. intake. Consider 1:1 supervision if he becomes severely agitated and a danger to himself or others in the evenings, Haldol PRN severe agitation. - Pt would likely benefit from being in his son's home and seeing familiar faces, however have to also consider the patient's safety at home as well. - Case Management awaiting word from several SNF facilities for placement. - patient needs to be afebrile, and not require 1:1 for 48h before he can be transferred to a facility Sepsis POA likely 2/2 left elbow pseudomonal cellulitis, resolved: Completed course of cefepime. Abdominal ascites/Hepatic Cirrhosis Liver abnormalities on CTAP thought to represent cirrhosis versus mass. -> discussed w/Dr. Mills w/radiology who feels his imaging is more consistent with cirrhosis as opposed to a liver mass -> will order AFP tumor marker with tomorrow's AM labs - s/p paracentesis on 03/28/2020 w/removal of 3.8L of fluid Hepatitis panel during admission was negative. Started on spironolactone 12.5mg PO daily. Will require outpatient work-up for liver cirrhosis/screening for hepatocellular carcinoma, including EGD and f/u liver ultrasound. -> EGD in 10/2019 revealed gastritis, mar esophagitis, but no esophageal varices Incidental Renal Lesions - CT abdomen/pelvis on 03/25/2020 revealed two indeterminate lesions of the right kidney - per renal US done in 08/2019, this has been determined to be an exophytic cyst Abdominal Pain - resolved: - Pt without complaints of abdominal pain today. - Continue scheduled Miralax, Amitiza, PRN simethicone BPH: Continue tamsulosin, finasteride. Anxiety/depression/hallucinations: - Psychiatry does not feel he has a primary psychiatric disorder causing his hallucinations-consideration for multiple systems atrophy, Parkinson's-needs continued follow-up with neurology Continue sertraline, risperidone BID, trazodone 25mg HS. Risperidone 0.25mg daily PRN agitation. - May benefit from outpatient counseling given depression in elderly dementia patient. - Geriatric Psych referral as above. Hypertension: - BP normotensive for age. Continue lisinopril. Chronic Atrial Fibrillation: - Currently anticoagulated on Xarelto. - [id number] score of 3 due to age and HTN Hx. - Not on a rate control agent at this time. - While on telemetry -> Afib with PVCs, paced Hx pacemaker placement: - Patient has pacemaker, recent interrogations scanned into chart. - Follows with [facility] cardiology. Hx mitral insufficiency: - Most recent ECHO 11/2019 showing severe left atrial dilation with normal EF at 55-60%. Hypothyroidism: - TSH ~8 this admission. Have started levothyroxine 25mcg to continue following discharge. - Will need repeat thyroid function testing in about 6 weeks following start of levothyroxine. Constipation: - Miralax, Amitiza, Maalox as above successful for constipation. - 3 BMs achieved yesterday - Continue these medications to achieve at least 1 BM/day. DVT prophylaxis: on Xarelto Diet: minced and moist; low sodium, fluid restrict Code: Conditional; no compressions or defibrillation Disposition: Floor; for hopeful discharge Saturday to SNF; COVID 19 testing negative. For home with home health if unable to qualify (2) Pacemaker: (3) BPH loc w urin obs/LUTS: (4) Chronic constipation: (5) Anxiety: (6) Atrial fibrillation: (7) Abdominal ascites: (8) Pleural effusion: (9) Cellulitis of elbow: (10) Memory deficits: Admission and Anticipated Discharge Date Admission Date: March 25, 2020 Supervising Physician Co-Signing Physician Notes I personally examined the patient and verified all [place] points of history and exam, discussed case, and agree with decision making with Dr. Kincaid: Patient is much less anxious today and slept well overnight as per nursing reports although he does not really recall this. He ambulated around the hallways today and this really seem to lift his periods. Denies pain anywhere, remains afebrile. Vitals reviewed Gen: Alert and awake and oriented, NAD Irregularly irregular, normal rate, no murmurs rubs or gallops Lungs clear to auscultation bilaterally, no wheezes crackles or rhonchi HEENT: Anicteric sclerae Extremities no edema Pt is an 84-year-old male admitted with acute metabolic encephalopathy as well as toxic encephalopathy with previous pseudomonal elbow abscess and cellulitis now resolved, with significant anxiety and intermittent delusions and hallucinations. With ongoing waxing and waning delirium and anxiety worsened by very poor sleep-finally improving today after adding on low doses of Risperdal and with improved sleep -Make the afternoon dose of Risperdal 0.25 mg scheduled at 1500 and will continue a scheduled dose of 0.5 mg at bedtime Continuing to await approval for rehab placement but is medically stable for discharge at this time Subjective Mr. Guthrie expresses frustration at his continued admission to the hospital and repeated orientation questions. He is anxious to know the next steps after discharge. He denies any new complaints today. He states he slept well last night. Per nursing, he did not require a 1:1 sitter overnight. He is hopeful to speak to his son today. Later in the AM, per nursing, Mr. Guthrie had a productive cough and coughed up a quarter sized blood clot. Upon asking him this, he states this has not happened to him before. He does endorse coughing after eating, and states he sometimes has a hard time with swallowing his pills. Review of Systems Constitutional: + fatigue; no fever and no chills Respiratory: + cough and + hemoptysis Cardiovascular: no chest pain Gastrointestinal: no abdominal pain and no vomiting Physical Exam Constitutional: + frail appearing; no acute distress Respiratory: normal respiratory effort, lungs clear to auscultation Cardiovascular: Rate/Rhythm: regular rate and + irregularly irregular Gastrointestinal (Abdomen): Percussion/Palpation: abdomen soft; abdomen nontender Psychiatric: Affect: + irritable affect Results & Data ([facility]) Vital Signs (Past 12 Hours) Vital Signs Temp Pulse Resp BP Pulse Ox 04/15/20 23:00 36.6 C 77 20 128/67 94 Resident Activity Tracking Resident Involvement: Resident Care Provided Care Provided: Adult Hospital Medicine (1) Abdominal ascites Ascites type: other type Qualified Code(s): R18.8 - Other ascites (2) Atrial fibrillation Atrial fibrillation type: longstanding persistent Qualified Code(s): I48.11 - Longstanding persistent atrial fibrillation
[2020-04-16] MEDS: POLYETHYLENE (MIRALAX) 17 GM PACK PO SCH (08:43)
[2020-04-16] MEDS: SPIRONOLACTONE 12.5 MG TAB PO SCH (08:46)
[2020-04-16] MEDS: LUBIPROSTONE 8 MCG CAP PO SCH ×2 (08:46→21:13)
[2020-04-16] MEDS: TAMSULOSIN HCL 0.4 MG CAP PO SCH ×2 (08:47→21:14)
[2020-04-16] MEDS: CEROVITE ADV FORMULA TAB PO SCH ×2 (08:47→21:13)
[2020-04-16] MEDS: FINASTERIDE 5 MG TAB PO SCH (08:48)
[2020-04-16] MEDS: lisinopriL 20 MG TAB PO SCH (08:48)
[2020-04-16] MEDS: DOCUSATE SODIUM/SENNA 50/8.6MG TAB PO SCH (08:48)
[2020-04-16] MEDS: SERTRALINE HCL 50 MG TABLET PO SCH (08:48)
[2020-04-16] MEDS: RIVAROXABAN 20 MG TAB PO SCH (08:48)
[2020-04-16 12:29] LABS: INR 1.3 (0.9-1.1); Partial Thromboplastin Ratio 1.2; Partial Thromboplastin Time 32.8 Seconds (21.0-31.0)
[2020-04-16 12:45] LABS: BUN Creatinine Ratio 21.9 (10-20); Calcium 9.1 mg/dl (8.5-10.1); Creatinine Clr Calc Pharmacy 62.3 ml/min; Est GFR (African American) 96.3; Est GFR (Non-African American) 83.1
[2020-04-16] MEDS ORDERED: SIMETHICONE 80 MG CHEW PO PRN (12:53)
[2020-04-16] MEDS: risperiDONE 0.5 MG TABLET PO SCH ×2 (15:55→21:14)
--- NOTE | 2020-04-16 16:57 | Billing Data ---
Date of Service April 16, 2020 Coding Level of Care Code 29144 Subseq Hosp Care Lvl 3
[2020-04-16] MEDS: TRAZODONE HCL 50 MG TAB PO SCH (21:14)
[2020-04-16] MEDS ORDERED: NYSTATIN 30 ML, DEXAMETHASONE CONC 3.75 MG, DiphenhydrAMINE Syrup 300 MG, ORA-SWEET SYR... PO PRN (23:37)
[2020-04-17] MEDS: LEVOTHYROXINE SODIUM 25 MCG TABLET PO SCH (05:52)
--- NOTE | 2020-04-17 08:24 | Family Medicine Progress Note ---
Date of Service April 17, 2020 Assessment & Plan (1) Toxic metabolic encephalopathy: Mr. Guthrie is an 84 year old male with a past medical history of chronic AFib on Xarelto, long QT and bradycardia s/p pacemaker, dementia, and macular degeneration admitted for altered mental status, thought to be multifactorial in origin, with continued waxing and waning confusion. Awaiting placement versus home with home health. Hemoptysis - patient had one episode of coughing w/quarter sized amount of blood noted on tissue on 04/16 - coag panel ordered - unchanged from prior - patient currently afebrile, saturating well on room air -> no further investigation warranted at this time given one isolated episode - consider CT of thorax to further evaluate if hemoptysis recurs Fever of unknown origin - patient had one isolated fever in evening of 04/14 of 38 degrees Celsius - infectious workup negative, including bcx, suspect 2/2 atelectasis - IS ordered and recommended OOB x3 times a day Toxic metabolic encephalopathy: - Head CT and Brain MRI showed no acute intracranial abnormality. 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 - Psychiatry consulted this admission, recommended discontinuing patient's Xanax and Zyprexa, which may have been provoking confusion/delirium - medication regimen adjusted -> currently on trazodone 25mg daily, risperidone 0.25mg daily @ 3PM and risperidone 0.5mg HS -> this seems to work well for him. Increased trazodone did not help. -> AxO x4 today, cognition much improved from previous. Able to carry on a conversation with a logical train of thought -> also has prn additional PRN risperidone 0.25mg and haldol, however on the above regimen, he was greatly improved and did not require his PRN risperidone, haldol or 1:1 overnight - Psych liaison able to get patient appointment with Geriatric Psychiatrist for 05/26/2020. Continue PT/OT, frequent orientation, avoid offending medications as above, encourage p.o. intake. - Case Management awaiting word from several SNF facilities for placement, stable for discharge -> discussed w/CM today that patient is stable for d/c tomorrow given improvement in labile mood and no infectious etiology identified Sepsis POA likely 2/2 left elbow pseudomonal cellulitis, resolved: Completed course of cefepime. Abdominal ascites/Hepatic Cirrhosis Liver abnormalities on CTAP thought to represent cirrhosis versus mass. -> discussed w/Dr. Mills w/radiology who feels his imaging is more consistent with cirrhosis as opposed to a liver mass -> AFP tumor marker ordered and pending - s/p paracentesis on 03/28/2020 w/removal of 3.8L of fluid Hepatitis panel during admission was negative. continue spironolactone 12.5mg PO daily. Will require outpatient work-up for liver cirrhosis/screening for hepatocellul ar carcinoma, including EGD and f/u liver ultrasound. -> EGD in 10/2019 revealed gastritis, mar esophagitis, but no esophageal varices Incidental Renal Lesions - CT abdomen/pelvis on 03/25/2020 revealed two indeterminate lesions of the right kidney - per renal US done in 08/2019, this has been determined to be an exophytic cyst BPH: Continue tamsulosin, finasteride. Anxiety/depression/hallucinations: - Psychiatry does not feel he has a primary psychiatric disorder causing his hallucinations-consideration for multiple systems atrophy, Parkinson's-needs continued follow-up with neurology Continue sertraline, risperidone BID, trazodone 25mg HS - Geriatric Psych referral as above. Hypertension: - BP normotensive for age. Continue lisinopril. Chronic Atrial Fibrillation: - Currently anticoagulated on Xarelto - Not on a rate control agent at this time. Hx pacemaker placement: - Patient has pacemaker, recent interrogations scanned into chart. - Follows with [facility] cardiology. Hx mitral insufficiency: - Most recent ECHO 11/2019 showing severe left atrial dilation with normal EF at 55-60%. Hypothyroidism: - TSH ~8 this admission. Have started levothyroxine 25mcg to continue following discharge. - Will need repeat thyroid function testing in about 6 weeks following start of levothyroxine. Constipation: - Miralax, Amitiza, Maalox as above successful for constipation. - patient currently having regular BMs - Continue these medications to achieve at least 1 BM/day. Irritation of Gums - likely secondary to poor fitting dentures, recommend outpatient f/u to get these refitted - magic mouthwash ordered prn for pain DVT prophylaxis: on Xarelto Diet: minced and moist; low sodium, fluid restrict Code: Conditional; no compressions or defibrillation Disposition: Floor; for hopeful discharge Saturday to SNF; COVID 19 testing negative. For home with home health if unable to qualify (2) Pacemaker: (3) BPH loc w urin obs/LUTS: (4) Chronic constipation: (5) Anxiety: (6) Atrial fibrillation: (7) Abdominal ascites: (8) Pleural effusion: (9) Cellulitis of elbow: (10) Memory deficits: Admission and Anticipated Discharge Date Admission Date: March 25, 2020 Supervising Physician Co-Signing Physician Notes I personally examined the patient and verified all [place] points of history and exam, discussed case, and agree with decision making with Dr. Kincaid: Significantly improved today. Is lucid and asking if his fluid restriction can be lifted. he moved his bowels 3x yesterday, no concerns. Not anxious and asks if he can go for another walk today with his nurse as he really enjoyed it previously Vitals reviewed Gen: Alert and awake and oriented x 3, NAD Irregularly irregular, normal rate, no murmurs rubs or gallops Lungs clear to auscultation bilaterally, no wheezes crackles or rhonchi HEENT: Anicteric sclerae Abd +BS soft NT ND Extremities no edema Pt is an 84-year-old male admitted with acute metabolic encephalopathy as well as toxic encephalopathy with previous pseudomonal elbow abscess and cellulitis now resolved, with significant anxiety and intermittent delusions and hallucinations. With ongoing waxing and waning delirium and anxiety worsened by very poor sleep- much improved finally after adding on low doses of Risperdal and with improved sleep, ambulation around the [place], resolution of previous infections, etc. -Make the afternoon dose of Risperdal 0.25 mg scheduled at 1500 and will continue a scheduled dose of 0.5 mg at bedtime Continuing to await approval for rehab placement but is medically stable for discharge at this time Subjective Mr. Guthrie reports he is "disappointed" today, mainly at his continued hospitalization. He reports his mouth, namely his gums are a little sore. He states that this has been happening on and off for some time, and speculates it is due to his dentures being slightly too loose. He states he was going to have his dentures refitted, but then was admitted to the hospital prior to being able to do so. He otherwise has no complaints. Review of Systems Constitutional: no fever and no chills Respiratory: no cough and no dyspnea Cardiovascular: no chest pain and no edema Physical Exam Constitutional: WD/WN, vitals as above ENMT: + dentures in place + no ulcers noted in mouth, but some irritation over lower gums on R side Respiratory: normal respiratory effort, lungs clear to auscultation Cardiovascular: RRR, no murmur, no edema Gastrointestinal (Abdomen): normal bowel sounds, soft, nontender, no hepatosplenomegaly Skin: no rashes, warm and dry Results & Data ([facility]) Vital Signs (Past 12 Hours) Vital Signs Temp Pulse Resp BP Pulse Ox 04/17/20 07:23 36.5 C 73 18 150/72 H 96 04/16/20 23:00 36.3 C L 74 20 145/70 H 96 Resident Activity Tracking Resident Involvement: Resident Care Provided Care Provided: Adult Hospital Medicine (1) Abdominal ascites Ascites type: other type Qualified Code(s): R18.8 - Other ascites (2) Atrial fibrillation Atrial fibrillation type: longstanding persistent Qualified Code(s): I48.11 - Longstanding persistent atrial fibrillation
[2020-04-17] MEDS: DOCUSATE SODIUM/SENNA 50/8.6MG TAB PO SCH (08:49)
[2020-04-17] MEDS: POLYETHYLENE (MIRALAX) 17 GM PACK PO SCH (08:49)
[2020-04-17] MEDS: LUBIPROSTONE 8 MCG CAP PO SCH ×2 (08:49→20:42)
[2020-04-17] MEDS: SPIRONOLACTONE 12.5 MG TAB PO SCH (08:50)
[2020-04-17] MEDS: CEROVITE ADV FORMULA TAB PO SCH ×2 (08:51→20:42)
[2020-04-17] MEDS: lisinopriL 20 MG TAB PO SCH (08:51)
[2020-04-17] MEDS: SERTRALINE HCL 50 MG TABLET PO SCH (08:51)
[2020-04-17] MEDS: RIVAROXABAN 20 MG TAB PO SCH (08:51)
[2020-04-17] MEDS: TAMSULOSIN HCL 0.4 MG CAP PO SCH ×2 (08:51→20:42)
[2020-04-17] MEDS: FINASTERIDE 5 MG TAB PO SCH (08:51)
--- NOTE | 2020-04-17 16:02 | Billing Data ---
Date of Service April 17, 2020 Coding Level of Care Code 66310 Subseq Hosp Care Lvl 2
[2020-04-17] MEDS: risperiDONE 0.5 MG TABLET PO SCH ×2 (16:10→20:42)
[2020-04-17] MEDS: TRAZODONE HCL 50 MG TAB PO SCH (20:41)
[2020-04-18] MEDS: LEVOTHYROXINE SODIUM 25 MCG TABLET PO SCH (05:22)
[2020-04-18] MEDS: SPIRONOLACTONE 12.5 MG TAB PO SCH (08:34)
[2020-04-18] MEDS: LUBIPROSTONE 8 MCG CAP PO SCH ×2 (08:34→20:38)
[2020-04-18] MEDS: FINASTERIDE 5 MG TAB PO SCH (08:35)
[2020-04-18] MEDS: CEROVITE ADV FORMULA TAB PO SCH ×2 (08:35→20:37)
[2020-04-18] MEDS: POLYETHYLENE (MIRALAX) 17 GM PACK PO SCH (08:35)
[2020-04-18] MEDS: TAMSULOSIN HCL 0.4 MG CAP PO SCH ×2 (08:35→20:37)
[2020-04-18] MEDS: lisinopriL 20 MG TAB PO SCH (08:36)
[2020-04-18] MEDS: SERTRALINE HCL 50 MG TABLET PO SCH (08:36)
[2020-04-18] MEDS: DOCUSATE SODIUM/SENNA 50/8.6MG TAB PO SCH (08:36)
[2020-04-18] MEDS: RIVAROXABAN 20 MG TAB PO SCH (08:36)
--- NOTE | 2020-04-18 09:52 | Family Medicine Progress Note ---
Date of Service April 18, 2020 Assessment & Plan (1) Toxic metabolic encephalopathy: 84 yo M PMHx chronic AFib on Xarelto, long QT and bradycardia s/p pacemaker, dementia, and macular degeneration admitted for altered mental status, thought to be multifactorial in origin, with continued waxing and waning confusion. Without confusion this morning and awaiting placement to SNF versus home with home health. Hemoptysis - Patient had one isolated episode of coughing w/quarter sized amount of blood noted on tissue on 04/16. - Coag panel ordered - unchanged from prior. - Patient currently afebrile, saturating well on room air -> no further investigation warranted at this time given one isolated episode. - Consider CT of thorax to further evaluate if hemoptysis recurs. Fever of unknown origin - Patient had one isolated fever in evening of 04/14 of 38 degrees Celsius. - Infectious workup negative, including bcx, suspect 2/2 atelectasis. - IS ordered and recommended OOB 3x/day. Toxic metabolic encephalopathy: - Head CT and Brain MRI showed no acute intracranial abnormality. - Etiology likely multifactorial: metabolic due to cellulitis of left upper extremity causing sepsis, delirium 2/2 hospitalization in a patient with baseline dementia, dehydration and medication side effects. 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 - Psychiatry consulted this admission, recommended discontinuing patient's Xanax and Zyprexa, which may have been provoking confusion/delirium. - Medication regimen adjusted -> currently on trazodone 25mg daily, risperidone 0.25mg daily @ 3PM and risperidone 0.5mg HS -> this seems to work well for him. Increased trazodone did not help. -> AxO x4 today, cognition much improved from previous. Able to carry on a conversation with a logical train of thought. -> Also has prn additional PRN risperidone 0.25mg and Haldol, however on the above regimen, he was greatly improved and did not require his PRN risperidone, Haldol or 1:1 overnight. - Psych liaison able to get patient appointment with Geriatric Psychiatrist for 05/26/2020. - Continue PT/OT, frequent orientation, avoid offending medications as above, encourage p.o. intake. - Case Management awaiting word from SNF tomorrow for placement, stable for discharge. -> Patient is stable for d/c tomorrow given improvement in labile mood and no infectious etiology identified. -> If patient is denied will be for home with home health with care by son Jesus. Sepsis POA likely 2/2 left elbow pseudomonal cellulitis, resolved: - Completed course of cefepime. - No signs of infection. Abdominal ascites/Hepatic Cirrhosis - Liver abnormalities on CTAP thought to represent cirrhosis versus mass. -> Discussed w/Dr. Mills w/radiology who feels his imaging is more consistent with cirrhosis as opposed to a liver mass. -> AFP tumor marker ordered and pending. - S/p paracentesis on 03/28/2020 w/removal of 3.8L of fluid. - Hepatitis panel during admission was negative. - Continue spironolactone 12.5mg PO daily. - Will require outpatient work-up for liver cirrhosis/screening for hepatocellular carcinoma, including EGD and f/u liver ultrasound. -> EGD in 10/2019 revealed gastritis, mar esophagitis, but no esophageal varices. Incidental Renal Lesions: - CT abdomen/pelvis on 03/25/2020 revealed two indeterminate lesions of the right kidney. - Per renal US done in 08/2019, this has been determined to be an exophytic cyst. BPH: - Continue tamsulosin, finasteride. Anxiety/depression/hallucinations: - Psychiatry does not feel he has a primary psychiatric disorder causing his hallucinations-consideration for multiple systems atrophy, Parkinson's-needs continued follow-up with neurology - Continue sertraline, risperidone BID, trazodone 25mg HS as above. - Geriatric Psych appointment 05/26. Hypertension: - BP normotensive for age. - Continue lisinopril. Chronic Atrial Fibrillation: - Currently anticoagulated on Xarelto. - Not on a rate control agent at this time, rate has been in 70s this admission. Hx pacemaker placement: - Patient has pacemaker, recent interrogations scanned into chart. - Follows with [facility] cardiology. Hx mitral insufficiency: - Most recent ECHO 11/2019 showing severe left atrial dilation with normal EF at 55-60%. Hypothyroidism: - TSH ~8 this admission. Have started levothyroxine 25mcg to continue following discharge. - Will need repeat thyroid function testing in about 6 weeks following start of levothyroxine. Constipation: - Miralax, Amitiza, Maalox as above successful for constipation. - Patient currently having regular BMs. - Continue these medications to achieve at least 1 BM/day. Irritation of Gums: - Likely secondary to poor fitting dentures, recommend outpatient f/u to get these refitted. - Magic mouthwash ordered PRN for pain. DVT prophylaxis: on Xarelto Diet: minced and moist; low sodium Code: Conditional; no compressions or defibrillation Disposition: Floor; for hopeful discharge tomorrow to SNF; COVID 19 testing negative. For home with home health if unable to qualify for SNF (2) Pacemaker: (3) BPH loc w urin obs/LUTS: (4) Chronic constipation: (5) Anxiety: (6) Atrial fibrillation: (7) Abdominal ascites: (8) Pleural effusion: (9) Cellulitis of elbow: (10) Memory deficits: Admission and Anticipated Discharge Date Admission Date: March 25, 2020 Supervising Physician Co-Signing Physician Notes Patient seen and examined with Dr. Ponce. I agree with her exam findings, review of systems, assessment and plan. I have personally reviewed the lab work and imaging from today. patient pleasant, no acute issues today Risperdal appears to be helping a lot awaiting word from SNF tomorrow, back up plan is to go home with home health Exam: thin male, no distress, oriented x 3 today lungs CTA bilaterally, normal effort heart regular, no murmurs, no edema abdomen soft, NT, ND, +BS - Cellulitis of arm: resolved after course of IV antibiotics - Hemoptysis: one episode, no recurrence, no further work up unless it re-occurs - Dementia with behavior disturbance: much improved on Risperdal oriented x 3 today, apologizing for past behavior stabel medically for d/c - Weakness: referral made to SNF, awaiting answer tomorrow, back up plan is to go home Subjective No acute events overnight; Mr. Guthrie today reports feeling "upset that he caused some trouble for everyone last week". Denies any oral pain today, no abdominal pain, chest pain, SOB, nausea, vomiting. Eating his breakfast on my arrival. Asking if he can call his son Jesus. Review of Systems Constitutional: no fever and no chills Respiratory: no cough, no dyspnea and no wheezing Cardiovascular: no chest pain, no palpitations and no edema Gastrointestinal: no abdominal pain, no nausea, no vomiting, no constipation and no diarrhea/loose stools Physical Exam Constitutional: WD/WN, vitals as above ENMT: + dentures in place + no ulcers noted in mouth Respiratory: normal respiratory effort, lungs clear to auscultation Cardiovascular: HR irregularly irregular, no tachycardia, no appreciable murmurs Gastrointestinal (Abdomen): normal bowel sounds, soft, nontender, no hepatosplenomegaly Skin: no rashes, warm and dry Psychiatric: A+Ox3, euthymic affect Results & Data ([facility]) Vital Signs (Past 12 Hours) Vital Signs Temp Pulse Resp BP Pulse Ox 04/18/20 07:11 36.3 C L 74 17 140/76 96 04/17/20 22:00 36.4 C L 77 20 126/61 94 Resident Activity Tracking Resident Involvement: Resident Care Provided Care Provided: Adult Hospital Medicine (1) Abdominal ascites Ascites type: other type Qualified Code(s): R18.8 - Other ascites (2) Atrial fibrillation Atrial fibrillation type: longstanding persistent Qualified Code(s): I48.11 - Longstanding persistent atrial fibrillation
[2020-04-18] MEDS: risperiDONE 0.5 MG TABLET PO SCH ×2 (14:34→20:39)
[2020-04-18] MEDS: TRAZODONE HCL 50 MG TAB PO SCH (20:36)
--- NOTE | 2020-04-18 22:22 | Billing Data ---
Date of Service April 18, 2020 Coding Level of Care Code 45708 Subseq Hosp Care Lvl 2
[2020-04-19] MEDS: LEVOTHYROXINE SODIUM 25 MCG TABLET PO SCH (06:21)
[2020-04-19] MEDS: LUBIPROSTONE 8 MCG CAP PO SCH ×2 (09:20→20:13)
[2020-04-19] MEDS: SPIRONOLACTONE 12.5 MG TAB PO SCH (09:20)
[2020-04-19] MEDS: FINASTERIDE 5 MG TAB PO SCH (09:21)
[2020-04-19] MEDS: DOCUSATE SODIUM/SENNA 50/8.6MG TAB PO SCH (09:21)
[2020-04-19] MEDS: lisinopriL 20 MG TAB PO SCH (09:21)
[2020-04-19] MEDS: RIVAROXABAN 20 MG TAB PO SCH (09:21)
[2020-04-19] MEDS: TAMSULOSIN HCL 0.4 MG CAP PO SCH ×2 (09:21→20:15)
[2020-04-19] MEDS: CEROVITE ADV FORMULA TAB PO SCH ×2 (09:21→21:08)
[2020-04-19] MEDS: SERTRALINE HCL 50 MG TABLET PO SCH (09:21)
[2020-04-19] MEDS: POLYETHYLENE (MIRALAX) 17 GM PACK PO SCH (09:21)
--- NOTE | 2020-04-19 13:49 | Family Medicine Progress Note ---
Date of Service April 19, 2020 Assessment & Plan (1) Toxic metabolic encephalopathy: 84 yo M PMHx chronic AFib on Xarelto, long QT and bradycardia s/p pacemaker, dementia, and macular degeneration admitted for altered mental status, thought to be multifactorial in origin, with continued waxing and waning confusion. Without confusion this morning and awaiting placement to SNF versus home with home health. Hemoptysis - Patient had one isolated episode of coughing w/quarter sized amount of blood noted on tissue on 04/16. - Coag panel ordered - unchanged from prior. - Patient currently afebrile, saturating well on room air -> no further investigation warranted at this time given one isolated episode. - Consider CT of thorax to further evaluate if hemoptysis recurs. Fever of unknown origin - Patient had one isolated fever in evening of 04/14 of 38 degrees Celsius. - Infectious workup negative, including bcx, suspect 2/2 atelectasis. - IS ordered and recommended OOB 3x/day, especially for meals. Toxic metabolic encephalopathy: - Head CT and Brain MRI showed no acute intracranial abnormality. - Etiology likely multifactorial: metabolic due to cellulitis of left upper extremity causing sepsis, delirium 2/2 hospitalization in a patient with baseline dementia, dehydration and medication side effects. 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 - Psychiatry consulted this admission, recommended discontinuing patient's Xanax and Zyprexa, which may have been provoking confusion/delirium. - Medication regimen adjusted -> currently on trazodone 25mg daily, risperidone 0.25mg daily @ 3PM and risperidone 0.5mg HS -> this seems to work well for him. Increased trazodone did not help. -> AxO x4 today, cognition much improved from previous. Able to carry on a conversation with a logical train of thought. -> Also has prn additional PRN risperidone 0.25mg and Haldol, however on the above regimen, he was greatly improved and did not require his PRN risperidone, Haldol or 1:1 overnight. - Psych liaison able to get patient appointment with Geriatric Psychiatrist for 05/26/2020. - Continue PT/OT, frequent orientation, avoid offending medications as above, encourage p.o. intake. - Case Management awaiting word from SNF tomorrow for placement, stable for discharge. -> Patient is stable for d/c tomorrow given improvement in labile mood and no infectious etiology identified. -> If patient is denied will be for home with home health with care by son Jesus. -> Required repeat COVID 19 testing as the previous test was over a week ago, this is pending and no concern for respiratory symptoms, change in taste or smell, GI complaints, no contact with PUIs. Sepsis POA likely 2/2 left elbow pseudomonal cellulitis, resolved: - Completed course of cefepime. - No signs of infection. Abdominal ascites/Hepatic Cirrhosis - Liver abnormalities on CTAP thought to represent cirrhosis versus mass. -> Discussed w/Dr. Gene torres/radiology who feels his imaging is more consistent with cirrhosis as opposed to a liver mass. -> AFP tumor marker ordered and pending. - S/p paracentesis on 03/28/2020 w/removal of 3.8L of fluid. - Hepatitis panel during admission was negative. - Continue spironolactone 12.5mg PO daily. - Will require outpatient work-up for liver cirrhosis/screening for hepatocellular carcinoma, including EGD and f/u liver ultrasound. -> EGD in 10/2019 revealed gastritis, mar esophagitis, but no esophageal varices. Incidental Renal Lesions: - CT abdomen/pelvis on 03/25/2020 revealed two indeterminate lesions of the right kidney. - Per renal US done in 08/2019, this has been determined to be an exophytic cyst. BPH: - Continue tamsulosin, finasteride. Anxiety/depression/hallucinations: - Psychiatry does not feel he has a primary psychiatric disorder causing his hallucinations-consideration for multiple systems atrophy, Parkinson's-needs continued follow-up with neurology - Continue sertraline, risperidone BID, trazodone 25mg HS as above. - Geriatric Psych appointment 05/26. Hypertension: - BP normotensive for age. - Continue lisinopril. Chronic Atrial Fibrillation: - Currently anticoagulated on Xarelto. - Not on a rate control agent at this time; overall has had HR in 70s this admission but with one episode today of HR 130s; asymptomatic at that time. -> Will consider rate control if continues to have episodes of tachycardia. Hx pacemaker placement: - Patient has pacemaker, recent interrogations scanned into chart. - Follows with [facility] cardiology. Hx mitral insufficiency: - Most recent ECHO 11/2019 showing severe left atrial dilation with normal EF at 55-60%. Hypothyroidism: - TSH ~8 this admission. Have started levothyroxine 25mcg to continue following discharge. - Will need repeat thyroid function testing in about 6 weeks following start of levothyroxine. Constipation: - Miralax, Amitiza, Maalox as above successful for constipation. - Patient currently having regular BMs. - Continue these medications to achieve at least 1 BM/day. Irritation of Gums: - Likely secondary to poor fitting dentures, recommend outpatient f/u to get these refitted. - Magic mouthwash ordered PRN for pain. DVT prophylaxis: on Xarelto Diet: minced and moist; low sodium Code: Conditional; no compressions or defibrillation Disposition: Floor; for hopeful discharge tomorrow to SNF; COVID 19 testing negative. For home with home health if unable to qualify for SNF (2) Pacemaker: (3) BPH loc w urin obs/LUTS: (4) Chronic constipation: (5) Anxiety: (6) Atrial fibrillation: (7) Abdominal ascites: (8) Pleural effusion: (9) Cellulitis of elbow: (10) Memory deficits: Admission and Anticipated Discharge Date Admission Date: March 25, 2020 Supervising Physician Co-Signing Physician Notes I personally examined the patient and verified all [place]ano points of history and exam, discussed case, and agree with decision making with Dr Franklin. awake, eating, but then asks when he'll get food. vitals noted pleasant nad heent nc at mmm breathing unlabored no accessory muscles good effort skin no rashes no pallor or icterus - Cellulitis of arm: resolved after course of IV antibiotics - Hemoptysis: one episode, no recurrence, no further work up unless it re-occurs (outpt f/u) - Dementia with behavior disturbance: much improved on Risperdal much more stable and calm overall now - continue current meds stable medically for d/c once SNF available - Weakness: ongoing PT/OT Subjective Patient without acute events overnight. Alert and conversational. Denies abdominal pain, dysuria, CP, SOB, diarrhea, constipation. Review of Systems Constitutional: no fever and no chills Respiratory: no cough, no dyspnea and no wheezing Cardiovascular: no chest pain, no palpitations and no edema Gastrointestinal: no abdominal pain, no nausea, no vomiting, no constipation and no diarrhea/loose stools Physical Exam Constitutional: WD/WN, vitals as above ENMT: + dentures in place Respiratory: normal respiratory effort, lungs clear to auscultation Cardiovascular: HR irregularly irregular, no tachycardia, no appreciable murmurs Gastrointestinal (Abdomen): normal bowel sounds, soft, nontender, no hepatosplenomegaly Skin: no rashes, warm and dry Psychiatric: A+Ox3, euthymic affect Results & Data ([facility]) Vital Signs (Past 12 Hours) Vital Signs Temp Pulse Resp BP Pulse Ox 04/19/20 07:37 36.3 C L 134 H 18 139/74 95 Resident Activity Tracking Resident Involvement: Resident Care Provided Care Provided: Adult Hospital Medicine (1) Abdominal ascites Ascites type: other type Qualified Code(s): R18.8 - Other ascites (2) Atrial fibrillation Atrial fibrillation type: longstanding persistent Qualified Code(s): I48.11 - Longstanding persistent atrial fibrillation
[2020-04-19] MEDS: risperiDONE 0.5 MG TABLET PO SCH ×2 (14:51→20:15)
--- NOTE | 2020-04-19 16:42 | Billing Data ---
Date of Service April 19, 2020 Coding Level of Care Code 46568 Subseq Hosp Care Lvl 2
[2020-04-19] MEDS: TRAZODONE HCL 50 MG TAB PO SCH (20:14)
[2020-04-20] MEDS: LEVOTHYROXINE SODIUM 25 MCG TABLET PO SCH (06:04)
[2020-04-20] MEDS: CEROVITE ADV FORMULA TAB PO SCH (07:56)
[2020-04-20] MEDS: TAMSULOSIN HCL 0.4 MG CAP PO SCH (07:56)
[2020-04-20] MEDS: RIVAROXABAN 20 MG TAB PO SCH (07:56)
[2020-04-20] MEDS: FINASTERIDE 5 MG TAB PO SCH (07:57)
[2020-04-20] MEDS: LUBIPROSTONE 8 MCG CAP PO SCH (07:57)
[2020-04-20] MEDS: SERTRALINE HCL 50 MG TABLET PO SCH (07:57)
[2020-04-20] MEDS: POLYETHYLENE (MIRALAX) 17 GM PACK PO SCH (07:57)
[2020-04-20] MEDS: lisinopriL 20 MG TAB PO SCH (07:57)
[2020-04-20] MEDS: DOCUSATE SODIUM/SENNA 50/8.6MG TAB PO SCH (07:58)
[2020-04-20] MEDS: SPIRONOLACTONE 12.5 MG TAB PO SCH (07:58)
--- NOTE | 2020-04-20 13:48 | Discharge Summary ---
Date of Service April 20, 2020 Admission HPI Per Admitting Provider LesaGracy Guthrie (Keo) is an 84-year-old male who presented to the emergency department for an evaluation of generalized weakness, recurrent falls and slurred speech. History from the patient is somewhat limited and supplemented with outpatient notes. The patient reports these symptoms have been going on for the last week. Initially he felt he had right hand weakness for 2 days and was seen in the ER on March 18. No focal deficit was noted on exam but the patient noted fine motor changes. CT head was normal and he was discharged from the ER. He was followed up by neurology yesterday and recommended MRI brain w/ w/o contrast pending pacemaker clearance to r/o left hemispheric CVA; this is yet to be performed. He was followed by primary care provider the same day with history of slurred speech and bilateral lower extremity weakness while trying to get up from the toilet. The patient reported to the ER he currently feels more weak on the left compared to right side. To myself he was unsure and mainly felt generally weak all over. In addition the patient reports last falling 6 weeks prior (correlates with visit on 03/03/20) at which time he just turned too fast and fell down causing an injury to his right elbow and nasal fracture. He most recently was seen by wound care for the right elbow wound which was cultures and subsequently grew pseudomonas. In the ER he was complaining of abdominal pain and underwent CT A/P with IV contrast showing cirrhotic liver disease with moderate abdominal pelvic ascites, R>L pleural effusions and anasarca. The patient and his son were unaware of any liver problems. The patient denies any fevers or chills, reports mild left sided abdominal pain which is relieved with bowel movements. He notes chronic constipation but currently not an issue on Amitiza but unsure when his last BM was. Mild nausea but no vomiting. No melena or red blood in stool. The patient is aware of surveillance of mass on his kidneys which he reports has not grown in size for a long time (unknown exactly how long). Prior [facility] from [facility] CT A/P with IV contrast [April 2019]: 1. Multiple ill defined low attenuation hepatic lesions with the largest one 2.5cm in right hepatic lobe. Probably slightly increased in number and size compared to prior abdominal MRI and CT from 2016. Hepatic US and enhanced MRI abdomen suggested for further evaluation. 2. 1.5cm soft tissue density exophytic right kidney cortical lesions representing hyperdense cyst versus renal mass (renal US or MRI abdo suggested) 3. Constipation Admission Exam Per Admitting Provider Constitutional: well developed and + frail appearing; + not well nourished, no acute distress and not lethargic Eyes: PERRL, conjunctivae normal, anicteric sclerae ENMT: external ear and nose normal, oropharynx normal Neck: normal visual inspection and trachea midline Respiratory: normal respiratory effort; no respiratory distress Auscultation: lungs clear to auscultation bilaterally and + diminished lung sounds (bibasal); no crackles, no rales, no rhonchi and no wheezes Cardiovascular: Rate/Rhythm: regular rate and regular rhythm Heart Sounds: no murmur Vessels: + JVD Extremities: normal capillary refill, + pedal edema (3+ b/l lower extremities) and + edema (1+ over abdomen); no calf tenderness Gastrointestinal (Abdomen): Inspection/Auscultation: + abdomen distended, normal bowel sounds and + abdominal edema Percussion/Palpation: + abdomen tender (mild left sided, resolved with distraction) and abdomen soft; no guarding and abdomen not rigid Musculoskeletal: Extremities: + extremities abnormal to inspection (significant swelling present b/l equal) Skin: No cellulitis surrounding wound on right elbow, green fluid present on dressing but purulent fluid below this Neurologic: moves all extremities and awake (appears tired); no focal motor deficits (bilaterally weak) and not confused Speech / Cognition: normal speech Motor/Sensory: + tremor (very mild resting intermittently on left, worse with movement); no pronator drift, no asterixis and no sensory deficit Cranial Nerves: PERRL, EOM intact bilaterally (without nystagmus), normal facial strength, tongue midline, able to rotate head bilaterally, able to elevate shoulders bilaterally, no nystagmus and symmetric palate elevation; + hearing impairment (hard of hearing) Coordination: + abnormal [id number] test (bilateral action tremor L > R) Psychiatric: Orientation: alert and oriented x 3 Eye Contact: good eye contact Motor Behavior: no psychomotor agitation Principal Diagnosis toxic metabolic encephalopathy 2/2 sepsis from elbow cellulitis vs. delirium in dementia patient Discharge Exam Constitutional: WD/WN, vitals as above ENMT: + dentures in place Respiratory: normal respiratory effort, lungs clear to auscultation Cardiovascular: HR irregularly irregular, no tachycardia, no appreciable murmurs Gastrointestinal (Abdomen): normal bowel sounds, soft, nontender, no hepatosplenomegaly Skin: no rashes, warm and dry Psychiatric: A+Ox3, euthymic affect Discharge Data Allergies Allergy/AdvReac Type Severity Reaction Status Date / Time clindamycin Allergy Intermediate Rash Verified 03/24/20 09:00 acetaminophen [From Vicodin] AdvReac Intermediate Racing Verified 03/24/20 09:00 Heart ciprofloxacin [From Cipro] AdvReac Intermediate Blurry Verified 03/24/20 09:00 Vision hydrocodone [From Vicodin] AdvReac Intermediate Racing Verified 03/24/20 09:00 Heart oxycodone AdvReac Intermediate Heart Races Verified 03/24/20 09:00 tramadol [From Ultram] AdvReac Intermediate Profuse Verified 03/24/20 09:00 Sweating doxycycline AdvReac Mild "Burning Verified 03/24/20 09:00 Stomach" Penicillins AdvReac Mild "Hairy Verified 03/24/20 09:00 tongue" propoxyphene AdvReac Unknown "Just do Verified 03/24/20 09:00 [From Darvocet-N] not want pain medications" Consultations 03/25/20 18:52 Consult Case Management - Discharge Planning Routine 03/26/20 14:37 Consult Neurology Routine 03/26/20 22:26 Consult Cardiology Routine 03/30/20 14:20 Consult Psychiatry Routine Ordered Studies 03/25/20 13:47 CT abd pelvis IV con only Stat CT head/brain wo con Stat 03/25/20 13:49 CT cervical spine wo con Stat 03/26/20 16:46 CT angio head w con Routine CT angio neck with con Routine 03/28/20 US paracentesis abd w/image Urgent 03/28/20 09:07 MR brain wo con Stat Hospital Course (1) Toxic metabolic encephalopathy: 84 yo M PMHx chronic AFib on Xarelto, long QT and bradycardia s/p pacemaker, dementia, and macular degeneration admitted for altered mental status, thought to be multifactorial in origin, with continued waxing and waning confusion. Without confusion this morning and awaiting placement to SNF versus home with home health. Hemoptysis - Patient had one isolated episode of coughing w/quarter sized amount of blood noted on tissue on 04/16. - Coag panel ordered - unchanged from prior. - Patient currently afebrile, saturating well on room air -> no further investigation warranted at this time given one isolated episode. - Consider CT of thorax to further evaluate if hemoptysis recurs. Fever of unknown origin - Patient had one isolated fever in evening of 04/14 of 38 degrees Celsius. - Infectious workup negative, including bcx, suspect 2/2 atelectasis. - IS ordered and recommended OOB 3x/day, especially for meals. Toxic metabolic encephalopathy: - Head CT and Brain MRI showed no acute intracranial abnormality. - Etiology likely multifactorial: metabolic due to cellulitis of left upper extremity causing sepsis, delirium 2/2 hospitalization in a patient with baseline dementia, dehydration and medication side effects. 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 - Psychiatry consulted this admission, recommended discontinuing patient's Xanax and Zyprexa, which may have been provoking confusion/delirium. - Medication regimen adjusted -> currently on trazodone 25mg daily, risperidone 0.25mg daily @ 3PM and risperidone 0.5mg HS -> this seems to work well for him. Increased trazodone did not help. -> AxO x4 today, cognition much improved from previous. Able to carry on a conversation with a logical train of thought. -> Also has prn additional PRN risperidone 0.25mg and Haldol, however on the above regimen, he was greatly improved and did not require his PRN risperidone, Haldol or 1:1 overnight. - Psych liaison able to get patient appointment with Geriatric Psychiatrist for 05/26/2020. - Continue PT/OT, frequent orientation, avoid offending medications as above, encourage p.o. intake. -> Patient is stable for d/c given improvement in labile mood and no i nfectious etiology identified. -> Required repeat COVID 19 testing negative and no concern for respiratory symptoms, change in taste or smell, GI complaints, no contact with PUIs. Sepsis POA likely 2/2 left elbow pseudomonal cellulitis, resolved: - Completed course of cefepime. - No signs of infection. Abdominal ascites/Hepatic Cirrhosis - Liver abnormalities on CTAP thought to represent cirrhosis versus mass. -> Discussed w/Dr. Gene torres/radiology who feels his imaging is more consistent with cirrhosis as opposed to a liver mass. -> AFP tumor marker ordered and pending. - S/p paracentesis on 03/28/2020 w/removal of 3.8L of fluid. - Hepatitis panel during admission was negative. - Continue spironolactone 12.5mg PO daily. - Will require outpatient work-up for liver cirrhosis/screening for hepatocellular carcinoma, including EGD and f/u liver ultrasound. -> EGD in 10/2019 revealed gastritis, mar esophagitis, but no esophageal varices. Incidental Renal Lesions: - CT abdomen/pelvis on 03/25/2020 revealed two indeterminate lesions of the right kidney. - Per renal US done in 08/2019, this has been determined to be an exophytic cyst. BPH: - Continue tamsulosin, finasteride. Anxiety/depression/hallucinations: - Psychiatry does not feel he has a primary psychiatric disorder causing his hallucinations-consideration for multiple systems atrophy, Parkinson's-needs continued follow-up with neurology - Continue sertraline, risperidone BID, trazodone 25mg HS as above. - Geriatric Psych appointment 05/26. Hypertension: - BP normotensive for age. - Continue lisinopril. Chronic Atrial Fibrillation: - Currently anticoagulated on Xarelto. - Not on a rate control agent at this time; overall has had HR in 70s this admission but with one episode today of HR 130s; asymptomatic at that time. -> Will consider rate control if continues to have episodes of tachycardia. Hx pacemaker placement: - Patient has pacemaker, recent interrogations scanned into chart. - Follows with [facility] cardiology. Hx mitral insufficiency: - Most recent ECHO 11/2019 showing severe left atrial dilation with normal EF at 55-60%. Hypothyroidism: - TSH ~8 this admission. Have started levothyroxine 25mcg to continue following discharge. - Will need repeat thyroid function testing in about 6 weeks following start of levothyroxine. Constipation: - Miralax, Amitiza, Maalox as above successful for constipation. - Patient currently having regular BMs. - Continue these medications to achieve at least 1 BM/day. Irritation of Gums: - Likely secondary to poor fitting dentures, recommend outpatient f/u to get these refitted. - Magic mouthwash ordered PRN for pain. DVT prophylaxis: on Xarelto Diet: minced and moist; low sodium Code: Conditional; no compressions or defibrillation (2) Pacemaker: (3) BPH loc w urin obs/LUTS: (4) Chronic constipation: (5) Anxiety: (6) Atrial fibrillation: (7) Abdominal ascites: (8) Pleural effusion: (9) Cellulitis of elbow: (10) Memory deficits: Total Time Total Time Spent Total Time Spent (In Minutes): <30 Discharge Plan Discharge Items Patient Disposition: Transfer Longterm Fac Reason For Visit: GENERALIZED WEAKNESS AND HALLUCINATIONS Discharge Diagnosis: toxic metabolic encephalopathy 2/2 sepsis from elbow cellulitis vs. delirium in dementia patient Condition on Discharge: Good Activity: Per Instructions section Non-emergency contact: Primary Care Provider Call non-emergency contact if: your symptoms worsen and your temperature is above 101 Follow-up/Referrals: Josue Garibay DO [Primary Care Provider] - Diet: Heart Healthy Addtl Attending Provider Instructions: 84 yo M PMHx chronic AFib on Xarelto, long QT and bradycardia s/p pacemaker, dementia, and macular degeneration admitted for altered mental status, thought to be multifactorial in origin, with return to his normal level of alertness over the weekend. Hemoptysis: - Patient had one isolated episode of coughing w/quarter sized amount of blood noted on tissue on 04/16. - Coag panel ordered - unchanged from prior. - Patient afebrile through week, saturating well on room air -> no further investigation warranted at this time given one isolated episode. - Can consider CT of thorax in outpatient setting to further evaluate if hemoptysis recurs. Fever of unknown origin: - Patient had one isolated fever in evening of 04/14 of 38 degrees Celsius. - Infectious workup negative, including BCx, suspect 2/2 atelectasis. - Incentive spirometry and recommended OOB 3x/day, especially for meals. Toxic metabolic encephalopathy: - Head CT and Brain MRI showed no acute intracranial abnormality. - Etiology likely multifactorial: metabolic due to cellulitis of left upper extremity causing sepsis, delirium 2/2 hospitalization in a patient with baseline dementia, dehydration and medication side effects. 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 - Psychiatry consulted this admission, recommended discontinuing patient's Xanax and Zyprexa, which may have been provoking confusion/delirium. - Medication regimen adjusted -> currently on trazodone 25mg daily, risperidone 0.25mg daily @ 3PM and risperidone 0.5mg HS -> this seems to work well for him. Increased trazodone did not help. Risperidone 0.25mg daily PRN agitation/anxiety can be added if needed. -> AAO x4 over the weekend, cognition much improved from previous. Able to carry on a conversation with a logical train of thought. -> Without need for 1:1 or Haldol for 4 days. - Psych liaison able to get patient appointment with Geriatric Psychiatrist for 05/26/2020. - Continue PT/OT, frequent orientation, avoid offending medications as above, encourage p.o. intake. Sepsis POA likely 2/2 left elbow pseudomonal cellulitis, resolved: - Completed course of cefepime. - No signs of infection. Abdominal ascites/Hepatic Cirrhosis - Liver abnormalities on CTAP thought to represent cirrhosis versus mass. -> Discussed w/Dr. Mills w/radiology who feels his imaging is more consistent with cirrhosis as opposed to a liver mass. -> AFP tumor marker ordered and pending. - S/p paracentesis on 03/28/2020 w/removal of 3.8L of fluid. - Hepatitis panel during admission was negative. - Continue spironolactone 12.5mg PO daily. - Will require outpatient work-up for liver cirrhosis/screening for hepatocellular carcinoma, including EGD and f/u liver ultrasound. -> EGD in 10/2019 revealed gastritis, mar esophagitis, but no esophageal varices. Incidental Renal Lesions: - CT abdomen/pelvis on 03/25/2020 revealed two indeterminate lesions of the right kidney. - Per renal US done in 08/2019, this has been determined to be an exophytic cyst. BPH: - Continue tamsulosin, finasteride. Anxiety/depression/hallucinations: - Psychiatry does not feel he has a primary psychiatric disorder causing his hallucinations-consideration for multiple systems atrophy, Parkinson's-needs continued follow-up with neurology - Continue sertraline, risperidone BID as above, trazodone 25mg HS as above. - Geriatric Psych appointment 05/26. Hypertension: - BP normotensive for age. - Continue lisinopril. Chronic Atrial Fibrillation: - Currently anticoagulated on Xarelto. - Not on a rate control agent at this time, rate has been in 70s this admission. Hx pacemaker placement: - Patient has pacemaker. - Follows with [facility] cardiology. Hx mitral insufficiency: - Most recent ECHO 11/2019 showing severe left atrial dilation with normal EF at 55-60%. Hypothyroidism: - TSH ~8 this admission. Have started levothyroxine 25mcg to continue following discharge. - Will need repeat thyroid function testing in about 6 weeks following start of levothyroxine. Constipation: - Miralax, Amitiza, Maalox as above successful for constipation. - Patient currently having regular BMs. - Continue these medications to achieve at least 1 BM/day. Irritation of Gums: - Likely secondary to poor fitting dentures, recommend outpatient f/u to get these refitted. - Magic mouthwash ordered PRN for pain. Code Status: Conditional Code, no defibrillation or compressions Diet: regular Pending Studies at Discharge: Yes Studies:: AFP Stand-Alone Forms: [facility] Skilled Items Patient informed of condition?: Yes DNR: No (conditional code, no defib or compressions) Discharge Level of Care: Skilled Communicable Disease: No Discharge Prognosis: Stable Lines: None Urinary Catheter: No Medications and DC Order Prescriptions: New trazodone 50 mg Tablet 25 mg PO HS Qty: 30 RF: 0 sennosides-docusate sodium [Senokot-S] 8.6-50 mg Tablet 1 tab PO QAM Qty: 30 RF: 0 spironolactone 25 mg Tablet 12.5 mg PO DAILY Qty: 30 RF: 0 levothyroxine [Synthroid] 25 mcg Tablet 25 mcg PO DAILYBB Qty: 30 RF: 0 risperidone 0.5 mg Tablet 0.5 mg PO HS Qty: 30 RF: 0 risperidone 0.5 mg Tablet 0.25 mg PO DAILY@1500 30 Days Qty: 30 RF: 0 risperidone 0.5 mg Tablet 0.25 mg PO DAILY PRN (Reason: agitation/anxiety) Qty: 30 RF: 0 Continued Xarelto 20 mg tablet 20 mg PO DAILY RF: 0 tamsulosin [Flomax] 0.4 mg capsule 0.4 mg PO BID Qty: 180 RF: 1 sertraline 50 mg tablet 50 mg PO QAM Qty: 30 RF: 5 lisinopril 30 mg tablet 30 mg PO QAM Qty: 90 RF: 3 finasteride [Proscar] 5 mg tablet 5 mg PO QAM Qty: 90 RF: 3 polyethylene glycol 3350 [Miralax] 17 gram/dose powder 8.5 gm PO DAILY PRN (Reason: Constipation) RF: 0 simethicone [Gas-X Extra Strength] 125 mg Capsule 125 mg PO TIDM PRN (Reason: GAS/BLOATING) RF: 0 PreserVision AREDS [id number] Tablet 1 tab PO AMPM RF: 0 Amitiza 24 mcg Capsule 24 mcg PO BID RF: 0 Discontinued furosemide 20 mg tablet 20 mg PO BID Qty: 60 RF: 2 alprazolam [Xanax] 1 mg tablet 1 mg PO TID Qty: 30 RF: 0 diphenhydramine HCl [Benadryl] 25 mg Capsule 25 mg PO HS RF: 0 Discharge Orders: Discharge Order (Routine); Ordered 04/20/20 Ordered By: Marisa Ponce Admission Data Admit Date/Time: 03/25/20 16:45 Attending Provider: Malvin La Admit Provider: Adonis Crowe Primary Care Provider: Josue Garibay Other Providers: Adonis Crowe ; [facility] ; [facility] ; Madi Stover ; Bret Lee ; Fady Steel ; Tj Prabhakar ; Rigoberto Clinton ; Reji Mchugh ; Vincent Saeed ; Garrett Funez Jr ; Devon Walton ; Lakshmi Jonas ; Misty Whiteside ; Dylan Vila ; Dylan Joe ; Will Mason ; Mikey Kulkarni ; Farzaneh Chacon ; Tabitha Seo ; Devang Soto ; Vasiliy Urias ; Karina Moore ; [facility] ; [facility], ; [facility] ; Masoud Barraza Other Interventions: Discharge Summary Assessment (RN) Last Done: 04/20/20 14:06 PSY Interdisciplinary Discharge Planning Last Done: 04/14/20 13:49 DC Date/Time DO NOT enter until pt leaves facility: 04/20/20 15:53 Supervising Physician Co-Signing Physician Notes I personally examined the patient and verified all [place] points of history and exam, discussed case, and agree with decision making with Dr Franklin. hoping to get out of the hospital. f/u covid for facility was still pending when i saw him. vitals noted pleasant nad heent nc at mmm breathing unlabored no accessory muscles good effort skin no rashes no pallor or icterus - Cellulitis of arm: resolved after course of IV antibiotics - Hemoptysis: one episode, no recurrence, no further work up unless it re-occurs (outpt f/u) - Dementia with behavior disturbance: much improved on Risperdal much more stable and calm overall now - continue current meds stable medically for d/c to SNF - Weakness: ongoing PT/OT at SNF Resident Activity Tracking Resident Involvement: Resident Care Provided Care Provided: Adult Hospital Medicine
[2020-04-20] MEDS: risperiDONE 0.5 MG TABLET PO SCH (14:42)
--- NOTE | 2020-04-20 17:57 | Billing Data ---
Date of Service April 20, 2020 Coding Level of Care Code D/C Day Management <30 mins
== END 2020-04-20 15:53 | DRG 871 ==
LOC: ED 13:24 → 2N 16:45 → SUATTDRO 16:45 → 2N 18:29

== ENCOUNTER 2020-05-20 13:32 | Inpatient (IN) ==
--- NOTE | 2020-05-20 14:11 | Emergency Department Note ---
History of Present Illness General Chief complaint: Abdominal Pain Stated complaint: Abd pain Time Seen by Provider: 05/20/20 13:48 Source: patient and old records reviewed Mode of arrival: EMS Limitations: no limitations History of Present Illness Maximum Pain Intensity: 2 This patient is brought in by ambulance for evaluation. He has been having pain in his right lower abdomen with a bulge. He says he had a hard time having a bowel movement and urinating for about a week though he did urinate this morning. No numbness weakness of his legs. He is not recall falling however he does have a bruise on his left hip. He is not been coughing but he says when he spits up saliva it is bloody at times no vomiting. No blood or melena stool. He is on Xarelto for A. fib. He denies abdominal pain at present. No chest pain or shortness of breath. No focal numbness or weakness. Home Medications Home Medications Medication Instructions Recorded Confirmed Type simethicone [Gas-X Extra Strength] 125 mg PO TID PRN 09/19/19 05/20/20 History polyethylene glycol 3350 17 17 gm PO DAILY PRN 10/16/19 05/20/20 History gram/dose oral powder Amitiza 24 mcg PO BID 12/29/19 05/20/20 History tamsulosin 0.4 mg capsule 0.4 mg PO BID #180 cap 01/18/20 05/20/20 Rx finasteride 5 mg tablet 5 mg PO QAM #90 tab 01/28/20 05/20/20 Rx rivaroxaban 20 mg tablet 20 mg PO HS 03/22/20 05/20/20 History sertraline 50 mg tablet 50 mg PO QAM #30 tab 03/24/20 05/20/20 Rx levothyroxine [Synthroid] 25 mcg PO DAILYBB #30 tab 04/20/20 05/20/20 Rx risperidone 0.5 mg PO HS #30 tab 04/20/20 05/20/20 Rx sennosides-docusate sodium 1 tab PO QAM #30 tab 04/20/20 05/20/20 Rx [Senokot-S] spironolactone 12.5 mg PO DAILY #30 tab 04/20/20 05/20/20 Rx buspirone 5 mg PO BID 05/20/20 05/20/20 History ibuprofen 400 mg PO Q6H PRN 05/20/20 05/20/20 History lisinopril 20 mg PO QAM 05/20/20 05/20/20 History risperidone 0.25 mg PO DAILY 05/20/20 05/20/20 History vit A,C and T-pjmtid-uedtolpw 1 tab PO BID 05/20/20 05/20/20 History [I-Ruby] Allergies Allergy/AdvReac Type Severity Reaction Status Date / Time clindamycin Allergy Intermediate Rash Verified 03/24/20 09:00 acetaminophen [From Vicodin] AdvReac Intermediate Racing Verified 03/24/20 09:00 Heart ciprofloxacin [From Cipro] AdvReac Intermediate Blurry Verified 03/24/20 09:00 Vision hydrocodone [From Vicodin] AdvReac Intermediate Racing Verified 03/24/20 09:00 Heart oxycodone AdvReac Intermediate Heart Races Verified 03/24/20 09:00 tramadol [From Ultram] AdvReac Intermediate Profuse Verified 03/24/20 09:00 Sweating doxycycline AdvReac Mild "Burning Verified 03/24/20 09:00 Stomach" Penicillins AdvReac Mild "Hairy Verified 03/24/20 09:00 tongue" propoxyphene AdvReac Unknown "Just do Verified 03/24/20 09:00 [From Darvocet-N] not want pain medications" Past Med/Surg History Medical History Atrial fibrillation (Acute) HX. Pacemaker placed 05/16/19. Recently moved to [place] to live with his son, and will be establishing with [facility] after surgery. Avulsion of skin (Inactive) Bladder neck contracture BPH loc w urin obs/LUTS Candidiasis of mouth and esophagus CHI (closed head injury) (Inactive) Closed fracture nasal bone (Inactive) Contusion (Inactive) Difficulty swallowing 2/2 thrush GERD (gastroesophageal reflux disease) Gross hematuria Xarelto d/c'd 08/2019 because of this. Helicobacter pylori (H. pylori) Macular degeneration Sleep apnea Using CPAP HS. Currently has possible thrush in throat 2/2 CPAP. 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 Currently on trial of Sinemet to see if it improves. Urinary retention Valvular heart disease Surgical History History of colonoscopy History of esophagogastroduodenoscopy (EGD) History of knee replacement Pacemaker [place]. PLACED 03/2019 [facility]USED TO F/U AT [facility]-MOVED TO LIVE WITH SON 08/2019 S/P cataract surgery S/P TURP (transurethral resection of prostate) Family History Sister Colorectal cancer Breast cancer Parkinson disease Son Family history of diabetes mellitus Mother , age 83 of a stroke Stroke Father , age 89 of black Lung Heart disease Denies family history of Ovarian cancer Prostate cancer Crohn's disease Myocardial infarction Ulcerative colitis Social History Preferred Language: Thai Communication Ability: Effective Visual Impairment: Partially Limited Hearing Ability: Use of Hearing Aid Skein Bleacher Required: No Beliefs That Will Affect Care: None marital status: / Current Living Situation: Family Current Living Situation Comment: LIVES WITH SON/DAUGHTER IN LAW SINCE 08/2019 current occupational status: retired 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 Feels Safe at Home: Yes Smoking Status: Never smoker Tobacco Type: cigarettes and smokeless tobacco ; Number of Years Since Quit: 50 ; Second Hand Exposure: No ; Hx Alcohol Use: No Hx Substance Use: No Childhood Exposure to Second-Hand Smoke: Yes caffeine: Yes during the past year weight has: decreased > 10 lbs Dental Care, Regularly: No Review of Systems A total of 10 systems reviewed and were otherwise negative Physical Exam Vital Signs Vital Signs - 24 hr 05/20/20 13:35 05/20/20 13:38 05/20/20 13:39 Temperature 36.5 C Temperature Source Oral Pulse Rate 78 81 78 Pulse Rate [Apical] Respiratory Rate 28 H 19 20 Respiratory Effort / Characteristics Non-Labored Spontaneous Respiratory Depth Normal Blood Pressure 126/77 126/77 Blood Pressure [Left Arm] Blood Pressure Mean 100 93 Blood Pressure Mean [Left Arm] Blood Pressure Position Sitting Pulse Oximetry 97 Oxygen Delivery Method Room Air Sepsis Recent Fever Within 48 Hours No Sepsis Action Taken by Nursing No Action Required 05/20/20 13:40 05/20/20 13:50 05/20/20 14:00 Temperature Temperature Source Pulse Rate 75 74 80 Pulse Rate [Apical] Respiratory Rate 19 20 21 Respiratory Effort / Characteristics Respiratory Depth Blood Pressure Blood Pressure [Left Arm] Blood Pressure Mean Blood Pressure Mean [Left Arm] Blood Pressure Position Pulse Oximetry Oxygen Delivery Method Sepsis Recent Fever Within 48 Hours Sepsis Action Taken by Nursing 05/20/20 14:10 05/20/20 14:20 05/20/20 14:30 Temperature Temperature Source Pulse Rate 83 76 83 Pulse Rate [Apical] Respiratory Rate 25 H 18 24 Respiratory Effort / Characteristics Respiratory Depth Blood Pressure Blood Pressure [Left Arm] Blood Pressure Mean Blood Pressure Mean [Left Arm] Blood Pressure Position Pulse Oximetry Oxygen Delivery Method Sepsis Recent Fever Within 48 Hours Sepsis Action Taken by Nursing 05/20/20 14:40 05/20/20 14:50 05/20/20 15:00 Temperature Temperature Source Pulse Rate 80 81 80 Pulse Rate [Apical] Respiratory Rate 21 22 26 H Respiratory Effort / Characteristics Respiratory Depth Blood Pressure Blood Pressure [Left Arm] Blood Pressure Mean Blood Pressure Mean [Left Arm] Blood Pressure Position Pulse Oximetry Oxygen Delivery Method Sepsis Recent Fever Within 48 Hours Sepsis Action Taken by Nursing 05/20/20 15:10 05/20/20 15:20 05/20/20 15:30 Temperature Temperature Source Pulse Rate 82 80 85 Pulse Rate [Apical] Respiratory Rate 30 H 21 20 Respiratory Effort / Characteristics Respiratory Depth Blood Pressure Blood Pressure [Left Arm] Blood Pressure Mean Blood Pressure Mean [Left Arm] Blood Pressure Position Pulse Oximetry Oxygen Delivery Method Sepsis Recent Fever Within 48 Hours Sepsis Action Taken by Nursing 05/20/20 15:46 05/20/20 15:50 05/20/20 17:03 Temperature Temperature Source Pulse Rate 77 87 Pulse Rate [Apical] 86 Respiratory Rate 20 21 18 Respiratory Effort / Characteristics Respiratory Depth Blood Pressure Blood Pressure [Left Arm] 145/99 H Blood Pressure Mean Blood Pressure Mean [Left Arm] 114 Blood Pressure Position Pulse Oximetry 98 Oxygen Delivery Method Room Air Sepsis Recent Fever Within 48 Hours Sepsis Action Taken by Nursing General: Well developed well nourished older male who appears in in no acute distress, breathing comfortably on room air. Normal speech HEENT: Normal cephalic atraumatic. Pupils are equal round and reactive to l ight. Extraocular movements are intact. Oropharynx is pink with moist mucous membranes. No swelling of the mouth lips or tongue. Neck: Supple with a midline trachea. No meningeal signs or stiffness, no JVD or bruits. No Stridor. Chest: Clear to auscultation bilaterally. No wheezes or rhonchi. No increased work of breathing. Heart: Regular rate and rhythm without murmurs or gallops. Abdomen: Soft nontender, nondistended without rebound guarding or rigidity. Laying flat I do not appreciate a hernia or bulge in the right groin. The patient not tender there. He does have a nontender bruise along the left lateral hip. No shortening or deformity of the extremities Extremities: No cyanosis clubbing or edema. No calf tenderness or assymetry Spine/Back. Non tender to palpation. No CVA tenderness Skin: Good turgor without rashes. Neurologic exam: Cranial nerves two through 12 are intact. Motor and sensation are intact and symmetrical throughout. Course Administered Medications Sodium Chloride (Nss) 500 mls @ 125 mls/hr IV .Q4H PRISCILLA Stop: 06/19/20 16:44 Last Admin: 05/20/20 17:00 Dose: 125 mls/hr Documented by: [id number] Discontinued Medications Sodium Chloride (Nss 1000ml) 250 mls @ 999 mls/hr IV .Q16M ONE Stop: 05/20/20 16:48 Last Admin: 05/20/20 17:00 Dose: 999 mls/hr Documented by: [id number] Medical Decision Making Differential Diagnosis Hernia, hemoptysis, anemia, CHF, electrolyte metabolic, trauma Medical Records Attestation: I reviewed the patient's medical records. Home Medications Current Medication List: was personally reviewed by me Laboratory Data Result diagrams: 05/20/20 14:20 05/20/20 14:20 Lab Results 05/20/20 05/20/20 05/20/20 Range/Units 14:20 14:20 14:20 WBC 5.67 (4.8-10.8) K/uL RBC 2.98 L (4.7-6.1) M/uL Hgb 9.1 L (14.0-18.0) g/dL Hct 26.2 L (42-52) % MCV 87.9 (80-100) fL MCH 30.5 (25-34) pg MCHC 34.7 (32-36) g/dL RDW Std Deviation 61.1 H (36.4-46.3) fL RDW Coeff of Sharona 18.9 H (11.5-14.5) % Plt Count 149 (130-400) K/uL MPV 9.4 (7.4-10.4) fL Immature Gran % (Auto) 0.2 % Neut % (Auto) 76.4 % Lymph % (Auto) 11.5 % [place] % (Auto) 10.9 % Eos % (Auto) 0.5 % Baso % (Auto) 0.5 % Neut # (Auto) 4.33 (1.4-6.5) K/uL Lymph # (Auto) 0.65 L (1.2-3.4) K/uL [place] # (Auto) 0.62 H (0.11-0.59) K/uL Eos # (Auto) 0.03 (0-0.5) K/uL Baso # (Auto) 0.03 (0-0.2) K/uL Immature Gran # (Auto) 0.01 (0.00-0.02) K/uL PT 14.0 H (9.0-12.0) Seconds INR 1.3 H (0.9-1.1) APTT 39.6 H (21.0-31.0) Seconds PTT Ratio 1.4 Sodium 124 L (136-145) mmol/L Potassium 4.1 (3.5-5.1) mmol/L Chloride 92 L (98-107) mmol/L Carbon Dioxide 25 (21-32) mmol/L Anion Gap 7.0 (3-11) BUN 18 (7-18) mg/dl Creatinine 0.70 (0.6-1.4) mg/dl Est Cr Clr Drug Dosing 70.7 ml/min Est GFR ( Amer) 99.0 Est GFR (Non-Af Amer) 85.5 BUN/Creatinine Ratio 25.6 H (10-20) Glucose 131 H (70-99) mg/dl Calcium 8.3 L (8.5-10.1) mg/dl Total Bilirubin 0.7 (0.2-1) mg/dl AST 28 (15-37) U/L ALT 42 (12-78) U/L Alkaline Phosphatase 108 (45-117) U/L Troponin I < 0.015 (0-0.045) ng/ml Total Protein 6.8 (6.4-8.2) gm/dl Albumin 3.1 L (3.4-5.0) gm/dl Globulin 3.7 (2.5-4.0) gm/dl Albumin/Globulin Ratio 0.8 L (0.9-2) Lipase 317 (73-393) U/L Imaging Data Attestation: I personally reviewed and interpreted this imaging study as follows: Radiologist's Impression: XR chest 1V portable CLINICAL HISTORY: spitting up blood dyspnea COMPARISON STUDY: 04/14/2020 FINDINGS: Progressive bilateral parenchymal infiltrative change versus atypical pulmonary edema. The heart is moderately enlarged. There is a permanent unipolar cardiac p acemaker. IMPRESSION: Progressive bilateral parenchymal infiltrative change versus atypical pulmonary edema. CT abd pelvis wo con CT DOSE: 294.19 mGy.cm HISTORY: Pain. Hemoptysis. rt lower abd pain, eval for hernia. left hip bruis TECHNIQUE: Multiaxial CT images of the abdomen and pelvis were performed without contrast. A dose lowering technique was utilized adhering to the principles of ALARA. COMPARISON STUDY: 03/25/2020 FINDINGS: Small bilateral pleural effusions. Superimposed interstitial infiltrate medial aspect left base as well as lingula. Moderate stable cardiomegaly. Mild sclerotic appearance to the liver. Mild abdominal and pelvic ascites. This is diminished from the prior study. Kidneys are considered negative for hydronephrosis. Mild infiltrative change of the omentum and mesentery felt to be secondary to minimal scattered ascites. Several renal cysts and are hyperdense cysts. Bowel pattern is nonobstructive. The bladder is midline. There is a moderate rectal fecal impaction. There are findings of mild body wall anasarca. IMPRESSION: 1. Bilateral pleural effusions with superimposed left basilar as well as lingular infiltrative change. 2. Mild stable cardiomegaly. 3. Cirrhotic liver. 4. Mild scattered ascites diminished from the prior study. 5. Nonobstructive bowel pattern. 6. Moderate rectal fecal impaction. 7. Mild body wall anasarca. ECG Data Attestation: I personally reviewed and interpreted this ECG as follows: Indication: + abdominal pain Rhythm: + atrial flutter ECG Intervals/blocks: + Normal QRS and + Normal QT ECG [place]: + Normal ECG ST segments: + Normal ST segments and + Nonspecific ST abnormalities ECG Findings: + PVCs Comparison ECG Date: from (03/28/20) Change: no significant change Blood Pressure Blood Pressure Findings: Normal blood pressure Blood Pressure Disposition: did not require urgent referral MDM Narrative This patient comes in as described above he has had some pain or bulging in his right groin although it seems to be better at present. I do suspect he could have a hernia. The bruise on the left. I did order CAT scan of the abdomen. He also spit up some blood. He says he not coughing or vomiting is just in the saliva he is on a blood thinner for A. fib. I did order multiple blood testing. I also ordered a chest x-ray EKG and abdominal CT. CAT scan of the abdomen shows no acute findings. Chest x-ray shows some infiltrative changes which were actually present a month ago but are worse now. He does not have fever or white count. It may be more of a congestive change. His sodium is low at 124. He was gently hydrated with a 250 cc bolus 125 cc an hour given the concern for possible CHF. His sodium may be causing his abdominal pain with it being that low and looking back through chart he does not normally run that low. He apparently has been COVID tested along the way as well as but negative. Given the fact that he will be admitted and has had some spitting up of blood. I did order a rapid COVID as well. Of consult Dr. Centeno to see him in the ER for these measures Impression & Plan Acute hyponatremia, Abdominal pain, Pulmonary edema, Hemoptysis Discharge Plan Visit Data Chief Complaint: Abdominal Pain Stated Complaint: Abd pain ED Provider: Bret Christensen Discharge Problem: Acute hyponatremia, Abdominal pain, Pulmonary edema, Hemoptysis Forms Stand Alone Forms: My [facility] [employer] Prescriptions Prescriptions: No Action Xarelto 20 mg tablet 20 mg PO HS RF: 0 tamsulosin [Flomax] 0.4 mg capsule 0.4 mg PO BID Qty: 180 RF: 1 sertraline 50 mg tablet 50 mg PO QAM Qty: 30 RF: 5 finasteride [Proscar] 5 mg tablet 5 mg PO QAM Qty: 90 RF: 3 polyethylene glycol 3350 [Miralax] 17 gram/dose powder 17 gm PO DAILY PRN (Reason: Constipation) RF: 0 simethicone [Gas-X Extra Strength] 125 mg Capsule 125 mg PO TID PRN (Reason: GAS/BLOATING) RF: 0 Amitiza 24 mcg Capsule 24 mcg PO BID RF: 0 sennosides-docusate sodium [Senokot-S] 8.6-50 mg Tablet 1 tab PO QAM Qty: 30 RF: 0 spironolactone 25 mg Tablet 12.5 mg PO DAILY Qty: 30 RF: 0 levothyroxine [Synthroid] 25 mcg Tablet 25 mcg PO DAILYBB Qty: 30 RF: 0 risperidone 0.5 mg Tablet 0.5 mg PO HS Qty: 30 RF: 0 buspirone 5 mg Tablet 5 mg PO BID RF: 0 lisinopril 20 mg Tablet 20 mg PO QAM RF: 0 ibuprofen 400 mg Tablet 400 mg PO Q6H PRN (Reason: Fever Or Pain) RF: 0 I-Ruby 1,000 unit-200 mg-60 unit-2 mg Tablet 1 tab PO BID RF: 0 risperidone 0.5 mg tablet 0.25 mg PO DAILY RF: 0 Discharge Problem: Abdominal pain Qualifiers: Abdominal location: right lower quadrant Qualified Code(s): R10.31 - Right lower quadrant pain Pulmonary edema Qualifiers: Chronicity: acute Qualified Code(s): J81.0 - Acute pulmonary edema
--- NOTE | 2020-05-20 14:30 | XRay Report ---
XR chest 1V portable CLINICAL HISTORY: spitting up blood dyspnea COMPARISON STUDY: 04/14/2020 FINDINGS: Progressive bilateral parenchymal infiltrative change versus atypical pulmonary edema. The heart is moderately enlarged. There is a permanent unipolar cardiac pacemaker. IMPRESSION: Progressive bilateral parenchymal infiltrative change versus atypical pulmonary edema. ACT 112: Negative or not required by law. The above report was generated using voice recognition software. It may contain grammatical, syntax or spelling errors. Electronically signed by: Abelardo Mai M.D. 05/20/2020 2:28 PM
[2020-05-20 14:39] LABS: Basophils # (auto) 0.03 K/uL (0-0.2); Basophils % (auto) 0.5 %; Eosinophils # (auto) 0.03 K/uL (0-0.5); Eosinophils % (auto) 0.5 %; Hematocrit (blood only) 26.2 % (42-52); Hemoglobin 9.1 g/dL (14.0-18.0); Immature Granulocytes # (auto) 0.01 K/uL (0.00-0.02); Immature Granulocytes % (auto) 0.2 %; Lymphocytes # (auto) 0.65 K/uL (1.2-3.4); Lymphocytes % (auto) 11.5 %; Mean Corpuscular Hemoglobin 30.5 pg (25-34); Mean Corpuscular Hgb Conc 34.7 g/dL (32-36); Mean Corpuscular Volume 87.9 fL (80-100); Mean Platelet Volume 9.4 fL (7.4-10.4); Monocytes # (auto) 0.62 K/uL (0.11-0.59); Monocytes % (auto) 10.9 %; Neutrophils # (auto) 4.33 K/uL (1.4-6.5); Neutrophils % (auto) 76.4 %; Platelet Count 149 K/uL (130-400); RDW Coefficient of Variation 18.9 % (11.5-14.5); RDW Standard Deviation 61.1 fL (36.4-46.3); Red Blood Count 2.98 M/uL (4.7-6.1); White Blood Count 5.67 K/uL (4.8-10.8)
[2020-05-20 14:42] LABS: INR 1.3 (0.9-1.1); Partial Thromboplastin Ratio 1.4; Partial Thromboplastin Time 39.6 Seconds (21.0-31.0)
[2020-05-20 14:51] LABS: Alanine Aminotransferase 42 U/L (12-78); Albumin Level 3.1 gm/dl (3.4-5.0); Aspartate Aminotransferase 28 U/L (15-37); BUN Creatinine Ratio 25.6 (10-20); Blood Urea Nitrogen 18 mg/dl (7-18); Calcium 8.3 mg/dl (8.5-10.1); Carbon Dioxide 25 mmol/L (21-32); Chloride 92 mmol/L (98-107); Creatinine Clr Calc Pharmacy 70.7 ml/min; Est GFR (Non-African American) 85.5; Glucose 131 mg/dl (70-99); Lipase 317 U/L (73-393); Potassium 4.1 mmol/L (3.5-5.1); Sodium 124 mmol/L (136-145)
[2020-05-20 14:55] LABS: Albumin Globulin Ratio 0.8 (0.9-2); Alkaline Phosphatase 108 U/L (45-117); Bilirubin,Total 0.7 mg/dl (0.2-1); Globulin 3.7 gm/dl (2.5-4.0); Total Protein 6.8 gm/dl (6.4-8.2); Troponin I < 0.015 ng/ml (0-0.045)
--- NOTE | 2020-05-20 15:54 | CT Scan Report ---
CT abd pelvis wo con CT DOSE: 294.19 mGy.cm HISTORY: Pain. Hemoptysis. rt lower abd pain, eval for hernia. left hip bruis TECHNIQUE: Multiaxial CT images of the abdomen and pelvis were performed without contrast. A dose lo wering technique was utilized adhering to the principles of ALARA. COMPARISON STUDY: 03/25/2020 FINDINGS: Small bilateral pleural effusions. Superimposed interstitial infiltrate medial aspect left base as well as lingula. Moderate stable cardiomegaly. Mild sclerotic appearance to the liver. Mild abdominal and pelvic ascites. This is diminished from th e prior study. Kidneys are considered negative for hydronephrosis. Mild infiltrative change of the omentum and mesen jaime felt to be secondary to minimal scattered ascites. Several renal cysts and are hyperdense cysts. Bowel pattern is nonobstructive. The bladder is midline. There is a moderate rectal fecal impaction. There are findings of mild body wall anasarca. IMPRESSION: 1. Bilateral pleural effusions with superimposed left basilar as well as lingular infiltrative change . 2. Mild stable cardiomegaly. 3. Cirrhotic liver. 4. Mild scattered ascites diminished from the prior study. 5. Nonobstructive bowel pattern. 6. Moderate rectal fecal impaction. 7. Mild body wall anasarca. ACT 112: Negative or not required by law. The above report was generated using voice recognition software. It may contain grammatical, syntax or spelling errors. Electronically signed by: Abelardo Mai M.D. 05/20/2020 3:52 PM
--- NOTE | 2020-05-20 15:59 | Electrocardiogram Report ---
Test Reason : Blood Pressure : / mmHG Vent. Rate : 087 BPM Atrial Rate : 105 BPM P-R Int : 000 ms QRS Dur : 098 ms QT Int : 370 ms P-R-T Axes : 000 010 -08 degrees QTc Int : 445 ms Poor data quality, interpretation may be adversely affected Atrial fibrillation with occasional ventricular-paced complexes and with premature ventricular or lilian rrantly conducted complexes Abnormal ECG When compared with ECG of 28-MAR-2020 06:19, Vent. rate has increased BY 14 BPM Confirmed by Rigoberto Clinton ([id number]) on 05/20/2020 3:59:28 PM Referred By: REFERRED SELF Confirmed By:Rigoberto Clinton
[2020-05-20] MEDS ORDERED: SODIUM CHLORIDE 0.9% 1000ML 250 ML IV ONE (16:33)
[2020-05-20] MEDS: SODIUM CHLORIDE 0.9% 500 ML IV SCH ×2 (17:00→21:04)
--- NOTE | 2020-05-20 17:42 | History & Physical Report ---
Date of Service May 20, 2020 Assessment & Plan (1) Acute hyponatremia: Uncertain etiology, no prior hx of same Na 124 on admission Monitor on IVF (2) Hemoptysis: happened during last admission x1 as well CT chest pending Progressive PNA noted on CXR Vanco for now given hx of recent cefepime use and multiple abx adverse reactions Will continue xarelto for now given risk of CVA when in chronic afib, but if recurrent t/c holding (3) Anemia: Hb baseline around 10.1, now at 9.1 Monitor (4) Urinary retention: UA pending Vanco will cover UTI if present Bladder scan PRN (5) Abdominal pain: CTAP as noted Concern for possible cirrhosis on last admission LFTs WNL (6) Prolonged QT interval: Pacer (7) Depression with anxiety: continue home meds (8) Pacemaker: Noted (9) Atrial fibrillation: continue home meds, xarelto (10) BPH loc w urin obs/LUTS: continue home meds (11) Hypothyroid: continue home meds (12) HTN (hypertension): continue home meds (13) Dementia: continue home meds (14) GERD (gastroesophageal reflux disease): continue home meds (15) DVT prophylaxis: xarelto Full cardiac code, DNI per pt He states he has some sort of directive that states no CPR "but I think I should right now" History of Present Illness Primary Care Provider: Josue Garibay, DO 84 y/o M with multiple concerns. Pt states that he is having trouble urinating. He states that he can void a small amount of urine and then it stops, then restarts, then stops, etc. He feels like he is not completely voiding. He has pain in his penis with this as well. No blood noted. He feels pressure to his bladder. He has coughed up blood today, several times. He states he coughs once or twice and then notes blood. He states this is from coughing and not emesis. He has been tolerating PO without issue, although he needs help eating due to his Parkinson's. No chest pain or SOB. He is constipated at times. He is still on xarelto. Pt denies fever, abd pain, n/v, LE pain or swelling. Pt was a d/c from [facility] on 04/20 for cellulitis. He feels that this is resolved. Pt admits to memory issues. Allergies Allergy/AdvReac Type Severity Reaction Status Date / Time clindamycin Allergy Intermediate Rash Verified 03/24/20 09:00 acetaminophen [From Vicodin] AdvReac Intermediate Racing Verified 03/24/20 09:00 Heart ciprofloxacin [From Cipro] AdvReac Intermediate Blurry Verified 03/24/20 09:00 Vision hydrocodone [From Vicodin] AdvReac Intermediate Racing Verified 03/24/20 09:00 Heart oxycodone AdvReac Intermediate Heart Races Verified 03/24/20 09:00 tramadol [From Ultram] AdvReac Intermediate Profuse Verified 03/24/20 09:00 Sweating doxycycline AdvReac Mild "Burning Verified 03/24/20 09:00 Stomach" Penicillins AdvReac Mild "Hairy Verified 03/24/20 09:00 tongue" propoxyphene AdvReac Unknown "Just do Verified 03/24/20 09:00 [From RicardoOctavio] not want pain medications" Home Medications Home Medications Medication Instructions Recorded Confirmed Type simethicone [Gas-X Extra Strength] 125 mg PO TID PRN 09/19/19 05/20/20 History polyethylene glycol 3350 17 17 gm PO DAILY PRN 10/16/19 05/20/20 History gram/dose oral powder Amitiza 24 mcg PO BID 12/29/19 05/20/20 History tamsulosin 0.4 mg capsule 0.4 mg PO BID #180 cap 01/18/20 05/20/20 Rx finasteride 5 mg tablet 5 mg PO QAM #90 tab 01/28/20 05/20/20 Rx rivaroxaban 20 mg tablet 20 mg PO HS 03/22/20 05/20/20 History sertraline 50 mg tablet 50 mg PO QAM #30 tab 03/24/20 05/20/20 Rx levothyroxine [Synthroid] 25 mcg PO DAILYBB #30 tab 04/20/20 05/20/20 Rx risperidone 0.5 mg PO HS #30 tab 04/20/20 05/20/20 Rx sennosides-docusate sodium 1 tab PO QAM #30 tab 04/20/20 05/20/20 Rx [Senokot-S] spironolactone 12.5 mg PO DAILY #30 tab 04/20/20 05/20/20 Rx buspirone 5 mg PO BID 05/20/20 05/20/20 History ibuprofen 400 mg PO Q6H PRN 05/20/20 05/20/20 History lisinopril 20 mg PO QAM 05/20/20 05/20/20 History risperidone 0.25 mg PO DAILY 05/20/20 05/20/20 History vit A,C and B-eiqvao-ywvxwkwv 1 tab PO BID 05/20/20 05/20/20 History [I-Ruby] Past Med/Surg History Medical History Atrial fibrillation (Acute) HX. Pacemaker placed 05/16/19. Recently moved to [place] to live with his son, and will be establishing with [facility] cardiology after surgery. Avulsion of skin (Inactive) Bladder neck contracture BPH loc w urin obs/LUTS Candidiasis of mouth and esophagus CHI (closed head injury) (Inactive) Closed fracture nasal bone (Inactive) Contusion (Inactive) Difficulty swallowing 2/2 thrush GERD (gastroesophageal reflux disease) Gross hematuria Xarelto d/c'd 08/2019 because of this. Helicobacter pylori (H. pylori) Macular degeneration Sleep apnea Using CPAP HS. Currently has possible thrush in throat 2/2 CPAP. 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 Currently on trial of Sinemet to see if it improves. Urinary retention Valvular heart disease Surgical History History of colonoscopy History of esophagogastroduodenoscopy (EGD) History of knee replacement Pacemaker Harjinder. PLACED 03/2019 [facility]-USED TO F/U AT [facility]-MOVED TO LIVE WITH SON 08/2019 S/P cataract surgery S/P TURP (transurethral resection of prostate) Family History Sister Colorectal cancer Breast cancer Parkinson disease Son Family history of diabetes mellitus Mother , age 83 of a stroke Stroke Father , age 89 of black Lung Heart disease Denies family history of Ovarian cancer Prostate cancer Crohn's disease Myocardial infarction Ulcerative colitis Social History Preferred Language: Ecuadorean Communication Ability: Effective Visual Impairment: Partially Limited Hearing Ability: Use of Hearing Aid Executive Director [employer] Required: No Beliefs That Will Affect Care: None marital status: / Current Living Situation: Family Current Living Situation Comment: LIVES WITH SON/DAUGHTER IN LAW SINCE 08/2019 current occupational status: retired 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 Feels Safe at Home: Yes Smoking Status: Never smoker Tobacco Type: cigarettes and smokeless tobacco ; Number of Years Since Quit: 50 ; Second Hand Exposure: No ; Hx Alcohol Use: No Hx Substance Use: No Childhood Exposure to Second-Hand Smoke: Yes caffeine: Yes during the past year weight has: decreased > 10 lbs Dental Care, Regularly: No Review of Systems Review of Systems: Pertinent positives and negatives reviewed in HPI--all others negative Physical Exam Constitutional: WD/WN, vitals as above Eyes: normal visual mason by confrontation and + anicteric sclerae Neck: normal visual inspection and trachea midline Respiratory: normal respiratory effort, lungs clear to auscultation Cardiovascular: Rate/Rhythm: regular rate; + abnormal rhythm Gastrointestinal (Abdomen): Inspection/Auscultation: abdomen not distended Percussion/Palpation: + abdomen tender (lower abd) and abdomen soft Musculoskeletal: Head/Neck/Chest: normocephalic and head atraumatic negative for edema, peripheral pulses intact Skin: no rashes, warm and dry Neurologic: awake; not confused Speech / Cognition: normal speech Psychiatric: A+Ox3, euthymic affect Results & Data Results & Data ([facility]) Vital Signs (Past 12 Hours) Vital Signs Temp Pulse Pulse Resp BP BP Pulse Ox 05/20/20 17:03 86 18 145/99 H 98 05/20/20 15:50 87 21 05/20/20 15:46 77 20 05/20/20 15:30 85 20 05/20/20 15:20 80 21 05/20/20 15:10 82 30 H 05/20/20 15:00 80 26 H 05/20/20 14:50 81 22 05/20/20 14:40 80 21 05/20/20 14:30 83 24 05/20/20 14:20 76 18 05/20/20 14:10 83 25 H 05/20/20 14:00 80 21 05/20/20 13:50 74 20 05/20/20 13:40 75 19 05/20/20 13:39 36.5 C 78 20 126/77 97 05/20/20 13:38 81 19 05/20/20 13:35 78 28 H 126/77 Diagnostic Findings CXR: progressive infiltrate vs atypical pulmonary edema CTAP: 1. Bilateral pleural effusions with superimposed left basilar as well as lingular infiltrative change. 2. Mild stable cardiomegaly. 3. Cirrhotic liver. 4. Mild scattered ascites diminished from the prior study. 5. Nonobstructive bowel pattern. 6. Moderate rectal fecal impaction. 7. Mild body wall anasarca. ECG Additional Comments: afib Code Status & VTE Plan Code Status Full cardiac code, DNI per pt He states he has some sort of directive that states no CPR "but I think I should right now" VTE Prophylaxis Plan VTE Prophylaxis will be ordered: Yes PG Care Time/CCT Total # of Minutes Spent Total Time Spent with Patient: Total time spent is greater than 50% in coordination of care (as documented) at patient's floor/unit and/or counseling patient: Coding Level of Care Code 85476 Initial Inpt Care Lvl 3 Diagnoses Acute hyponatremia E87.1 Hemoptysis R04.2 Anemia D64.9 Urinary retention R33.9 Abdominal pain R10.31 Abdominal location: right lower quadrant Prolonged QT interval R94.31 Depression with anxiety F41.8 Pacemaker Z95.0 Atrial fibrillation I48.11 Atrial fibrillation type: longstanding persistent BPH loc w urin obs/LUTS N40.1 Hypothyroid E03.9 HTN (hypertension) I10 Dementia F03.90 GERD (gastroesophageal reflux disease) K21.9 DVT prophylaxis Z29.9 (1) Atrial fibrillation Atrial fibrillation type: longstanding persistent Qualified Code(s): I48.11 - Longstanding persistent atrial fibrillation (2) Abdominal pain Abdominal location: right lower quadrant Qualified Code(s): R10.31 - Right lower quadrant pain
[2020-05-20] MEDS ORDERED: POLYETHYLENE (MIRALAX) 17 GM PACK PO PRN (20:26)
[2020-05-20] MEDS ORDERED: ONDANSETRON INJ 2 MG/ML 2 ML VIAL IV PRN (20:26)
[2020-05-20] MEDS ORDERED: VANCOMYCIN CONSULT ACTIVE PRN (20:26)
[2020-05-20] MEDS ORDERED: MAGNESIUM HYDROXIDE SUSP 30 ML UDC PO PRN (20:26)
[2020-05-20] MEDS ORDERED: ACETAMINOPHEN 325 MG TAB PO PRN (20:26)
[2020-05-20] MEDS ORDERED: IBUPROFEN 200 MG TAB PO PRN (20:40)
[2020-05-20] MEDS ORDERED: VANCOMYCIN HCL 1,500 MG in SODIUM CHLORIDE 0.9% 500 ML IV ONE (21:15)
[2020-05-20] MEDS: LUBIPROSTONE 8 MCG CAP PO SCH (21:32)
[2020-05-20] MEDS: TAMSULOSIN HCL 0.4 MG CAP PO SCH (21:33)
[2020-05-20] MEDS: CEROVITE ADV FORMULA TAB PO SCH (21:34)
[2020-05-20] MEDS: risperiDONE 0.5 MG TABLET PO SCH (21:34)
[2020-05-20] MEDS: RIVAROXABAN 20 MG TAB PO SCH (21:35)
[2020-05-20] MEDS ORDERED: CEFEPIME CONSULT ACTIVE PRN (21:49)
[2020-05-20 21:56] LABS: Hematocrit (blood only) 26.8 % (42-52)
--- NOTE | 2020-05-20 22:05 | Pharmacy Report ---
Pharmacy Abx Dose Short Note - Date of Service May 20, 2020 - Assessment & Plan Assessment 84 year old M receiving vancomycin and cefepime for treatment of possible pneumonia Day # 1 of antimicrobial therapy. Plan Vancomycin * Patient meets criteria for vancomycin AUC dosing nomogram * AUC/BRITTANY is the preferred PK/PD target for vancomycin * Target AUC/BRITTANY = 400-600 * AUC guided dosing is effective and associated with decreased risk of nephrotoxicity Pharmacy will continue to follow and will adjust dose/frequency as necessary. Thank you.
[2020-05-20 22:11] LABS: BUN Creatinine Ratio 26.6 (10-20); Calcium 8.2 mg/dl (8.5-10.1); Creatinine Clr Calc Pharmacy 79.8 ml/min; Est GFR (African American) 105.5; Potassium 4.4 mmol/L (3.5-5.1)
[2020-05-20] MEDS: CEFEPIME 2,000 MG in SYRINGE 7.5 ML IV SCH (22:12)
[2020-05-21] MEDS: SODIUM CHLORIDE 0.9% 500 ML IV SCH ×5 (02:18→17:51)
[2020-05-21 04:44] LABS: Basophils # (auto) 0.03 K/uL (0-0.2); Basophils % (auto) 0.5 %; Eosinophils # (auto) 0.03 K/uL (0-0.5); Eosinophils % (auto) 0.5 %; Hematocrit (blood only) 25.5 % (42-52); Hemoglobin 8.7 g/dL (14.0-18.0); Immature Granulocytes # (auto) 0.01 K/uL (0.00-0.02); Immature Granulocytes % (auto) 0.2 %; Lymphocytes # (auto) 0.76 K/uL (1.2-3.4); Lymphocytes % (auto) 11.5 %; Mean Corpuscular Hgb Conc 34.1 g/dL (32-36); Mean Corpuscular Volume 87.9 fL (80-100); Mean Platelet Volume 9.1 fL (7.4-10.4); Monocytes # (auto) 0.77 K/uL (0.11-0.59); Monocytes % (auto) 11.7 %; Neutrophils # (auto) 4.99 K/uL (1.4-6.5); Neutrophils % (auto) 75.6 %; Platelet Count 161 K/uL (130-400); RDW Coefficient of Variation 18.6 % (11.5-14.5); RDW Standard Deviation 60.4 fL (36.4-46.3); White Blood Count 6.59 K/uL (4.8-10.8)
[2020-05-21 04:49] LABS: BUN Creatinine Ratio 30.8 (10-20); Calcium 7.7 mg/dl (8.5-10.1); Est GFR (African American) 111.9; Est GFR (Non-African American) 96.6; Potassium 3.9 mmol/L (3.5-5.1)
[2020-05-21] MEDS: CEFEPIME 2,000 MG in SYRINGE 7.5 ML IV SCH ×3 (05:37→21:12)
[2020-05-21] MEDS: LEVOTHYROXINE SODIUM 25 MCG TABLET PO SCH (05:38)
--- NOTE | 2020-05-21 06:58 | CT Scan Report ---
CT chest wo con CT DOSE: 225.93 mGy.cm HISTORY: Dyspnea hemoptysis TECHNIQUE: Multiaxial CT images of the chest were performed without contrast. A dose lowering techni que was utilized adhering to the principles of ALARA. COMPARISON: None. FINDINGS: Bilateral pleural effusions. Bilateral basilar infiltrative change. Consolidative infiltrat e of the lingula. Patchy parenchymal infiltrates of the upper lung regions bilaterally. Moderate cardiomegaly. Prior median sternotomy. There is a permanent cardiac pacemaker. IMPRESSION: Diffuse bilateral parenchymal infiltrative change. 2. Bilateral pleural effusions. ACT 112: Negative or not required by law. The above report was generated using voice recognition software. It may contain grammatical, syntax or spelling errors. Electronically signed by: Abelardo Mai M.D. 05/21/2020 6:57 AM
[2020-05-21] MEDS: CEROVITE ADV FORMULA TAB PO SCH ×2 (08:23→20:14)
[2020-05-21] MEDS: SPIRONOLACTONE 12.5 MG TAB PO SCH (08:24)
[2020-05-21] MEDS: lisinopriL 20 MG TAB PO SCH ×2 (08:24→09:43)
[2020-05-21] MEDS: DOCUSATE SODIUM/SENNA 50/8.6MG TAB PO SCH (08:24)
[2020-05-21] MEDS: TAMSULOSIN HCL 0.4 MG CAP PO SCH ×2 (08:24→20:13)
[2020-05-21] MEDS: FINASTERIDE 5 MG TAB PO SCH (08:24)
[2020-05-21] MEDS: SERTRALINE HCL 50 MG TABLET PO SCH (08:25)
[2020-05-21] MEDS: LUBIPROSTONE 8 MCG CAP PO SCH ×2 (08:48→20:14)
[2020-05-21] MEDS ORDERED: risperiDONE 0.5 MG TABLET PO SCH (09:00)
[2020-05-21] MEDS ORDERED: Nursing to Pharmacy Communication SCH ×2 (09:15→12:30)
[2020-05-21 09:36] LABS: Appearance Urine Clear (Clear); Bilirubin Urine Negative (Negative); Blood Urine Negative (Negative); Color Urine Dark Yellow; Glucose Urine UA Negative (Negative); Ketones Urine Negative (Negative); Leukocyte Esterase Urine Negative (Negative); Nitrite Urine Negative (Negative); Protein Urine Negative (Negative); Specific Gravity Urine 1.019 (1.000-1.030); Urobilinogen Urine Negative (Negative); pH Urine 5.5 (4.5-7.5)
[2020-05-21] MEDS ORDERED: VANCOMYCIN HCL 1,000 MG in SODIUM CHLORIDE 0.9% 250 ML IV SCH (10:00)
[2020-05-21 13:09] LABS: Albumin Level 2.5 gm/dl (3.4-5.0); BUN Creatinine Ratio 21.8 (10-20); Calcium 7.7 mg/dl (8.5-10.1); Creatinine Clr Calc Pharmacy 68.4 ml/min; Est GFR (Non-African American) 85.5; Potassium 3.7 mmol/L (3.5-5.1)
[2020-05-21 13:11] LABS: Albumin Globulin Ratio 0.7 (0.9-2); Bilirubin,Total 0.6 mg/dl (0.2-1); Globulin 3.6 gm/dl (2.5-4.0); Total Protein 6.1 gm/dl (6.4-8.2)
[2020-05-21] MEDS ORDERED: lisinopriL 20 MG TAB PO SCH (14:00)
--- NOTE | 2020-05-21 15:33 | Hospitalist Progress Note ---
Date of Service May 21, 2020 Assessment & Plan (1) Acute hyponatremia: Uncertain etiology, no prior hx of same Na 124 on admission up to 127 today, continue gentle hydration with NSS could be related to cirrhosis, but not grossly volume overloaded will check serum osmolality and urine osmolality (2) Hemoptysis: happened during last admission x1 as well CT chest with bilateral parenchymal infiltrates Vanco for now given hx of recent cefepime use and multiple abx adverse reactions hold Xarelto, had scant pink tinged sputum this morning but no joyce hemoptysis (3) Anemia: Hb baseline around 10.1, now at 8.7 hold Xarelto no signs of GI bleeding (4) Urinary retention: UA: no evidence of UTI Vanco will cover UTI if present Bladder scan PRN (5) Abdominal pain: CTAP as noted Concern for possible cirrhosis on last admission LFTs WNL could be due to constipation, c/o this add Miralax BID scheduled (6) Prolonged QT interval: Pacer (7) Depression with anxiety: resume Buspar, Risperdal, Zoloft (8) Pacemaker: Noted (9) Atrial fibrillation: hold Xarelto with hemoptysis (10) BPH loc w urin obs/LUTS: continue home meds (11) Hypothyroid: continue home meds (12) HTN (hypertension): continue home meds (13) Dementia: continue home meds (14) GERD (gastroesophageal reflux disease): continue home meds (15) DVT prophylaxis: Full cardiac code, DNI per pt He states he has some sort of directive that states no CPR "but I think I should right now" Admission and Anticipated Discharge Date Admission Date: May 20, 2020 Subjective patient says his issues that brought him to the hospital are improved he is making urine, no dysuria c/o constipation, has to strain for BM he says things are going well at the SNF in [place], he is participating in therapy reviewed the chart reviewed notes from prior admission and discharge summary with that plan he had similar problems at that time with cirrhosis, ascites, constipation, altered mental status, left elbow cellulitis reviewed labs, WBC 6k, Hb 8.7, plts 161, Na up to 127 with saline, CR normal, ammonia < 10 UA clean, no signs of infection CT chest with bilateral parenchymal infiltrates had scant pinkish sputum today Review of Systems Review of Systems: All systems reviewed & are unremarkable except as noted in HPI & below Physical Exam Constitutional: well developed and + thin; no acute distress Eyes: PERRL, conjunctivae normal, anicteric sclerae ENMT: external ear and nose normal, oropharynx normal Neck: trachea midline, no thyromegaly Respiratory: normal respiratory effort, lungs clear to auscultation Cardiovascular: RRR, no murmur, no edema Gastrointestinal (Abdomen): normal bowel sounds, soft, nontender, no hepatosplenomegaly Musculoskeletal: no cyanosis or clubbing, extremities motor strength 5/5 Skin: no rashes, warm and dry Neurologic: patellar DTR's 2+ bilat, sensation intact and PERRL, EOMI, accommodation nl, no face palsy, no dysarthria Psychiatric: Orientation: alert and oriented x 3 Affect: + anxious affect Lymphatic: no cervical or axillary lymphadenopathy Results & Data Results & Data ([facility]) Vital Signs (Past 12 Hours) Vital Signs Temp Pulse Pulse Resp BP BP Pulse Ox 05/21/20 11:43 37.0 C 79 17 108/64 95 05/21/20 08:00 36.5 C 05/21/20 07:42 36.8 C 77 13 125/68 93 05/21/20 04:10 84 17 93 05/21/20 04:00 86 15 93 05/21/20 03:59 80 16 129/81 93 05/21/20 03:50 91 H 14 94 05/21/20 03:40 80 15 95 Laboratory Results Laboratory Results - last 24 hr 05/20/20 05/20/20 05/20/20 17:08 21:40 21:40 WBC RBC Hgb 9.0 L Hct 26.8 L MCV MCH MCHC RDW Std Deviation RDW Coeff of Sharona Plt Count MPV Immature Gran % (Auto) Neut % (Auto) Lymph % (Auto) Linn % (Auto) Eos % (Auto) Baso % (Auto) Neut # (Auto) Lymph # (Auto) Linn # (Auto) Eos # (Auto) Baso # (Auto) Immature Gran # (Auto) Sodium 126 L Potassium 4.4 Chloride 94 L Carbon Dioxide 25 Anion Gap 6.0 BUN 16 Creatinine 0.60 Est Cr Clr Drug Dosing 79.8 Est GFR ( Amer) 105.5 Est GFR (Non-Af Amer) 91.0 BUN/Creatinine Ratio 26.6 H Glucose 91 Calcium 8.2 L Total Bilirubin AST ALT Alkaline Phosphatase Ammonia Total Protein Albumin Globulin Albumin/Globulin Ratio Urine Color Urine Appearance Urine pH Ur Specific [place] Urine Protein Urine Glucose (UA) Urine Ketones Urine Blood Urine Nitrite Urine Bilirubin Urine Urobilinogen Ur Leukocyte Esterase Nasal Screen MRSA (PCR) COVID-19 PCR NEGATIVE 05/21/20 05/21/20 05/21/20 04:07 04:07 08:05 WBC 6.59 RBC 2.90 L Hgb 8.7 L Hct 25.5 L MCV 87.9 MCH 30.0 MCHC 34.1 RDW Std Deviation 60.4 H RDW Coeff of Sharona 18.6 H Plt Count 161 MPV 9.1 Immature Gran % (Auto) 0.2 Neut % (Auto) 75.6 Lymph % (Auto) 11.5 Linn % (Auto) 11.7 Eos % (Auto) 0.5 Baso % (Auto) 0.5 Neut # (Auto) 4.99 Lymph # (Auto) 0.76 L Linn # (Auto) 0.77 H Eos # (Auto) 0.03 Baso # (Auto) 0.03 Immature Gran # (Auto) 0.01 Sodium 129 L Potassium 3.9 Chloride 98 Carbon Dioxide 24 Anion Gap 7.0 BUN 16 Creatinine 0.52 L Est Cr Clr Drug Dosing 92.0 Est GFR ( Amer) 111.9 Est GFR (Non-Af Amer) 96.6 BUN/Creatinine Ratio 30.8 H Glucose 73 Calcium 7.7 L Total Bilirubin AST ALT Alkaline Phosphatase Ammonia Total Protein Albumin Globulin Albumin/Globulin Ratio Urine Color Dark Yellow Urine Appearance Clear Urine pH 5.5 Ur Specific [place] 1.019 Urine Protein Negative Urine Glucose (UA) Negative Urine Ketones Negative Urine Blood Negative Urine Nitrite Negative Urine Bilirubin Negative Urine Urobilinogen Negative Ur Leukocyte Esterase Negative Nasal Screen MRSA (PCR) COVID-19 PCR 05/21/20 05/21/20 05/21/20 09:35 12:40 12:40 WBC RBC Hgb Hct MCV MCH MCHC RDW Std Deviation RDW Coeff of Sharona Plt Count MPV Immature Gran % (Auto) Neut % (Auto) Lymph % (Auto) Linn % (Auto) Eos % (Auto) Baso % (Auto) Neut # (Auto) Lymph # (Auto) Linn # (Auto) Eos # (Auto) Baso # (Auto) Immature Gran # (Auto) Sodium 127 L Potassium 3.7 Chloride 97 L Carbon Dioxide 23 Anion Gap 7.0 BUN 15 Creatinine 0.70 Est Cr Clr Drug Dosing 68.4 Est GFR ( Amer) 99.0 Est GFR (Non-Af Amer) 85.5 BUN/Creatinine Ratio 21.8 H Glucose 136 H Calcium 7.7 L Total Bilirubin 0.6 AST 27 ALT 36 Alkaline Phosphatase 107 Ammonia < 10.0 L Total Protein 6.1 L Albumin 2.5 L Globulin 3.6 Albumin/Globulin Ratio 0.7 L Urine Color Urine Appearance Urine pH Ur Specific [place] Urine Protein Urine Glucose (UA) Urine Ketones Urine Blood Urine Nitrite Urine Bilirubin Urine Urobilinogen Ur Leukocyte Esterase Nasal Screen MRSA (PCR) Negative COVID-19 PCR Medications Administered Current Inpatient Medications Acetaminophen (Tylenol) 650 mg PO Q4H PRN PRN Reason: Pain or Fever Stop: 06/19/20 20:25 Buspirone HCl (Buspar) 5 mg PO BID [facility] Stop: 06/19/20 20:59 Last Admin: 05/21/20 08:24 Dose: 5 mg Documented by: Finasteride (Proscar) 5 mg PO QAM [facility] Stop: 06/20/20 08:59 Last Admin: 05/21/20 08:24 Dose: 5 mg Documented by: Sodium Chloride (Nss) 500 mls @ 125 mls/hr IV .Q4H [facility] Stop: 06/19/20 16:44 Last Admin: 05/21/20 13:06 Dose: 125 mls/hr Documented by: Cefepime HCl 2,000 mg/ Syringe 20 mls @ 5.5 mls/min IV Q8H [facility]; Protocol Stop: 05/27/20 21:59 Last Admin: 05/21/20 13:07 Dose: 5.5 mls/min Documented by: Vancomycin HCl 1,250 mg/ (Sodium Chloride) 275 mls @ 125 mls/hr IV Q12H [facility] Stop: 05/28/20 09:59 Ibuprofen (Advil) 400 mg PO Q6H PRN PRN Reason: FEVER OR PAIN Stop: 06/19/20 20:39 Levothyroxine Sodium (Synthroid) 25 mcg PO DAILYBB [facility] Stop: 06/20/20 06:29 Last Admin: 05/21/20 05:38 Dose: 25 mcg Documented by: Lisinopril (Zestril) 20 mg PO QAM [facility] Stop: 06/20/20 08:59 Last Admin: 05/21/20 09:43 Dose: Not Given Documented by: Lubiprostone (Amitiza) 24 mcg PO BID [facility] Stop: 06/19/20 20:59 Last Admin: 05/21/20 08:48 Dose: 24 mcg Documented by: Magnesium Hydroxide (Milk Of Magnesia) 30 ml PO Q12H PRN PRN Reason: Constipation Stop: 06/19/20 20:25 Miscellaneous Information (Consult) 1 ea N/A UD PRN PRN Reason: Consult Stop: 06/19/20 20:25 Miscellaneous Information (Cefepime Consult Active) 1 ea N/A UD PRN PRN Reason: Consult Stop: 06/19/20 21:48 Multivitamins/Minerals (Multivitamin W/ Minerals Tab) 1 tab PO BID [facility] Stop: 06/19/20 20:59 Last Admin: 05/21/20 08:23 Dose: 1 tab Documented by: Ondansetron HCl (Zofran) 4 mg IV Q6H PRN PRN Reason: Nausea Stop: 06/19/20 20:25 Polyethylene Glycol (Miralax Powder Packet) 17 gm PO DAILY PRN PRN Reason: Constipation Stop: 06/19/20 20:25 Polyethylene Glycol (Miralax Powder Packet) 17 gm PO BID [facility] Stop: 06/20/20 20:59 Risperidone (Risperdal) 0.5 mg PO [facility] Stop: 06/19/20 20:59 Last Admin: 05/20/20 21:34 Dose: 0.5 mg Documented by: Risperidone (Risperdal) 0.25 mg PO DAILY@1400 [facility] Stop: 06/21/20 13:59 Rivaroxaban (Xarelto) 20 mg PO [facility] Stop: 06/19/20 20:59 Last Admin: 05/20/20 21:35 Dose: 20 mg Documented by: Senna/Docusate Sodium (Senokot S) 1 tab PO QAM [facility] Stop: 06/20/20 08:59 Last Admin: 05/21/20 08:24 Dose: 1 tab Documented by: Sertraline HCl (Zoloft) 50 mg PO QAM [facility] Stop: 06/20/20 08:59 Last Admin: 05/21/20 08:25 Dose: 50 mg Documented by: Simethicone (Mylicon) 80 mg PO TID PRN PRN Reason: GAS/BLOATING Stop: 06/19/20 20:42 Spironolactone (Aldactone) 12.5 mg PO DAILY [facility] Stop: 06/20/20 08:59 Last Admin: 05/21/20 08:24 Dose: 12.5 mg Documented by: Tamsulosin HCl (Flomax) 0.4 mg PO BID [facility] Stop: 06/19/20 20:59 Last Admin: 05/21/20 08:24 Dose: 0.4 mg Documented by: PG Care Time/CCT Total # of Minutes Spent Total Time Spent with Patient: Total time spent is greater than 50% in coordination of care (as documented) at patient's floor/unit and/or counseling patient: Coding Level of Care Code 59932 Subseq Hosp Care Lvl 3 Diagnoses Acute hyponatremia E87.1 Hemoptysis R04.2 Anemia D64.9 Urinary retention R33.9 Abdominal pain R10.31 Abdominal location: right lower quadrant Prolonged QT interval R94.31 Depression with anxiety F41.8 Pacemaker Z95.0 Atrial fibrillation I48.11 Atrial fibrillation type: longstanding persistent BPH loc w urin obs/LUTS N40.1 Hypothyroid E03.9 HTN (hypertension) I10 Dementia F03.90 GERD (gastroesophageal reflux disease) K21.9 DVT prophylaxis Z29.9 (1) Atrial fibrillation Atrial fibrillation type: longstanding persistent Qualified Code(s): I48.11 - Longstanding persistent atrial fibrillation (2) Abdominal pain Abdominal location: right lower quadrant Qualified Code(s): R10.31 - Right lower quadrant pain
[2020-05-21] MEDS: SODIUM CHLORIDE 0.9% 1000ML 1,000 ML IV SCH (18:19)
[2020-05-21] MEDS: POLYETHYLENE (MIRALAX) 17 GM PACK PO SCH (20:13)
[2020-05-21] MEDS: risperiDONE 0.5 MG TABLET PO SCH (20:14)
[2020-05-21] MEDS: VANCOMYCIN HCL 1,250 MG in SODIUM CHLORIDE 0.9% 250 ML IV SCH (21:12)
[2020-05-22] MEDS: SODIUM CHLORIDE 0.9% 1000ML 1,000 ML IV SCH ×2 (04:31→12:14)
[2020-05-22] MEDS: LEVOTHYROXINE SODIUM 25 MCG TABLET PO SCH (06:05)
[2020-05-22] MEDS: CEFEPIME 2,000 MG in SYRINGE 7.5 ML IV SCH ×3 (06:05→21:39)
[2020-05-22] MEDS: SPIRONOLACTONE 12.5 MG TAB PO SCH (09:04)
[2020-05-22] MEDS: SERTRALINE HCL 50 MG TABLET PO SCH (09:04)
[2020-05-22] MEDS: LUBIPROSTONE 8 MCG CAP PO SCH ×2 (09:05→21:29)
[2020-05-22] MEDS: lisinopriL 20 MG TAB PO SCH (09:05)
[2020-05-22] MEDS: FINASTERIDE 5 MG TAB PO SCH (09:06)
[2020-05-22] MEDS: CEROVITE ADV FORMULA TAB PO SCH ×2 (09:06→21:28)
[2020-05-22] MEDS: TAMSULOSIN HCL 0.4 MG CAP PO SCH ×2 (09:06→21:29)
[2020-05-22] MEDS: POLYETHYLENE (MIRALAX) 17 GM PACK PO SCH ×2 (09:08→21:30)
[2020-05-22] MEDS: DOCUSATE SODIUM/SENNA 50/8.6MG TAB PO SCH (09:19)
[2020-05-22] MEDS: SIMETHICONE 80 MG CHEW PO PRN (09:19)
[2020-05-22] MEDS ORDERED: VANCOMYCIN TROUGH ONE (09:30)
[2020-05-22 09:47] LABS: Hematocrit (blood only) 26.7 % (42-52); Mean Corpuscular Hemoglobin 29.5 pg (25-34); Mean Corpuscular Hgb Conc 33.7 g/dL (32-36); Mean Corpuscular Volume 87.5 fL (80-100); Mean Platelet Volume 8.5 fL (7.4-10.4); Platelet Count 153 K/uL (130-400); RDW Coefficient of Variation 18.6 % (11.5-14.5); RDW Standard Deviation 60.7 fL (36.4-46.3); Red Blood Count 3.05 M/uL (4.7-6.1); White Blood Count 5.42 K/uL (4.8-10.8)
[2020-05-22 10:09] LABS: Albumin Level 2.4 gm/dl (3.4-5.0); BUN Creatinine Ratio 18.4 (10-20); Calcium 7.9 mg/dl (8.5-10.1); Creatinine Clr Calc Pharmacy 73.6 ml/min; Est GFR (African American) 101.5; Est GFR (Non-African American) 87.5; Potassium 4.1 mmol/L (3.5-5.1)
[2020-05-22 10:12] LABS: Albumin Globulin Ratio 0.6 (0.9-2); Globulin 3.8 gm/dl (2.5-4.0); Total Protein 6.2 gm/dl (6.4-8.2)
[2020-05-22] MEDS: VANCOMYCIN HCL 1,250 MG in SODIUM CHLORIDE 0.9% 250 ML IV SCH (12:13)
--- NOTE | 2020-05-22 14:37 | Hospitalist Progress Note ---
Date of Service May 22, 2020 Assessment & Plan (1) Acute hyponatremia: Uncertain etiology, no prior hx of same, maybe poor solute intake has been on Zoloft for some time, but could be contributing Na 124 on admission up to 127 today, stop fluids, add sodium chloride 1gm BID starting this evening check serum sodium and osmolality and urine osmolality this afternoon could be related to cirrhosis, but not grossly volume overloaded (2) Hemoptysis: happened during last admission x1 as well CT chest with bilateral parenchymal infiltrates CXR shows that infiltrates are worse compared to prior CXR still with some scant pink tinged sputum, hold Xarelto for now consider pulmonary consult tomorrow if it persists, also for CXR findings (3) Anemia: Hb baseline around 10.1, now at 9.0 hold Xarelto no signs of GI bleeding (4) Urinary retention: UA: no evidence of UTI Bladder scan PRN making urine (5) Abdominal pain: CTAP as noted Concern for possible cirrhosis on last admission LFTs WNL could be due to constipation, c/o this he is moving bowels frequently has a right inguinal hernia, non tender, reducible (6) Prolonged QT interval: Paced (7) Depression with anxiety: continue Buspar, Risperdal, Zoloft (8) Pacemaker: Noted (9) Atrial fibrillation: hold Xarelto with hemoptysis (10) BPH loc w urin obs/LUTS: continue home meds (11) Hypothyroid: TSH noted to be 8 in the begining of March started on Synthroid 25mcg daily check TSH tomorrow AM to see if Synthroid needs adjusted, could be contributing to hyponatremia (12) HTN (hypertension): continue home meds (13) Dementia: continue home meds (14) GERD (gastroesophageal reflux disease): continue home meds (15) DVT prophylaxis: Full cardiac code, DNI per pt He states he has some sort of directive that states no CPR "but I think I should right now" (16) Tremor: long history of such, did not respond to Sinemet in the past Dr. 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 Lee and notes from Dr. 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, maybe multiple systems atrophy Propranolol was recommended for the tremor, plans to try as outpatient but he has not seen them and the tremor bothers him he has a pacemaker so there should be no further issue with bradycardia, will start Propranolol LA 60mg today also, he was started on Synthroid 25mcg last admission for TSH of 8, it has been over 6 weeks, will repeat TSH tomorrow AM Na up to 127 today, stop IV fluids, will start on tablets, check serum osmolality this afternoon he had some diarrhea this afternoon, he still has intermittent cough with some scant hemoptysis but still no joyce hemoptysis, holding Xarelto for time being will call his son and give him update Review of Systems Review of Systems: All systems reviewed & are unremarkable except as noted in HPI & below Constitutional: + fatigue and + weakness; no fever, no chills and no sweats Respiratory: + cough, + hemoptysis (pink tinged sputum, no joyce blood) and + sputum production; no dyspnea and no dyspnea on exertion Cardiovascular: no chest pain and no edema Gastrointestinal: + diarrhea/loose stools; no abdominal pain, no nausea, no vomiting and no constipation Neurologic: + unsteadiness, + generalized weakness and + tremor(s) (resting, also some head rolling and perioral tremor); no seizure-like activity, no dizziness and no confusion Psychiatric: + depression Physical Exam Constitutional: well developed and + thin; no acute distress Eyes: PERRL, conjunctivae normal, anicteric sclerae ENMT: external ear and nose normal, oropharynx normal Neck: trachea midline, no thyromegaly Respiratory: normal respiratory effort, lungs clear to auscultation Cardiovascular: RRR, no murmur, no edema Gastrointestinal (Abdomen): normal bowel sounds, soft, nontender, no hepatosplenomegaly Percussion/Palpation: + hernia (right inguinal, no pain, reducible) Musculoskeletal: no cyanosis or clubbing, extremities motor strength 5/5 Skin: no rashes, warm and dry Neurologic: patellar DTR's 2+ bilat, sensation intact and PERRL, EOMI, accommodation nl, no face palsy, no dysarthria Motor/Sensory: + tremor (resting tremor, head rolling) Psychiatric: Orientation: alert and oriented x 3 Affect: + anxious affect Lymphatic: no cervical or axillary lymphadenopathy Results & Data Results & Data ([facility]) Vital Signs (Past 12 Hours) Vital Signs Temp Pulse Resp BP BP Pulse Ox 05/22/20 12:01 36.3 C L 98 H 18 111/66 95 05/22/20 08:24 36.6 C 80 18 124/75 94 05/22/20 03:45 36.5 C 75 17 136/65 92 Laboratory Results Laboratory Results - last 24 hr 05/22/20 05/22/20 05/22/20 09:37 09:37 09:37 WBC 5.42 RBC 3.05 L Hgb 9.0 L Hct 26.7 L MCV 87.5 MCH 29.5 MCHC 33.7 RDW Std Deviation 60.7 H RDW Coeff of Sharona 18.6 H Plt Count 153 MPV 8.5 Sodium 127 L Potassium 4.1 Chloride 97 L Carbon Dioxide 24 Anion Gap 6.0 BUN 12 Creatinine 0.66 Est Cr Clr Drug Dosing 73.6 Est GFR ( Amer) 101.5 Est GFR (Non-Af Amer) 87.5 BUN/Creatinine Ratio 18.4 Glucose 141 H Calcium 7.9 L Total Bilirubin 1.0 AST 20 ALT 35 Alkaline Phosphatase 106 Total Protein 6.2 L Albumin 2.4 L Globulin 3.8 Albumin/Globulin Ratio 0.6 L Vancomycin Trough 12.8 Medications Administered Current Inpatient Medications Acetaminophen (Tylenol) 650 mg PO Q4H PRN PRN Reason: Pain or Fever Stop: 06/19/20 20:25 Buspirone HCl (Buspar) 5 mg PO BID [facility] Stop: 06/19/20 20:59 Last Admin: 05/22/20 09:06 Dose: 5 mg Documented by: Finasteride (Proscar) 5 mg PO QAM [facility] Stop: 06/20/20 08:59 Last Admin: 05/22/20 09:06 Dose: 5 mg Documented by: Cefepime HCl 2,000 mg/ Syringe 20 mls @ 5.5 mls/min IV Q8H [facility]; Protocol Stop: 05/27/20 21:59 Last Admin: 05/22/20 06:05 Dose: 5.5 mls/min Documented by: Ibuprofen (Advil) 400 mg PO Q6H PRN PRN Reason: FEVER OR PAIN Stop: 06/19/20 20:39 Levothyroxine Sodium (Synthroid) 25 mcg PO DAILYBB [facility] Stop: 06/20/20 06:29 Last Admin: 05/22/20 06:05 Dose: 25 mcg Documented by: Lisinopril (Zestril) 20 mg PO QAM [facility] Stop: 06/20/20 08:59 Last Admin: 05/22/20 09:05 Dose: 20 mg Documented by: Lubiprostone (Amitiza) 24 mcg PO BID [facility] Stop: 06/19/20 20:59 Last Admin: 05/22/20 09:05 Dose: 24 mcg Documented by: Magnesium Hydroxide (Milk Of Magnesia) 30 ml PO Q12H PRN PRN Reason: Constipation Stop: 06/19/20 20:25 Miscellaneous Information (Cefepime Consult Active) 1 ea N/A UD PRN PRN Reason: Consult Stop: 06/19/20 21:48 Multivitamins/Minerals (Multivitamin W/ Minerals Tab) 1 tab PO BID [facility] Stop: 06/19/20 20:59 Last Admin: 05/22/20 09:06 Dose: 1 tab Documented by: Ondansetron HCl (Zofran) 4 mg IV Q6H PRN PRN Reason: Nausea Stop: 06/19/20 20:25 Polyethylene Glycol (Miralax Powder Packet) 17 gm PO BID [facility] Stop: 06/20/20 20:59 Last Admin: 05/22/20 09:08 Dose: 17 gm Documented by: Propranolol HCl (Inderal La) 60 mg PO QAM [facility] Stop: 06/21/20 14:29 Risperidone (Risperdal) 0.5 mg PO [facility] Stop: 06/19/20 20:59 Last Admin: 05/21/20 20:14 Dose: 0.5 mg Documented by: Risperidone (Risperdal) 0.25 mg PO DAILY@1400 [facility] Stop: 06/21/20 13:59 Rivaroxaban (Xarelto) 20 mg PO [facility] Stop: 06/19/20 20:59 Last Admin: 05/20/20 21:35 Dose: 20 mg Documented by: Sertraline HCl (Zoloft) 50 mg PO QAM [facility] Stop: 06/20/20 08:59 Last Admin: 05/22/20 09:04 Dose: 50 mg Documented by: Simethicone (Mylicon) 80 mg PO TID PRN PRN Reason: GAS/BLOATING Stop: 06/19/20 20:42 Last Admin: 05/22/20 09:19 Dose: 80 mg Documented by: Sodium Chloride (Sodium Chloride) 1 gm PO BID [facility] Stop: 06/21/20 20:59 Spironolactone (Aldactone) 12.5 mg PO DAILY [facility] Stop: 06/20/20 08:59 Last Admin: 05/22/20 09:04 Dose: 12.5 mg Documented by: Tamsulosin HCl (Flomax) 0.4 mg PO BID [facility] Stop: 06/19/20 20:59 Last Admin: 05/22/20 09:06 Dose: 0.4 mg Documented by: PG Care Time/CCT Total # of Minutes Spent Total Time Spent with Patient: Total time spent is greater than 50% in coordination of care (as documented) at patient's floor/unit and/or counseling patient: Coding Level of Care Code 12250 Subseq Hosp Care Lvl 3 Diagnoses Acute hyponatremia E87.1 Hemoptysis R04.2 Anemia D64.9 Urinary retention R33.9 Abdominal pain R10.31 Abdominal location: right lower quadrant Prolonged QT interval R94.31 Depression with anxiety F41.8 Pacemaker Z95.0 Atrial fibrillation I48.11 Atrial fibrillation type: longstanding persistent BPH loc w urin obs/LUTS N40.1 Hypothyroid E03.9 HTN (hypertension) I10 Dementia F03.90 GERD (gastroesophageal reflux disease) K21.9 DVT prophylaxis Z29.9 Tremor R25.1 (1) Atrial fibrillation Atrial fibrillation type: longstanding persistent Qualified Code(s): I48.11 - Longstanding persistent atrial fibrillation (2) Abdominal pain Abdominal location: right lower quadrant Qualified Code(s): R10.31 - Right lower quadrant pain
[2020-05-22 15:13] LABS: BUN Creatinine Ratio 18.8 (10-20); Calcium 8.3 mg/dl (8.5-10.1); Creatinine Clr Calc Pharmacy 72.5 ml/min; Est GFR (African American) 100.8; Potassium 4.2 mmol/L (3.5-5.1)
[2020-05-22] MEDS: PROPRANOLOL HCL 60 MG LA CAP PO SCH (15:47)
[2020-05-22] MEDS: risperiDONE 0.5 MG TABLET PO SCH ×2 (15:47→21:30)
[2020-05-22] MEDS: SODIUM CHLORIDE 1 GM TABLET PO SCH (21:28)
[2020-05-23] MEDS: CEFEPIME 2,000 MG in SYRINGE 7.5 ML IV SCH (05:24)
[2020-05-23] MEDS: LEVOTHYROXINE SODIUM 25 MCG TABLET PO SCH (05:26)
[2020-05-23 05:27] LABS: Hemoglobin 8.8 g/dL (14.0-18.0); Mean Corpuscular Hemoglobin 29.8 pg (25-34); Mean Corpuscular Hgb Conc 33.8 g/dL (32-36); Mean Corpuscular Volume 88.1 fL (80-100); Mean Platelet Volume 9.2 fL (7.4-10.4); Platelet Count 190 K/uL (130-400); RDW Coefficient of Variation 18.5 % (11.5-14.5); RDW Standard Deviation 60.2 fL (36.4-46.3); Red Blood Count 2.95 M/uL (4.7-6.1); White Blood Count 5.52 K/uL (4.8-10.8)
[2020-05-23 06:21] LABS: Albumin Level 2.2 gm/dl (3.4-5.0); BUN Creatinine Ratio 23.3 (10-20); Calcium 7.8 mg/dl (8.5-10.1); Creatinine Clr Calc Pharmacy 73.6 ml/min; Est GFR (African American) 101.5; Est GFR (Non-African American) 87.5; Potassium 4.3 mmol/L (3.5-5.1)
[2020-05-23 06:32] LABS: Albumin Globulin Ratio 0.6 (0.9-2); Bilirubin,Total 0.6 mg/dl (0.2-1); Globulin 3.9 gm/dl (2.5-4.0); Thyroid Stimulating Hormone 3.08 uIu/ml (0.300-4.500); Total Protein 6.1 gm/dl (6.4-8.2)
[2020-05-23] MEDS: SERTRALINE HCL 50 MG TABLET PO SCH (08:17)
[2020-05-23] MEDS: lisinopriL 20 MG TAB PO SCH (08:17)
[2020-05-23] MEDS: SPIRONOLACTONE 12.5 MG TAB PO SCH (08:17)
[2020-05-23] MEDS: FINASTERIDE 5 MG TAB PO SCH (08:17)
[2020-05-23] MEDS: PROPRANOLOL HCL 60 MG LA CAP PO SCH (08:17)
[2020-05-23] MEDS: TAMSULOSIN HCL 0.4 MG CAP PO SCH ×2 (08:17→20:19)
[2020-05-23] MEDS: CEROVITE ADV FORMULA TAB PO SCH ×2 (08:17→20:19)
[2020-05-23] MEDS: LUBIPROSTONE 8 MCG CAP PO SCH ×2 (08:17→20:19)
[2020-05-23] MEDS: SODIUM CHLORIDE 1 GM TABLET PO SCH ×2 (08:17→20:19)
[2020-05-23] MEDS: POLYETHYLENE (MIRALAX) 17 GM PACK PO SCH ×2 (08:18→20:02)
[2020-05-23] MEDS: SIMETHICONE 80 MG CHEW PO PRN (09:38)
--- NOTE | 2020-05-23 09:43 | Hospitalist Progress Note ---
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 has been on Zoloft for some time, could be contributing Na 124 on admission Na up as high as 129 after NSS, now drifting back down to 126 he is euvolemic perhaps the hypothyroid was contributing but now it is corrected with TSH 3 has evidence of cirrhosis but he is not volume overloaded urine osmolality is inappropriately high at 580 give Lasix 20mg qAM to stop the concentrating ability of kidneys started on sodium chloride 1gm BID yesterday but sodium down will increase sodium chloride to 2gm BID if sodium goes down further then consider nephrology consult of note, patient had some mild hypotension in afternoon after Lasix will stop Lisinopril 20mg to allow for Lasix to decrease concentrating of kidneys (2) Hemoptysis: happened during last admission x1 as well CT chest with bilateral parenchymal infiltrates -- no clinical signs of pneumonia at all, no fever, no dyspnea, lungs clear CXR shows that infiltrates are worse compared to prior CXR no pink tinged sputum today resume Xarelto and observe consider pulmonary consult if hemoptysis returns (3) Anemia: Hb baseline around 10.1, now at 8.8 no signs of GI bleeding (4) Urinary retention: UA: no evidence of UTI Bladder scan PRN making urine (5) Abdominal pain: CTAP as noted Concern for possible cirrhosis on last admission LFTs WNL could be due to constipation, c/o this he is moving bowels frequently has a right inguinal hernia, non tender, reducible could be having some pain when he bears down to urinate or move bowels difficult historian (6) Prolonged QT interval: Paced (7) Depression with anxiety: continue Buspar, Risperdal, Zoloft (8) Tremor: long history of such, did not respond to Sinemet in the past Dr. 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 will try Propranolol LA 60mg daily -- far less tremors today, working, will continue on discharge (9) Pacemaker: Noted (10) Atrial fibrillation: paced resume Xarelto (11) BPH loc w urin obs/LUTS: continue home meds (12) Hypothyroid: TSH noted to be 8 in the begining of March started on Synthroid 25mcg daily check TSH today -- it is 3, will continue the 25mcg dose (13) HTN (hypertension): BP low normal, mildly hypotensive plan: stop Lisinopril, stop Spironolactone, use Lasix 20mg PO qAM to impair concentrating ability (14) Dementia: continue home meds (15) GERD (gastroesophageal reflux disease): continue home meds (16) DVT prophylaxis: Full cardiac code, DNI per pt He states he has some sort of directive that states no CPR "but I think I should right now" Admission and Anticipated Discharge Date Admission Date: May 20, 2020 Subjective less tremor today, responding well to the Propranolol he c/o burning when he urinates and frequent urination, reviewed chart, UA was clean twice, can repeat one more time he says he is having diarrhea but his memory is also spotty, he has had some confusion overnight, thought he was sleeping on a forklift he ate a big breakfast, eggs, sausage, oatmeal, milk, banana, coffee and prune juice, no pain after eating, no nausea or vomiting TSH is normal at 3, responding well to Synthroid 25mcg Na is 128, serum osmolality is low at 260 and urine osmolality is inappropriately high at 500's, will give small dose of Lasix to limit concentrating ability of kidneys his right inguinal hernia is tender, hurts when he takes a deep breath, he is requesting a surgeon to examine the area explained to him that there is no indication for emergent surgery, would likely wait until outpatient to fix any issue he understands appreciate consult from Dr. Knight, some of his pain is likely from bearing down to urinate, no indication for surgery at this time repeated urine osmolality, high at 580 still, this was after Lasix 20mg in the afternoon he had weakness, mild hypotension after walking to the bathroom ordered RN to give 250cc bolus of NSS and rest Review of Systems Review of Systems: All systems reviewed & are unremarkable except as noted in HPI & below Constitutional: + fatigue and + weakness; no fever Gastrointestinal: + abdominal pain (right groin pain, hernia) and + diarrhea/loose stools; no nausea, no vomiting and no constipation Physical Exam Constitutional: well developed and + thin; no acute distress Eyes: PERRL, conjunctivae normal, anicteric sclerae ENMT: external ear and nose normal, oropharynx normal Neck: trachea midline, no thyromegaly Respiratory: normal respiratory effort, lungs clear to auscultation Cardiovascular: RRR, no murmur, no edema Gastrointestinal (Abdomen): normal bowel sounds, soft, nontender, no hepatosplenomegaly Percussion/Palpation: + hernia (right inguinal, no pain, reducible) Musculoskeletal: no cyanosis or clubbing, extremities motor strength 5/5 Skin: no rashes, warm and dry Neurologic: patellar DTR's 2+ bilat, sensation intact and PERRL, EOMI, accommodation nl, no face palsy, no dysarthria Motor/Sensory: + tremor (much improved today on Propranolol) Psychiatric: Orientation: alert, oriented x 3 and cooperative Affect: + anxious affect Thought Content: reality based without delusions Hallucinations: no visual hallucinations Insight: + limited insight Judgement: + limited judgement Lymphatic: no cervical or axillary lymphadenopathy Results & Data Results & Data ([facility]) Vital Signs (Past 12 Hours) Vital Signs Temp Pulse Pulse Resp BP Pulse Ox 05/23/20 04:19 36.5 C 60 16 101/62 95 05/23/20 00:05 36.4 C L 60 16 101/48 L 94 05/23/20 00:00 60 Laboratory Results Laboratory Results - last 24 hr 05/22/20 05/22/20 05/22/20 09:37 09:37 09:37 WBC 5.42 RBC 3.05 L Hgb 9.0 L Hct 26.7 L MCV 87.5 MCH 29.5 MCHC 33.7 RDW Std Deviation 60.7 H RDW Coeff of Sharona 18.6 H Plt Count 153 MPV 8.5 Sodium 127 L Potassium 4.1 Chloride 97 L Carbon Dioxide 24 Anion Gap 6.0 BUN 12 Creatinine 0.66 Est Cr Clr Drug Dosing 73.6 Est GFR ( Amer) 101.5 Est GFR (Non-Af Amer) 87.5 BUN/Creatinine Ratio 18.4 Glucose 141 H Osmolality Calcium 7.9 L Total Bilirubin 1.0 AST 20 ALT 35 Alkaline Phosphatase 106 Total Protein 6.2 L Albumin 2.4 L Globulin 3.8 Albumin/Globulin Ratio 0.6 L TSH Urine Osmolality Vancomycin Trough 12.8 05/22/20 05/22/20 05/22/20 14:32 14:32 15:37 WBC RBC Hgb Hct MCV MCH MCHC RDW Std Deviation RDW Coeff of Sharona Plt Count MPV Sodium 129 L Potassium 4.2 Chloride 99 Carbon Dioxide 23 Anion Gap 7.0 BUN 13 Creatinine 0.67 Est Cr Clr Drug Dosing 72.5 Est GFR ( Amer) 100.8 Est GFR (Non-Af Amer) 87.0 BUN/Creatinine Ratio 18.8 Glucose 103 H Osmolality 265 L Calcium 8.3 L Total Bilirubin AST ALT Alkaline Phosphatase Total Protein Albumin Globulin Albumin/Globulin Ratio TSH Urine Osmolality 517 Vancomycin Trough 05/23/20 05/23/20 04:43 04:43 WBC 5.52 RBC 2.95 L Hgb 8.8 L Hct 26.0 L MCV 88.1 MCH 29.8 MCHC 33.8 RDW Std Deviation 60.2 H RDW Coeff of Sharona 18.5 H Plt Count 190 MPV 9.2 Sodium 128 L Potassium 4.3 Chloride 100 Carbon Dioxide 23 Anion Gap 5.0 BUN 15 Creatinine 0.66 Est Cr Clr Drug Dosing 73.6 Est GFR ( Amer) 101.5 Est GFR (Non-Af Amer) 87.5 BUN/Creatinine Ratio 23.3 H Glucose 84 Osmolality Calcium 7.8 L Total Bilirubin 0.6 AST 27 ALT 38 Alkaline Phosphatase 103 Total Protein 6.1 L Albumin 2.2 L Globulin 3.9 Albumin/Globulin Ratio 0.6 L TSH 3.080 Urine Osmolality Vancomycin Trough Medications Administered Current Inpatient Medications Acetaminophen (Tylenol) 650 mg PO Q4H PRN PRN Reason: Pain or Fever Stop: 06/19/20 20:25 Buspirone HCl (Buspar) 5 mg PO BID [facility] Stop: 06/19/20 20:59 Last Admin: 05/23/20 08:17 Dose: 5 mg Documented by: Finasteride (Proscar) 5 mg PO QAM [facility] Stop: 06/20/20 08:59 Last Admin: 05/23/20 08:17 Dose: 5 mg Documented by: Furosemide (Lasix) 20 mg PO QAM [facility] Stop: 06/22/20 09:29 Cefepime HCl 2,000 mg/ Syringe 20 mls @ 5.5 mls/min IV Q8H [facility]; Protocol Stop: 05/27/20 21:59 Last Admin: 05/23/20 05:24 Dose: 5.5 mls/min Documented by: Ibuprofen (Advil) 400 mg PO Q6H PRN PRN Reason: FEVER OR PAIN Stop: 06/19/20 20:39 Levothyroxine Sodium (Synthroid) 25 mcg PO DAILYBB [facility] Stop: 06/20/20 06:29 Last Admin: 05/23/20 05:26 Dose: 25 mcg Documented by: Lisinopril (Zestril) 20 mg PO QAM [facility] Stop: 06/20/20 08:59 Last Admin: 05/23/20 08:17 Dose: 20 mg Documented by: Lubiprostone (Amitiza) 24 mcg PO BID [facility] Stop: 06/19/20 20:59 Last Admin: 05/23/20 08:17 Dose: 24 mcg Documented by: Magnesium Hydroxide (Milk Of Magnesia) 30 ml PO Q12H PRN PRN Reason: Constipation Stop: 06/19/20 20:25 Miscellaneous Information (Cefepime Consult Active) 1 ea N/A UD PRN PRN Reason: Consult Stop: 06/19/20 21:48 Multivitamins/Minerals (Multivitamin W/ Minerals Tab) 1 tab PO BID [facility] Stop: 06/19/20 20:59 Last Admin: 05/23/20 08:17 Dose: 1 tab Documented by: Ondansetron HCl (Zofran) 4 mg IV Q6H PRN PRN Reason: Nausea Stop: 06/19/20 20:25 Polyethylene Glycol (Miralax Powder Packet) 17 gm PO BID [facility] Stop: 06/20/20 20:59 Last Admin: 05/23/20 08:18 Dose: Not Given Documented by: [facility]ol [facility] ([facility]al [place]) [facility] [place]: 06/21/20 14:29 Last Admin: 05/23/20 08:17 Dose: 60 mg Documented by: Risperidone (Risperdal) 0.5 mg PO [facility] Stop: 06/19/20 20:59 Last Admin: 05/22/20 21:30 Dose: 0.5 mg Documented by: Risperidone (Risperdal) 0.25 mg PO DAILY@1400 [facility] Stop: 06/21/20 13:59 Last Admin: 05/22/20 15:47 Dose: 0.25 mg Documented by: Rivaroxaban (Xarelto) 20 mg PO HS [facility] Stop: 06/19/20 20:59 Last Admin: 05/20/20 21:35 Dose: 20 mg Documented by: Sertraline HCl (Zoloft) 50 mg PO QAM [facility] Stop: 06/20/20 08:59 Last Admin: 05/23/20 08:17 Dose: 50 mg Documented by: Simethicone (Mylicon) 80 mg PO TID PRN PRN Reason: GAS/BLOATING Stop: 06/19/20 20:42 Last Admin: 05/23/20 09:38 Dose: 80 mg Documented by: Sodium Chloride (Sodium Chloride) 1 gm PO BID [facility] Stop: 06/21/20 20:59 Last Admin: 05/23/20 08:17 Dose: 1 gm Documented by: Spironolactone (Aldactone) 12.5 mg PO DAILY [facility] Stop: 06/20/20 08:59 Last Admin: 05/23/20 08:17 Dose: 12.5 mg Documented by: Tamsulosin HCl (Flomax) 0.4 mg PO BID [facility] Stop: 06/19/20 20:59 Last Admin: 05/23/20 08:17 Dose: 0.4 mg Documented by: PG Care Time/CCT Total # of Minutes Spent Total Time Spent with Patient: Total time spent is greater than 50% in coordination of care (as documented) at patient's floor/unit and/or counseling patient: Coding Level of Care Code 32363 Subseq Hosp Care Lvl 3 Diagnoses Acute hyponatremia E87.1 Hemoptysis R04.2 Anemia D64.9 Urinary retention R33.9 Abdominal pain R10.31 Abdominal location: right lower quadrant Prolonged QT interval R94.31 Depression with anxiety F41.8 Tremor R25.1 Pacemaker Z95.0 Atrial fibrillation I48.11 Atrial fibrillation type: longstanding persistent BPH loc w urin obs/LUTS N40.1 Hypothyroid E03.9 HTN (hypertension) I10 Dementia F03.90 GERD (gastroesophageal reflux disease) K21.9 DVT prophylaxis Z29.9 (1) Atrial fibrillation Atrial fibrillation type: longstanding persistent Qualified Code(s): I48.11 - Longstanding persistent atrial fibrillation (2) Abdominal pain Abdominal location: right lower quadrant Qualified Code(s): R10.31 - Right lower quadrant pain
[2020-05-23] MEDS: FUROSEMIDE 20 MG TAB PO SCH (10:39)
[2020-05-23 13:13] LABS: Appearance Urine Clear (Clear); Bacteria Urine Automated Negative (Negative); Bilirubin Urine Negative (Negative); Blood Urine Negative (Negative); Color Urine Dark Yellow; Epithelial Cell Urine Auto 20-30 /lpf (0-5); Glucose Urine UA Negative (Negative); Ketones Urine Trace (Negative); Leukocyte Esterase Urine Negative (Negative); Nitrite Urine Negative (Negative); Protein Urine Trace (Negative); RBC Urine Automated 0-4 /hpf (0-4); Specific Gravity Urine 1.027 (1.000-1.030); Urobilinogen Urine Negative (Negative)
[2020-05-23 14:15] LABS: BUN Creatinine Ratio 19.2 (10-20); Calcium 8.1 mg/dl (8.5-10.1); Creatinine Clr Calc Pharmacy 50.6 ml/min; Est GFR (African American) 81.6; Est GFR (Non-African American) 70.4; Potassium 4.3 mmol/L (3.5-5.1)
[2020-05-23] MEDS: risperiDONE 0.5 MG TABLET PO SCH ×2 (14:22→20:19)
--- NOTE | 2020-05-23 14:41 | Surgery Consultation ---
Date of Consultation May 23, 2020 Assessment & Plan (1) Reducible right inguinal hernia: 84-year-old admitted with urinary retention and hyponatremia with reducible right inguinal hernia. It appears that his symptoms are mostly related to pain with straining to urinate or to have bowel movements. These are not the result of his hernia. Hernia is easily reducible and there is no evidence of bowel obstruction. No surgical intervention indicated Recommend hernia truss for symptoms Patient may follow-up as an outpatient if he desires surgery He is a high surgical risk given his multiple medical problems Surgery will sign off Call with questions or concerns (2) Atrial fibrillation: History of Present Illness Reason for Consultation: Right inguinal hernia Attending Physician: Masoud Barraza DO History of Present Illness 84-year-old male admitted for urinary retention and hyponatremia, general surgery consulted for known right inguinal hernia. He started noticing some pain and discomfort about 6 months ago. This seems to be worse when he tries to have a bowel movement or strains to urinate. He has been having worsening difficulty urinating. He feels like it fills up with gas. It does not appear that he has pain at any other time except when straining. He was admitted on the , with a CT scan that showed no bowel obstruction. On my review there is a small right inguinal hernia, but there is no obstruction at this site. Allergies Allergy/AdvReac Type Severity Reaction Status Date / Time clindamycin Allergy Intermediate Rash Verified 03/24/20 09:00 acetaminophen [From Vicodin] AdvReac Intermediate Racing Verified 03/24/20 09:00 Heart ciprofloxacin [From Cipro] AdvReac Intermediate Blurry Verified 03/24/20 09:00 Vision hydrocodone [From Vicodin] AdvReac Intermediate Racing Verified 03/24/20 09:00 Heart oxycodone AdvReac Intermediate Heart Races Verified 03/24/20 09:00 tramadol [From Ultram] AdvReac Intermediate Profuse Verified 03/24/20 09:00 Sweating doxycycline AdvReac Mild "Burning Verified 03/24/20 09:00 Stomach" Penicillins AdvReac Mild "Hairy Verified 03/24/20 09:00 tongue" propoxyphene AdvReac Unknown "Just do Verified 03/24/20 09:00 [From Ricardo-N] not want pain medications" Home Medications Home Medications Medication Instructions Recorded Confirmed Type simethicone [Gas-X Extra Strength] 125 mg PO TID PRN 09/19/19 05/20/20 History polyethylene glycol 3350 17 17 gm PO DAILY PRN 10/16/19 05/20/20 History gram/dose oral powder Amitiza 24 mcg PO BID 12/29/19 05/20/20 History tamsulosin 0.4 mg capsule 0.4 mg PO BID #180 cap 01/18/20 05/20/20 Rx finasteride 5 mg tablet 5 mg PO QAM #90 tab 01/28/20 05/20/20 Rx rivaroxaban 20 mg tablet 20 mg PO HS 03/22/20 05/20/20 History sertraline 50 mg tablet 50 mg PO QAM #30 tab 03/24/20 05/20/20 Rx levothyroxine [Synthroid] 25 mcg PO DAILYBB #30 tab 04/20/20 05/20/20 Rx risperidone 0.5 mg PO HS #30 tab 04/20/20 05/20/20 Rx sennosides-docusate sodium 1 tab PO QAM #30 tab 04/20/20 05/20/20 Rx [Senokot-S] spironolactone 12.5 mg PO DAILY #30 tab 04/20/20 05/20/20 Rx buspirone 5 mg PO BID 05/20/20 05/20/20 History ibuprofen 400 mg PO Q6H PRN 05/20/20 05/20/20 History lisinopril 20 mg PO QAM 05/20/20 05/20/20 History risperidone 0.25 mg PO DAILY 05/20/20 05/20/20 History vit A,C and [id number]-[id number] 1 tab PO BID 05/20/20 05/20/20 History [I-Ruby] Patient History Medical History (Updated 05/23/20 @ 14:44 by Gary Knight DO, FACS) Atrial fibrillation (Acute) HX. Pacemaker placed 05/16/19. Recently moved to [place] to live with his son, and will be [place] [facility] [place]. Avulsion of skin (Inactive) Bladder neck contracture BPH loc w urin obs/LUTS Candidiasis of mouth and esophagus CHI (closed head injury) (Inactive) Closed fracture nasal bone (Inactive) Contusion (Inactive) Difficulty swallowing 2/2 thrush GERD (gastroesophageal reflux disease) Gross hematuria Xarelto d/c'd 08/2019 because of this. Helicobacter pylori (H. pylori) Macular degeneration Reducible right inguinal hernia Sleep apnea Using CPAP HS. Currently has possible thrush in throat 2/2 CPAP. 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 did not respond to Sinemet Urinary retention Valvular heart disease Surgical History History of colonoscopy History of esophagogastroduodenoscopy (EGD) History of knee replacement Pacemaker Harjinder. PLACED 03/2019 [facility]-USED TO F/U AT [facility]-MOVED TO LIVE WITH SON 08/2019 S/P cataract surgery S/P TURP (transurethral resection of prostate) Family History Sister Colorectal cancer Breast cancer Parkinson disease Son Family history of diabetes mellitus Mother , age 83 of a stroke Stroke Father , age 89 of black Lung Heart disease Denies family history of Ovarian cancer Prostate cancer Crohn's disease Myocardial infarction Ulcerative colitis Social History Preferred Language: Marshallese Communication Ability: Effective Visual Impairment: Partially Limited Hearing Ability: Use of Hearing Aid Director Digital Required: No Beliefs That Will Affect Care: None marital status: / Current Living Situation: [facility] Current Living Situation Comment: LIVES WITH SON/DAUGHTER IN LAW SINCE 08/2019 current occupational status: retired current occupation: Previously worked in [employer] 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 Feels Safe at Home: Yes Safety Concerns: Feels Safe At This Time Smoking Status: Former smoker Tobacco Type: cigarettes ; Do You Dip or Chew Tobacco: No ; Number of Years Since Quit: 50 ; Second Hand Exposure: Yes ; Tobacco Cessation Education Requested by Patient: No Hx Alcohol Use: No Hx Substance Use: No Childhood Exposure to Second-Hand Smoke: Yes caffeine: Yes during the past year weight has: decreased > 10 lbs Dental Care, Regularly: No Review of Systems Review of Systems: All systems reviewed & are unremarkable except as noted in HPI & below Physical Exam Constitutional: WD/WN, vitals as above Eyes: PERRL, conjunctivae normal, anicteric sclerae ENMT: external ear and nose normal, oropharynx normal Neck: trachea midline, no thyromegaly Respiratory: normal respiratory effort, lungs clear to auscultation Cardiovascular: RRR, no murmur, no edema Gastrointestinal (Abdomen): normal bowel sounds, soft, nontender, no hepatosplenomegaly Percussion/Palpation: + hernia (Patient was laying supine, hernia was nonpalpable. Mild tenderness.) Musculoskeletal: no cyanosis or clubbing, extremities motor strength 5/5 Skin: no rashes, warm and dry Neurologic: PERRL, EOMI, accommodation nl, no face palsy, no dysarthria Psychiatric: A+Ox3, euthymic affect Genitourinary: no testicular masses, no penis abnormality Lymphatic: no cervical or axillary lymphadenopathy Results & Data Vital Signs (Past 12 Hours) Vital Signs Temp Pulse Pulse Resp BP BP Pulse Ox 05/23/20 11:19 36.3 C L 64 16 116/70 93 05/23/20 04:19 36.5 C 60 16 101/[address] abd pelvis wo con CT DOSE: 294.19 mGy.cm HISTORY: Pain. Hemoptysis. rt lower abd pain, eval for hernia. left hip bruis TECHNIQUE: Multiaxial CT images of the abdomen and pelvis were performed without contrast. A dose lowering technique was utilized adhering to the principles of ALARA. COMPARISON STUDY: 03/25/2020 FINDINGS: Small bilateral pleural effusions. Superimposed interstitial infiltrate medial aspect left base as well as lingula. Moderate stable cardiomegaly. Mild sclerotic appearance to the liver. Mild abdominal and pelvic ascites. This is diminished from the prior study. Kidneys are considered negative for hydronephrosis. Mild infiltrative change of the omentum and mesentery felt to be secondary to minimal scattered ascites. Several renal cysts and are hyperdense cysts. Bowel pattern is nonobstructive. The bladder is midline. There is a moderate rectal fecal impaction. There are findings of mild body wall anasarca. IMPRESSION: 1. Bilateral pleural effusions with superimposed left basilar as well as lingular infiltrative change. 2. Mild stable cardiomegaly. 3. Cirrhotic liver. 4. Mild scattered ascites diminished from the prior study. PG Care Time/CCT Total # of Minutes Spent Total Time Spent with Patient: Total time spent is greater than 50% in coordination of care (as documented) at patient's floor/unit and/or counseling patient: Coding Level of Care Code 38930 Inpt Consult Level 3 Diagnoses Reducible right inguinal hernia K40.90 Atrial fibrillation I48.11 Atrial fibrillation type: longstanding persistent (1) Atrial fibrillation Atrial fibrillation type: longstanding persistent Qualified Code(s): I48.11 - Longstanding persistent atrial fibrillation
[2020-05-23] MEDS ORDERED: SODIUM CHLORIDE 0.9% 1000ML 250 ML IV ONE (18:34)
[2020-05-23] MEDS: RIVAROXABAN 20 MG TAB PO SCH (20:19)
[2020-05-24] MEDS: LEVOTHYROXINE SODIUM 25 MCG TABLET PO SCH (05:10)
[2020-05-24 05:40] LABS: Hematocrit (blood only) 27.1 % (42-52); Hemoglobin 9.4 g/dL (14.0-18.0); Mean Corpuscular Hemoglobin 30.9 pg (25-34); Mean Corpuscular Hgb Conc 34.7 g/dL (32-36); Mean Corpuscular Volume 89.1 fL (80-100); Mean Platelet Volume 8.8 fL (7.4-10.4); Platelet Count 201 K/uL (130-400); RDW Coefficient of Variation 18.4 % (11.5-14.5); RDW Standard Deviation 60.4 fL (36.4-46.3); Red Blood Count 3.04 M/uL (4.7-6.1)
[2020-05-24 06:21] LABS: Calcium 8.4 mg/dl (8.5-10.1); Creatinine Clr Calc Pharmacy 53.4 ml/min; Potassium 4.7 mmol/L (3.5-5.1)
[2020-05-24] MEDS: SERTRALINE HCL 50 MG TABLET PO SCH (09:02)
[2020-05-24] MEDS: FINASTERIDE 5 MG TAB PO SCH (09:03)
[2020-05-24] MEDS: LUBIPROSTONE 8 MCG CAP PO SCH ×2 (09:03→21:07)
[2020-05-24] MEDS: FUROSEMIDE 20 MG TAB PO SCH (09:04)
[2020-05-24] MEDS: TAMSULOSIN HCL 0.4 MG CAP PO SCH ×2 (09:04→21:07)
[2020-05-24] MEDS: PROPRANOLOL HCL 60 MG LA CAP PO SCH (09:04)
[2020-05-24] MEDS: CEROVITE ADV FORMULA TAB PO SCH ×2 (09:04→21:07)
[2020-05-24] MEDS: SODIUM CHLORIDE 1 GM TABLET PO SCH ×2 (09:05→21:07)
[2020-05-24] MEDS: POLYETHYLENE (MIRALAX) 17 GM PACK PO SCH ×2 (09:23→21:07)
[2020-05-24] MEDS: SIMETHICONE 80 MG CHEW PO PRN (11:14)
[2020-05-24] MEDS ORDERED: SOD PHOSPHATE/SOD BIPHOSPHATE ENEMA 132 ML BTL PR STA (13:13)
--- NOTE | 2020-05-24 13:15 | Hospitalist Progress Note ---
Date of Service May 24, 2020 Assessment & Plan (1) Acute hyponatremia: 2nd to volume overload from cirrhosis +/- acute/chronic diastolic CHF? SIADH? combination? BMP in am. give lasix 20mg IV x 1 given his crackles, JVD, etc. has mild ascites on recent abdominal CT. would hold additional salt tablets. (2) Cirrhosis: 2nd to "cardiac cirrhosis?" other? cont propranolol. will look through records to see if any previous work-up performed for this (SAAG, etc). (3) Hemoptysis: CT chest with bilateral parenchymal infiltrates. Uncertain if infiltrates is infectious vs inflammatory vs pulmonary edema; favor latter. check procalcitonin, sed rate, crp. low threshold for pulmonary consult. xarelto being continued albeit cautiously. (4) Anemia: Hb baseline around 10.1 now mid 8s and stable no overt signs of GI bleeding (5) Abdominal pain: suspect due to constipation will give fleets x 1 and re-eval recent CT abd/pelvis with findings noted (fecal retention noted) not enough ascites for SBP (6) Prolonged QT interval: Paced with underlying a.fib keep mag/k wnl (7) Depression with anxiety: continue Buspar, Risperdal, Zoloft will increase HS risperdal due to hospital delirium (8) Tremor: long history of such, did not respond to Sinemet in the past Dr. 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 improved on Propranolol LA 60mg daily (9) Pacemaker: Noted (10) Atrial fibrillation: on Xarelto (11) BPH loc w urin obs/LUTS: continue home meds no issues (12) Hypothyroid: TSH noted to be 8 in the begining of March started on Synthroid 25mcg daily at that time TSH this admission 3; no changes at this time (13) HTN (hypertension): holding meds except lasix (14) Dementia: continue home meds (15) DVT prophylaxis: xarelto left message for family 05/24/20 Admission and Anticipated Discharge Date Admission Date: May 20, 2020 Subjective patient confused during the visit. with that said he did c/o abdominal discomfort. he denied cough. he denied dyspnea. appetite good at breakfast, but then felt bloated after eating and ate poorly at lunch. staff have noted confusion. Review of Systems Constitutional: no fever Respiratory: no cough and no dyspnea Cardiovascular: no chest pain Gastrointestinal: as per Subjective / HPI, + abdominal pain and + constipation; no vomiting Physical Exam Constitutional: + altered mental status and + frail appearing; no acute distress ENMT: external ear and nose normal, oropharynx normal Respiratory: Auscultation: + crackles (extensive - bases ) Cardiovascular: Rate/Rhythm: regular rate and + irregularly irregular Heart Sounds: normal S1 and normal S2 Vessels: + JVD (to the jaw ), posterior tibial pulses present and dorsalis pedis pulses present Extremities: + edema Gastrointestinal (Abdomen): normal bowel sounds, soft, nontender, no hepatosplenomegaly Inspection/Auscultation: + abdomen distended (mild) Psychiatric: Orientation: alert and oriented to person; + not oriented to place and + not oriented to time Results & Data Results & Data ([facility]) Vital Signs (Past 12 Hours) Vital Signs Temp Pulse Resp BP Pulse Ox 05/24/20 07:33 36.3 C L 66 18 120/72 95 Laboratory Results Na 128 Cr wnl urine Na 100 urine osm 553 serum osm 267 PG Care Time/CCT Total # of Minutes Spent Total Time Spent with Patient: Total time spent is greater than 50% in coordination of care (as documented) at patient's floor/unit and/or counseling patient: Coding Level of Care Code 08733 Subseq Hosp Care Lvl 3 Diagnoses Acute hyponatremia E87.1 Cirrhosis K74.60 Hemoptysis R04.2 Anemia D64.9 Abdominal pain R10.31 Abdominal location: right lower quadrant Prolonged QT interval R94.31 Depression with anxiety F41.8 Tremor R25.1 Pacemaker Z95.0 Atrial fibrillation I48.11 Atrial fibrillation type: longstanding persistent BPH loc w urin obs/LUTS N40.1 Hypothyroid E03.9 HTN (hypertension) I10 Dementia F03.90 DVT prophylaxis Z29.9 (1) Abdominal pain Abdominal location: right lower quadrant Qualified Code(s): R10.31 - Right lower quadrant pain (2) Atrial fibrillation Atrial fibrillation type: longstanding persistent Qualified Code(s): I48.11 - Longstanding persistent atrial fibrillation
[2020-05-24] MEDS ORDERED: FUROSEMIDE 20 MG in SYRINGE 0 ML IV ONE (13:30)
[2020-05-24] MEDS: risperiDONE 0.5 MG TABLET PO SCH ×2 (14:01→21:08)
[2020-05-24] MEDS: RIVAROXABAN 20 MG TAB PO SCH (21:08)
[2020-05-25] MEDS: LEVOTHYROXINE SODIUM 25 MCG TABLET PO SCH (05:26)
[2020-05-25 06:41] LABS: BUN Creatinine Ratio 29.1 (10-20); Calcium 8.2 mg/dl (8.5-10.1); Creatinine Clr Calc Pharmacy 54.6 ml/min; Est GFR (African American) 89.3; Est GFR (Non-African American) 77.1; Magnesium 1.9 mg/dl (1.8-2.4); Potassium 4.5 mmol/L (3.5-5.1)
[2020-05-25] MEDS: PROPRANOLOL HCL 60 MG LA CAP PO SCH (08:42)
[2020-05-25] MEDS: FINASTERIDE 5 MG TAB PO SCH (08:42)
[2020-05-25] MEDS: SERTRALINE HCL 50 MG TABLET PO SCH (08:43)
[2020-05-25] MEDS: CEROVITE ADV FORMULA TAB PO SCH ×2 (08:43→21:35)
[2020-05-25] MEDS: TAMSULOSIN HCL 0.4 MG CAP PO SCH ×2 (08:43→21:37)
[2020-05-25] MEDS: SODIUM CHLORIDE 1 GM TABLET PO SCH (08:43)
[2020-05-25] MEDS: LUBIPROSTONE 8 MCG CAP PO SCH ×2 (08:44→21:35)
[2020-05-25] MEDS: POLYETHYLENE (MIRALAX) 17 GM PACK PO SCH ×2 (08:47→21:35)
[2020-05-25] MEDS: FUROSEMIDE 20 MG TAB PO SCH (10:06)
[2020-05-25] MEDS: SIMETHICONE 80 MG CHEW PO PRN (10:07)
--- NOTE | 2020-05-25 14:06 | Hospitalist Progress Note ---
Date of Service May 25, 2020 Assessment & Plan (1) Acute hyponatremia: acute on chronic. chronic dating back years. 2nd to volume overload from cirrhosis +/- acute/chronic diastolic CHF? SIADH? combination? Na continues to improve with diuresis. Had received salt tabs but I have stopped these. Will give 1 additional dose of 20mg lasix today in addition to normal 20mg dose qam. Repeat BMP in am. (2) Cirrhosis: 2nd to "cardiac cirrhosis?" other? cont propranolol. had paracentesis earlier this year on 03/28/20. ascites albumin was 2.2 at that time. serum albumin was 3.3 at that time. SAAG 1.1. right at cut-off for transudative vs exudative. pathology from fluid was NEGATIVE for malignant cells. mild ascites seen on imaging this admission only. cont lasix 20mg daily. strongly consider addition of aldactone 25mg as well (vs 50mg). (3) Hemoptysis: CT chest with bilateral parenchymal infiltrates. Uncertain if infiltrates is infectious vs inflammatory vs pulmonary edema; favor latter. checked procalcitonin, sed rate, crp. all normal (crp 7 but sed rate normal). l xarelto being continued albeit cautiously. if this was pulmonary edema the edema may have caused bloody sputum. (4) Anemia: Hb baseline around 10.1 now mid 8s and stable no overt signs of GI bleeding (5) Abdominal pain: suspect due to constipation resolved not enough ascites for SBP (6) Prolonged QT interval: Paced with underlying a.fib keep mag/k wnl (7) Depression with anxiety: continue Buspar, Risperdal, Zoloft increased HS risperdal due to hospital delirium (8) Tremor: long history of such, did not respond to Sinemet in the past Dr. 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 improved on Propranolol LA 60mg daily prescribe this at discharge inderal also good for cirrhosis (9) Pacemaker: Noted (10) Atrial fibrillation: on Xarelto (11) BPH loc w urin obs/LUTS: continue home meds no issues (12) Hypothyroid: TSH noted to be 8 in the begining of March started on Synthroid 25mcg daily at that time TSH this admission 3; no changes at this time (13) HTN (hypertension): holding meds except lasix (14) Dementia: continue home meds with mild superimposed hospital delirium (15) DVT prophylaxis: myriam left message for family 05/24/20 spoke and updated son on 05/25 by phone if sodium level is normal possibly d/c back to [facility] in [place] on 05/26 Admission and Anticipated Discharge Date Admission Date: May 20, 2020 Subjective patient working with therapy when I arrived for rounds. had just walked the hallways - therapy said he did well (mild dyspnea only). patient confused but interestingly he said "my neurologist told me I have dementia". he also started talking about his tremors and said "you guys put me on a new medication for it" (inderal - by Dr Barraza). no hemoptysis. no new complaints. Review of Systems Respiratory: + cough and + dyspnea on exertion; no hemoptysis Cardiovascular: no chest pain Gastrointestinal: no abdominal pain Physical Exam Constitutional: + altered mental status and + frail appearing; no acute distress ENMT: external ear and nose normal, oropharynx normal Respiratory: Auscultation: + crackles (MUCH better today; mild residual in the bases only) Cardiovascular: Rate/Rhythm: regular rate and + irregularly irregular Heart Sounds: normal S1 and normal S2 Vessels: + JVD (to the jaw ), posterior tibial pulses present and dorsalis pedis pulses present Extremities: + edema (Trace today - improved) Gastrointestinal (Abdomen): normal bowel sounds, soft, nontender, no hepatosplenomegaly Neurologic: Motor/Sensory: + tremor (Mild only) Psychiatric: Orientation: alert, oriented to person and oriented to place; + not oriented to time Results & Data Results & Data ([facility]) Vital Signs (Past 12 Hours) Vital Signs Temp Pulse Resp BP Pulse Ox 05/25/20 07:19 36.3 C L 59 L 16 143/78 H 100 Laboratory Results Laboratory Results - last 24 hr 05/23/20 05/24/20 05/25/20 16:20 16:02 05:13 Sodium 129 L Potassium 4.5 Chloride 100 Carbon Dioxide 24 Anion Gap 5.0 BUN 26 H Creatinine 0.90 Est Cr Clr Drug Dosing 54.6 Est GFR ( Amer) 89.3 Est GFR (Non-Af Amer) 77.1 BUN/Creatinine Ratio 29.1 H Glucose 126 H Calcium 8.2 L Magnesium 1.9 Ur Random Sodium 100 SARS-CoV-2 RNA (RT-PCR) NEGATIVE PG Care Time/CCT Total # of Minutes Spent Total Time Spent with Patient: Total time spent is greater than 50% in coordination of care (as documented) at patient's floor/unit and/or counseling patient: Coding Level of Care Code 82104 Subseq Hosp Care Lvl 3 Diagnoses Acute hyponatremia E87.1 Cirrhosis K74.60 Hemoptysis R04.2 Anemia D64.9 Abdominal pain R10.31 Abdominal location: right lower quadrant Prolonged QT interval R94.31 Depression with anxiety F41.8 Tremor R25.1 Pacemaker Z95.0 Atrial fibrillation I48.11 Atrial fibrillation type: longstanding persistent BPH loc w urin obs/LUTS N40.1 Hypothyroid E03.9 HTN (hypertension) I10 Dementia F03.90 DVT prophylaxis Z29.9 (1) Atrial fibrillation Atrial fibrillation type: longstanding persistent Qualified Code(s): I48.11 - Longstanding persistent atrial fibrillation (2) Abdominal pain Abdominal location: right lower quadrant Qualified Code(s): R10.31 - Right l ower quadrant pain
[2020-05-25] MEDS: risperiDONE 0.5 MG TABLET PO SCH ×2 (14:17→21:36)
[2020-05-25] MEDS ORDERED: FUROSEMIDE 20 MG TAB PO SCH (15:00)
[2020-05-25] MEDS ORDERED: FUROSEMIDE 20 MG TAB PO ONE (16:00)
[2020-05-25] MEDS: RIVAROXABAN 20 MG TAB PO SCH (21:35)
[2020-05-26] MEDS: LEVOTHYROXINE SODIUM 25 MCG TABLET PO SCH (05:46)
[2020-05-26 06:11] LABS: BUN Creatinine Ratio 28.6 (10-20); Calcium 8.4 mg/dl (8.5-10.1); Creatinine Clr Calc Pharmacy 52.3 ml/min; Est GFR (African American) 84.7; Est GFR (Non-African American) 73.1; Potassium 4.9 mmol/L (3.5-5.1)
[2020-05-26] MEDS: LUBIPROSTONE 8 MCG CAP PO SCH (08:27)
[2020-05-26] MEDS: TAMSULOSIN HCL 0.4 MG CAP PO SCH (08:27)
[2020-05-26] MEDS: FINASTERIDE 5 MG TAB PO SCH (08:27)
[2020-05-26] MEDS: CEROVITE ADV FORMULA TAB PO SCH (08:28)
[2020-05-26] MEDS: PROPRANOLOL HCL 60 MG LA CAP PO SCH (08:28)
[2020-05-26] MEDS: SERTRALINE HCL 50 MG TABLET PO SCH (08:28)
[2020-05-26] MEDS: FUROSEMIDE 20 MG TAB PO SCH (08:37)
[2020-05-26] MEDS: POLYETHYLENE (MIRALAX) 17 GM PACK PO SCH (08:37)
--- NOTE | 2020-05-26 13:04 | Discharge Summary ---
Date of Service May 26, 2020 Admission HPI Per Admitting Provider 84 y/o M with multiple concerns. Pt states that he is having trouble urinating. He states that he can void a small amount of urine and then it stops, then restarts, then stops, etc. He feels like he is not completely voiding. He has pain in his penis with this as well. No blood noted. He feels pressure to his bladder. He has coughed up blood today, several times. He states he coughs once or twice and then notes blood. He states this is from coughing and not emesis. He has been tolerating PO without issue, although he needs help eating due to his Parkinson's. No chest pain or SOB. He is constipated at times. He is still on xarelto. Pt denies fever, abd pain, n/v, LE pain or swelling. Pt was a d/c from [facility] on 04/20 for cellulitis. He feels that this is resolved. Pt admits to memory issues. Principal Diagnosis Pt states he is feeling overall improved. He states that he has no more urinary retention or hemoptysis at this time. He is eating better. He did not sleep well last night, but he says this was due to unusual dreaming. Pt denies fever, SOB, chest pain, abd pain, n/v/c/d, LE pain or swelling. Discharge Exam Constitutional WD/WN, vitals as above Eyes normal visual mason by confrontation and + anicteric sclerae Neck normal visual inspection and trachea midline Respiratory normal respiratory effort, lungs clear to auscultation Cardiovascular Rate/Rhythm: regular rate; + abnormal rhythm Gastrointestinal (Abdomen) Inspection/Auscultation: abdomen not distended Percussion/Palpation: abdomen soft; abdomen nontender Musculoskeletal Head/Neck/Chest: normocephalic and head atraumatic Skin no rashes, warm and dry Neurologic awake; not confused Speech / Cognition: normal speech Psychiatric Orientation: oriented to person, oriented to place and cooperative; + not oriented to time Discharge Data Allergies Allergy/AdvReac Type Severity Reaction Status Date / Time clindamycin Allergy Intermediate Rash Verified 03/24/20 09:00 acetaminophen [From Vicodin] AdvReac Intermediate Racing Verified 03/24/20 09:00 Heart ciprofloxacin [From Cipro] AdvReac Intermediate Blurry Verified 03/24/20 09:00 Vision hydrocodone [From Vicodin] AdvReac Intermediate Racing Verified 03/24/20 09:00 Heart oxycodone AdvReac Intermediate Heart Races Verified 03/24/20 09:00 tramadol [From Ultram] AdvReac Intermediate Profuse Verified 03/24/20 09:00 Sweating doxycycline AdvReac Mild "Burning Verified 03/24/20 09:00 Stomach" Penicillins AdvReac Mild "Hairy Verified 03/24/20 09:00 tongue" propoxyphene AdvReac Unknown "Just do Verified 03/24/20 09:00 [From Darvocet-N] not want pain medications" Consultations 05/20/20 20:26 Consult Case Management - Discharge Planning Routine 05/23/20 09:43 Consult General Surgery Routine Ordered Studies 05/20/20 13:59 CT abd pelvis wo con Stat 05/20/20 20:26 CT chest wo con Urgent Hospital Course (1) Acute hyponatremia: acute on chronic. chronic dating back years. 2nd to volume overload from cirrhosis +/- acute/chronic diastolic CHF? SIADH? combination? Na continues to improve with diuresis. 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 cont propranolol. had paracentesis earlier this year on 03/28/20. ascites albumin was 2.2 at that time. serum albumin was 3.3 at that time. SAAG 1.1. right at cut-off for transudative vs exudative. pathology from fluid was NEGATIVE for malignant cells. mild ascites seen on imaging this admission only. cont lasix 20mg daily. strongly consider addition of aldactone 25mg (vs 50mg) if further sodium issues (3) Hemoptysis: CT chest with bilateral parenchymal infiltrates. Uncertain if infiltrates is infectious vs inflammatory vs pulmonary edema; favor latter. checked procalcitonin, sed rate, crp. all normal (crp 7 but sed rate normal). l xarelto being continued albeit cautiously. if this was pulmonary edema the edema may have caused bloody sputum. (4) Anemia: Hb baseline around 10.1 now mid 8s and stable no overt signs of GI bleeding (5) Abdominal pain: suspect due to constipation resolved not enough ascites for SBP (6) Prolonged QT interval: Paced with underlying a.fib keep mag/k wnl (7) Depression with anxiety: continue Buspar, Risperdal, Zoloft increased HS risperdal due to hospital delirium (8) Tremor: long history of such, did not respond to Sinemet in the past Dr. 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 improved on Propranolol LA 60mg daily Continue this at discharge inderal also good for cirrhosis (9) Pacemaker: Noted (10) Atrial fibrillation: on Xarelto (11) BPH loc w urin obs/LUTS: continue home meds no issues (12) Hypothyroid: TSH noted to be 8 in the begining of March started on Synthroid 25mcg daily at that time TSH this admission 3; no changes at this time (13) HTN (hypertension): holding meds except lasix (14) Dementia: continue home meds with mild superimposed hospital delirium (15) DVT prophylaxis: xarelto Total Time Total Time Spent Total Time Spent (In Minutes): >30 Total Time Includes: Examination of the Patient, Discharge Planning, Medication Reconciliation and Other Discharge Plan Discharge Items Patient Disposition: Personal [facility] Reason For Visit: URINARY RETENTION,HEMOTYPSIS Discharge Diagnosis: Hyponatremia Activity: Resume your previous activity Non-emergency contact: Primary Care Provider Call non-emergency contact if: you have any medication questions, your symptoms worsen and your pain is not controlled Follow-up/Referrals: Josue Garibay DO [Primary Care Provider] - Diet: Regular Addtl Attending Provider Instructions: You should be seen by your PCP next week BMP on 05/30/20 Pending Studies at Discharge: Yes Studies:: COVID 19 testing (repeat required by facility, initial on admission was neg) Stand-Alone Forms: My [employer], Smoking Cessation Skilled Items Patient informed of condition?: Yes DNR: No (requests cardiac code, DNI) Discharge Level of Care: Other Communicable Disease: Yes Discharge Prognosis: Improving Lines: None Urinary Catheter: No Medications and DC Order Prescriptions: New propranolol 60 mg Capsule,Extended Release 24 Hr 60 mg PO QAM Qty: 30 RF: 0 furosemide 20 mg Tablet 20 mg PO QAM Qty: 30 RF: 0 risperidone 0.5 mg Tablet 0.75 mg PO HS Qty: 30 RF: 0 Continued Xarelto 20 mg tablet 20 mg PO HS RF: 0 tamsulosin [Flomax] 0.4 mg capsule 0.4 mg PO BID Qty: 180 RF: 1 sertraline 50 mg tablet 50 mg PO QAM Qty: 30 RF: 5 finasteride [Proscar] 5 mg tablet 5 mg PO QAM Qty: 90 RF: 3 polyethylene glycol 3350 [Miralax] 17 gram/dose powder 17 gm PO DAILY PRN (Reason: Constipation) RF: 0 simethicone [Gas-X Extra Strength] 125 mg Capsule 125 mg PO TID PRN (Reason: GAS/BLOATING) RF: 0 Amitiza 24 mcg Capsule 24 mcg PO BID RF: 0 sennosides-docusate sodium [Senokot-S] 8.6-50 mg Tablet 1 tab PO QAM Qty: 30 RF: 0 levothyroxine [Synthroid] 25 mcg Tablet 25 mcg PO DAILYBB Qty: 30 RF: 0 buspirone 5 mg Tablet 5 mg PO BID RF: 0 ibuprofen 400 mg Tablet 400 mg PO Q6H PRN (Reason: Fever Or Pain) RF: 0 I-Ruby 1,000 unit-200 mg-60 unit-2 mg Tablet 1 tab PO BID RF: 0 risperidone 0.5 mg tablet 0.25 mg PO DAILY RF: 0 Discontinued spironolactone 25 mg Tablet 12.5 mg PO DAILY Qty: 30 RF: 0 risperidone 0.5 mg Tablet 0.5 mg PO HS Qty: 30 RF: 0 lisinopril 20 mg Tablet 20 mg PO QAM RF: 0 Discharge Orders: Discharge Order (Routine); Ordered 05/26/20 Ordered By: Doreen Centeno Admission Data Admit Date/Time: 05/20/20 18:58 Attending Provider: Doreen Centeno Admit Provider: Doreen Centeno Primary Care Provider: Josue Garibay Other Providers: James Jacobs Other Interventions: Discharge Summary Assessment (RN) Last Done: 05/26/20 14:04 DC Date/Time DO NOT enter until pt leaves facility: 05/26/20 16:30 Coding Level of Care Code D/C Day Management >30 mins Diagnoses Acute hyponatremia E87.1 Cirrhosis K74.60 Hemoptysis R04.2 Anemia D64.9 Abdominal pain R10.31 Abdominal location: right lower quadrant Prolonged QT interval R94.31 Depression with anxiety F41.8 Tremor R25.1 Pacemaker Z95.0 Atrial fibrillation I48.11 Atrial fibrillation type: longstanding persistent BPH loc w urin obs/LUTS N40.1 Hypothyroid E03.9 HTN (hypertension) I10 Dementia F03.90 DVT prophylaxis Z29.9
[2020-05-26] MEDS: risperiDONE 0.5 MG TABLET PO SCH (13:45)
== END 2020-05-26 16:30 | disposition home or self-care (01) | DRG 643 ==
LOC: ED 13:32 → 1E 18:58 → SUATTDRO 18:58 → 1E 19:55 → 2S 05-21 19:14 → 3E 05-23 09:54